=== PATIENT | female | born 1970 | race Caucasian/White ===

== ENCOUNTER → 2017-06-02 | Outpatient (CLI) | payer OTHER ==
--- NOTE | 2017-06-03 14:10 | PE ---
Nuclear medicine PET/CT HISTORY: Small cell lung carcinoma, initial Patient received 15.3 mCi F-18 FDG intravenously in delayed scanning performed from the skull base to the mid thighs. Localization and attenuation correction CT scan was performed. Correlation to chest x-ray 05/30/2017 Neck and chest: There is no evident abnormality within the neck. Retrocaval pretracheal hilar and rig ht adenopathy is noted with SUV 14.9, there is mass effect on the right mainstem bronchus which is oc cluded over a short segment. Some atelectatic change suspected in the right middle lobe, extension of soft tissue into the right middle lobe and right upper lobe, right lower lobe. Associated hypermetab olic uptake is present, SUV is 19. Left lung is clear. There are coronary artery calcifications. The heart is enlarged. Abdomen pelvis: No suspicious hypermetabolic uptake. No evident adrenal mass or retroperitoneal adeno larissa. Osseous structures unremarkable. IMPRESSION: Findings compatible with patient's history of lung carcinoma as described. Additional fin dings above.
== END ==
LOC: RADPETMAIN 06:55
PROVIDERS: ATTEND Internal Medicine Critical Care Medicine
DX: C34.90 Malignant neoplasm of unspecified part of unspecified bronchus or lung (principal)
CPT/HCPCS: 78815; A9552

== ENCOUNTER → 2017-06-04 | Outpatient (CLI) | payer BC, OTHER ==
--- NOTE | 2017-06-04 23:13 | MR ---
EXAMINATION TYPE: MR brain wo/w con DATE OF EXAM: 06/04/2017 COMPARISON: NONE HISTORY: Hx of Lung CA small cell, staging study. TECHNIQUE: Multiplanar, multisequence images of the brain and brainstem is performed without and with IV contras t, utilizing 4.5 mL intravenous Gadavist . FINDINGS: Diffusion weighted images demonstrate no evidence of a recent infarct or other diffusion ab normality. There is mild ventricular and sulcal prominence over bilateral frontal lobes consistent w ith mild symmetric atrophy at this level. There are few scattered foci of T2 hyperintensity seen thro ughout the white matter bilaterally. Estimate approximately 10 small scattered lesions. There is slig htly more suspicious larger 10 x 7 mm lesion left frontal deep white matter at level of barriga radiat a on axial image 19, no suspicious enhancement is seen. Midline structures demonstrate normal morphology. The craniocervical junction appears within normal limits. Post contrast images demonstrate no abnormal enhancement. The dural venous sinuses appear pa tent. The visualized sinuses are clear and the globes are intact. IMPRESSION: 1. No suspicious enhancing intraparenchymal lesions are seen to suggest metastatic disease. 2. Symmetric mild bilateral frontal lobe atrophy with mild nonspecific white matter changes including single dominant lesion left frontal coronal radiata. Etiology uncertain. Lack of enhancement makes m etastatic disease extremely unlikely.
== END | disposition home or self-care (01) ==
LOC: RADMRIMAIN 18:18
PROVIDERS: ATTEND Internal Medicine Hematology & Oncology
DX: C34.91 Malignant neoplasm of unspecified part of right bronchus or lung (principal); R90.82 White matter disease, unspecified; G31.9 Degenerative disease of nervous system, unspecified
CPT/HCPCS: 70553; A9581

== ENCOUNTER → 2017-08-27 | Outpatient (CLI) | payer BC ==
[2017-08-27 09:06] LABS: Blood Urea Nitrogen 14 mg/dL (7-17)
--- NOTE | 2017-08-27 09:56 | CT ---
EXAMINATION TYPE: CT chest w con DATE OF EXAM: 08/27/2017 COMPARISON: PET/CT dated 06/02/2017 HISTORY: Lung CA follow-up Automated exposure control for dose reduction was used. CONTRAST: Contrast enhanced CT of the chest was performed with lung and mediastinal window settings submitted. 100 cc of Omnipaque 300 was utilized. FINDINGS: LUNGS: Dramatic improvement in right suprahilar mass with persistent nodule now measuring 1.6 cm. The re is right hilar adenopathy measuring 2.6 x 2.5 cm also dramatically improved. No new masses or new areas of adenopathy appreciated. MEDIASTINUM: There are no greater than 1 cm hilar or mediastinal lymph nodes. No pericardial effusi on is seen. Thoracic aorta is of normal caliber. The heart is not enlarged. UPPER ABDOMEN: There is partially imaged peripherally enhancing mass posterior segment right hepatic lobe measuring 3.0 x 2.0 cm. While this could reflect hemangioma I cannot exclude metastatic disease. Dedicated hemangioma protocol CT of the liver is advised. OTHER: No additional significant abnormality is seen. IMPRESSION: 1. Dramatic improvement in right hilar mass and right hilar adenopathy as discussed above. 2 hemangioma versus metastatic lesion within the posterior segment right hepatic lobe. Dedicated marianela ngioma protocol CT of the liver is recommended if this has not been performed previously.
== END | disposition home or self-care (01) ==
LOC: RADCTMAIN 08:29
PROVIDERS: ATTEND Internal Medicine Hematology & Oncology
DX: C34.91 Malignant neoplasm of unspecified part of right bronchus or lung (principal); R91.8 Other nonspecific abnormal finding of lung field
CPT/HCPCS: 82565; 84520; 71260; 36415; Q9967

== ENCOUNTER 2017-08-30 11:09 | Inpatient (IN) | payer BC ==
[2017-08-30] MEDS ORDERED: MORPHINE SULFATE 4 MG/ML SYRINGE IVP STA (11:28)
[2017-08-30] MEDS ORDERED: SODIUM CHLORIDE 0.9% 1,000 ML IV ONE (11:28)
--- NOTE | 2017-08-30 11:31 | ED ---
General Adult HPI - General Chief complaint: Recheck/Abnormal Lab/Rx Stated complaint: Dehydration-ca pt Time Seen by Provider: 08/30/17 11:23 Source: patient, RN notes reviewed, old records reviewed Mode of arrival: ambulatory Limitations: no limitations - History of Present Illness Initial comments: 47-year-old female with history of small cell lung cancer presents for evaluation of dehydration. Patient has been on chemotherapy, last session was approximately one week ago. She has had some nausea and pain with swallowing. She is also receiving radiation therapy. Because of the pain with swallowing she has not been eating or taking her pain medication. She feels she is dehydrated. She denies any abdominal pain. Denies difficulty breathing. Denies fever or chills. Denies dysuria. She is concerned about her electrolytes. Next chemotherapy is scheduled for approximately 2 weeks. - Related Data Home Medications Medication Instructions Recorded Confirmed Albuterol Inhaler [Ventolin Hfa 1 - 2 puff INHALATION Q6HR PRN 06/18/17 08/30/17 Inhaler] Ipratropium-Albuterol Nebulize 3 ml INHALATION RT-BID PRN 06/18/17 08/30/17 [Duoneb 0.5 mg-3 mg/3 ml Soln] Levothyroxine Sodium [Synthroid] 25 mcg PO DAILY 06/18/17 08/30/17 Lisinopril [Prinivil] 20 mg PO DAILY 06/18/17 08/30/17 Mometasone/Formoterol [Dulera 100 2 puff INHALATION RT-BID 06/18/17 08/30/17 Mcg/5 Mcg Inhaler] Umeclidinium [place] [Incruse 1 puff INHALATION RT-DAILY 06/18/17 08/30/17 Ellipta] amLODIPine [Norvasc] 5 mg PO DAILY 06/18/17 08/30/17 Ergocalciferol (Vitamin D2) 50,000 tab PO FR 07/09/17 08/30/17 [Vitamin D2] Dexamethasone 8 mg PO DIRECTED 07/10/17 08/30/17 Montelukast [Singulair] 10 mg PO DAILY 07/10/17 08/30/17 Hydrocodone/Acetaminophen [Hycet 15 - 25 ml PO ACHS PRN 08/30/17 08/30/17 7.5 mg-325 mg/15 ml Soln] LORazepam [Ativan] 0.5 mg PO Q8H PRN 08/30/17 08/30/17 Lidocaine Viscous 2% [Xylocaine 15 - 20 ml MUCOUS MEM ACHS PRN 08/30/17 08/30/17 Viscous] Magnesium Oxide [Mag-Ox] 400 mg PO TID 08/30/17 08/30/17 Ondansetron [Zofran ODT] 4 mg PO Q8HR PRN 08/30/17 08/30/17 fentaNYL [Duragesic 25MCG/HR] 1 patch TRANSDERM Q72H 08/30/17 08/30/17 Allergies Allergy/AdvReac Type Severity Reaction Status Date / Time infliximab [From Remicade] Allergy Severe Anaphylaxis Verified 08/30/17 12:13 Review of Systems ROS Statement: Those systems with pertinent positive or pertinent negative responses have been documented in the HPI. ROS Other: All systems not noted in ROS Statement are negative. Past Medical History Past Medical History: Hypertension, Pneumonia, Thyroid Disorder Additional Past Medical History / Comment(s): 06/08 lung cancer History of Any Multi-Drug Resistant Organisms: None Reported Additional Past Surgical History / Comment(s): ganglion cyst, pylonidal cyst, 2017bronch Past Anesthesia/Blood Transfusion Reactions: No Reported Reaction Past Psychological History: Anxiety Smoking Status: Former smoker Past Alcohol Use History: None Reported Past Drug Use History: None Reported General Exam Limitations: no limitations General appearance: alert, in no apparent distress Head exam: Present: atraumatic, normocephalic Eye exam: Present: normal appearance, PERRL ENT exam: Present: mucous membranes dry Neck exam: Present: normal inspection. Absent: tenderness, meningismus Respiratory exam: Present: normal lung sounds bilaterally. Absent: respiratory distress, wheezes Cardiovascular Exam: Present: normal rhythm, tachycardia GI/Abdominal exam: Present: soft. Absent: distended, tenderness, guarding, rebound Extremities exam: Present: normal inspection, normal capillary refill. Absent: pedal edema Neurological exam: Present: alert, oriented X3, CN II-XII intact. Absent: motor sensory deficit Psychiatric exam: Present: normal affect, normal mood Skin exam: Present: warm, dry, intact. Absent: cyanosis, diaphoretic Course Vital Signs 08/30/17 11:12 Temperature 98.7 F Pulse Rate 126 H Respiratory 18 Rate Blood Pressure 112/66 O2 Sat by Pulse 100 Oximetry - Reevaluation(s) Reevaluation #1: 08/30/17 13:05 On reevaluation, patient is still having continued pain, unable to tolerate liquids. Medical Decision Making - Medical Decision Making 47-year-old female history of lung cancer presenting with dehydration, pain with swallowing and inability to tolerate anything by mouth. On examination patient is tachycardic, she is dehydrated. Laboratory studies are obtained, there is leukopenia, she is 8 days status post chemotherapy. total White blood cell count 700. She is afebrile. Magnesium is low at 1.2. No other electrolyte abnormalities. Magnesium is replaced. Patient will be admitted for continued IV hydration magnesium replacement and treatment of her pain. Oncology placed on consult for evaluation of leukopenia. - Lab Data Result diagrams: 08/30/17 11:43 08/30/17 11:43 Lab Results 08/30/17 08/30/17 Range/Units 11:43 11:43 WBC 0.7 L* (3.8-10.6) k/uL RBC 2.93 L (3.80-5.40) m/uL Hgb 8.9 L D (11.4-16.0) gm/dL Hct 26.2 L (34.0-46.0) % MCV 89.7 (80.0-100.0) fL MCH 30.3 (25.0-35.0) pg MCHC 33.8 (31.0-37.0) g/dL RDW 15.3 (11.5-15.5) % Plt Count 65 L D (150-450) k/uL Differential Comment Manual Slide Review Performed Poikilocytosis Slight Sodium 139 (137-145) mmol/L Potassium 3.9 (3.5-5.1) mmol/L Chloride 101 (98-107) mmol/L Carbon Dioxide 25 (22-30) mmol/L Anion Gap 13 mmol/L BUN 11 (7-17) mg/dL Creatinine 0.90 (0.52-1.04) mg/dL Est GFR (MDRD) Af Amer >60 (>60 ml/min/1.73 sqM) Est GFR (MDRD) Non-Af >60 (>60 ml/min/1.73 sqM) Glucose 101 H (74-99) mg/dL Calcium 9.2 (8.4-10.2) mg/dL Magnesium 1.2 L (1.6-2.3) mg/dL Total Bilirubin 0.7 (0.2-1.3) mg/dL AST 13 L (14-36) U/L ALT 15 (9-52) U/L Alkaline Phosphatase 72 (38-126) U/L Total Protein 6.7 (6.3-8.2) g/dL Albumin 4.0 (3.5-5.0) g/dL Disposition Clinical Impression: Dehydration, Hypomagnesemia Disposition: ADMITTED IP TO THIS [facility] Condition: Stable Referrals: Soni Mckenzie DO [Primary Care Provider] - 1-2 days Decision to Admit Reason: Admit from EC Decision Date: 08/30/17 Decision Time: 13:07
[2017-08-30 11:59] LABS: HCT 26.2 % (34.0-46.0); MCH 30.3 pg (25.0-35.0); MCHC 33.8 g/dL (31.0-37.0); MCV 89.7 fL (80.0-100.0); Mean Platelet Volume 7.6; Poikilocytosis Slight; RBC 2.93 m/uL (3.80-5.40); RDW 15.3 % (11.5-15.5)
[2017-08-30 12:04] LABS: ALT 15 U/L (9-52); AST 13 U/L (14-36); Alkaline Phosphatase 72 U/L (38-126); Anion Gap 13 mmol/L; Blood Urea Nitrogen 11 mg/dL (7-17); Calcium 9.2 mg/dL (8.4-10.2); Carbon Dioxide 25 mmol/L (22-30); Chloride 101 mmol/L (98-107); Glucose 101 mg/dL (74-99); Magnesium 1.2 mg/dL (1.6-2.3); Potassium 3.9 mmol/L (3.5-5.1); Sodium 139 mmol/L (137-145); Total Bilirubin 0.7 mg/dL (0.2-1.3); Total Protein 6.7 g/dL (6.3-8.2)
[2017-08-30 12:19] LABS: HGB 8.9 gm/dL (11.4-16.0); WBC 0.7 k/uL (3.8-10.6)
[2017-08-30 12:56] LABS: Platelet Count 65 k/uL (150-450)
[2017-08-30] MEDS ORDERED: NALOXONE 0.4 MG/ML 1 ML VIAL IV PRN (13:03)
[2017-08-30] MEDS ORDERED: MORPHINE SULFATE 4 MG/ML SYRINGE IV PRN (13:03)
[2017-08-30] MEDS ORDERED: HYDROmorphone 4 MG/ML 1 ML SYRINGE IVP PRN (13:03)
[2017-08-30] MEDS: MAGNESIUM SULFATE-D5W PMX 1 GM in DEXTROSE/WATER 1 100ML.BAG IVPB SCH ×2 (13:49→16:37)
[2017-08-30] MEDS: HYDROmorphone 4 MG/ML 1 ML SYRINGE IVP PRN ×2 (15:14→19:21)
[2017-08-30] MEDS ORDERED: HYDROmorphone 0.5 MG/0.5 ML SYRINGE IVP PRN (20:41)
[2017-08-30] MEDS ORDERED: LIDOCAINE VISCOUS 2% 15 ML CUP MUCOUS MEM SCH (22:00)
[2017-08-30] MEDS: SUCRALFATE 1 GM TAB PO SCH (22:13)
[2017-08-30] MEDS: HYDROmorphone 0.5 MG/0.5 ML SYRINGE IVP PRN (22:14)
--- NOTE | 2017-08-30 23:35 | P.CONS ---
History of Present Illness - Reason for Consult Consult date: 08/30/17 chemotherapy, leukopenia Requesting physician: Erasmo Robert - Chief Complaint Inability to swallow, dizziness - History of Present Illness Mrs. Montelongo is a very pleasant female pt of Dr. Osuna who presented with persistent cough and dyspnea that had started around October 2016, she was treated with multiple courses of antibiotics and steroids but without resolve, she had CXR done April 2017 that revealed a persistent right lung mass, CT revealed 6 cm RML mass, 6mm lesion in RUL and small pericardial effusion , 05/21/17 she had bronchoscopy revealing obstructing lesion in RUL, transbronchial biopsy was positive for small cell lung carcinoma, brain MRI was negative for mets, staging PET was positive in RML, RUL and hilar LN, limited stage IIB, concurrent chemo/RT was recommended. She had 1 cycle of cisplatin and etoposide 06/18, started concurrent radiation with cycle#2 on 07/09/2017, ciplatin was D/C'd after 3 cycles due to tinnitus and changed to carboplatin, she has had 4 of 6 planned cycles of chemo, she is done with radiation. Pt came to ER because she cannot eat or drink x 1 week, she was feeling more dizzy and progressively weaker, she has odynophagia without dysphagia, some liquids are tolerable in very small amounts, the pain starts in the middle of her neck and goes to the epigastric area and radiates to right a little, it is there anytime she swallows, she can manage her secretions, she has vomited a few times, denies hematemesis. She has not had fever, denies oral irritation, SOB, new cough, abd pain, bloating, dysuria, hematuria, diarrhea, she cannot remember her last BM but, thinks it has been a few days, no BLE swelling or pain , her psoriasis is stable, the radiation burn on her back is being treated with topical antimicrobials. Review of Systems 10 point ROS as stated in HPI Past Medical History Past Medical History: Cancer, Hypertension, Pneumonia, Thyroid Disorder Additional Past Medical History / Comment(s): 06/08 small cell lung cancer undergoing chemotherapy (last one 8 days ago) and radiation therapy (last one 08/27/17), pneumonia once in April 2017, pt states she is perimenopausal-last menses months ago. History of Any Multi-Drug Resistant Organisms: None Reported Additional Past Surgical History / Comment(s): Bronchoscopy with bx, EGD, R wrist ganglion cyst, pilonidal cyst Past Anesthesia/Blood Transfusion Reactions: Postoperative Nausea & Vomiting ( PONV) Past Psychological History: No Psychological Hx Reported Additional Psychological History / Comment(s): Pt resides with her spouse. She uses no assistive device. She has not been driving lately, spouse or her mother takes her to [employer]. Smoking Status: Former smoker Past Alcohol Use History: None Reported Additional Past Alcohol Use History / Comment(s): Pt started smoking in 1979 and quit 06/14/17. Past Drug Use History: None Reported - Past Family History Father Family Medical History: CVA/TIA Additional Family Medical History / Comment(s): Father of a CVA at the age of 60 yrs. Strokes run strongly on his side of the family. Mother Family Medical History: No Reported History Additional Family Medical History / Comment(s): Mother is healthy. Medications and Allergies Home Medications Medication Instructions Recorded Confirmed Type Albuterol Inhaler [Ventolin Hfa 1 - 2 puff INHALATION Q6HR PRN 06/18/17 History Inhaler] Ipratropium-Albuterol Nebulize 3 ml INHALATION RT-BID PRN 06/18/17 08/30/17 History [Duoneb 0.5 mg-3 mg/3 ml Soln] Levothyroxine Sodium [Synthroid] 25 mcg PO DAILY 06/18/17 08/30/17 History Lisinopril [Prinivil] 20 mg PO DAILY 06/18/17 08/30/17 History Mometasone/Formoterol [Dulera 100 2 puff INHALATION RT-BID 06/18/17 08/30/17 History Mcg/5 Mcg Inhaler] Umeclidinium [place] [Incruse 1 puff INHALATION RT-DAILY 06/18/17 08/30/17 History Ellipta] amLODIPine [Norvasc] 5 mg PO DAILY 06/18/17 08/30/17 History Ergocalciferol (Vitamin D2) 50,000 tab PO FR 07/09/17 08/30/17 History [Vitamin D2] Dexamethasone 8 mg PO DIRECTED 07/10/17 08/30/17 History Montelukast [Singulair] 10 mg PO DAILY 07/10/17 08/30/17 History Hydrocodone/Acetaminophen [Hycet 15 - 25 ml PO ACHS PRN 08/30/17 08/30/17 History 7.5 mg-325 mg/15 ml Soln] LORazepam [Ativan] 0.5 mg PO Q8H PRN 08/30/17 08/30/17 History Lidocaine Viscous 2% [Xylocaine 15 - 20 ml MUCOUS MEM ACHS PRN 08/30/17 History Viscous] Magnesium Oxide [Mag-Ox] 400 mg PO TID 08/30/17 08/30/17 History Ondansetron [Zofran ODT] 4 mg PO Q8HR PRN 08/30/17 08/30/17 History fentaNYL [Duragesic 25MCG/HR] 1 patch TRANSDERM Q72H 08/30/17 08/30/17 History Allergies Allergy/AdvReac Type Severity Reaction Status Date / Time infliximab [From Remicade] Allergy Severe Anaphylaxis Verified 08/30/17 12:13 Physical Exam Vitals: Vital Signs Temp Pulse Pulse Resp BP BP Pulse Ox 08/30/17 20:23 100 18 126/70 08/30/17 15:00 98.5 F 97 18 126/61 100 08/30/17 13:54 96 16 143/83 100 08/30/17 11:12 98.7 F 126 H 18 112/66 100 Intake and Output 08/30/17 08/30/17 08/31/17 14:59 22:59 06:59 Other: Weight 85.275 kg Patient Weight 08/31/17 06:59 Weight 85.275 kg - Constitutional General appearance: cooperative, mild distress, obese - EENT Eyes: anicteric sclerae, EOMI, normal appearance ENT: hearing grossly normal, normal oropharynx - Neck Neck: no lymphadenopathy - Respiratory chest expansion symmetrical Respiratory: bilateral: diminished - Cardiovascular Rhythm: regular Heart sounds: normal: S1, S2 Abnormal Heart Sounds: no systolic murmur, no diastolic murmur, no rub, no S3 Gallop, no S4 Gallop, no click, no other leg Peripheral Edema: bilateral: None - Gastrointestinal no rebound in the abd General gastrointestinal: no absent bowel sounds, no decreased bowel sounds, no distended, no hepatomegaly, no hyperactive bowel sounds, normal bowel sounds, no organomegaly, no rigid, no scaphoid, soft, no splenomegaly, no tenderness, no umbilical hernia, no ventral hernia - Integumentary Right subscapular area radiation burn, epidermal layer deep, red, tight, no purulent drainage or bleeding. She does has multiple psoriatic lesions on her arms, this is not new or progressive at this time - Neurologic Neurologic: CNII-XII intact - Musculoskeletal Musculoskeletal: strength equal bilaterally - Psychiatric Psychiatric: A&O x's 3, appropriate affect, intact judgment & insight Results CBC & Chem 7: 08/30/17 11:43 08/30/17 11:43 Labs: Abnormal Lab Results - Last 24 Hours (Table) 08/30/17 08/30/17 Range/Units 11:43 11:43 WBC 0.7 L* (3.8-10.6) k/uL RBC 2.93 L (3.80-5.40) m/uL Hgb 8.9 L D (11.4-16.0) gm/dL Hct 26.2 L (34.0-46.0) % Plt Count 65 L D (150-450) k/uL Glucose 101 H (74-99) mg/dL Magnesium 1.2 L (1.6-2.3) mg/dL AST 13 L (14-36) U/L Assessment and Plan (1) Radiation esophagitis Narrative/Plan: Carafate ordered to coat esophagus, viscous lidocaine PRN with liquids for tolerance, clear liquid diet. Current Visit: Yes Status: Acute Priority: High Code(s): K20.8 - OTHER ESOPHAGITIS SNOMED Code(s): 227179619 (2) Antineoplastic chemotherapy induced pancytopenia Narrative/Plan: GCSF ordered for neutropenia No blood or platelet transfusions needed CBC daily Current Visit: Yes Status: Acute Priority: High Code(s): D61.810 - ANTINEOPLASTIC CHEMOTHERAPY INDUCED PANCYTOPENIA; T45.1X5A - ADVERSE EFFECT OF ANTINEOPLASTIC AND IMMUNOSUP DRUGS, INIT SNOMED Code(s): 617758935585202 (3) Dehydration Narrative/Plan: Cont IVF Current Visit: Yes Status: Acute Priority: High Code(s): E86.0 - DEHYDRATION SNOMED Code(s): 88375352 (4) Hypomagnesemia Narrative/Plan: Magnesium replacement protocol Current Visit: Yes Status: Acute Priority: High Code(s): E83.42 - HYPOMAGNESEMIA SNOMED Code(s): 857010727 (5) Small cell lung cancer Narrative/Plan: She is currently in treatment. It will continue on discharge. Current Visit: Yes Status: Acute Priority: High Code(s): C34.90 - MALIGNANT NEOPLASM OF UNSP PART OF UNSP BRONCHUS OR LUNG SNOMED Code(s): 457519255 (6) Radiation dermatitis Narrative/Plan: Topical treatments as recommended by Radiation Oncology Current Visit: Yes Status: Acute Priority: High Code(s): L58.9 - RADIODERMATITIS, UNSPECIFIED SNOMED Code(s): 75269108
[2017-08-30] MEDS: FILGRASTIM-SNDZ 480 MCG/0.8 ML SYRINGE SQ SCH (23:58)
[2017-08-31] MEDS: HYDROmorphone 0.5 MG/0.5 ML SYRINGE IVP PRN ×5 (01:42→20:01)
[2017-08-31] MEDS: LIDOCAINE VISCOUS 2% 15 ML CUP MUCOUS MEM PRN ×2 (08:52→17:43)
[2017-08-31] MEDS: SUCRALFATE 1 GM TAB PO SCH ×4 (08:54→22:46)
[2017-08-31] MEDS: LORazepam 2 MG/ML INJ IV PRN ×3 (09:04→22:47)
[2017-08-31] MEDS ORDERED: IPRATROPIUM-ALBUTEROL 3 ML NEB INHALATION PRN (09:39)
[2017-08-31] MEDS ORDERED: ONDANSETRON ODT 4 MG TAB PO PRN (09:39)
[2017-08-31] MEDS ORDERED: LIDOCAINE VISCOUS 2% 15 ML CUP MUCOUS MEM PRN (09:39)
[2017-08-31] MEDS ORDERED: ALBUTEROL NEBULIZED 2.5 MG/3 ML INHALATION PRN (09:39)
[2017-08-31] MEDS: ERGOCALCIFEROL 50,000 UNIT CAP PO SCH (10:13)
[2017-08-31] MEDS: LISINOPRIL 20 MG TAB PO SCH (10:13)
[2017-08-31] MEDS: MONTELUKAST 10 MG TAB PO SCH (10:13)
[2017-08-31] MEDS: NYSTATIN 100,000 UNIT/ML SUSP 500,000 UNIT/5 ML CUP PO SCH ×4 (10:13→22:47)
[2017-08-31] MEDS: MAGNESIUM OXIDE 400 MG TAB PO SCH ×3 (10:13→22:47)
[2017-08-31] MEDS: amLODIPine 5 MG TAB PO SCH (10:13)
[2017-08-31] MEDS: LEVOTHYROXINE 25 MCG TAB PO SCH (10:13)
[2017-08-31] MEDS: FILGRASTIM-SNDZ 480 MCG/0.8 ML SYRINGE SQ SCH (11:15)
[2017-08-31 11:27] VITALS: BMI 34.4
[2017-08-31] MEDS: IPRATROPIUM 0.5 MG/2.5 ML NEBU INHALATION SCH ×3 (12:09→21:17)
--- NOTE | 2017-08-31 13:44 | P.CNPUL ---
History of Present Illness Consult date: 08/31/17 Requesting physician: Katty Garay Reason for consult: other Chief complaint: Nausea, vomiting, dehydration. History of present illness: Karmen is a 47-year-old white female patient with a recent diagnosis of small cell lung cancer TNM stage IIB, that was diagnosed in April [address] showed a 5.8 x 5.3 cm right hilar mass with postobstructive pneumonitis involving the right middle lobe and the right upper lobe. Another 6 mm satellite lesion in the anterior segment of the right upper lobe was also seen. There was attenuation of the right upper lobe bronchus.. She had of bronchoscopy at the [facility] by Dr. Osorio, which revealed evidence of obstruction of the posterior and the anterior segment of the right upper lobe with evidence of endobronchial tumor. Endobronchial biopsies were done, and the pathology was consistent with small cell lung cancer. Staging PET scan from 06/02/2017 showed retrocaval pretracheal hilar and right adenopathy with SUV 14.9, there was mass effect on the right mainstem bronchus which was occluded over a short segments. Some atelectatic change in the right middle lobe, extension of soft tissue into the right middle lobe and right upper lobe, right lower lobe. Associated hypermetabolic uptake was present, SUV is 19. Left lung was clear. MRI brain from 06/04/2017 is negative for evidence of metastasis. Patient completed her radiation treatments and she has received 4 cycles of chemotherapy, initially with cisplatin and etoposide. After the last cycle of chemotherapy, due to significant ringing in the ears, the cisplatin was discontinued and was changed over to carboplatin. Patient developed significant nausea and vomiting with the last cycle of chemotherapy. She has not been able to eat or drink for a week. She is complaining of significant dizziness and lightheadedness and progressive weakness, as well as painful swallowing. She denied any fever or chills, denied any shortness of breath, denied any coughing, chest congestion or sputum production. She denies any diarrhea, she actually hasn't had a bowel movement in a few days due to decreased oral intake. She also has not been able to take her pain medications due to swallowing issues. Her last chemotherapy was about a week ago. She is also complaining of significant discomfort from a radiation burn on her right posterior chest area, and the area is an open draining per superficial wound, which is currently covered with a dressing. Lab work showed significant leukopenia, with a WBC of 0.7, hemoglobin of 8.9, platelet count of 65, electrolytes were within normal limits , with sodium of 139, potassium is 3.9, chloride is 101, BUN of 11, creatinine 0.90, magnesium was 1.2. Patient was given a liter of 0.9 normal saline IV bolus, started on a maintenance IV fluids of 0.9 normal saline at 50 ML per hour. She is receiving oral lidocaine for mouth and throat pain. Patient was started on nebulized treatments, patient does have an underlying history of COPD , her PFT done at the office showed a FEV1 of 45% of predicted, this is consistent with severe obstructive airway disease. Patient is a former smoker. Her maintenance COPD medications include Dulera 200/5 bj inhaler twice a day , Incruse Ellipta 62.5 mics inhaler daily, DuoNeb nebulized treatments, Singulair and pro-air inhaler on as-needed basis. Review of Systems All systems: negative Constitutional: Reports fatigue, Reports poor appetite, Reports weakness, Reports weight loss, Denies chills, Denies fever Eyes: denies blurred vision, denies pain Ears, nose, mouth and throat: Reports odynophagia, Reports sore throat, Denies headache Cardiovascular: Denies chest pain, Denies shortness of breath Respiratory: Denies cough Gastrointestinal: Denies abdominal pain, Denies diarrhea, Denies nausea, Denies vomiting Genitourinary: Denies dysuria, Denies hematuria Musculoskeletal: Denies myalgias Integumentary: Denies pruritus, Denies rash Neurological: Denies numbness, Denies weakness Psychiatric: Denies anxiety, Denies depression Endocrine: Denies fatigue, Denies weight change Past Medical History Past Medical History: Cancer, Hypertension, Pneumonia, Thyroid Disorder Additional Past Medical History / Comment(s): 06/08 small cell lung cancer undergoing chemotherapy (last one 8 days ago) and radiation therapy (last one 08/27/17), pneumonia once in April 2017, pt states she is perimenopausal-last menses months ago. History of Any Multi-Drug Resistant Organisms: None Reported Additional Past Surgical History / Comment(s): Bronchoscopy with bx, EGD, R wrist ganglion cyst, pilonidal cyst Past Anesthesia/Blood Transfusion Reactions: Postoperative Nausea & Vomiting ( PONV) Past Psychological History: No Psychological Hx Reported Additional Psychological History / Comment(s): Pt resides with her spouse. She uses no assistive device. She has not been driving lately, spouse or her mother takes her to [employer]. Smoking Status: Former smoker Past Alcohol Use History: None Reported Additional Past Alcohol Use History / Comment(s): Pt started smoking in 1979 and quit 06/14/17. Past Drug Use History: None Reported - Past Family History Father Family Medical History: CVA/TIA Additional Family Medical History / Comment(s): Father of a CVA at the age of 60 yrs. Strokes run strongly on his side of the family. Mother Family Medical History: No Reported History Additional Family Medical History / Comment(s): Mother is healthy. Medications and Allergies Home Medications Medication Instructions Recorded Confirmed Type Albuterol Inhaler [Ventolin Hfa 1 - 2 puff INHALATION Q6HR PRN 06/18/17 History Inhaler] Ipratropium-Albuterol Nebulize 3 ml INHALATION RT-BID PRN 06/18/17 08/30/17 History [Duoneb 0.5 mg-3 mg/3 ml Soln] Levothyroxine Sodium [Synthroid] 25 mcg PO DAILY 06/18/17 08/30/17 History Lisinopril [Prinivil] 20 mg PO DAILY 06/18/17 08/30/17 History Mometasone/Formoterol [Dulera 100 2 puff INHALATION RT-BID 06/18/17 08/30/17 History Mcg/5 Mcg Inhaler] Umeclidinium [place] [Incruse 1 puff INHALATION RT-DAILY 06/18/17 08/30/17 History Ellipta] amLODIPine [Norvasc] 5 mg PO DAILY 06/18/17 08/30/17 History Ergocalciferol (Vitamin D2) 50,000 tab PO FR 07/09/17 08/30/17 History [Vitamin D2] Dexamethasone 8 mg PO DIRECTED 07/10/17 08/30/17 History Montelukast [Singulair] 10 mg PO DAILY 07/10/17 08/30/17 History Hydrocodone/Acetaminophen [Hycet 15 - 25 ml PO ACHS PRN 08/30/17 08/30/17 History 7.5 mg-325 mg/15 ml Soln] LORazepam [Ativan] 0.5 mg PO Q8H PRN 08/30/17 08/30/17 History Lidocaine Viscous 2% [Xylocaine 15 - 20 ml MUCOUS MEM ACHS PRN 08/30/17 History Viscous] Magnesium Oxide [Mag-Ox] 400 mg PO TID 08/30/17 08/30/17 History Ondansetron [Zofran ODT] 4 mg PO Q8HR PRN 08/30/17 08/30/17 History fentaNYL [Duragesic 25MCG/HR] 1 patch TRANSDERM Q72H 08/30/17 08/30/17 History Allergies Allergy/AdvReac Type Severity Reaction Status Date / Time infliximab [From Remicade] Allergy Severe Anaphylaxis Verified 08/30/17 12:13 Physical Exam Vitals: Vital Signs Temp Pulse Pulse Resp BP BP Pulse Ox 08/31/17 12:10 76 08/31/17 12:00 77 08/31/17 08:00 16 08/31/17 07:00 98.8 F 98 16 139/78 98 08/30/17 20:23 100 18 126/70 08/30/17 15:00 98.5 F 97 18 126/61 100 08/30/17 13:54 96 16 143/83 100 Intake and Output 08/30/17 08/31/17 08/31/17 22:59 06:59 14:59 Intake Total 400 Balance 400 Intake: IV 400 .9 @ 50 400 Other: # Voids 2 2 Weight 85.275 kg Patient Weight 09/01/17 06:59 Weight 85.275 kg GENERAL EXAM: Alert, active, comfortable in no apparent distress. HEAD: Normocephalic/atraumatic. Patient has alopecia EYES: Normal reaction of pupils, equal size. Conjunctiva pink, sclera white. NOSE: Clear with pink turbinates. THROAT: No erythema or exudates. NECK: No masses, no JVD, no thyroid enlargement, no adenopathy. CHEST: No chest wall deformity. Symmetrical expansion. LUNGS: Equal air entry with no crackles, wheeze, rhonchi or dullness. CVS: Regular rate and rhythm, normal S1 and S2, no gallops, no murmurs, no rubs ABDOMEN: Soft, nontender. No hepatosplenomegaly, normal bowel sounds, no guarding or rigidity. EXTREMITIES: No clubbing, no edema, no cyanosis, 2+ pulses and upper and lower extremities. Patient has dark discolorations on her bilateral pretibial area due to history of psoriasis MUSCULOSKELETAL: Muscle strength and tone normal. SPINE: No scoliosis or deformity SKIN: No rashes CENTRAL NERVOUS SYSTEM: Alert and oriented -3. No focal deficits, tone is normal in all 4 extremities. PSYCHIATRIC: Alert and oriented -3. Appropriate affect. Intact judgment and insight. Results - Laboratory Findings CBC and BMP: 08/30/17 11:43 08/30/17 11:43 Abnormal lab findings: Abnormal Labs 08/30/17 08/30/17 11:43 11:43 WBC 0.7 L* RBC 2.93 L Hgb 8.9 L D Hct 26.2 L Plt Count 65 L D Glucose 101 H Magnesium 1.2 L AST 13 L Assessment and Plan Plan: Assessment: #1. Dehydration due to poor oral intake due to significant odynophagia related to radiation esophagitis #2. Radiation esophagitis #3. Squamous cell lung cancer, TNM stage IIb, has completed radiation therapy, is currently receiving chemotherapy. Initially chemotherapy included cisplatin and etoposide, the patient developed significant tinnitis in the cisplatin was changed over to carboplatin #4. Anti-neoplastic chemotherapy induced pancytopenia #5. Hypomagnesemia #6. History of advanced COPD, GOLD stage III, a son FEV1 of 45% of predicted. #7. Obesity #8. Nicotine dependence, currently in remission #9. Hypothyroidism #10. Anxiety Plan: We'll initiate the patient on Symbicort, continue nebulized treatments around the clock, and as needed. Continue Singulair. Continue IV hydration. Patient denies any shortness of breath, cough, wheezing, sputum production or chest wall tenderness. Resume home medications. I performed a history & physical examination of the patient and discussed their management with my nurse practitioner, Danika Cuellar. I reviewed the nurse practitioner's note and agree with the documented findings and plan of care. Lung sounds are positive for clear lung sounds. The findings and the impression was discussed with the patient. I attest to the documentation by the nurse practitioner. Time with Patient: Greater than 30
--- NOTE | 2017-08-31 14:02 | P.HPIM ---
History of Present Illness H&P Date: 08/31/17 Karmen Montelongo is a 47-year-old female with history of small cell lung cancer presents for evaluation of dehydration. Patient has been on chemotherapy , last session was approximately one week ago. She has had some nausea and severe pain with swallowing. She is also receiving radiation therapy. Because of the pain with swallowing she has not been eating or taking her pain medication. She feels she is dehydrated, she is feeling dizzy. She is concerned about her electrolytes. Next chemotherapy is scheduled for approximately 2 weeks. On review of systems there is no fever or chills, no cough, no chest pain or shortness of breath no nausea or vomiting, no abdominal pain and no urinary symptoms Past Medical History Past Medical History: Cancer, Hypertension, Pneumonia, Thyroid Disorder Additional Past Medical History / Comment(s): 06/08 small cell lung cancer undergoing chemotherapy (last one 8 days ago) and radiation therapy (last one 08/27/17), pneumonia once in April 2017, pt states she is perimenopausal-last menses months ago. History of Any Multi-Drug Resistant Organisms: None Reported Additional Past Surgical History / Comment(s): Bronchoscopy with bx, EGD, R wrist ganglion cyst, pilonidal cyst Past Anesthesia/Blood Transfusion Reactions: Postoperative Nausea & Vomiting ( PONV) Past Psychological History: No Psychological Hx Reported Additional Psychological History / Comment(s): Pt resides with her spouse. She uses no assistive device. She has not been driving lately, spouse or her mother takes her to [employer]. Smoking Status: Former smoker Past Alcohol Use History: None Reported Additional Past Alcohol Use History / Comment(s): Pt started smoking in 1979 and quit 06/14/17. Past Drug Use History: None Reported - Past Family History Father Family Medical History: CVA/TIA Additional Family Medical History / Comment(s): Father of a CVA at the age of 60 yrs. Strokes run strongly on his side of the family. Mother Family Medical History: No Reported History Additional Family Medical History / Comment(s): Mother is healthy. Medications and Allergies Home Medications Medication Instructions Recorded Confirmed Type Albuterol Inhaler [Ventolin Hfa 1 - 2 puff INHALATION Q6HR PRN 06/18/17 History Inhaler] Ipratropium-Albuterol Nebulize 3 ml INHALATION RT-BID PRN 06/18/17 08/30/17 History [Duoneb 0.5 mg-3 mg/3 ml Soln] Levothyroxine Sodium [Synthroid] 25 mcg PO DAILY 06/18/17 08/30/17 History Lisinopril [Prinivil] 20 mg PO DAILY 06/18/17 08/30/17 History Mometasone/Formoterol [Dulera 100 2 puff INHALATION RT-BID 06/18/17 08/30/17 History Mcg/5 Mcg Inhaler] Umeclidinium [place] [Incruse 1 puff INHALATION RT-DAILY 06/18/17 08/30/17 History Ellipta] amLODIPine [Norvasc] 5 mg PO DAILY 06/18/17 08/30/17 History Ergocalciferol (Vitamin D2) 50,000 tab PO FR 07/09/17 08/30/17 History [Vitamin D2] Dexamethasone 8 mg PO DIRECTED 07/10/17 08/30/17 History Montelukast [Singulair] 10 mg PO DAILY 07/10/17 08/30/17 History Hydrocodone/Acetaminophen [Hycet 15 - 25 ml PO ACHS PRN 08/30/17 08/30/17 History 7.5 mg-325 mg/15 ml Soln] LORazepam [Ativan] 0.5 mg PO Q8H PRN 08/30/17 08/30/17 History Lidocaine Viscous 2% [Xylocaine 15 - 20 ml MUCOUS MEM ACHS PRN 08/30/17 History Viscous] Magnesium Oxide [Mag-Ox] 400 mg PO TID 08/30/17 08/30/17 History Ondansetron [Zofran ODT] 4 mg PO Q8HR PRN 08/30/17 08/30/17 History fentaNYL [Duragesic 25MCG/HR] 1 patch TRANSDERM Q72H 08/30/17 08/30/17 History Allergies Allergy/AdvReac Type Severity Reaction Status Date / Time infliximab [From Remicade] Allergy Severe Anaphylaxis Verified 08/30/17 12:13 Physical Exam Vitals: Vital Signs Temp Pulse Pulse Resp BP BP Pulse Ox 08/31/17 12:10 76 08/31/17 12:00 77 08/31/17 08:00 16 08/31/17 07:00 98.8 F 98 16 139/78 98 08/30/17 20:23 100 18 126/70 08/30/17 15:00 98.5 F 97 18 126/61 100 08/30/17 13:54 96 16 143/83 100 Intake and Output 08/30/17 08/31/17 08/31/17 22:59 06:59 14:59 Intake Total 400 Balance 400 Intake: IV 400 .9 @ 50 400 Other: # Voids 2 2 Weight 85.275 kg Patient Weight 09/01/17 06:59 Weight 85.275 kg Head normocephalic and atraumatic Neck supple no carotid bruits Lungs clear to auscultation bilaterally no wheezing or crackles Heart regular rate and rhythm S1-S2, no rub or gallop no murmur Abdomen is soft nontender nondistended positive bowel sounds no hepatosplenomegaly Extremities no edema, no cyanosis or clubbing Neuro alert and orientated to 3 Results CBC & Chem 7: 08/30/17 11:43 08/30/17 11:43 Thrombosis Risk Factor Assmnt - Choose All That Apply Any of the Below Risk Factors Present?: Yes Each Factor Represents 1 point: Age 41-60 years, Obesity (BMI >25) Other Risk Factors: Yes Each Risk Factor Represents 2 Points: Malignancy Other congenital or acquired thrombophilia - If yes, enter type in comment: No Thrombosis Risk Factor Assessment Total Risk Factor Score: 4 Thrombosis Risk Factor Assessment Level: Moderate Risk Assessment and Plan Plan: #1. Dehydration due to poor oral intake due pain related to radiation esophagitis #2. Squamous cell lung cancer, TNM stage IIb, has completed radiation therapy, is currently receiving chemotherapy. Initially chemotherapy included cisplatin and etoposide, the patient developed significant tinnitis in the cisplatin was changed over to carboplatin #3 Radiation esophagitis #4. Chemotherapy induced pancytopenia #5. Electrolyte imbalance with hypomagnesemia #6. History of advanced COPD #7. Anxiety #8. Hypothyroidism medication and labs were reviewed Continue with IV [facility] Pain management with IV dilaudid, fentanyl patch, and Viscous Lidocaine Will follow during this hospitalization
[2017-08-31] MEDS ORDERED: NON-FORMULARY DRUG (Mometasone/Formoterol [Dulera 100 Mcg/5 Mcg Inhaler] 2 PUFF) INHALATION SCH (20:00)
[2017-08-31] MEDS: SYMBICORT 160-4.5 MCG INHALER INHALATION SCH (21:17)
--- NOTE | 2017-08-31 23:25 | P.PN ---
Subjective Progress Note Date: 08/31/17 Patient feeling a little better, NO subjective signs of fever, no cough, no SOB. Not moving bowels since Sunday, Positive Flatulence, No Nausea or vomiting. Able to tolerate clear liquids, Pain controlled with current pain regimen Objective - Vital Signs Vital signs: Vital Signs Temp 98.8 F 08/31/17 07:00 Pulse 98 08/31/17 07:00 Resp 16 08/31/17 07:00 BP 139/78 08/31/17 07:00 Pulse Ox 98 08/31/17 07:00 Intake & Output 08/30/17 08/31/17 08/31/17 18:59 06:59 18:59 Intake Total 400 Balance 400 Weight 85.275 kg Intake: IV 400 .9 @ 50 400 Other: # Voids 2 - Constitutional General appearance: Present: no acute distress - EENT Eyes: Present: normal appearance ENT: Present: pharyngeal erythema - Respiratory Details: no increased effort noted Respiratory: bilateral: diminished - Cardiovascular Heart rate: 100 Heart sounds: normal: S1, S2 - Gastrointestinal General gastrointestinal: Present: normal bowel sounds, soft - Neurologic Neurologic Comment(s): no focal defects - Musculoskeletal Musculoskeletal: Present: gait normal - Labs CBC & Chem 7: 08/30/17 11:43 08/30/17 11:43 Labs: Abnormal Lab Results - Last 24 Hours (Table) 08/30/17 08/30/17 Range/Units 11:43 11:43 WBC 0.7 L* (3.8-10.6) k/uL RBC 2.93 L (3.80-5.40) m/uL Hgb 8.9 L D (11.4-16.0) gm/dL Hct 26.2 L (34.0-46.0) % Plt Count 65 L D (150-450) k/uL Glucose 101 H (74-99) mg/dL Magnesium 1.2 L (1.6-2.3) mg/dL AST 13 L (14-36) U/L Assessment and Plan Assessment: Assessment and Plan (1) Radiation esophagitis Narrative/Plan: Carafate coat esophagus, viscous lidocaine PRN with liquids for tolerance, clear liquid diet. If not improving elavil at hs at low dose may be resonable + or - viral coverage Continue IV Hydration Current Visit: Yes Status: Acute Priority: High Code(s): K20.8 - OTHER ESOPHAGITIS SNOMED Code(s): 083071059 (2) Antineoplastic chemotherapy induced pancytopenia Narrative/Plan: Continue GCSF neutropenia. Improvement is expected in the next 2-3 days Monitor for S/S infection - antibiotic coverae if needed Anemia and Thrombocytopenia - No blood or platelet transfusions needed unless PRBC hgb less than 7, platelets less than 10 CBC daily Will add CSF - Neulasta , after next cycle Current Visit: Yes Status: Acute Priority: High Code(s): D61.810 - ANTINEOPLASTIC CHEMOTHERAPY INDUCED PANCYTOPENIA; T45.1X5A - ADVERSE EFFECT OF ANTINEOPLASTIC AND IMMUNOSUP DRUGS, INIT SNOMED Code(s): 184615731210955 (3) Dehydration Narrative/Plan: Cont IVF Current Visit: Yes Status: Acute Priority: High Code(s): E86.0 - DEHYDRATION SNOMED Code(s): 48164701 (4) Hypomagnesemia Narrative/Plan: Magnesium replacement protocol Current Visit: Yes Status: Acute Priority: High Code(s): E83.42 - HYPOMAGNESEMIA SNOMED Code(s): 780756218 (5) Small cell lung cancer Narrative/Plan: She is currently in treatment, s/p 3/4 cycles of chemo, and concurrent RT. Last cycle of chemo will be given post discharge, assumong resolution of acute complaints Current Visit: Yes Status: Acute Priority: High Code(s): C34.90 - MALIGNANT NEOPLASM OF UNSP PART OF UNSP BRONCHUS OR LUNG SNOMED Code(s): 935095106 (6) Radiation dermatitis Narrative/Plan: Topical treatments as recommended by Radiation Oncology Current Visit: Yes Status: Acute Priority: High Code(s): L58.9 - RADIODERMATITIS, UNSPECIFIED SNOMED Code(s): 10512034 ( 7) Odynophagia- Due to chemo/RT induced esophagitis. Tolerating some clear liquids. On carafate. Improvement is expected once WBC recovers (1) Antineoplastic chemotherapy induced pancytopenia Current Visit: Yes Status: Acute Priority: High Code(s): D61.810 - ANTINEOPLASTIC CHEMOTHERAPY INDUCED PANCYTOPENIA; T45.1X5A - ADVERSE EFFECT OF ANTINEOPLASTIC AND IMMUNOSUP DRUGS, INIT SNOMED Code(s): 932642199590527 (2) Dehydration Current Visit: Yes Status: Acute Priority: High Code(s): E86.0 - DEHYDRATION SNOMED Code(s): 05194841 (3) Radiation dermatitis Current Visit: Yes Status: Acute Priority: High Code(s): L58.9 - RADIODERMATITIS, UNSPECIFIED SNOMED Code(s): 03880241 (4) Radiation esophagitis Current Visit: Yes Status: Acute Priority: High Code(s): K20.8 - OTHER ESOPHAGITIS SNOMED Code(s): 515268500 (5) Small cell lung cancer Current Visit: Yes Status: Acute Priority: High Code(s): C34.90 - MALIGNANT NEOPLASM OF UNSP PART OF UNSP BRONCHUS OR LUNG SNOMED Code(s): 006475992
[2017-09-01] MEDS: HYDROmorphone 0.5 MG/0.5 ML SYRINGE IVP PRN ×5 (02:16→20:54)
[2017-09-01] MEDS: LIDOCAINE VISCOUS 2% 15 ML CUP MUCOUS MEM PRN ×3 (06:03→17:22)
[2017-09-01] MEDS: LEVOTHYROXINE 25 MCG TAB PO SCH (06:03)
[2017-09-01] MEDS: LORazepam 2 MG/ML INJ IV PRN ×3 (06:09→19:55)
[2017-09-01] MEDS: MONTELUKAST 10 MG TAB PO SCH (08:05)
[2017-09-01] MEDS: SUCRALFATE 1 GM TAB PO SCH ×4 (08:05→20:50)
[2017-09-01] MEDS: NYSTATIN 100,000 UNIT/ML SUSP 500,000 UNIT/5 ML CUP PO SCH ×4 (08:05→20:50)
[2017-09-01] MEDS: LISINOPRIL 20 MG TAB PO SCH (08:05)
[2017-09-01] MEDS: MAGNESIUM OXIDE 400 MG TAB PO SCH ×3 (08:05→20:50)
[2017-09-01] MEDS: amLODIPine 5 MG TAB PO SCH (08:05)
[2017-09-01] MEDS: IPRATROPIUM 0.5 MG/2.5 ML NEBU INHALATION SCH ×4 (09:15→21:41)
[2017-09-01] MEDS: SYMBICORT 160-4.5 MCG INHALER INHALATION SCH ×2 (09:15→21:41)
[2017-09-01] MEDS ORDERED: SODIUM CHLORIDE 0.9% 1,000 ML IV STA (09:24)
--- NOTE | 2017-09-01 09:37 | P.PN ---
Subjective Progress Note Date: 09/01/17 Karmen Montelongo is a 47-year-old female with history of small cell lung cancer presents for evaluation of dehydration. Patient has been on chemotherapy , last session was approximately one week ago. She has had some nausea and severe pain with swallowing. She is also receiving radiation therapy. Because of the pain with swallowing she has not been eating or taking her pain medication. She feels she is dehydrated, she is feeling dizzy. She is concerned about her electrolytes. Next chemotherapy is scheduled for approximately 2 weeks. On 09/01/2017 Patient is alert alert and oriented in no distress, complaining of severe pain when she tries to eat or drink anything complaining of fatigue otherwise no complaints Objective - Vital Signs Vital signs: Vital Signs Temp 99.1 F 09/01/17 07:00 Pulse 112 H 09/01/17 07:00 Resp 18 09/01/17 07:00 BP 119/78 09/01/17 07:00 Pulse Ox 94 L 09/01/17 07:00 Intake & Output 08/31/17 09/01/17 09/01/17 18:59 06:59 18:59 Intake Total 400 640 Balance 400 640 Weight 85.275 kg Intake: IV 400 40 .9 @ 50 400 saline flush 40 Oral 600 Other: Voiding Method Toilet - Exam Head normocephalic and atraumatic Neck supple no carotid bruits Lungs clear to auscultation bilaterally no wheezing or crackles Heart regular rate and rhythm S1-S2, no rub or gallop no murmur Abdomen is soft nontender nondistended positive bowel sounds no hepatosplenomegaly Extremities no edema, no cyanosis or clubbing Neuro alert and orientated to 3 - Labs CBC & Chem 7: 08/30/17 11:43 08/30/17 11:43 Assessment and Plan Plan: #1. Dehydration due to poor oral intake due pain related to radiation esophagitis, continue with IV fluid #2. Squamous cell lung cancer, TNM stage IIb, has completed radiation therapy, is currently receiving chemotherapy. Initially chemotherapy included cisplatin and etoposide, the patient developed significant tinnitis in the cisplatin was changed over to carboplatin #3 Radiation esophagitis #4. Chemotherapy induced pancytopenia #5. Electrolyte imbalance with hypomagnesemia #6. History of advanced COPD #7. Anxiety #8. Hypothyroidism medication and labs were reviewed Continue with IV hydration started by hematology on [facility] subcu for pancytopenia Pain management with IV dilaudid, fentanyl patch, and Viscous Lidocaine Will follow during this hospitalization
[2017-09-01 10:01] LABS: MCH 30.1 pg (25.0-35.0); MCHC 33.7 g/dL (31.0-37.0); MCV 89.3 fL (80.0-100.0); Mean Platelet Volume 9.5; Poikilocytosis Slight; RBC 2.11 m/uL (3.80-5.40); RDW 15.3 % (11.5-15.5)
[2017-09-01 10:17] LABS: WBC 0.4 k/uL (3.8-10.6)
[2017-09-01 10:18] LABS: HCT 18.8 % (34.0-46.0); HGB 6.3 gm/dL (11.4-16.0); Platelet Count 14 k/uL (150-450)
[2017-09-01] MEDS: FILGRASTIM-SNDZ 480 MCG/0.8 ML SYRINGE SQ SCH (10:20)
[2017-09-01 10:31] LABS: ALT 18 U/L (9-52); AST 8 U/L (14-36); Alkaline Phosphatase 63 U/L (38-126); Anion Gap 7 mmol/L; Blood Urea Nitrogen 7 mg/dL (7-17); Calcium 8.9 mg/dL (8.4-10.2); Carbon Dioxide 28 mmol/L (22-30); Chloride 102 mmol/L (98-107); Glucose 93 mg/dL (74-99); Potassium 3.9 mmol/L (3.5-5.1); Sodium 137 mmol/L (137-145); Total Bilirubin 0.4 mg/dL (0.2-1.3); Total Protein 5.3 g/dL (6.3-8.2)
--- NOTE | 2017-09-01 12:16 | P.PN ---
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 She underwent a course of chemoradiation with her last radiotherapy treatment on 08/27/17. She presents to the hospital with dehydration, electrolyte abnormalities, low WBCs and esophagitis. The patient has had radiation esophagitis over the past couple weeks of her treatment. Initially this responded well to magic mouth-wash, but over the past week she was requiring Hycet for pain control which she ran out of. She noted that prior to her hospital stay she was unable to eat any solid foods by mouth. She was admitted and found to be dehydrated with electrolyte abnormalities. Today she states that her swallowing does feel a bit better, and she is tolerating a clear liquid diet. She does have an area of moist desquamation secondary to radiotherapy over her mid-back. She is treating this with Interdry and Silvadene cream. Objective - Vital Signs Vital signs: Vital Signs Temp 99.1 F 09/01/17 07:00 Pulse 112 H 09/01/17 07:00 Resp 18 09/01/17 07:00 BP 119/78 09/01/17 07:00 Pulse Ox 94 L 09/01/17 07:00 Intake & Output 08/31/17 09/01/17 09/01/17 18:59 06:59 18:59 Intake Total 400 640 Balance 400 640 Weight 85.275 kg Intake: IV 400 40 .9 @ 50 400 saline flush 40 Oral 600 Other: Voiding Method Toilet - Constitutional General appearance: Present: cooperative, no acute distress - EENT Eyes: Present: EOMI, PERRLA ENT: Present: hearing grossly normal - Neck Neck: Absent: lymphadenopathy - Respiratory Respiratory: bilateral: CTA - Cardiovascular Rhythm: regular Heart sounds: normal: S1, S2 - Gastrointestinal General gastrointestinal: Absent: tenderness - Integumentary Integumentary: Present: rash (3 cm area of moist desquamation mid-back surrounded by hyperpigmentation) - Neurologic Neurologic: Present: CNII-XII intact. Absent: focal deficits - Psychiatric Psychiatric: Present: A&O x's 3, appropriate affect - Labs CBC & Chem 7: 09/01/17 09:46 09/01/17 09:46 Labs: Abnormal Lab Results - Last 24 Hours (Table) 09/01/17 09/01/17 Range/Units 09:46 09:46 WBC 0.4 L* (3.8-10.6) k/uL RBC 2.11 L (3.80-5.40) m/uL Hgb 6.3 L* D (11.4-16.0) gm/dL Hct 18.8 L* (34.0-46.0) % AST 8 L (14-36) U/L Total Protein 5.3 L (6.3-8.2) g/dL Albumin 3.0 L (3.5-5.0) g/dL Assessment and Plan Assessment: Patient is a 47 year old female with a history of a limited stage-small cell lung cancer of the right upper lung. She underwent a course of chemoradiation with her last radiotherapy treatment on 08/27/17. Plan: 1. RT esophagitis: Advance diet as tolerated. Continue pain control, will likely need refill on Hycet at discharge. 2. Moist desquamation on back: Interdry use at night. Use Silvadene cream during the day, do not place bandage over - allow air. RT skin reaction likely exacerbated by the patient doing UV therapy for psoriasis. Recommended cover this area completely during further UV treatments. Time with Patient: Greater than 30
--- NOTE | 2017-09-01 14:13 | P.PN ---
Subjective Progress Note Date: 09/01/17 Principal diagnosis: Small cell lung cancer stage IIbStanley Peraza is a 47-year-old white female patient with a recent diagnosis of small cell lung cancer TNM stage IIB, that was diagnosed in April [address] showed a 5.8 x 5.3 cm right hilar mass with postobstructive pneumonitis involving the right middle lobe and the right upper lobe. Another 6 mm satellite lesion in the anterior segment of the right upper lobe was also seen. There was attenuation of the right upper lobe bronchus.. She had of bronchoscopy at the [facility] by Dr. Osorio, which revealed evidence of obstruction of the posterior and the anterior segment of the right upper lobe with evidence of endobronchial tumor. Endobronchial biopsies were done, and the pathology was consistent with small cell lung cancer. Staging PET scan from 06/02/2017 showed retrocaval pretracheal hilar and right adenopathy with SUV 14.9, there was mass effect on the right mainstem bronchus which was occluded over a short segments. Some atelectatic change in the right middle lobe, extension of soft tissue into the right middle lobe and right upper lobe, right lower lobe. Associated hypermetabolic uptake was present, SUV is 19. Left lung was clear. MRI brain from 06/04/2017 is negative for evidence of metastasis. Patient completed her radiation treatments and she has received 4 cycles of chemotherapy, initially with cisplatin and etoposide. After the last cycle of chemotherapy, due to significant ringing in the ears, the cisplatin was discontinued and was changed over to carboplatin. Patient developed significant nausea and vomiting with the last cycle of chemotherapy. She has not been able to eat or drink for a week. She is complaining of significant dizziness and lightheadedness and progressive weakness, as well as painful swallowing. She denied any fever or chills, denied any shortness of breath, denied any coughing, chest congestion or sputum production. She denies any diarrhea, she actually hasn't had a bowel movement in a few days due to decreased oral intake. She also has not been able to take her pain medications due to swallowing issues. Her last chemotherapy was about a week ago. She is also complaining of significant discomfort from a radiation burn on her right posterior chest area, and the area is an open draining per superficial wound, which is currently covered with a dressing. Lab work showed significant leukopenia, with a WBC of 0.7, hemoglobin of 8.9, platelet count of 65, electrolytes were within normal limits , with sodium of 139, potassium is 3.9, chloride is 101, BUN of 11, creatinine 0.90, magnesium was 1.2. Patient was given a liter of 0.9 normal saline IV bolus, started on a maintenance IV fluids of 0.9 normal saline at 50 ML per hour. She is receiving oral lidocaine for mouth and throat pain. Patient was started on nebulized treatments, patient does have an underlying history of COPD , her PFT done at the office showed a FEV1 of 45% of predicted, this is consistent with severe obstructive airway disease. Patient is a former smoker. Her maintenance COPD medications include Dulera 200/5 bj inhaler twice a day , Incruse Ellipta 62.5 mics inhaler daily, DuoNeb nebulized treatments, Singulair and pro-air inhaler on as-needed basis The patient is seen again today 09/01/2017 in follow-up on the oncology unit. She is awake and alert in no acute distress. Her main complaint is that of difficulty in swallowing. She remains on Xylocaine viscous. She's had minimal intake since admission. She also has complaints of significant fatigue and weakness. Her hemoglobin today is 6.3. 1 unit of packed red blood cells has been ordered. White count 0.4. She is currently on Zarxio. Platelet count 14, 000. She has no pulmonary complaints. No shortness of breath, cough or congestion. She is maintaining good O2 saturations in the mid 90s on room air. No tachypnea. Temperature 99.1. Slightly tachycardic. Objective - Vital Signs Vital signs: Vital Signs Temp 99.1 F 09/01/17 07:00 Pulse 112 H 09/01/17 07:00 Resp 18 09/01/17 07:00 BP 119/78 09/01/17 07:00 Pulse Ox 94 L 09/01/17 07:00 Intake & Output 08/31/17 09/01/17 09/01/17 18:59 06:59 18:59 Intake Total 400 640 800 Balance 400 640 800 Weight 85.275 kg Intake: IV 400 40 .9 @ 50 400 saline flush 40 Intake, IV Titration 800 Amount Sodium Chloride 0.9% 1, 800 000 ml @ 100 mls/hr IV . Q10H STA Rx#:[id number] Oral 600 Other: Voiding Method Toilet - Exam GENERAL EXAM: Alert, active, comfortable in no apparent distress. HEAD: Normocephalic/atraumatic. Patient has alopecia EYES: Normal reaction of pupils, equal size. Conjunctiva pink, sclera white. NOSE: Clear with pink turbinates. THROAT: No erythema or exudates. NECK: No masses, no JVD, no thyroid enlargement, no adenopathy. CHEST: No chest wall deformity. Symmetrical expansion. LUNGS: Equal air entry with no crackles, wheeze, rhonchi or dullness. CVS: Regular rate and rhythm, normal S1 and S2, no gallops, no murmurs, no rubs ABDOMEN: Soft, nontender. No hepatosplenomegaly, normal bowel sounds, no guarding or rigidity. EXTREMITIES: No clubbing, no edema, no cyanosis, 2+ pulses and upper and lower extremities. Patient has dark discolorations on her bilateral pretibial area due to history of psoriasis MUSCULOSKELETAL: Muscle strength and tone normal. SPINE: No scoliosis or deformity SKIN: No rashes CENTRAL NERVOUS SYSTEM: Alert and oriented -3. No focal deficits, tone is normal in all 4 extremities. PSYCHIATRIC: Alert and oriented -3. Appropriate affect. Intact judgment and insight. - Labs CBC & Chem 7: 09/01/17 09:46 09/01/17 09:46 Labs: Abnormal Lab Results - Last 24 Hours (Table) 09/01/17 09/01/17 09/01/17 Range/Units 09:46 09:46 11:00 WBC 0.4 L* (3.8-10.6) k/uL RBC 2.11 L (3.80-5.40) m/uL Hgb 6.3 L* D (11.4-16.0) gm/dL Hct 18.8 L* (34.0-46.0) % Plt Count 14 L* D (150-450) k/uL AST 8 L (14-36) U/L Total Protein 5.3 L (6.3-8.2) g/dL Albumin 3.0 L (3.5-5.0) g/dL Crossmatch See Detail Assessment and Plan Assessment: Assessment: #1. Dehydration due to poor oral intake due to significant odynophagia related to radiation esophagitis #2. Radiation esophagitis #3. Squamous cell lung cancer, TNM stage IIb, has completed radiation therapy, is currently receiving chemotherapy. Initially chemotherapy included cisplatin and etoposide, the patient developed significant tinnitis and the cisplatin was changed over to carboplatin #4. Anti-neoplastic chemotherapy induced pancytopenia. Current white count 0.4. Hemoglobin 6.3. Platelet count 14,000. She is to receive 1 unit of packed red blood cells today. She remains on Zarxio. #5. Hypomagnesemia #6. History of advanced COPD, GOLD stage III, a son FEV1 of 45% of predicted. #7. Obesity #8. Nicotine dependence, currently in remission #9. Hypothyroidism #10. Anxiety Plan: The patient was seen and evaluated by Dr. Colon. She has no pulmonary complaints today. We'll continue with her current treatments including DuoNeb inhalations, Symbicort and Singulair. Continue with IV hydration as she continues to have difficulty in swallowing secondary to radiation esophagitis. The plan is for 1 unit of packed red blood cells today. We will continue to follow make further recommendations based on her clinical status. I, the cosigning physician, performed a history & physical examination of the patient. Lungs sounds are clear. Maintaining good O2 saturations in the 90s on room air. I discussed the assessment and plan of care with my nurse practitioner, Elisha Torres. I attest to the above note as dictated by her.
[2017-09-01] MEDS: HYDROcodone/APAP 15 ML SOLUTION PO PRN (15:05)
[2017-09-02] MEDS: HYDROmorphone 0.5 MG/0.5 ML SYRINGE IVP PRN (03:40)
[2017-09-02] MEDS ORDERED: HYDROmorphone 2 MG TAB PO PRN (03:45)
[2017-09-02] MEDS: LORazepam 2 MG/ML INJ IV PRN ×3 (04:15→19:27)
[2017-09-02] MEDS: LEVOTHYROXINE 25 MCG TAB PO SCH (06:28)
[2017-09-02] MEDS: IPRATROPIUM 0.5 MG/2.5 ML NEBU INHALATION SCH ×4 (07:13→20:15)
[2017-09-02] MEDS: SYMBICORT 160-4.5 MCG INHALER INHALATION SCH ×2 (07:18→20:15)
[2017-09-02 07:50] LABS: ALT 18 U/L (9-52); AST 9 U/L (14-36); Albumin 3.1 g/dL (3.5-5.0); Alkaline Phosphatase 63 U/L (38-126); Anion Gap 9 mmol/L; Blood Urea Nitrogen 5 mg/dL (7-17); Calcium 8.7 mg/dL (8.4-10.2); Carbon Dioxide 27 mmol/L (22-30); Chloride 100 mmol/L (98-107); Glucose 93 mg/dL (74-99); Sodium 136 mmol/L (137-145); Total Bilirubin 0.6 mg/dL (0.2-1.3); Total Protein 5.4 g/dL (6.3-8.2)
[2017-09-02] MEDS: HYDROcodone/APAP 15 ML SOLUTION PO PRN ×3 (08:10→17:33)
[2017-09-02] MEDS: amLODIPine 5 MG TAB PO SCH (08:14)
[2017-09-02] MEDS: MAGNESIUM OXIDE 400 MG TAB PO SCH ×3 (08:14→21:39)
[2017-09-02] MEDS: LISINOPRIL 20 MG TAB PO SCH (08:14)
[2017-09-02] MEDS: MONTELUKAST 10 MG TAB PO SCH (08:14)
[2017-09-02] MEDS: SUCRALFATE 1 GM TAB PO SCH ×4 (08:14→21:39)
[2017-09-02] MEDS: NYSTATIN 100,000 UNIT/ML SUSP 500,000 UNIT/5 ML CUP PO SCH ×4 (08:16→21:39)
[2017-09-02 08:46] LABS: HCT 22.8 % (34.0-46.0); HGB 7.6 gm/dL (11.4-16.0); MCH 30.3 pg (25.0-35.0); MCHC 33.4 g/dL (31.0-37.0); MCV 90.7 fL (80.0-100.0); Mean Platelet Volume 8.8; RBC 2.52 m/uL (3.80-5.40); RDW 14.9 % (11.5-15.5)
[2017-09-02 08:52] LABS: WBC 0.9 k/uL (3.8-10.6)
[2017-09-02 08:53] LABS: Platelet Count 16 k/uL (150-450)
--- NOTE | 2017-09-02 10:25 | P.PN ---
Subjective Progress Note Date: 09/02/17 Karmen Montelongo is a 47-year-old female with history of small cell lung cancer presents for evaluation of dehydration. Patient has been on chemotherapy , last session was approximately one week ago. She has had some nausea and severe pain with swallowing. She is also receiving radiation therapy. Because of the pain with swallowing she has not been eating or taking her pain medication. She feels she is dehydrated, she is feeling dizzy. She is concerned about her electrolytes. Next chemotherapy is scheduled for approximately 2 weeks. On 09/01/2017 Patient is alert alert and oriented in no distress, complaining of severe pain when she tries to eat or drink anything complaining of fatigue otherwise no complaints On 09/02/2017 patient is alert and oriented 3 she is resting comfortably in bed she is still complaining of severe pain when she tries to take any oral intake she is complaining of severe fatigue otherwise she denies any complaints at this time. Objective - Vital Signs Vital signs: Vital Signs Temp 98.4 F 09/02/17 07:00 Pulse 112 H 09/02/17 07:26 Resp 18 09/02/17 07:00 BP 131/89 09/02/17 07:00 Pulse Ox 94 L 09/02/17 07:00 Intake & Output 09/01/17 09/02/17 09/02/17 18:59 06:59 18:59 Intake Total 1110 1780 Balance 1110 1780 Intake: IV 600 Sodium Chloride 0.9% 1, 600 000 ml @ 100 mls/hr IV . Q10H STA Rx#:[id number] Intake, IV Titration 800 Amount Sodium Chloride 0.9% 1, 800 000 ml @ 100 mls/hr IV . Q10H STA Rx#:[id number] Oral 1180 Blood Product 310 Rc As-1 Unit 310 [id number] Other: Voiding Method Toilet # Voids 3 - Exam Head normocephalic and atraumatic Neck supple no carotid bruits Lungs clear to auscultation bilaterally no wheezing or crackles Heart regular rate and rhythm S1-S2, no rub or gallop no murmur Abdomen is soft nontender nondistended positive bowel sounds no hepatosplenomegaly Extremities no edema, no cyanosis or clubbing Neuro alert and orientated to 3 - Labs CBC & Chem 7: 09/02/17 06:56 09/02/17 06:56 Labs: Abnormal Lab Results - Last 24 Hours (Table) 09/01/17 09/01/17 09/01/17 Range/Units 09:46 09:46 11:00 WBC (3.8-10.6) k/uL RBC (3.80-5.40) m/uL Hgb (11.4-16.0) gm/dL Hct (34.0-46.0) % Plt Count 14 L* D (150-450) k/uL Sodium (137-145) mmol/L BUN (7-17) mg/dL AST 8 L (14-36) U/L Total Protein 5.3 L (6.3-8.2) g/dL Albumin 3.0 L (3.5-5.0) g/dL Crossmatch See Detail 09/02/17 09/02/17 Range/Units 06:56 06:56 WBC 0.9 L* (3.8-10.6) k/uL RBC 2.52 L (3.80-5.40) m/uL Hgb 7.6 L (11.4-16.0) gm/dL Hct 22.8 L (34.0-46.0) % Plt Count 16 L* (150-450) k/uL Sodium 136 L (137-145) mmol/L BUN 5 L (7-17) mg/dL AST 9 L (14-36) U/L Total Protein 5.4 L (6.3-8.2) g/dL Albumin 3.1 L (3.5-5.0) g/dL Crossmatch Assessment and Plan Plan: #1. Dehydration due to poor oral intake due pain related to radiation esophagitis, continue with IV fluid #2. Squamous cell lung cancer, TNM stage IIb, has completed radiation therapy, is currently receiving chemotherapy. Initially chemotherapy included cisplatin and etoposide, the patient developed significant tinnitis in the cisplatin was changed over to carboplatin #3 Radiation esophagitis #4. Chemotherapy induced pancytopenia #5. Electrolyte imbalance with hypomagnesemia #6. History of advanced COPD #7. Anxiety #8. Hypothyroidism medication and labs were reviewed Continue with IV [facility] Pain management with IV dilaudid, fentanyl patch, and Viscous Lidocaine Will follow during this hospitalization
[2017-09-02] MEDS: FILGRASTIM-SNDZ 480 MCG/0.8 ML SYRINGE SQ SCH (11:16)
[2017-09-02] MEDS: SODIUM CHLORIDE 0.9% 1,000 ML IV SCH (11:25)
[2017-09-02] MEDS: LIDOCAINE VISCOUS 2% 15 ML CUP MUCOUS MEM PRN ×2 (12:27→17:33)
--- NOTE | 2017-09-03 00:20 | P.PN ---
Subjective Progress Note Date: 09/02/17 the patient did have a fever in the 101 range overnight. She continues to have significant sore throat and marked difficulty and pain in swallowing. She can get small amounts of liquids down. Overall she does feel slightly stronger. Objective - Vital Signs Vital signs: Vital Signs Temp 97.9 F 09/02/17 16:02 Pulse 107 H 09/02/17 16:02 Resp 18 09/02/17 16:02 BP 135/81 09/02/17 16:02 Pulse Ox 97 09/02/17 16:02 Intake & Output 09/02/17 09/02/17 09/03/17 06:59 18:59 06:59 Intake Total 1780 200 Balance 1780 200 Intake: IV 600 200 Sodium Chloride 0.9% 1, 600 200 000 ml @ 100 mls/hr IV . Q10H STA Rx#:[id number] Oral 1180 Other: Voiding Method Toilet Toilet # Voids 3 - Constitutional General appearance: Present: no acute distress - EENT Eyes: Present: PERRLA ENT: Present: pharyngeal erythema - Respiratory Respiratory: bilateral: CTA - Cardiovascular Rhythm: regular Heart sounds: normal: S1, S2 - Gastrointestinal General gastrointestinal: Present: normal bowel sounds, soft - Integumentary Integumentary Comment(s): Soriatane rash on upper extremities. Radiation-induced dermatitis on back. - Neurologic Neurologic: Present: CNII-XII intact - Musculoskeletal Musculoskeletal: Present: strength equal bilaterally - Psychiatric Psychiatric: Present: A&O x's 3, appropriate affect - Labs CBC & Chem 7: 09/02/17 06:56 09/02/17 06:56 Labs: Abnormal Lab Results - Last 24 Hours (Table) 09/02/17 09/02/17 Range/Units 06:56 06:56 WBC 0.9 L* (3.8-10.6) k/uL RBC 2.52 L (3.80-5.40) m/uL Hgb 7.6 L (11.4-16.0) gm/dL Hct 22.8 L (34.0-46.0) % Plt Count 16 L* (150-450) k/uL Sodium 136 L (137-145) mmol/L BUN 5 L (7-17) mg/dL AST 9 L (14-36) U/L Total Protein 5.4 L (6.3-8.2) g/dL Albumin 3.1 L (3.5-5.0) g/dL Assessment and Plan (1) Antineoplastic chemotherapy induced pancytopenia Narrative/Plan: hemoglobin and platelets are in a safe range at 7.6 and 16 respectively. There is no evidence of obvious bleeding and therefore transfusion support is not required. WBC showing slight increased to 0.9 today. Continue filgrastim. Current Visit: Yes Status: Acute Priority: High Code(s): D61.810 - ANTINEOPLASTIC CHEMOTHERAPY INDUCED PANCYTOPENIA; T45.1X5A - ADVERSE EFFECT OF ANTINEOPLASTIC AND IMMUNOSUP DRUGS, INIT SNOMED Code(s): 884007037627857 (2) Dehydration Narrative/Plan: continue IV fluids. The patient appears clinically improved Current Visit: Yes Status: Acute Priority: High Code(s): E86.0 - DEHYDRATION SNOMED Code(s): 68896273 (3) Small cell lung cancer Current Visit: Yes Status: Acute Priority: High Code(s): C34.90 - MALIGNANT NEOPLASM OF UNSP PART OF UNSP BRONCHUS OR LUNG SNOMED Code(s): 565181151 (4) Radiation esophagitis Narrative/Plan: swallowing still remains quite limited. Continue IV hydration. As noted previously, improvement is expected as the patient gets further out from radiation, and her WBC recovers. Current Visit: Yes Status: Acute Priority: High Code(s): K20.8 - OTHER ESOPHAGITIS SNOMED Code(s): 301462672
[2017-09-03] MEDS: SODIUM CHLORIDE 0.9% 1,000 ML IV SCH ×3 (01:01→16:01)
[2017-09-03] MEDS: CEFEPIME 2 GM in SODIUM CHLORIDE 0.9% 50 ML IVPB SCH ×3 (01:01→16:01)
[2017-09-03] MEDS: LORazepam 2 MG/ML INJ IV PRN ×3 (01:38→19:50)
[2017-09-03] MEDS: LEVOTHYROXINE 25 MCG TAB PO SCH (06:56)
[2017-09-03] MEDS: LIDOCAINE VISCOUS 2% 15 ML CUP MUCOUS MEM PRN ×3 (06:56→17:30)
[2017-09-03] MEDS: NYSTATIN 100,000 UNIT/ML SUSP 500,000 UNIT/5 ML CUP PO SCH ×4 (07:12→22:22)
[2017-09-03] MEDS: MAGNESIUM OXIDE 400 MG TAB PO SCH ×3 (07:13→22:22)
[2017-09-03] MEDS: HYDROcodone/APAP 15 ML SOLUTION PO PRN ×4 (07:13→22:30)
[2017-09-03] MEDS: MONTELUKAST 10 MG TAB PO SCH (07:13)
[2017-09-03] MEDS: amLODIPine 5 MG TAB PO SCH (07:14)
[2017-09-03] MEDS: SUCRALFATE 1 GM TAB PO SCH ×4 (07:14→22:23)
[2017-09-03] MEDS: LISINOPRIL 20 MG TAB PO SCH (07:14)
[2017-09-03 07:21] LABS: HCT 23.4 % (34.0-46.0); HGB 7.6 gm/dL (11.4-16.0); MCH 30.1 pg (25.0-35.0); MCHC 32.5 g/dL (31.0-37.0); MCV 92.7 fL (80.0-100.0); Mean Platelet Volume 7.6; RBC 2.52 m/uL (3.80-5.40); RDW 15.1 % (11.5-15.5)
[2017-09-03 07:28] LABS: Platelet Count 17 k/uL (150-450)
[2017-09-03] MEDS: SYMBICORT 160-4.5 MCG INHALER INHALATION SCH ×2 (07:30→20:03)
[2017-09-03] MEDS: IPRATROPIUM 0.5 MG/2.5 ML NEBU INHALATION SCH ×4 (07:33→20:03)
[2017-09-03 07:49] LABS: ALT 16 U/L (9-52); AST 13 U/L (14-36); Alkaline Phosphatase 66 U/L (38-126); Anion Gap 9 mmol/L; Blood Urea Nitrogen 3 mg/dL (7-17); Calcium 8.6 mg/dL (8.4-10.2); Carbon Dioxide 26 mmol/L (22-30); Chloride 104 mmol/L (98-107); Glucose 91 mg/dL (74-99); Potassium 3.6 mmol/L (3.5-5.1); Sodium 139 mmol/L (137-145); Total Bilirubin 0.4 mg/dL (0.2-1.3); Total Protein 5.4 g/dL (6.3-8.2)
[2017-09-03 08:49] LABS: Band Neutrophils % 17 %; Lymphocytes # (M) 0.24 k/uL (1.0-4.8); Metamyelocytes # (M) 0.12 k/uL (0); Metamyelocytes % 4 %; Monocytes # (M) 0.45 k/uL (0-1.0); Myelocytes # (M) 0.06 k/uL (0); Myelocytes % 2 %; Neutrophils % (M) 55 %; Nucleated Red Blood Cells 1 /100 WBC (0-0); Total Cells Counted 200
[2017-09-03 08:50] LABS: Toxic Granulation Present
[2017-09-03 08:51] LABS: Poikilocytosis (M) Present
--- NOTE | 2017-09-03 11:11 | P.PN ---
Subjective Progress Note Date: 09/03/17 Karmen Montelongo is a 47-year-old female with history of small cell lung cancer presents for evaluation of dehydration. Patient has been on chemotherapy , last session was approximately one week ago. She has had some nausea and severe pain with swallowing. She is also receiving radiation therapy. Because of the pain with swallowing she has not been eating or taking her pain medication. She feels she is dehydrated, she is feeling dizzy. She is concerned about her electrolytes. Next chemotherapy is scheduled for approximately 2 weeks. 09/03/2017 patient still reporting pain with swallowing. Only able to eat a few bites of her cream of wheat this morning. Does report some improvement with pain control. Denies any chest pain or shortness of breath. Did have a small bowel movement this morning. Denies any burning with urination. White count has gone from 0.9-3, hemoglobin 7.6 platelet 17 Objective - Vital Signs Vital signs: Vital Signs Temp 99.6 F 09/03/17 07:00 Pulse 114 H 09/03/17 07:00 Resp 16 09/03/17 07:00 BP 148/100 09/03/17 07:00 Pulse Ox 96 09/03/17 07:00 Intake & Output 09/02/17 09/03/17 09/03/17 18:59 06:59 18:59 Intake Total 200 1380 Balance 200 1380 Intake: IV 200 Sodium Chloride 0.9% 1, 200 000 ml @ 100 mls/hr IV . Q10H STA Rx#:[id number] Intake, IV Titration 200 Amount Sodium Chloride 0.9% 1, 200 000 ml @ 100 mls/hr IV . Q10H JOSE RAFAEL Rx#:[id number] Oral 1180 Other: Voiding Method Toilet Toilet # Voids 2 - Exam Head normocephalic Neck supple Lungs clear to auscultation bilaterally no wheezing or crackles Heart regular rate and rhythm S1-S2, no rub or gallop Abdomen is soft nontender nondistended positive bowel sounds no hepatosplenomegaly Extremities no edema Neuro alert and orientated to 3 - Labs CBC & Chem 7: 09/03/17 06:50 09/03/17 06:50 Labs: Abnormal Lab Results - Last 24 Hours (Table) 09/03/17 09/03/17 Range/Units 06:50 06:50 WBC 3.0 L (3.8-10.6) k/uL RBC 2.52 L (3.80-5.40) m/uL Hgb 7.6 L (11.4-16.0) gm/dL Hct 23.4 L (34.0-46.0) % Plt Count 17 L* (150-450) k/uL Lymphocytes # (Manual) 0.24 L (1.0-4.8) k/uL Metamyelocytes # (Man) 0.12 H (0) k/uL Myelocytes # (Manual) 0.06 H (0) k/uL Nucleated RBCs 1 H (0-0) /100 WBC BUN 3 L (7-17) mg/dL AST 13 L (14-36) U/L Total Protein 5.4 L (6.3-8.2) g/dL Albumin 3.0 L (3.5-5.0) g/dL Assessment and Plan Assessment: #1. Dehydration due to poor oral intake due pain related to radiation esophagitis, continue with IV fluid. Currently on a full liquid diet. Only able to do few bites of food due to pain. #2. Small cell lung cancer, TNM stage IIb, has completed radiation therapy, is currently receiving chemotherapy. Initially chemotherapy included cisplatin and etoposide, the patient developed significant tinnitis in the cisplatin was changed over to carboplatin #3 Radiation esophagitis #4. Chemotherapy induced pancytopenia. Zarxio added by oncology for leukopenia. White count improving. Patient did require 1 unit of blood during this admission #5. Electrolyte imbalance with hypomagnesemia #6. History of advanced COPD #7. Anxiety #8. Hypothyroidism #9 essential hypertension continue lisinopril and Norvasc I performed an examination of the patient and discussed their management with the physician Rn Burn. I have reviewed the Physician Rn Burn's notes and agree with the documented findings and plan of care
[2017-09-03] MEDS: FILGRASTIM-SNDZ 480 MCG/0.8 ML SYRINGE SQ SCH (11:32)
[2017-09-04] MEDS: CEFEPIME 2 GM in SODIUM CHLORIDE 0.9% 50 ML IVPB SCH ×4 (00:20→23:52)
[2017-09-04] MEDS: LORazepam 2 MG/ML INJ IV PRN (05:18)
[2017-09-04] MEDS: SODIUM CHLORIDE 0.9% 1,000 ML IV SCH ×2 (05:18→17:59)
[2017-09-04] MEDS: LEVOTHYROXINE 25 MCG TAB PO SCH (06:19)
[2017-09-04] MEDS: IPRATROPIUM 0.5 MG/2.5 ML NEBU INHALATION SCH ×4 (07:32→20:11)
[2017-09-04] MEDS: SYMBICORT 160-4.5 MCG INHALER INHALATION SCH ×2 (07:34→20:11)
[2017-09-04] MEDS: SUCRALFATE 1 GM TAB PO SCH ×4 (08:40→21:36)
[2017-09-04] MEDS: LISINOPRIL 20 MG TAB PO SCH (08:40)
[2017-09-04] MEDS: MONTELUKAST 10 MG TAB PO SCH (08:41)
[2017-09-04] MEDS: MAGNESIUM OXIDE 400 MG TAB PO SCH ×3 (08:41→21:36)
[2017-09-04] MEDS: amLODIPine 5 MG TAB PO SCH (08:41)
[2017-09-04] MEDS: NYSTATIN 100,000 UNIT/ML SUSP 500,000 UNIT/5 ML CUP PO SCH ×4 (08:46→21:36)
[2017-09-04 08:56] LABS: ALT 22 U/L (9-52); AST 18 U/L (14-36); Albumin 3.2 g/dL (3.5-5.0); Alkaline Phosphatase 75 U/L (38-126); Anion Gap 11 mmol/L; Blood Urea Nitrogen 3 mg/dL (7-17); Carbon Dioxide 23 mmol/L (22-30); Chloride 107 mmol/L (98-107); Glucose 93 mg/dL (74-99); HCT 25.6 % (34.0-46.0); HGB 8.4 gm/dL (11.4-16.0); MCH 30.4 pg (25.0-35.0); MCHC 32.9 g/dL (31.0-37.0); MCV 92.6 fL (80.0-100.0); Mean Platelet Volume 8.7; Poikilocytosis Slight; Potassium 3.6 mmol/L (3.5-5.1); RBC 2.76 m/uL (3.80-5.40); RDW 15.5 % (11.5-15.5); Sodium 141 mmol/L (137-145); Total Bilirubin 0.5 mg/dL (0.2-1.3); Total Protein 5.6 g/dL (6.3-8.2); WBC 9.6 k/uL (3.8-10.6)
[2017-09-04 09:05] LABS: Platelet Count 19 k/uL (150-450)
[2017-09-04] MEDS: HYDROcodone/APAP 15 ML SOLUTION PO PRN ×3 (09:07→18:16)
[2017-09-04] MEDS: LIDOCAINE VISCOUS 2% 15 ML CUP MUCOUS MEM PRN (09:33)
[2017-09-04 09:56] LABS: Band Neutrophils % 8 %; Lymphocytes # (M) 0.48 k/uL (1.0-4.8); Metamyelocytes % 1 %; Monocytes # (M) 0.86 k/uL (0-1.0); Myelocytes % 1 %; Neutrophils % (M) 77 %; Nucleated Red Blood Cells 0 /100 WBC (0-0); Poikilocytosis (M) Present; Total Cells Counted 200
[2017-09-04 09:57] LABS: Polychromasia Present
[2017-09-04] MEDS: FILGRASTIM-SNDZ 480 MCG/0.8 ML SYRINGE SQ SCH (10:37)
--- NOTE | 2017-09-04 11:20 | P.PN ---
Subjective Progress Note Date: 09/04/17 Karmen Montelongo is a 47-year-old female with history of small cell lung cancer presents for evaluation of dehydration. Patient has been on chemotherapy , last session was approximately one week ago. She has had some nausea and severe pain with swallowing. She is also receiving radiation therapy. Because of the pain with swallowing she has not been eating or taking her pain medication. She feels she is dehydrated, she is feeling dizzy. She is concerned about her electrolytes. Next chemotherapy is scheduled for approximately 2 weeks. 09/03/2017 patient still reporting pain with swallowing. Only able to eat a few bites of her cream of wheat this morning. Does report some improvement with pain control. Denies any chest pain or shortness of breath. Did have a small bowel movement this morning. Denies any burning with urination. White count has gone from 0.9-3, hemoglobin 7.6 platelet 17 09/04/2017 patient is reporting that she is hungry. She wants to eat. Reports that her pain is slightly improved and she wants to try advancing her diet. Case discussed with oncology. We'll advance diet to a soft diet. While patient seen by dietitian. White count has gone from 3-9.6. Hemoglobin 8.4 and platelet at 19. Patient reports that her is home with flu. Influenza screen negative Objective - Vital Signs Vital signs: Vital Signs Temp 98.2 F 09/04/17 07:00 Pulse 110 H 09/04/17 07:43 Resp 20 09/04/17 07:00 BP 133/56 09/04/17 07:00 Pulse Ox 96 09/04/17 07:00 Intake & Output 09/03/17 09/04/17 09/04/17 18:59 06:59 18:59 Intake Total 750 1250 Balance 750 1250 Weight 85.275 kg Intake: IV 1250 Cefepime 2 gm In Sodium 50 Chloride 0.9% 50 ml @ 100 mls/hr IVPB Q8HR [facility] Rx# :[id number] Sodium Chloride 0.9% 1, 1200 000 ml @ 100 mls/hr IV . Q10H [facility] Rx#:[id number] Intake, IV Titration 750 Amount Cefepime 2 gm In Sodium 50 Chloride 0.9% 50 ml @ 100 mls/hr IVPB Q8HR [facility] Rx# :[id number] Sodium Chloride 0.9% 1, 700 000 ml @ 100 mls/hr IV . Q10H [facility] Rx#:[id number] Other: Voiding Method Toilet Toilet Toilet - Exam Head normocephalic Neck supple Lungs clear to auscultation bilaterally no wheezing or crackles Heart regular rate and rhythm S1-S2, no rub or gallop Abdomen is soft nontender nondistended positive bowel sounds no hepatosplenomegaly Extremities no edema Neuro alert and orientated to 3 - Labs CBC & Chem 7: 09/04/17 08:19 09/04/17 08:19 Labs: Abnormal Lab Results - Last 24 Hours (Table) 09/04/17 09/04/17 Range/Units 08:19 08:19 RBC 2.76 L (3.80-5.40) m/uL Hgb 8.4 L (11.4-16.0) gm/dL Hct 25.6 L (34.0-46.0) % Plt Count 19 L* (150-450) k/uL Neutrophils # (Manual) 8.10 H (1.3-7.7) k/uL Lymphocytes # (Manual) 0.48 L (1.0-4.8) k/uL Metamyelocytes # (Man) 0.10 H (0) k/uL Myelocytes # (Manual) 0.10 H (0) k/uL BUN 3 L (7-17) mg/dL Total Protein 5.6 L (6.3-8.2) g/dL Albumin 3.2 L (3.5-5.0) g/dL Assessment and Plan Assessment: #1. Dehydration due to poor oral intake due pain related to radiation esophagitis, continue with IV fluid. Will advance diet to a soft diet. Have patient seen by dietitian. #2. Small cell lung cancer, TNM stage IIb, has completed radiation therapy, is currently receiving chemotherapy. Initially chemotherapy included cisplatin and etoposide, the patient developed significant tinnitis in the cisplatin was changed over to carboplatin #3 Radiation esophagitis #4. Chemotherapy induced pancytopenia. Zarxio added by oncology for leukopenia. White count improving. Patient did require 1 unit of blood during this admission #5. Electrolyte imbalance with hypomagnesemia #6. History of advanced COPD #7. Anxiety #8. Hypothyroidism #9 essential hypertension continue lisinopril and Norvasc I performed an examination of the patient and discussed their management with the physician Aerospace Engineer. I have reviewed the Physician Aerospace Engineer's notes and agree with the documented findings and plan of care
[2017-09-04] MEDS: LORazepam 0.5 MG TAB PO PRN ×2 (13:37→21:36)
--- NOTE | 2017-09-04 15:30 | P.PN ---
Subjective Progress Note Date: 09/04/17 Principal diagnosis: radiation esophagitis, chemo induced pancytopenia Pt seen today in followup. She is starting to feel better, she is wanting to advance her diet to soft foods, no nausea but she will wretch if she swallows something that irritations her esophagus, she is ambulating to the bathroom. Objective - Vital Signs Vital signs: Vital Signs Temp 98.7 F 09/04/17 14:30 Pulse 110 H 09/04/17 14:30 Resp 20 09/04/17 14:30 BP 132/83 09/04/17 14:30 Pulse Ox 92 L 09/04/17 14:30 Intake & Output 09/03/17 09/04/17 09/04/17 18:59 06:59 18:59 Intake Total 750 1250 Balance 750 1250 Weight 85.275 kg 85.275 kg Intake: IV 1250 Cefepime 2 gm In Sodium 50 Chloride 0.9% 50 ml @ 100 mls/hr IVPB Q8HR [facility] Rx# :[id number] Sodium Chloride 0.9% 1, 1200 000 ml @ 100 mls/hr IV . Q10H [facility] Rx#:[id number] Intake, IV Titration 750 Amount Cefepime 2 gm In Sodium 50 Chloride 0.9% 50 ml @ 100 mls/hr IVPB Q8HR [facility] Rx# :[id number] Sodium Chloride 0.9% 1, 700 000 ml @ 100 mls/hr IV . Q10H [facility] Rx#:[id number] Other: Voiding Method Toilet Toilet Toilet # Voids 2 - Constitutional General appearance: Present: cooperative, no acute distress, obese - EENT Eyes: Present: anicteric sclerae ENT: Present: normal oropharynx - Respiratory Respiratory: bilateral: CTA - Cardiovascular Heart sounds: normal: S1, S2 - Peripheral edema foot Peripheral Edema: bilateral: None - Gastrointestinal General gastrointestinal: Present: normal bowel sounds, soft. Absent: absent bowel sounds, decreased bowel sounds, distended, hepatomegaly, hyperactive bowel sounds, organomegaly, rigid, scaphoid, splenomegaly, tenderness, umbilical hernia, ventral hernia - Integumentary Integumentary: Present: pale - Neurologic Neurologic: Present: CNII-XII intact - Musculoskeletal Musculoskeletal: Present: generalized weakness, strength equal bilaterally - Psychiatric Psychiatric: Present: A&O x's 3, appropriate affect, intact judgment & insight - Labs CBC & Chem 7: 09/04/17 08:19 09/04/17 08:19 Labs: Abnormal Lab Results - Last 24 Hours (Table) 09/04/17 09/04/17 Range/Units 08:19 08:19 RBC 2.76 L (3.80-5.40) m/uL Hgb 8.4 L (11.4-16.0) gm/dL Hct 25.6 L (34.0-46.0) % Plt Count 19 L* (150-450) k/uL Neutrophils # (Manual) 8.10 H (1.3-7.7) k/uL Lymphocytes # (Manual) 0.48 L (1.0-4.8) k/uL Metamyelocytes # (Man) 0.10 H (0) k/uL Myelocytes # (Manual) 0.10 H (0) k/uL BUN 3 L (7-17) mg/dL Total Protein 5.6 L (6.3-8.2) g/dL Albumin 3.2 L (3.5-5.0) g/dL - Imaging and Cardiology CT scan - chest: report reviewed Assessment and Plan (1) Radiation esophagitis Narrative/Plan: Improving with rest and improved WBC, discussed case with MICHAEL LIM, diet will be advanced as tolerated Current Visit: Yes Status: Acute Priority: High Code(s): K20.8 - OTHER ESOPHAGITIS SNOMED Code(s): 855519914 (2) Antineoplastic chemotherapy induced pancytopenia Narrative/Plan: WBC recovered with use of GCSF Anemia and thrombocytopenia persist but stable, not requiring transfusion at this time Current Visit: Yes Status: Acute Priority: High Code(s): D61.810 - ANTINEOPLASTIC CHEMOTHERAPY INDUCED PANCYTOPENIA; T45.1X5A - ADVERSE EFFECT OF ANTINEOPLASTIC AND IMMUNOSUP DRUGS, INIT SNOMED Code(s): 614963378793051 (3) Dehydration Narrative/Plan: Oral intake improving, IV fluids cont for now Current Visit: Yes Status: Acute Priority: High Code(s): E86.0 - DEHYDRATION SNOMED Code(s): 11633494 (4) Hypomagnesemia Narrative/Plan: Treated Current Visit: Yes Status: Acute Priority: High Code(s): E83.42 - HYPOMAGNESEMIA SNOMED Code(s): 013593461 (5) Small cell lung cancer Narrative/Plan: Dr. Yañez reviewed treatment follow up CT of the chest which showed definite improvement inmass and lymph nodes. Plan is to continue with chemotherapy once current condition treated and resolved. Once esophagitis resolves chemo alone will not cause that problem. GCSF was added to pt chemo regimen outpatient. Pt will be evaluated in office before resuming chemo, appt in chart. Current Visit: Yes Status: Acute Priority: High Code(s): C34.90 - MALIGNANT NEOPLASM OF UNSP PART OF UNSP BRONCHUS OR LUNG SNOMED Code(s): 989378870 (6) Radiation dermatitis Narrative/Plan: Cont topical care, improving Current Visit: Yes Status: Acute Priority: High Code(s): L58.9 - RADIODERMATITIS, UNSPECIFIED SNOMED Code(s): 15121114
[2017-09-04] MEDS: HYDROmorphone 4 MG TABLET PO PRN (19:48)
[2017-09-05] MEDS: HYDROmorphone 4 MG TABLET PO PRN (04:07)
[2017-09-05] MEDS: LEVOTHYROXINE 25 MCG TAB PO SCH (06:22)
[2017-09-05] MEDS: SODIUM CHLORIDE 0.9% 1,000 ML IV SCH ×2 (06:23→16:02)
[2017-09-05 08:31] LABS: Anion Gap 9 mmol/L; Blood Urea Nitrogen 3 mg/dL (7-17); Calcium 8.5 mg/dL (8.4-10.2); Carbon Dioxide 24 mmol/L (22-30); Chloride 106 mmol/L (98-107); Glucose 86 mg/dL (74-99); Potassium 3.4 mmol/L (3.5-5.1); Sodium 139 mmol/L (137-145)
[2017-09-05 08:37] LABS: HCT 23.3 % (34.0-46.0); HGB 7.7 gm/dL (11.4-16.0); MCH 30.6 pg (25.0-35.0); MCHC 33.1 g/dL (31.0-37.0); MCV 92.4 fL (80.0-100.0); Mean Platelet Volume 8.9; Poikilocytosis Slight; RBC 2.52 m/uL (3.80-5.40); RDW 15.7 % (11.5-15.5)
[2017-09-05] MEDS: IPRATROPIUM 0.5 MG/2.5 ML NEBU INHALATION SCH ×4 (08:41→19:37)
[2017-09-05] MEDS: SYMBICORT 160-4.5 MCG INHALER INHALATION SCH ×2 (08:41→19:37)
[2017-09-05 09:17] LABS: Band Neutrophils % 6 %; Monocytes # (M) 0.39 k/uL (0-1.0); Neutrophils % (M) 77 %
[2017-09-05 09:18] LABS: Lymphocytes # (M) 2.34 k/uL (1.0-4.8); Metamyelocytes # (M) 0.59 k/uL (0); Metamyelocytes % 3 %; Myelocytes # (M) 0.39 k/uL (0); Myelocytes % 2 %; Nucleated Red Blood Cells 1 /100 WBC (0-0); Total Cells Counted 200; WBC 19.5 k/uL (3.8-10.6)
[2017-09-05 09:20] LABS: Hypochromasia (M) Present; Platelet Count 23 k/uL (150-450)
[2017-09-05] MEDS: LIDOCAINE VISCOUS 2% 15 ML CUP MUCOUS MEM PRN (09:30)
[2017-09-05] MEDS: MONTELUKAST 10 MG TAB PO SCH (09:31)
[2017-09-05] MEDS: MAGNESIUM OXIDE 400 MG TAB PO SCH ×3 (09:31→22:04)
[2017-09-05] MEDS: LISINOPRIL 20 MG TAB PO SCH (09:31)
[2017-09-05] MEDS: amLODIPine 5 MG TAB PO SCH (09:31)
[2017-09-05] MEDS: NYSTATIN 100,000 UNIT/ML SUSP 500,000 UNIT/5 ML CUP PO SCH ×4 (09:31→22:04)
[2017-09-05] MEDS: HYDROcodone/APAP 15 ML SOLUTION PO PRN ×4 (09:38→22:08)
[2017-09-05] MEDS: LORazepam 0.5 MG TAB PO PRN ×2 (09:39→17:47)
[2017-09-05] MEDS: SUCRALFATE 1 GM TAB PO SCH (09:48)
[2017-09-05] MEDS: CEFEPIME 2 GM in SODIUM CHLORIDE 0.9% 50 ML IVPB SCH ×3 (09:52→23:34)
--- NOTE | 2017-09-05 10:05 | P.PN ---
Subjective Progress Note Date: 09/05/17 Karmen Montelongo is a 47-year-old female with history of small cell lung cancer presents for evaluation of dehydration. Patient has been on chemotherapy , last session was approximately one week ago. She has had some nausea and severe pain with swallowing. She is also receiving radiation therapy. Because of the pain with swallowing she has not been eating or taking her pain medication. She feels she is dehydrated, she is feeling dizzy. She is concerned about her electrolytes. Next chemotherapy is scheduled for approximately 2 weeks. On 09/01/2017 Patient is alert alert and oriented in no distress, complaining of severe pain when she tries to eat or drink anything complaining of fatigue otherwise no complaints On 09/02/2017 patient is alert and oriented 3 she is resting comfortably in bed she is still complaining of severe pain when she tries to take any oral intake she is complaining of severe fatigue otherwise she denies any complaints at this time. 09/03/2017 patient still reporting pain with swallowing. Only able to eat a few bites of her cream of wheat this morning. Does report some improvement with pain control. Denies any chest pain or shortness of breath. Did have a small bowel movement this morning. Denies any burning with urination. White count has gone from 0.9-3, hemoglobin 7.6 platelet 17 09/04/2017 patient is reporting that she is hungry. She wants to eat. Reports that her pain is slightly improved and she wants to try advancing her diet. Case discussed with oncology. We'll advance diet to a soft diet. While patient seen by dietitian. White count has gone from 3-9.6. Hemoglobin 8.4 and platelet at 19. Patient reports that her is home with flu. Influenza screen negative. On 09/05/2017 patient is complaining of worsening nausea and vomiting she has been refusing updraft treatment and stating they are causing her to have more vomiting she has been refusing Carafate because she thinks it's making her vomit more at this time we are giving IV Zofran and will start IV Protonix hopefully patient will have better oral intake later in the day Objective - Vital Signs Vital signs: Vital Signs Temp 98.5 F 09/05/17 07:00 Pulse 103 H 09/05/17 07:00 Resp 17 09/05/17 07:00 BP 140/93 09/05/17 07:00 Pulse Ox 98 09/05/17 07:00 Intake & Output 09/04/17 09/05/17 09/05/17 18:59 06:59 18:59 Intake Total 800 Balance 800 Weight 85.275 kg Intake: Intake, IV Titration 800 Amount Cefepime 2 gm In Sodium 800 Chloride 0.9% 50 ml @ 100 mls/hr IVPB Q8HR [facility] Rx# :[id number] Other: Voiding Method Toilet Toilet # Voids 2 - Exam Head normocephalic and atraumatic Neck supple no carotid bruits Lungs clear to auscultation bilaterally no wheezing or crackles Heart regular rate and rhythm S1-S2, no rub or gallop no murmur Abdomen is soft nontender nondistended positive bowel sounds no hepatosplenomegaly Extremities no edema, no cyanosis or clubbing Neuro alert and orientated to 3 - Labs CBC & Chem 7: 09/05/17 07:22 09/05/17 07:22 Labs: Abnormal Lab Results - Last 24 Hours (Table) 09/05/17 09/05/17 Range/Units 07:22 07:22 WBC 19.5 H (3.8-10.6) k/uL RBC 2.52 L (3.80-5.40) m/uL Hgb 7.7 L (11.4-16.0) gm/dL Hct 23.3 L (34.0-46.0) % RDW 15.7 H (11.5-15.5) % Plt Count 23 L* (150-450) k/uL Neutrophils # (Manual) 16.10 H (1.3-7.7) k/uL Metamyelocytes # (Man) 0.59 H (0) k/uL Myelocytes # (Manual) 0.39 H (0) k/uL Nucleated RBCs 1 H (0-0) /100 WBC Potassium 3.4 L (3.5-5.1) mmol/L BUN 3 L (7-17) mg/dL Assessment and Plan Plan: #1. Dehydration due to poor oral intake due pain related to radiation esophagitis, continue with IV fluid. Will advance diet to a soft diet. Have patient seen by dietitian. #2. Small cell lung cancer, TNM stage IIb, has completed radiation therapy, is currently receiving chemotherapy. Initially chemotherapy included cisplatin and etoposide, the patient developed significant tinnitis in the cisplatin was changed over to carboplatin #3 Radiation esophagitis #4. Chemotherapy induced pancytopenia. Zarxio added by oncology for leukopenia. White count improving. Patient did require 1 unit of blood during this admission #5. Electrolyte imbalance with hypomagnesemia #6. History of advanced COPD #7. Anxiety #8. Hypothyroidism #9 essential hypertension continue lisinopril and Norvasc Symptomatic nausea and vomiting and poor oral intake adjusting medication to provide optimal relief
[2017-09-05] MEDS: PANTOPRAZOLE 40 MG/10 ML VIAL IVP SCH (11:22)
[2017-09-05] MEDS: ONDANSETRON 4 MG/2 ML VIAL IVP PRN ×3 (11:22→23:37)
[2017-09-06] MEDS: SODIUM CHLORIDE 0.9% 1,000 ML IV SCH ×3 (03:12→13:35)
[2017-09-06] MEDS: LORazepam 2 MG/ML INJ IV PRN ×3 (03:30→18:21)
[2017-09-06] MEDS: LEVOTHYROXINE 25 MCG TAB PO SCH (07:11)
[2017-09-06] MEDS: ONDANSETRON 4 MG/2 ML VIAL IVP PRN ×3 (07:12→22:03)
[2017-09-06] MEDS: HYDROcodone/APAP 15 ML SOLUTION PO PRN ×4 (07:12→21:59)
[2017-09-06] MEDS: LIDOCAINE VISCOUS 2% 15 ML CUP MUCOUS MEM PRN ×2 (07:54→13:12)
[2017-09-06] MEDS: CEFEPIME 2 GM in SODIUM CHLORIDE 0.9% 50 ML IVPB SCH ×2 (08:02→15:22)
[2017-09-06 08:14] LABS: ALT 19 U/L (9-52); AST 19 U/L (14-36); Albumin 2.8 g/dL (3.5-5.0); Alkaline Phosphatase 105 U/L (38-126); Anion Gap 10 mmol/L; Blood Urea Nitrogen 3 mg/dL (7-17); Calcium 8.5 mg/dL (8.4-10.2); Carbon Dioxide 24 mmol/L (22-30); Chloride 108 mmol/L (98-107); Glucose 93 mg/dL (74-99); Potassium 3.5 mmol/L (3.5-5.1); Sodium 142 mmol/L (137-145); Total Bilirubin 0.2 mg/dL (0.2-1.3); Total Protein 5.1 g/dL (6.3-8.2)
[2017-09-06 08:18] LABS: Anisocytosis Slight; HCT 27.2 % (34.0-46.0); HGB 8.4 gm/dL (11.4-16.0); Hypochromasia Slight; MCH 29.8 pg (25.0-35.0); MCHC 30.7 g/dL (31.0-37.0); MCV 96.9 fL (80.0-100.0); Mean Platelet Volume 8.6; RBC 2.81 m/uL (3.80-5.40); RDW 16.1 % (11.5-15.5); WBC 12.2 k/uL (3.8-10.6)
[2017-09-06 08:19] LABS: Platelet Count 26 k/uL (150-450)
[2017-09-06] MEDS: SYMBICORT 160-4.5 MCG INHALER INHALATION SCH ×2 (08:49→16:54)
[2017-09-06] MEDS: IPRATROPIUM 0.5 MG/2.5 ML NEBU INHALATION SCH ×4 (08:49→22:15)
[2017-09-06 09:10] LABS: Band Neutrophils % 5 %; Lymphocytes # (M) 0.98 k/uL (1.0-4.8); Metamyelocytes # (M) 0.24 k/uL (0); Metamyelocytes % 2 %; Monocytes # (M) 0.73 k/uL (0-1.0); Myelocytes # (M) 0.12 k/uL (0); Myelocytes % 1 %; Neutrophils % (M) 80 %; Nucleated Red Blood Cells 0 /100 WBC (0-0); Total Cells Counted 200
[2017-09-06 09:12] LABS: Polychromasia Present
[2017-09-06] MEDS: MAGNESIUM OXIDE 400 MG TAB PO SCH ×3 (09:49→21:10)
[2017-09-06] MEDS: LISINOPRIL 20 MG TAB PO SCH (09:49)
[2017-09-06] MEDS: MONTELUKAST 10 MG TAB PO SCH (09:49)
[2017-09-06] MEDS: amLODIPine 5 MG TAB PO SCH (09:49)
[2017-09-06] MEDS: ERGOCALCIFEROL 50,000 UNIT CAP PO SCH (10:33)
[2017-09-06] MEDS: NYSTATIN 100,000 UNIT/ML SUSP 500,000 UNIT/5 ML CUP PO SCH ×4 (10:51→21:11)
[2017-09-06] MEDS: PANTOPRAZOLE 40 MG/10 ML VIAL IVP SCH (10:51)
--- NOTE | 2017-09-06 12:14 | P.PN ---
Subjective Progress Note Date: 09/06/17 Karmen Montelongo is a 47-year-old female with history of small cell lung cancer presents for evaluation of dehydration. Patient has been on chemotherapy , last session was approximately one week ago. She has had some nausea and severe pain with swallowing. She is also receiving radiation therapy. Because of the pain with swallowing she has not been eating or taking her pain medication. She feels she is dehydrated, she is feeling dizzy. She is concerned about her electrolytes. Next chemotherapy is scheduled for approximately 2 weeks. 09/03/2017 patient still reporting pain with swallowing. Only able to eat a few bites of her cream of wheat this morning. Does report some improvement with pain control. Denies any chest pain or shortness of breath. Did have a small bowel movement this morning. Denies any burning with urination. White count has gone from 0.9-3, hemoglobin 7.6 platelet 17 09/04/2017 patient is reporting that she is hungry. She wants to eat. Reports that her pain is slightly improved and she wants to try advancing her diet. Case discussed with oncology. We'll advance diet to a soft diet. While patient seen by dietitian. White count has gone from 3-9.6. Hemoglobin 8.4 and platelet at 19. Patient reports that her is home with flu. Influenza screen negative 09/06/2017 patient had some vomiting yesterday. Now resolved. She is hungry. She is trying to eat a low fiber diet. Will have patient up and ambulating today ECF she does with her food intake. She has any chest pain or shortness breath. Reports that her pain is controlled. It reports having bowel movements and no difficulty urinating. Objective - Vital Signs Vital signs: Vital Signs Temp 98.2 F 09/06/17 07:00 Pulse 98 09/06/17 07:00 Resp 16 09/06/17 07:00 BP 157/95 09/06/17 07:00 Pulse Ox 93 L 09/06/17 07:00 Intake & Output 09/05/17 09/06/17 09/06/17 18:59 06:59 18:59 Intake Total 150 800 Balance 150 800 Weight 85.275 kg Intake: IV 150 800 Cefepime 2 gm In Sodium 50 Chloride 0.9% 50 ml @ 100 mls/hr IVPB Q8HR [facility] Rx# :[id number] Sodium Chloride 0.9% 1, 100 800 000 ml @ 100 mls/hr IV . Q10H [facility] Rx#:[id number] Other: Voiding Method Toilet Toilet - Exam Head normocephalic Neck supple Lungs clear to auscultation bilaterally no wheezing or crackles Heart regular rate and rhythm S1-S2, no rub or gallop Abdomen is soft nontender nondistended positive bowel sounds no hepatosplenomegaly Extremities no edema Neuro alert and orientated to 3 - Labs CBC & Chem 7: 09/06/17 07:29 09/06/17 07:29 Labs: Abnormal Lab Results - Last 24 Hours (Table) 09/06/17 09/06/17 Range/Units 07:29 07:29 WBC 12.2 H (3.8-10.6) k/uL RBC 2.81 L (3.80-5.40) m/uL Hgb 8.4 L (11.4-16.0) gm/dL Hct 27.2 L (34.0-46.0) % MCHC 30.7 L (31.0-37.0) g/dL RDW 16.1 H (11.5-15.5) % Plt Count 26 L* (150-450) k/uL Neutrophils # (Manual) 10.30 H (1.3-7.7) k/uL Lymphocytes # (Manual) 0.98 L (1.0-4.8) k/uL Metamyelocytes # (Man) 0.24 H (0) k/uL Myelocytes # (Manual) 0.12 H (0) k/uL Chloride 108 H (98-107) mmol/L BUN 3 L (7-17) mg/dL Total Protein 5.1 L (6.3-8.2) g/dL Albumin 2.8 L (3.5-5.0) g/dL Assessment and Plan Assessment: #1. Dehydration due to poor oral intake due pain related to radiation esophagitis, continue with IV fluid. Will advance diet to a soft diet. Have patient seen by dietitian. Patient had some vomiting yesterday. Now resolved. She wants to try to eat again. Reporting that her pain with swallowing is tolerable. #2. Small cell lung cancer, TNM stage IIb, has completed radiation therapy, is currently receiving chemotherapy. Initially chemotherapy included cisplatin and etoposide, the patient developed significant tinnitis in the cisplatin was changed over to carboplatin #3 Radiation esophagitis #4. Chemotherapy induced pancytopenia. Zarxio added by oncology for leukopenia. White count improving. Patient did require 1 unit of blood during this admission #5. Electrolyte imbalance with hypomagnesemia #6. History of advanced COPD #7. Anxiety #8. Hypothyroidism #9 essential hypertension continue lisinopril and Norvasc We'll increase patient's activity consult physical therapy. Monitor patient's oral intake. Anticipate discharge possibly tomorrow I performed an examination of the patient and discussed their management with the physician Heating Plant Superintendent. I have reviewed the Physician Heating Plant Superintendent's notes and agree with the documented findings and plan of care
--- NOTE | 2017-09-06 17:02 | P.PN ---
Subjective Progress Note Date: 09/06/17 Principal diagnosis: radiation esophagitis Pt seen in follow up, her swallowing continues to improve, she is tolerating fluids and very soft foods, her nausea is controlled with ativan and zofran, she denies fevers, diarrhea, bleeding or pain, she is fully ambulatory Objective - Vital Signs Vital signs: Vital Signs Temp 98.4 F 09/06/17 15:00 Pulse 100 09/06/17 15:00 Resp 16 09/06/17 15:00 BP 133/78 09/06/17 15:00 Pulse Ox 97 09/06/17 15:00 Intake & Output 09/05/17 09/06/17 09/06/17 18:59 06:59 18:59 Intake Total 150 800 800 Balance 150 800 800 Weight 85.275 kg Intake: IV 150 800 800 Cefepime 2 gm In Sodium 50 Chloride 0.9% 50 ml @ 100 mls/hr IVPB Q8HR [facility] Rx# :[id number] Sodium Chloride 0.9% 1, 100 800 800 000 ml @ 100 mls/hr IV . Q10H [facility] Rx#:[id number] Other: Voiding Method Toilet Toilet Toilet - Exam WD, obese female sitting up in bed, moves independently, no acute distress, respirations even and unlabored - Labs CBC & Chem 7: 09/06/17 07:29 09/06/17 07:29 Labs: Abnormal Lab Results - Last 24 Hours (Table) 09/06/17 09/06/17 Range/Units 07:29 07:29 WBC 12.2 H (3.8-10.6) k/uL RBC 2.81 L (3.80-5.40) m/uL Hgb 8.4 L (11.4-16.0) gm/dL Hct 27.2 L (34.0-46.0) % MCHC 30.7 L (31.0-37.0) g/dL RDW 16.1 H (11.5-15.5) % Plt Count 26 L* (150-450) k/uL Neutrophils # (Manual) 10.30 H (1.3-7.7) k/uL Lymphocytes # (Manual) 0.98 L (1.0-4.8) k/uL Metamyelocytes # (Man) 0.24 H (0) k/uL Myelocytes # (Manual) 0.12 H (0) k/uL Chloride 108 H (98-107) mmol/L BUN 3 L (7-17) mg/dL Total Protein 5.1 L (6.3-8.2) g/dL Albumin 2.8 L (3.5-5.0) g/dL Assessment and Plan (1) Radiation esophagitis Narrative/Plan: Improving with time, pt is tolerating liquids and some soft foods Current Visit: Yes Status: Acute Priority: High Code(s): K20.8 - OTHER ESOPHAGITIS SNOMED Code(s): 884062766 (2) Antineoplastic chemotherapy induced pancytopenia Narrative/Plan: Stable, no acute intervention Current Visit: Yes Status: Acute Priority: High Code(s): D61.810 - ANTINEOPLASTIC CHEMOTHERAPY INDUCED PANCYTOPENIA; T45.1X5A - ADVERSE EFFECT OF ANTINEOPLASTIC AND IMMUNOSUP DRUGS, INIT SNOMED Code(s): 971506503169145 (3) Dehydration Narrative/Plan: Pt now tolerating some oral intake Current Visit: Yes Status: Acute Priority: High Code(s): E86.0 - DEHYDRATION SNOMED Code(s): 11037537 (4) Hypomagnesemia Narrative/Plan: Secondary to poor oral intake, she was supplemented, Mag level in am Current Visit: Yes Status: Acute Priority: High Code(s): E83.42 - HYPOMAGNESEMIA SNOMED Code(s): 586884859 (5) Small cell lung cancer Narrative/Plan: Pt has completed Pt completed definitive chemo/XRT for limited stage SCLC. Once she has recovered she will continue on chemo. Current Visit: Yes Status: Acute Priority: High Code(s): C34.90 - MALIGNANT NEOPLASM OF UNSP PART OF UNSP BRONCHUS OR LUNG SNOMED Code(s): 395654836 (6) Radiation dermatitis Narrative/Plan: Stable Current Visit: Yes Status: Acute Priority: High Code(s): L58.9 - RADIODERMATITIS, UNSPECIFIED SNOMED Code(s): 18212826 Plan: Pt has at home diagnosed with influenza. She was prescribed prophylactic tamiflu for picking tech on DC.
[2017-09-06 23:06] VITALS: RESP 16
[2017-09-07] MEDS: CEFEPIME 2 GM in SODIUM CHLORIDE 0.9% 50 ML IVPB SCH ×3 (00:21→15:16)
[2017-09-07] MEDS: LORazepam 2 MG/ML INJ IV PRN (02:14)
[2017-09-07] MEDS: SODIUM CHLORIDE 0.9% 1,000 ML IV SCH ×2 (05:41→12:31)
[2017-09-07] MEDS: LEVOTHYROXINE 25 MCG TAB PO SCH (05:53)
[2017-09-07] MEDS: ONDANSETRON 4 MG/2 ML VIAL IVP PRN ×2 (06:15→12:28)
[2017-09-07 07:31] VITALS: BP 144/85; PULSE 97; TEMP 97.7
[2017-09-07 08:09] LABS: Anisocytosis Slight; HCT 23.3 % (34.0-46.0); HGB 7.7 gm/dL (11.4-16.0); Hypochromasia Slight; MCH 31.1 pg (25.0-35.0); MCHC 32.8 g/dL (31.0-37.0); MCV 94.9 fL (80.0-100.0); Mean Platelet Volume 8.4; Poikilocytosis Slight; RBC 2.46 m/uL (3.80-5.40); RDW 16.4 % (11.5-15.5); WBC 7.1 k/uL (3.8-10.6)
[2017-09-07] MEDS: NYSTATIN 100,000 UNIT/ML SUSP 500,000 UNIT/5 ML CUP PO SCH ×2 (08:14→12:18)
[2017-09-07] MEDS: LORazepam 0.5 MG TAB PO PRN (08:19)
[2017-09-07] MEDS: HYDROcodone/APAP 15 ML SOLUTION PO PRN ×2 (08:19→12:30)
[2017-09-07 08:20] LABS: Platelet Count 38 k/uL (150-450)
[2017-09-07 08:26] LABS: Anion Gap 7 mmol/L; Blood Urea Nitrogen 5 mg/dL (7-17); Calcium 8.6 mg/dL (8.4-10.2); Carbon Dioxide 24 mmol/L (22-30); Chloride 110 mmol/L (98-107); Glucose 90 mg/dL (74-99); Magnesium 1.5 mg/dL (1.6-2.3); Potassium 3.3 mmol/L (3.5-5.1); Sodium 141 mmol/L (137-145)
[2017-09-07 08:51] LABS: Band Neutrophils % 5 %; Lymphocytes # (M) 0.85 k/uL (1.0-4.8); Metamyelocytes # (M) 0.21 k/uL (0); Metamyelocytes % 3 %; Myelocytes # (M) 0.43 k/uL (0); Myelocytes % 6 %; Neutrophils % (M) 69 %; Nucleated Red Blood Cells 0 /100 WBC (0-0); Total Cells Counted 200
[2017-09-07 08:52] LABS: Polychromasia Present; Toxic Vacuolation Present
[2017-09-07] MEDS: IPRATROPIUM 0.5 MG/2.5 ML NEBU INHALATION SCH ×3 (09:13→16:19)
[2017-09-07] MEDS: SYMBICORT 160-4.5 MCG INHALER INHALATION SCH (09:13)
[2017-09-07] MEDS: LISINOPRIL 20 MG TAB PO SCH (09:22)
[2017-09-07] MEDS: MONTELUKAST 10 MG TAB PO SCH (09:23)
[2017-09-07] MEDS: MAGNESIUM OXIDE 400 MG TAB PO SCH ×2 (09:23→15:16)
[2017-09-07] MEDS: amLODIPine 5 MG TAB PO SCH (09:23)
[2017-09-07] MEDS: PANTOPRAZOLE 40 MG/10 ML VIAL IVP SCH (10:54)
[2017-09-07] MEDS ORDERED: Potassium Replacement Protocol 1 EACH MISC MISCELLANE PRN (11:13)
[2017-09-07] MEDS: POTASSIUM CHLORIDE 10 MEQ in SODIUM CHLORIDE 0.9% 100 ML IVPB SCH ×3 (12:24→15:22)
[2017-09-07] MEDS ORDERED: POTASSIUM CHLORIDE ORAL LIQUID 40 MEQ/30 ML CUP PO ONE (13:23)
--- NOTE | 2017-09-07 14:04 | P.DS ---
Providers Date of admission: 08/30/17 13:04 Expected date of discharge: 09/07/17 Attending physician: Katty Garay Consults: 08/30/17 13:04 Consult Physician Routine Consulting Provider: Patria Osuna Consult Reason/Comments: Lung cancer on chemo, leukopenic Do you want consulting provider notified?: Yes Primary care physician: Soni Shoals Hospital Course: Discharge diagnosis #1. Dehydration due to poor oral intake due pain related to radiation esophagitis #2. Small cell lung cancer, TNM stage IIb, has completed radiation therapy, is currently receiving chemotherapy. Initially chemotherapy included cisplatin and etoposide, the patient developed significant tinnitis in the cisplatin was changed over to carboplatin #3 Radiation esophagitis #4. Chemotherapy induced pancytopenia. #5. Electrolyte imbalance with hypomagnesemia #6. History of advanced COPD #7. Anxiety #8. Hypothyroidism #9 essential hypertension continue lisinopril and Norvasc #10 anemia secondary to her lung cancer and chemotherapy treatment. Patient did require 1 unit of blood during this admission Hospital course Karmen Montelongo is a 47-year-old female with history of small cell lung cancer presents for evaluation of dehydration. Patient has been on chemotherapy , last session was approximately one week ago. She has had some nausea and severe pain with swallowing. She is also receiving radiation therapy. Because of the pain with swallowing she has not been eating or taking her pain medication. She feels she is dehydrated, she is feeling dizzy. She is concerned about her electrolytes. Patient is feeling better. Patient had pain with swallowing and difficulty in getting appropriate nutrition due to her radiation esophagitis. This should take improve since she is done with her radiation treatments. She was seen by the radiation oncologist as well. She is stable for discharge. During this admission she was given IV fluids to hydrate. She is also given antibiotics for prophylaxis. No further antibiotics are required. There is no evidence of any acute infection. Her white count had gone down to 0.9 she was given zarxio per oncology and her white count has normalized at 7.1. Hemoglobin is 7.7 today and platelets are 38. Oncology has cleared her for discharge. She'll follow-up with him in the office as scheduled. Patient's pain is controlled as long as she takes her pain medications as well as she states taking Ativan. Zofran as needed for nausea. She is tolerating a low fiber diet. Encouraged patient to put bananas and her milkshakes to keep her potassium up. She also had some low magnesium and she is able to take the magnesium pills. Patient's symptoms have improved with IV hydration and pain control. She is tolerating a diet. And she is stable for discharge. We'll have her follow-up with her PCP on Sunday next week to have CBC and BMP and magnesium level checked. I performed an examination of the patient and discussed their management with the physician Loader Engineer. I have reviewed the Physician Loader Engineer's notes and agree with the documented findings and plan of care Patient Condition at Discharge: Stable Plan - Discharge Summary Discharge Rx Participant: Yes New Discharge Prescriptions: New Oseltamivir [Tamiflu] 75 mg PO DAILY #10 cap HYDROcodone/APAP [Fishtail Elixir 7.5-325Mg/15Ml] 25 ml PO ACHS PRN #700 ml PRN Reason: Pain Continue Levothyroxine Sodium [Synthroid] 25 mcg PO DAILY amLODIPine [Norvasc] 5 mg PO DAILY Mometasone/Formoterol [Dulera 100 Mcg/5 Mcg Inhaler] 2 puff INHALATION RT-BID Albuterol Inhaler [Ventolin Hfa Inhaler] 1 - 2 puff INHALATION Q6HR PRN PRN Reason: Wheezing Umeclidinium [place]ost[place] [Incruse Ellipta] 1 puff INHALATION RT-DAILY Lisinopril [Prinivil] 20 mg PO DAILY Ipratropium-Albuterol Nebulize [Duoneb 0.5 mg-3 mg/3 ml Soln] 3 ml INHALATION RT-BID PRN PRN Reason: Shortness Of Breath Ergocalciferol (Vitamin D2) [Vitamin D2] 50,000 tab PO FR Montelukast [Singulair] 10 mg PO DAILY Dexamethasone 8 mg PO DIRECTED Lidocaine Viscous 2% [Xylocaine Viscous] 15 - 20 ml MUCOUS MEM ACHS PRN PRN Reason: Pain Magnesium Oxide [Mag-Ox] 400 mg PO TID fentaNYL [Duragesic 25MCG/HR] 1 patch TRANSDERM Q72H LORazepam [Ativan] 0.5 mg PO Q8H PRN #42 tablet PRN Reason: Nausea Ondansetron [Zofran ODT] 4 mg PO Q8HR PRN #42 tab.rapdis PRN Reason: Nausea Discontinued Hydrocodone/Acetaminophen [Hycet 7.5 mg-325 mg/15 ml Soln] 15 - 25 ml PO ACHS PRN PRN Reason: Pain Discharge Medication List Albuterol Inhaler [Ventolin Hfa Inhaler] 1 - 2 puff INHALATION Q6HR PRN [History] Ipratropium-Albuterol Nebulize [Duoneb 0.5 mg-3 mg/3 ml Soln] 3 ml INHALATION RT -BID PRN 06/18/17 [History] Levothyroxine Sodium [Synthroid] 25 mcg PO DAILY 06/18/17 [History] Lisinopril [Prinivil] 20 mg PO DAILY 06/18/17 [History] Mometasone/Formoterol [Dulera 100 Mcg/5 Mcg Inhaler] 2 puff INHALATION RT-BID [History] Umeclidinium [place] [Incruse Ellipta] 1 puff INHALATION RT-DAILY 06/18/17 [ History] amLODIPine [Norvasc] 5 mg PO DAILY 06/18/17 [History] Ergocalciferol (Vitamin D2) [Vitamin D2] 50,000 tab PO FR 07/09/17 [History] Dexamethasone 8 mg PO DIRECTED 07/10/17 [History] Montelukast [Singulair] 10 mg PO DAILY 07/10/17 [History] Lidocaine Viscous 2% [Xylocaine Viscous] 15 - 20 ml MUCOUS MEM ACHS PRN [History] Magnesium Oxide [Mag-Ox] 400 mg PO TID 08/30/17 [History] fentaNYL [Duragesic 25MCG/HR] 1 patch TRANSDERM Q72H 08/30/17 [History] Oseltamivir [Tamiflu] 75 mg PO DAILY #10 cap 09/06/17 [Rx] HYDROcodone/APAP [Fis[place]ail Elixir 7.5-325Mg/15Ml] 25 ml PO ACHS PRN #700 ml [Rx] LORazepam [Ativan] 0.5 mg PO Q8H PRN #42 tablet 09/07/17 [Rx] Ondansetron [Zofran ODT] 4 mg PO Q8HR PRN #42 tab.rapdis 09/07/17 [Rx] Follow up Appointment(s)/Referral(s): Rhonda Burt NPC [Nurse Practitioner] - 09/10/17 10:15 am Soni Mckenzie DO [Primary Care Provider] - 3 Days Activity/Diet/Wound Care/Special Instructions: Diet: low fiber Activity: as tolerated Check CBC and BMP, Mg on Sunday Discharge Disposition: HOME SELF-CARE
== END 2017-09-07 17:21 | disposition home or self-care (01) | DRG 391 ==
LOC: EC 11:09 → 5MS5E 13:04 → 5ONC 08-31 17:55
PROVIDERS: ADMIT Internal Medicine; ATTEND Internal Medicine
PROC: 30233N1 Transfusion of Nonautologous Red Blood Cells into Peripheral Vein, Percutaneous Approach (ICD-10-PCS; principal; 2017-09-01)
DX: K20.8 Other esophagitis (principal); D61.810 Antineoplastic chemotherapy induced pancytopenia; C34.90 Malignant neoplasm of unspecified part of unspecified bronchus or lung; E83.42 Hypomagnesemia; E86.0 Dehydration; E03.9 Hypothyroidism, unspecified; E66.9 Obesity, unspecified; F17.201 Nicotine dependence, unspecified, in remission; F41.9 Anxiety disorder, unspecified; I10 Essential (primary) hypertension; J44.9 Chronic obstructive pulmonary disease, unspecified; L59.8 Other specified disorders of the skin and subcutaneous tissue related to radiation; R50.9 Fever, unspecified; R11.10 Vomiting, unspecified; T45.1X5A Adverse effect of antineoplastic and immunosuppressive drugs, initial encounter; Z79.899 Other long term (current) drug therapy; Z88.8 Allergy status to other drugs, medicaments and biological substances; Z68.34 Body mass index [BMI] 34.0-34.9, adult; Y84.2 Radiological procedure and radiotherapy as the cause of abnormal reaction of the patient, or of later complication, without mention of misadventure at the time of the procedure
CPT/HCPCS: 36415; 80048; 80053; 83735; 85025; 86850; 86900; 86901; 86920; 87502; 94640; 96361; 96374; 99285

== ENCOUNTER → 2017-09-13 | Outpatient (CLI) | payer BC ==
[2017-09-13 11:41] LABS: Blood Urea Nitrogen 7 mg/dL (7-17)
--- NOTE | 2017-09-13 12:49 | CT ---
CT CHEST FOR PULMONARY EMBOLISM. EXAMINATION TYPE: CT angio chest DATE OF EXAM: 09/13/2017 INDICATION: SOB and Tachycardia CT DLP: 548 mGycm, Automated exposure control for dose reduction was used. CONTRAST: Patient injected with 98 mL of Omnipaque 350. COMPARISON: 08/27/2017 TECHNIQUE: CT of the chest is performed on a spiral scan at 2 mm thick sections. Study is performed with intravenous contrast timed for evaluation for pulmonary embolism. This will limit additional po rtions of the evaluation. 3-D MIP images reconstructed by the technologist are reviewed on the compu ter in the coronal and sagittal planes. FINDINGS: No persistent filling defects are evident to suggest an acute pulmonary embolism. There is a 2.9 cm mass in the right suprahilar region compatible with a mass or enlarged lymph node. This appears to have partial encasement of the right main pulmonary artery and the right middle and l ower lobe branches. Stenosis is not evident. This also encases the right middle lobe bronchus. This i s larger than the 2.3 cm from 08/27/2017. No mediastinal or hilar adenopathy enlarged by CT criteria is evident. The ascending aorta diameter at the level of the main pulmonary artery is 2.7 cm. The main pulmonary artery diameter at the bifur cation is 2.6 cm. Minimal pericardial effusion may be present. Minimal right pleural effusion is present. Limited CT section through the upper abdomen. There is a peripherally enhancing mass within the infer ior posterior right lobe liver measuring 3.0 cm. IMPRESSIONS: 1. Enlarging right suprahilar mass with partial encasement of the right pulmonary artery and right mi ddle lobe bronchus. 2. Minimal right pleural effusion. 3. No acute pulmonary embolism.
[2017-09-13 20:51] LABS: ALT 13 U/L (9-52); AST 17 U/L (14-36); Albumin 3.1 g/dL (3.5-5.0); Alkaline Phosphatase 80 U/L (38-126); Anion Gap 15 mmol/L; Calcium 8.8 mg/dL (8.4-10.2); Carbon Dioxide 27 mmol/L (22-30); Chloride 99 mmol/L (98-107); Glucose 94 mg/dL (74-99); Potassium 3.9 mmol/L (3.5-5.1); Sodium 141 mmol/L (137-145); Total Bilirubin 0.3 mg/dL (0.2-1.3); Total Protein 5.7 g/dL (6.3-8.2)
[2017-09-14 11:14] LABS: Vitamin B12 >4000.0 pg/mL (211-911)
== END | disposition home or self-care (01) ==
LOC: RADPROMAIN 11:04
PROVIDERS: ATTEND Internal Medicine Hematology & Oncology
DX: R91.8 Other nonspecific abnormal finding of lung field (principal); C34.91 Malignant neoplasm of unspecified part of right bronchus or lung; R11.0 Nausea; H93.19 Tinnitus, unspecified ear; Z71.3 Dietary counseling and surveillance
CPT/HCPCS: 80053; 82607; 82728; 82746; 83540; 83550; 71275; Q9967

== ENCOUNTER → 2017-09-14 | Outpatient (CLI) | payer BC ==
--- NOTE | 2017-09-14 23:47 | MR ---
EXAMINATION TYPE: MR brain wo/w con DATE OF EXAM: 09/14/2017 COMPARISON: 06/04/2017 HISTORY: Unsteady gate, hx of small cell lung ca, previous mri on pacs, gadavist 10ml TECHNIQUE: Multiplanar, multisequence images of the brain and brainstem is performed without and with IV contras t, utilizing 10 mL intravenous Gadavist . FINDINGS: On the T2 and FLAIR images there are scattered foci of abnormal increased signal at the roldan-white ma tter junction of both cerebral hemispheres. The largest measures 1 cm in the left internal capsule. T hese are nonenhancing. There is no mass effect nor midline shift. There is no sign of intracranial he morrhage. Ventricles of normal size. I see no pathologic enhancement. The brainstem is intact. Sella turcica appears normal. Corpus callosum appears normal. There is no evidence of acute cortical infarc t. IMPRESSION: Scattered white matter high signal foci. Total numbers less than 10 and these are nonenha ncing and appear not significantly different than last exam. This probably relates to small vessel is chemia. I do not see evidence for metastatic disease.
== END | disposition home or self-care (01) ==
LOC: RADMRIMAIN 20:37
PROVIDERS: ATTEND Internal Medicine Hematology & Oncology
DX: R90.89 Other abnormal findings on diagnostic imaging of central nervous system (principal); C34.91 Malignant neoplasm of unspecified part of right bronchus or lung; R26.9 Unspecified abnormalities of gait and mobility
CPT/HCPCS: 70553; A9581

== ENCOUNTER → 2017-12-11 | Outpatient (CLI) | payer BC ==
--- NOTE | 2017-12-11 10:50 | CT ---
EXAMINATION TYPE: CT ChestAbdPelvis w con DATE OF EXAM: 12/11/2017 COMPARISON: 08/27/[address] 06/02/2017 HISTORY: 47-year-old female Follow-up lung cancer. TECHNIQUE: Contiguous axial scanning of the chest, abdomen, and pelvis performed with IV Contrast, pa tient injected with 100 mL of Isovue M300. Delayed images through the kidneys were obtained. Coronal/ sagittal reconstructions performed. CT DLP: 1730 mGycm Automated exposure control for dose reduction was used. FINDINGS: Chest: Heart normal size with small pericardial effusion measuring 6 mm thick, slightly increased from previ ous. Mild coronary vascular calcifications are present. Aorta normal caliber with conventional arch vessel branching anatomy. Redemonstrated focal soft tissue in the right hilum. This measures 2.6 x 2.1 cm versus 2.6 x 2.5 cm, previously. Right suprahilar right upper lobe residual soft tissue contiguous with the hilum measures 1.4 cm versus 1.6 cm, previously. No new or progressive mediastinal lymphadenopathy. However, new in the interval are multifocal areas of subpleural and peribronchovascular groundglass a nd mild consolidation throughout the lungs, right greater than left. No pleural effusion. ABDOMEN: Small amount of focal fat along the anterior falciform ligament. Redemonstrated lesion within segment 6 of the right liver lobe. This shows peripheral patchy enhancement on portal venous phase and fills in on delayed kidney images with density following the blood pool. This measures 2.6 cm, relatively unchanged from 08/27/2017, suspected hemangioma. No biliary ductal dilatation. Portal venous system is patent. Gallbladder, adrenal glands, kidneys, spleen, and pancreas appear within normal limits. No dilated small bowel, free fluid, or free air. No mesenteric or retroperitoneal lymphadenopathy. Normal appendix. Oral contrast progressed to the lower descending colon. A few sigmoid diverticula. N o pericolonic inflammatory change. Pelvis: Bladder urine distended. Uterus and ovaries are visualized. No abnormal fluid collection in the pelvi s or pelvic lymphadenopathy seen. Bones: No osseous destructive process. IMPRESSION: 1. RESIDUAL RIGHT HILAR SOFT TISSUE IS SLIGHTLY SMALLER (2.6 X 2.1 CM VERSUS 2.6 X 2.5 MM, PREVIOUSLY ) AND RIGHT SUPRAHILAR NODULE IS ALSO SLIGHTLY SMALLER (1.4 CM VERSUS 1.6 CM, PREVIOUSLY). FINDINGS S UGGEST IMPROVING RESIDUAL OR TREATED DISEASE. 2. HOWEVER, THERE ARE NEW MULTIFOCAL PATCHY AREAS OF GROUNDGLASS, RIGHT GREATER THAN LEFT. SOME DIFFE RENTIAL CONSIDERATIONS INCLUDE DRUG REACTION , HYPERSENSITIVITY PNEUMONITIS, NSIP, SUPERVISOR STONE, AND ATYPICAL INFECTIONS. CLINICALLY CORRELATE. 3. A SMALL PERICARDIAL EFFUSION (6 MM) IS SLIGHTLY INCREASED. 4. IN INFERIOR RIGHT LIVER LOBE LESION MEASURES 2.6 CM, NOT SIGNIFICANTLY CHANGED, SUSPECTED HEMANGIO MA. THIS CAN CONTINUE TO BE REASSESSED AT THE PATIENT'S FOLLOW-UP.
== END | disposition home or self-care (01) ==
LOC: RADCTMAIN 08:04
PROVIDERS: ATTEND Internal Medicine Hematology & Oncology
DX: C34.91 Malignant neoplasm of unspecified part of right bronchus or lung (principal); I31.3 Pericardial effusion (noninflammatory); Z88.8 Allergy status to other drugs, medicaments and biological substances
CPT/HCPCS: 71260; 74177; Q9967

== ENCOUNTER → 2017-12-11 | Outpatient (CLI) | payer BC | END | disposition home or self-care (01) | LOC: LABWHC1 10:09 | PROVIDERS: ATTEND Radiology Radiation Oncology | DX: C34.11 Malignant neoplasm of upper lobe, right bronchus or lung (principal) | CPT/HCPCS: 36415; 82565 ==

== ENCOUNTER → 2017-12-12 | Outpatient (CLI) | payer BC ==
--- NOTE | 2017-12-12 13:35 | MR ---
EXAMINATION TYPE: MR brain wo/w con DATE OF EXAM: 12/12/2017 COMPARISON: Prior MR brain January 12, 2018 HISTORY: Lung CA, small cell, mets TECHNIQUE: Multiplanar, multisequence images of the brain and brainstem is performed without and with IV contras t, utilizing 8.5 mL intravenous Gadavist . FINDINGS: Diffusion weighted images demonstrate small focus of restricted diffusion and corresponding hyperintensity on inversion recovery, T2-weighted sequences, enhancement following contrast administ ration at the level of the frontal parietal lobe junction, axial image 67 postcontrast images and con vexity measuring 7 8 mm in greatest AP dimension. An additional focus of enhancement is present just lateral on axial image 66 measuring only 3 mm in size. Axial image 64 also shows a splenic focus of e nhancement measuring only 2 to 3 mm in the right parietal lobe towards convexity corresponding signal change and inversion recovery and T2-weighted sequences. There is some dural enhancement present. Th ere are some 2-3 new hyperintensities on inversion recovery sequences without corresponding enhanceme nt, small additional foci of metastasis not excluded. No other significant interval changes. Midline structures demonstrate normal morphology. The craniocervical junction appears within normal limits. Post contrast images demonstrate no abnormal enhancement. The dural venous sinuses appear pa tent. The visualized sinuses are clear and the globes are intact. IMPRESSION: Metastatic disease suspected towards convexity on the right and additional findings above .
== END | disposition home or self-care (01) ==
LOC: RADMRIMAIN 11:38
PROVIDERS: ATTEND Radiology Radiation Oncology
DX: C34.11 Malignant neoplasm of upper lobe, right bronchus or lung (principal)
CPT/HCPCS: 70553; A9581

== ENCOUNTER 2018-01-31 15:08 | Emergency (ER) | payer BC ==
--- NOTE | 2018-01-31 16:40 | ED ---
General Adult HPI - General Chief complaint: Extremity Problem,Nontraumatic Stated complaint: hand & left foot cramping/cancer pt Time Seen by Provider: 01/31/18 15:20 Source: patient, RN notes reviewed Mode of arrival: wheelchair Limitations: no limitations - History of Present Illness Initial comments: This is a 47-year-old female who presents with a past medical history significant for lung cancer with metastatic disease to the brain. Patient stopped chemo at Easter time but has recently received radiation. Patient states yesterday her hands cramped and it was severely painful and it lasts about 5 minutes. Patient states today she had her left foot cramp and that lasted about 5 minutes as well. Patient decided to come in and be checked out because she does not why this is occurring. Patient denies any fever or chills. Patient states she's eating and drinking enough. Patient denies any areas of cramping. Patient denies any other complaints and currently is feeling at her baseline - Related Data Home Medications Medication Instructions Recorded Confirmed Albuterol Inhaler [Ventolin Hfa 1 - 2 puff INHALATION Q6HR PRN 06/18/17 10/24/17 Inhaler] Ipratropium-Albuterol Nebulize 3 ml INHALATION RT-BID PRN 06/18/17 10/24/17 [Duoneb 0.5 mg-3 mg/3 ml Soln] Levothyroxine Sodium [Synthroid] 25 mcg PO DAILY 06/18/17 10/24/17 Lisinopril [Prinivil] 20 mg PO DAILY 06/18/17 10/24/17 Mometasone/Formoterol [Dulera 100 2 puff INHALATION RT-BID 06/18/17 10/24/17 Mcg/5 Mcg Inhaler] Umeclidinium Parachute [Incruse 1 puff INHALATION RT-DAILY 06/18/17 10/24/17 Ellipta] amLODIPine [Norvasc] 5 mg PO DAILY 06/18/17 10/24/17 Ergocalciferol (Vitamin D2) 50,000 tab PO FR 07/09/17 10/24/17 [Vitamin D2] Montelukast [Singulair] 10 mg PO DAILY 07/10/17 10/24/17 Lidocaine Viscous 2% [Xylocaine 15 - 20 ml MUCOUS MEM ACHS PRN 08/30/17 10/24/17 Viscous] Magnesium Oxide [Mag-Ox] 400 mg PO TID 08/30/17 10/24/17 fentaNYL [Duragesic 25MCG/HR] 1 patch TRANSDERM Q72H 08/30/17 10/24/17 predniSONE 10 mg PO DIRECTED 10/02/17 10/24/17 Acetaminophen [Tylenol] 650 mg PO QID PRN 10/03/17 10/24/17 Previous Rx's Medication Instructions Recorded HYDROcodone/APAP [[place]ler Elixir 25 ml PO ACHS PRN #700 ml 09/07/17 7.5-325Mg/15Ml] LORazepam [Ativan] 0.5 mg PO Q8H PRN #42 tablet 09/07/17 Ondansetron [Zofran ODT] 4 mg PO Q8HR PRN #42 tab.rapdis 09/07/17 Allergies Allergy/AdvReac Type Severity Reaction Status Date / Time infliximab [From Remicade] Allergy Severe Anaphylaxis Verified 01/31/18 15:33 Review of Systems ROS Statement: Those systems with pertinent positive or pertinent negative responses have been documented in the HPI. ROS Other: All systems not noted in ROS Statement are negative. Past Medical History Past Medical History: Cancer, Hypertension, Pneumonia, Thyroid Disorder Additional Past Medical History / Comment(s): small cell lung cancer undergoing chemotherapy and radiation therapy (last one 08/27/17), pneumonia once in April 2017, pt states she is perimenopausal-last menses months ago. History of Any Multi-Drug Resistant Organisms: None Reported Past Surgical History: No Surgical Hx Reported Additional Past Surgical History / Comment(s): Bronchoscopy with bx, EGD, R wrist ganglion cyst, pilonidal cyst Past Anesthesia/Blood Transfusion Reactions: Postoperative Nausea & Vomiting ( PONV) Past Psychological History: No Psychological Hx Reported Smoking Status: Current every day smoker Past Alcohol Use History: None Reported Past Drug Use History: None Reported - Past Family History Father Family Medical History: CVA/TIA Additional Family Medical History / Comment(s): Father of a CVA at the age of 60 yrs. Strokes run strongly on his side of the family. Mother Family Medical History: No Reported History Additional Family Medical History / Comment(s): Mother is healthy. General Exam - General Exam Comments Initial Comments: GENERAL: Patient is well-developed and well-nourished. Patient is nontoxic and well- hydrated and is in no acute distress. ENT: Neck is soft and supple. No significant lymphadenopathy is noted. Oropharynx is clear. Moist mucous membranes. EYES: The sclera were anicteric and conjunctiva were pink and moist. Extraocular movements were intact and pupils were equal round and reactive to light. Eyelids were unremarkable. PULMONARY: Unlabored respirations. Good breath sounds bilaterally. No audible rales rhonchi or wheezing was noted. CARDIOVASCULAR: There is a regular rate and rhythm without any murmurs gallops or rubs. ABDOMEN: Soft and nontender with normal bowel sounds. No palpable organomegaly was noted. There is no palpable pulsatile mass. SKIN: Skin is clear with no lesions or rashes and otherwise unremarkable. NEUROLOGIC: Patient is alert and oriented x3. Cranial nerves II through XII are grossly intact. Motor and sensory are also intact. Normal speech, volume and content. Symmetrical smile. MUSCULOSKELETAL: Normal extremities with adequate strength and full range of motion. LYMPHATICS: No significant lymphadenopathy is noted PSYCHIATRIC: Normal psychiatric evaluation. Limitations: no limitations Course Vital Signs 01/31/18 15:31 Temperature 98.6 F Pulse Rate 120 H Respiratory 18 Rate Blood Pressure 127/83 O2 Sat by Pulse 97 Oximetry Medical Decision Making - Medical Decision Making I spoke with Dr. Osuna he states this could be a side effect of the radiation. Dr. Osuna states that some tonic water would be very helpful. - Lab Data Result diagrams: 01/31/18 16:04 01/31/18 16:04 Lab Results 01/31/18 01/31/18 Range/Units 16:04 16:04 WBC 10.4 (3.8-10.6) k/uL RBC 3.93 (3.80-5.40) m/uL Hgb 12.1 (11.4-16.0) gm/dL Hct 37.5 (34.0-46.0) % MCV 95.5 (80.0-100.0) fL MCH 30.8 (25.0-35.0) pg MCHC 32.3 (31.0-37.0) g/dL RDW 14.4 (11.5-15.5) % Plt Count 249 (150-450) k/uL Neutrophils % 87 % Lymphocytes % 6 % Monocytes % 6 % Eosinophils % 0 % Basophils % 0 % Neutrophils # 9.0 H (1.3-7.7) k/uL Lymphocytes # 0.6 L (1.0-4.8) k/uL Monocytes # 0.7 (0-1.0) k/uL Eosinophils # 0.0 (0-0.7) k/uL Basophils # 0.0 (0-0.2) k/uL Sodium 139 (137-145) mmol/L Potassium 4.4 (3.5-5.1) mmol/L Chloride 107 (98-107) mmol/L Carbon Dioxide 22 (22-30) mmol/L Anion Gap 10 mmol/L BUN 18 H (7-17) mg/dL Creatinine 1.04 (0.52-1.04) mg/dL Est GFR (CKD-EPI)AfAm 73 (>60 ml/min/1.73 sqM) Est GFR (CKD-EPI)NonAf 64 (>60 ml/min/1.73 sqM) Glucose 90 (74-99) mg/dL Calcium 9.4 (8.4-10.2) mg/dL Magnesium 1.8 (1.6-2.3) mg/dL Total Bilirubin 0.2 (0.2-1.3) mg/dL AST 13 L (14-36) U/L ALT 22 (9-52) U/L Alkaline Phosphatase 66 (38-126) U/L Total Protein 6.6 (6.3-8.2) g/dL Albumin 4.1 (3.5-5.0) g/dL Disposition Clinical Impression: [place] spasm Disposition: HOME SELF-CARE Condition: Good Instructions: [place] Sp[place] (ED) Is patient prescribed a controlled substance at d/c from ED?: No Referrals: Soni Mckenzie DO [Primary Care Provider] - 1-2 days Time of Disposition: 17:43
[2018-01-31 16:41] LABS: Basophils % (A) 0 %; Eosinophils % (A) 0 %; HCT 37.5 % (34.0-46.0); HGB 12.1 gm/dL (11.4-16.0); Lymphocytes # (A) 0.6 k/uL (1.0-4.8); Lymphocytes % (A) 6 %; MCH 30.8 pg (25.0-35.0); MCHC 32.3 g/dL (31.0-37.0); MCV 95.5 fL (80.0-100.0); Mean Platelet Volume 6.8; Monocytes # (A) 0.7 k/uL (0-1.0); Monocytes % (A) 6 %; Neutrophils % (A) 87 %; Platelet Count 249 k/uL (150-450); RBC 3.93 m/uL (3.80-5.40); RDW 14.4 % (11.5-15.5); WBC 10.4 k/uL (3.8-10.6)
[2018-01-31 16:48] LABS: Albumin 4.1 g/dL (3.5-5.0); Calcium 9.4 mg/dL (8.4-10.2); Magnesium 1.8 mg/dL (1.6-2.3); Potassium 4.4 mmol/L (3.5-5.1); Total Bilirubin 0.2 mg/dL (0.2-1.3); Total Protein 6.6 g/dL (6.3-8.2)
[2018-01-31 18:04] VITALS: BP 134/79; PULSE 101; RESP 16; TEMP 99.3
== END 2018-01-31 18:05 | disposition home or self-care (01) ==
LOC: EC 15:08
DX: R29.0 Tetany (principal); I10 Essential (primary) hypertension; E07.9 Disorder of thyroid, unspecified; F17.200 Nicotine dependence, unspecified, uncomplicated; Z85.118 Personal history of other malignant neoplasm of bronchus and lung; Z85.841 Personal history of malignant neoplasm of brain; Z79.51 Long term (current) use of inhaled steroids; Z79.52 Long term (current) use of systemic steroids; Z79.891 Long term (current) use of opiate analgesic; Z79.899 Other long term (current) drug therapy; Z88.8 Allergy status to other drugs, medicaments and biological substances
CPT/HCPCS: 36415; 80053; 83735; 85025; 99283

== ENCOUNTER → 2018-02-27 | Outpatient (CLI) | payer BC ==
--- NOTE | 2018-02-27 12:02 | CT ---
EXAMINATION TYPE: CT chest w con DATE OF EXAM: 02/27/2018 COMPARISON: CT chest abdomen pelvis December 11, 2017 and older studies. HISTORY: malignant metastatic lung cancer. Diagnosed April 2017 with last chemotherapy October 2017 a nd last radiation treatment December 2017. CT DLP: 460 mGycm. Automated Exposure Control for Dose Reduction was Utilized. TECHNIQUE: CT scan of the thorax is performed following with IV Contrast, patient injected with 100 mL of Isovue 300. FINDINGS: LUNGS: Scattered areas of linear irregularity are seen throughout the right lung with mild central br onchiectasis felt to reflect product of treatment change. There is interval improvement in central ar eas of groundglass opacity from prior exam. Some residual areas of focal opacification and reticulati on for reference posterior right lower lobe axial image 36 remain present. There is likely stable rig ht suprahilar upper lobe nodule or nodular consolidation axial image 21 and coronal image 45 measurin g 1.2 x 0.8 cm. Cannot exclude developing recurrent neoplasm. Anterior reticulation and honeycombing left upper lung axial image 16 is redemonstrated presumed post treatment change. Interval resolution of multifocal groundglass opacity left lung. Left lung is curre ntly clear. No suspicious nodules or masses identified. No pleural effusion or pneumothorax is seen bilaterally. MEDIASTINUM: There are no new greater than 1 cm hilar or mediastinal lymph nodes. Stable right hilar soft tissue and/or adenopathy 2.0 x 1.7 cm axial image 25 is noted from prior. There is small to tin y pericardial effusion that is seen most prominent anteriorly slightly more prominent versus prior no cardiomegaly is seen. Moderate coronary artery calcification proximal LAD is redemonstrated. OTHER: Multilevel moderate spurring mid to lower thoracic spine is present. Peripheral enhancing 2.2 cm right lobe liver lesion axial image 66 favors hemangioma is stable in size. IMPRESSION: Interval improvement in right sided multifocal groundglass opacities. Interval resolution of left-sided multifocal groundglass opacities. Persistent more prominent right lung posttreatment c hanges. Stable right hilar soft tissue and right suprahilar nodule. No new masses or adenopathy ident ified to suggest disease progression.
== END | disposition home or self-care (01) ==
LOC: RADCTMAIN 09:27
PROVIDERS: ATTEND Internal Medicine Critical Care Medicine
DX: R91.1 Solitary pulmonary nodule (principal); R91.8 Other nonspecific abnormal finding of lung field; C34.90 Malignant neoplasm of unspecified part of unspecified bronchus or lung
CPT/HCPCS: 71260; Q9967

== ENCOUNTER → 2018-02-27 | Outpatient (CLI) | payer BC ==
--- NOTE | 2018-02-27 14:29 | MR ---
EXAMINATION TYPE: MR brain wo/w con DATE OF EXAM: 02/27/2018 COMPARISON: 12/12/2017 HISTORY: Secondary malignant neoplasm of brain CONTRAST: Performed utilizing 8.5 mL intravenous Gadavist gadolinium contrast. TECHNIQUE: Multiplanar, multiecho imaging on a 3.0 Lucero magnet is performed through the brain. Stud y is performed within 24 hours of arrival to the hospital. The craniovertebral junction is normal. The pituitary is normal. Diffusion-weighted imaging is performed. No abnormal hyperintensity is present to suggest an acute i ntracranial infarct or acute ischemic change. There are scattered punctate areas of hyperintensity on T2 and Inversion Recovery weighted sequences which are non-specific but can be related to microvascular ischemic changes. There is a more focal ar ea of increased signal extending from the lateral capsule of the left basal ganglion into the left co toney radiata could be an old ischemic area. Lacunar infarct could be considered. This area measures a pproximately 0.8 x 0.9 cm. A previous more lateral area of enhancement is not identified on the curre nt examination. Ventricles and sulci are appropriate for the patient age. No suspicious enhancement is evident. An area of previous suspicious enhancement has diminished signi ficantly in size is identified series 601 image 64 within the left parietal lobe cortex. This previo usly measured 0.8 cm and is currently less than 0.6 cm. Also has diminished transverse dimension. Dur al enhancement is diminished over the interval. IMPRESSIONS: 1. Scattered punctate deep white matter changes, stable from comparison. 2. Probable old lacunar infarct present previously left basal ganglion and barriga radiata. 3. Areas of enhancement have diminished in size or are not visible on the current examination. The la rgest residual area remains in the right parietal region.
== END | disposition home or self-care (01) ==
LOC: RADMRIMAIN 10:41
PROVIDERS: ATTEND Radiology Radiation Oncology
DX: C79.31 Secondary malignant neoplasm of brain (principal); R90.82 White matter disease, unspecified; C34.11 Malignant neoplasm of upper lobe, right bronchus or lung; J44.0 Chronic obstructive pulmonary disease with (acute) lower respiratory infection; Z92.21 Personal history of antineoplastic chemotherapy
CPT/HCPCS: 70553; A9581

== ENCOUNTER → 2018-05-31 | Outpatient (CLI) | payer BC ==
--- NOTE | 2018-05-31 10:47 | CT ---
EXAMINATION TYPE: CT chest abdomen wo/w con DATE OF EXAM: 05/31/2018 COMPARISON: February 27, 2018 and 12/11/2017 HISTORY: Patient has no complaints at time of service. Follow up study for brain/lung CA. CT DLP: 1477.6 mGycm. Automated Exposure Control for Dose Reduction was Utilized. CONTRAST: CT scan of the thorax, abdomen is performed without and with IV Contrast, patient injected with 100 m L of Isovue 300. FINDINGS: LUNGS: Scattered areas of linear irregularity are seen throughout the right lung with mild central br onchiectasis felt to reflect product of treatment change. There is interval improvement in central ar eas of groundglass opacity from prior exam. Some residual areas of focal opacification and reticulati on. Essentially stable right upper lobe nodular consolidation measuring 1 x 1 cm. Stable pleural thic kening and tenting. No new nodule or mass appreciated. No evidence for pleural effusion or distinct m ass. Right upper lobe tracheobronchial thickening. MEDIASTINUM: There is mild pericardial thickening noted. There are no greater than 1 cm hilar or medi astinal lymph nodes. No pericardial effusion is seen. OTHER: No additional significant abnormality is seen. LIVER/GB: Hepatic hemangiomas stable. No new hepatic lesions seen. Gallbladder is unremarkable. PANCREAS: No significant abnormality is seen. SPLEEN: No significant abnormality is seen. ADRENALS: No significant abnormality is seen. KIDNEYS: No significant abnormality is seen. BOWEL: No significant abnormality is seen. LYMPH NODES: No greater than 1cm abdominal or pelvic lymph nodes are appreciated. OSSEOUS STRUCTURES: No significant abnormality is seen. OTHER: No significant additional abnormality is seen. IMPRESSION: 1. Redemonstrated and without significant interval progression are posttreatment changes which includ e groundglass opacities, reticular changes and mild honeycombing. 2. Stable tracheobronchial thickening right upper lobe bronchus. 3. Stable hepatic hemangioma.
--- NOTE | 2018-05-31 11:30 | MR ---
EXAMINATION TYPE: MR brain wo/w con DATE OF EXAM: 05/31/2018 COMPARISON: 12/12/2017 HISTORY: Lung cancer / Secondary brain cancer TECHNIQUE: Multiplanar, multisequence images of the brain and brainstem is performed without and with IV contras t, utilizing 8.5 mL intravenous Gadavist . FINDINGS: There is a rim-enhancing lesion within the high right parietal lobe measuring 12 x 8 mm. Surrounding vasogenic edema noted. Cerebellar tonsils are low-lying in position at the level of the foramen magnum. These findings are s table. Ventricular systems consistent with the patient's age. There are scattered areas of the abnormal sign al the white matter with the largest measuring 1.1 cm in the left parietal lobe which are nonspecific but likely the basis of remote microvascular ischemia. Demyelinating process not entirely excluded. Changes of chronic mastoiditis and sinusitis noted. No midline shift. No cerebellopontine angle mass. There is a trace amount of fluid surrounding the optic nerves which can be associated with increased intracranial hypertension. IMPRESSION: 1. There is a 12 x 8 mm ring-enhancing lesion within the right parietal lobe is increased in size fro m the previous exam where it measured 7.6 mm. It now has a central area of low signal which may repre sent treatment response. Previous two millimeter lesion seen in the right parietal lobe is not identi fied on today's exam.. 2. Scattered nonspecific white matter changes. Correlate for remote microvascular ischemia or [place]. 3. Trace amount fluid surrounding the optic nerves is a nonspecific finding can occasionally be seen with increased intracranial hypertension. 4. stable low-lying cerebellar tonsils correlate for Chiari malformation.
== END | disposition home or self-care (01) ==
LOC: RADCTMAIN 09:16
PROVIDERS: ATTEND Radiology Radiation Oncology
DX: C34.11 Malignant neoplasm of upper lobe, right bronchus or lung (principal); C79.31 Secondary malignant neoplasm of brain; Z92.3 Personal history of irradiation
CPT/HCPCS: 82565; 84520; 71270; 74170; 70553; A9585; Q9967

== ENCOUNTER → 2018-08-20 | Outpatient (CLI) | payer BC ==
--- NOTE | 2018-08-20 15:20 | CT ---
EXAMINATION TYPE: CT ChestAbdPelvis w con DATE OF EXAM: 08/20/2018 COMPARISON: 05/31/2018 HISTORY: Follow up for Lung CA CT DLP: 1054.6 mGycm CONTRAST: CT scan of the chest, abdomen and pelvis is performed with Oral Contrast and with IV Contrast, patien t injected with 80 mL of Isovue 300. CT Chest: LUNGS: The lungs are clear and free of infiltrate or atelectasis. No pulmonary nodule or mass is det ected. No pleural effusion or CT evidence of interstitial lung disease. MEDIASTINUM: Thoracic aorta is of normal caliber. The heart is not enlarged. No evidence for media stinal mass or adenopathy. HILAR STRUCTURES: Right hilar soft tissue is stable and measures 2.2 x 1.4 cm versus 2.2 x 1.5 cm. No hilar adenopathy is appreciated. OTHER: No significant abnormality. CONTRAST CT ABDOMEN AND PELVIS FINDINGS: LIVER/GB: Mild hepatic steatosis identified. No calcified gallstones. Stable hepatic hemangiomas. B iliary tree is of normal caliber. PANCREAS: No inflammation. No distinct mass. SPLEEN: No splenic enlargement. No lesion seen. ADRENALS: No nodule. No thickening. KIDNEYS/BLADDER: No hydronephrosis. No nephrolithiasis. No disctinct renal mass. BOWEL: Normal appendix. Normal bowel caliber. No inflammation. GENITAL ORGANS: No gross abnormality. LYMPH NODES: No greater than 1cm abdominal or pelvic lymph nodes are appreciated. AORTA: No significant abnormality. OSSEOUS STRUCTURES: No significant abnormality is seen. OTHER: No significant additional abnormality is seen. IMPRESSION: 1. Stable posttreatment changes. 2. Stable nodularity right hilum. 3. Stable hepatic hemangiomas.
== END | disposition home or self-care (01) ==
LOC: RADCTMAIN 12:15
PROVIDERS: ATTEND Internal Medicine Hematology & Oncology
DX: D18.03 Hemangioma of intra-abdominal structures (principal); C34.91 Malignant neoplasm of unspecified part of right bronchus or lung; R91.8 Other nonspecific abnormal finding of lung field; Z98.890 Other specified postprocedural states
CPT/HCPCS: 82565; 84520; 71260; 74177; 36415; Q9967

== ENCOUNTER → 2018-08-20 | Outpatient (CLI) | payer BC ==
--- NOTE | 2018-08-20 13:42 | MR ---
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 TECHNIQUE: Multiplanar, multisequence images of the brain and brainstem is performed without and with IV contras t, utilizing 7.5 mL intravenous Gadavist . FINDINGS: Diffusion weighted images demonstrate no evidence of a recent infarct or other diffusion ab normality. Oval rim enhancing lesion posterior right frontal lobe measures 8 x 5 mm prior study image 62 diminis hed from prior study. Surrounding vasogenic edema is also improved from prior study. No new suspiciou s enhancing lesions are seen. There is no worrisome extra-axial fluid collection . The ventricular system and cisternal spaces are normal in size and appearance. The brain volume is age appropriate. Some confluent areas of T2 hyperintensity throughout the deep and periventricular white matter are mo re prominent from most recent study. Stable slightly low lying cerebellar tonsils without greater than 5 mm inferior displacement.. The c raniocervical junction appears within normal limits. Post contrast images demonstrate no abnormal en hancement. The dural venous sinuses appear patent. The visualized sinuses are clear and the globes ar e intact. IMPRESSION: Improving posterior right frontal metastatic lesion. No new suspicious metastatic lesions identified. Increasing deep and periventricular bilateral white matter changes favor product of italia tment change, correlate clinically.
== END | disposition home or self-care (01) ==
LOC: RADMRIMAIN 12:52
PROVIDERS: ATTEND Radiology Radiation Oncology
DX: C79.31 Secondary malignant neoplasm of brain (principal); C34.11 Malignant neoplasm of upper lobe, right bronchus or lung; J44.0 Chronic obstructive pulmonary disease with (acute) lower respiratory infection; Z92.3 Personal history of irradiation; Z92.21 Personal history of antineoplastic chemotherapy
CPT/HCPCS: 70553; A9585

== ENCOUNTER 2018-10-11 10:23 | Emergency (ER) | payer BC ==
[2018-10-11] MEDS ORDERED: SODIUM CHLORIDE 0.9% 1,000 ML IV STA (10:43)
[2018-10-11 10:50] LABS: Basophils % (A) 0 %; Eosinophils # (A) 0.1 k/uL (0-0.7); Eosinophils % (A) 2 %; HGB 13.4 gm/dL (11.4-16.0); Lymphocytes # (A) 0.5 k/uL (1.0-4.8); Lymphocytes % (A) 6 %; MCH 31.7 pg (25.0-35.0); MCHC 31.9 g/dL (31.0-37.0); MCV 99.4 fL (80.0-100.0); Mean Platelet Volume 6.5; Monocytes # (A) 0.3 k/uL (0-1.0); Monocytes % (A) 3 %; Neutrophils # (A) 7.5 k/uL (1.3-7.7); Neutrophils % (A) 88 %; Platelet Count 338 k/uL (150-450); RBC 4.22 m/uL (3.80-5.40); RDW 14.1 % (11.5-15.5); WBC 8.5 k/uL (3.8-10.6)
[2018-10-11 10:52] LABS: Glucose,Whole Blood 153 mg/dL (75-99)
--- NOTE | 2018-10-11 10:57 | CT ---
EXAMINATION TYPE: CT brain wo con for TPA DATE OF EXAM: 10/11/2018 COMPARISON: MRI brain 08/20/2018 HISTORY: weakness and headache with uncontrolled eye movement CT DLP: 1050.[address] of the brain was performed. Again noted is a large area of vasogenic edema right frontal lobe compatible with underlying metastat ic lesion no new areas of vasogenic edema identified. The ventricles, basal cisterns and sulci overlying the cerebral convexities demonstrate normal appear ance for the patient's age group. There is no evidence for intracranial hemorrhage. There is decreased attenuation about the periventricular white matter and deep white matter of both c erebral hemispheres, compatible with chronic small vessel ischemia. Differential diagnosis does inclu de demyelination. No mass effects are seen.No midline shift. Osseous calvarium is intact. If symptoms persist consider MRI. IMPRESSION: 1. Large area of vasogenic edema right frontal lobe compatible with underlying metastatic disease reba cribed on prior MRI of the brain of 08/20/2018.
--- NOTE | 2018-10-11 11:00 | ED ---
General Adult HPI - General Chief complaint: Weakness Stated complaint: Poss Stroke Time Seen by Provider: 10/11/18 10:30 Source: patient, EMS Mode of arrival: EMS Limitations: no limitations - History of Present Illness Initial comments: Dictation was produced using [employer] dictation software. please excuse any grammatical, word or spelling errors. Chief Complaint: 48-year-old female with past medical history of small cell lung cancer undergoing active chemotherapy presents with strokelike symptoms. History of Present Illness: Patient is a 48-year-old female with history of small cell lung cancer presents with strokelike symptoms. Approximately 9:30 AM today she was walking outside of the house. She reports that while she was ambulating she became severely weak to the point where she felt like she could not ambulate. She required her to keep her from falling. EMS was called immediately and patient is transferred to the emergency department. EMS reports that patient had significant left facial droop and left arm weakness. The report that the symptoms improved prior to transportation to emergency department. Patient states that she feels better now and does not complain of any neuro deficits at the moment. Patient denies any history of stroke. The ROS documented in this emergency department record has been reviewed and confirmed by me. Those systems with pertinent positive or negative responses have been documented in the HPI. All other systems are other negative and/or noncontributory. PHYSICAL EXAM: General Impression: Alert and oriented x3, not in acute distress HEENT: Normocephalic atraumatic, extra-ocular movements intact, pupils equal and reactive to light bilaterally, mucous membranes moist. Cardiovascular: Heart regular rate and rhythm, S1&S2 audible, no murmurs, rubs or gallops Chest: Lungs clear to auscultation bilaterally, no rhonchi, no wheeze, no rales Abdomen: Bowel sounds present, abdomen soft, non-tender, non-distended, no organomegaly Musculoskeletal: Pulses present and equal in all extremities, no peripheral edema Motor: no focal deficits noted Neurological: CN II-XII grossly intact, positive left lower extremity drift, mild ataxia to the left lower extremity. Not aphasic Skin: Intact with no visualized rashes Psych: Normal affect and mood ED course: 48-year-old female presents with strokelike symptoms. Time of onset was approximate 9:30 AM. Patient arrived to us approximate 1 hour after the onset of symptoms. Vital signs upon arrival shows heart rate of 116, rest of vital signs within acceptable limits. Patient given initial NIH of 2. Code stroke was paged. Discussed patient case with Dr. Fried. Patient not a good candidate for TPA at this time given low NIH score. CT was reviewed by Dr. Fried and myself. There is concern of intracranial mass at this time. Chart review was performed patient has history of metastatic lung cancer to the brain that was treated and progressed in size. Today's CT shows findings concerning for enlargement of the mass with surrounding vasogenic edema. More history was obtained from the reports that patient had tonic-clonic activity that was concerning for a seizure.While in the emergency department awaiting transfer patient began having tonic-clonic activity. She was placed on nonrebreather. She is given 2 mg of Ativan, 10 mg of Decadron and 1 g of Keppra. After Ativan patient's seizure activity stopped. Patient currently post ictal however she is satting well. She is also stable vital signs. She is breathing. No clear indication for admission at this time. Patient be transferred to [facility] for further intervention. EKG interpretation: Ventricular rate 102, sinus tachycardia, MO interval 144, care 72, QTc 463. No MO prolongation, no QTC prolongation, no ST or T-wave changes noted. Overall, this EKG is unremarkable - Related Data Home Medications Medication Instructions Recorded Confirmed Albuterol Inhaler [Ventolin Hfa 1 - 2 puff INHALATION Q6HR PRN 06/18/17 10/11/18 Inhaler] Ipratropium-Albuterol Nebulize 3 ml INHALATION RT-BID PRN 06/18/17 10/11/18 [Duoneb 0.5 mg-3 mg/3 ml Soln] Levothyroxine Sodium [Synthroid] 25 mcg PO DAILY 06/18/17 10/11/18 Lisinopril [Prinivil] 20 mg PO DAILY 06/18/17 10/11/18 Mometasone/Formoterol [Dulera 100 2 puff INHALATION RT-BID 06/18/17 10/11/18 Mcg/5 Mcg Inhaler] Umeclidinium [place] [Incruse 1 puff INHALATION RT-DAILY 06/18/17 10/11/18 Ellipta] amLODIPine [Norvasc] 5 mg PO DAILY 06/18/17 10/11/18 Ergocalciferol (Vitamin D2) 50,000 tab PO FR 07/09/17 10/11/18 [Vitamin D2] Montelukast [Singulair] 10 mg PO DAILY 07/10/17 10/11/18 Acetaminophen [Tylenol] 650 mg PO QID PRN 10/03/17 10/11/18 Amoxic-Pot Clav 875-125Mg 1 tab PO BID 10/11/18 10/11/18 [Augmentin 875-125] Cyclobenzaprine [Flexeril] 10 mg PO BID 10/11/18 10/11/18 Nicotine 21Mg/24Hr Patch [Habitrol 1 patch TRANSDERM DAILY 10/11/18 10/11/18 21Mg/24Hr Patch] Allergies Allergy/AdvReac Type Severity Reaction Status Date / Time infliximab [From Remicade] Allergy Severe Anaphylaxis Verified 10/11/18 10:39 Review of Systems ROS Statement: Those systems with pertinent positive or pertinent negative responses have been documented in the HPI. ROS Other: All systems not noted in ROS Statement are negative. Past Medical History Past Medical History: Cancer, Hypertension, Pneumonia, Thyroid Disorder Additional Past Medical History / Comment(s): small cell lung cancer undergoing chemotherapy and radiation therapy (last one 08/27/17), pneumonia once in April 2017, pt states she is perimenopausal-last menses months ago. History of Any Multi-Drug Resistant Organisms: None Reported Past Surgical History: No Surgical Hx Reported Additional Past Surgical History / Comment(s): Bronchoscopy with bx, EGD, R wrist ganglion cyst, pilonidal cyst Past Anesthesia/Blood Transfusion Reactions: Postoperative Nausea & Vomiting (PONV) Past Psychological History: No Psychological Hx Reported Smoking Status: Current every day smoker Past Alcohol Use History: None Reported Past Drug Use History: None Reported - Past Family History Father Family Medical History: CVA/TIA Additional Family Medical History / Comment(s): Father of a CVA at the age of 60 yrs. Strokes run strongly on his side of the family. Mother Family Medical History: No Reported History Additional Family Medical History / Comment(s): Mother is healthy. General Exam Limitations: no limitations Course Vital Signs 10/11/18 10/11/18 10:27 11:01 Pulse Rate 116 H 102 H Respiratory 20 20 Rate Blood Pressure 139/113 156/93 O2 Sat by Pulse 98 97 Oximetry Medical Decision Making - Lab Data Result diagrams: 10/11/18 10:37 10/11/18 10:37 Lab Results 10/11/18 10/11/18 10/11/18 Range/Units 10:31 10:37 10:37 WBC (3.8-10.6) k/uL RBC (3.80-5.40) m/uL Hgb (11.4-16.0) gm/dL Hct (34.0-46.0) % MCV (80.0-100.0) fL MCH (25.0-35.0) pg MCHC (31.0-37.0) g/dL RDW (11.5-15.5) % Plt Count (150-450) k/uL Neutrophils % % Lymphocytes % % Monocytes % % Eosinophils % % Basophils % % Neutrophils # (1.3-7.7) k/uL Lymphocytes # (1.0-4.8) k/uL Monocytes # (0-1.0) k/uL Eosinophils # (0-0.7) k/uL Basophils # (0-0.2) k/uL Sodium 138 (137-145) mmol/L Potassium 4.1 (3.5-5.1) mmol/L Chloride 104 (98-107) mmol/L Carbon Dioxide 18 L (22-30) mmol/L Anion Gap 16 mmol/L BUN 10 (7-17) mg/dL Creatinine 1.03 (0.52-1.04) mg/dL Est GFR (CKD-EPI)AfAm 73 (>60 ml/min/1.73 sqM) Est GFR (CKD-EPI)NonAf 64 (>60 ml/min/1.73 sqM) Glucose 121 H (74-99) mg/dL POC Glucose (mg/dL) 153 H (75-99) mg/dL POC Glu Wooden [employer] ID October Calcium 9.9 (8.4-10.2) mg/dL Total Bilirubin 0.5 (0.2-1.3) mg/dL AST 15 (14-36) U/L ALT 25 (9-52) U/L Alkaline Phosphatase 81 (38-126) U/L Total Creatine Kinase 26 L (30-135) U/L CK-MB (CK-2) 0.2 (0.0-2.4) ng/mL CK-MB (CK-2) Rel Index 0.8 Troponin I <0.012 (0.000-0.034) ng/mL Total Protein 7.0 (6.3-8.2) g/dL Albumin 4.1 (3.5-5.0) g/dL 10/11/18 Range/Units 10:37 WBC 8.5 (3.8-10.6) k/uL RBC 4.22 (3.80-5.40) m/uL Hgb 13.4 (11.4-16.0) gm/dL Hct 42.0 (34.0-46.0) % MCV 99.4 (80.0-100.0) fL MCH 31.7 (25.0-35.0) pg MCHC 31.9 (31.0-37.0) g/dL RDW 14.1 (11.5-15.5) % Plt Count 338 (150-450) k/uL Neutrophils % 88 % Lymphocytes % 6 % Monocytes % 3 % Eosinophils % 2 % Basophils % 0 % Neutrophils # 7.5 (1.3-7.7) k/uL Lymphocytes # 0.5 L (1.0-4.8) k/uL Monocytes # 0.3 (0-1.0) k/uL Eosinophils # 0.1 (0-0.7) k/uL Basophils # 0.0 (0-0.2) k/uL Sodium (137-145) mmol/L Potassium (3.5-5.1) mmol/L Chloride (98-107) mmol/L Carbon Dioxide (22-30) mmol/L Anion Gap mmol/L BUN (7-17) mg/dL Creatinine (0.52-1.04) mg/dL Est GFR (CKD-EPI)AfAm (>60 ml/min/1.73 sqM) Est GFR (CKD-EPI)NonAf (>60 ml/min/1.73 sqM) Glucose (74-99) mg/dL POC Glucose (mg/dL) (75-99) mg/dL POC Glu [employer]en [employer] ID Calcium (8.4-10.2) mg/dL Total Bilirubin (0.2-1.3) mg/dL AST (14-36) U/L ALT (9-52) U/L Alkaline Phosphatase (38-126) U/L Total Creatine Kinase (30-135) U/L CK-MB (CK-2) (0.0-2.4) ng/mL CK-MB (CK-2) Rel Index Troponin I (0.000-0.034) ng/mL Total Protein (6.3-8.2) g/dL Albumin (3.5-5.0) g/dL Critical Care Time Critical Care Time: Yes Total Critical Care Time: 31 Disposition Clinical Impression: Neurological deficit present, Intracranial mass, Seizure Disposition: OTHER INSTITUTION NOT DEFINED Condition: Critical Referrals: Soni Mckenzie DO [Primary Care Provider] - 1-2 days Time of Disposition: 11:39 - Out of Hospital Transfer - Req. Specs Out of Hospital Transfer - Requested Specifics: Other Emergency Center ([facility] [place])
[2018-10-11 11:01] LABS: Albumin 4.1 g/dL (3.5-5.0); Calcium 9.9 mg/dL (8.4-10.2); Potassium 4.1 mmol/L (3.5-5.1); Total Bilirubin 0.5 mg/dL (0.2-1.3)
[2018-10-11 11:10] LABS: Creatine Kinase 26 U/L (30-135)
[2018-10-11] MEDS ORDERED: DEXAMETHASONE SOD PHOSPHATE 10 MG/ML 1 ML VIAL IV STA (11:13)
[2018-10-11 11:23] LABS: Creatine Kinase MB 0.2 ng/mL (0.0-2.4); Troponin I <0.012 ng/mL (0.000-0.034)
[2018-10-11] MEDS ORDERED: LORazepam 2 MG/ML INJ IV STA (11:26)
--- NOTE | 2018-10-11 11:26 | CT ---
EXAMINATION TYPE: CT angio head neck DATE OF EXAM: 10/11/2018 COMPARISON: CT chest abdomen pelvis 08/20/2018 HISTORY: weakness and headache with uncontrolled eye movement CT DLP: 578.9 mGycm CONTRAST: Performed with IV Contrast, patient injected with 65 mL of Isovue 370. Combination Contrast CTA cervical carotids and [place] CTA cervical carotids with 3-D recons truction Contrast CTA of the cervical carotids was performed 3-D reconstruction imaging obtained at a separate workstation. Right carotid system: Mild plaque is seen of the right common carotid artery. There is mild plaque a lso noted at the carotid bulb and proximal ICA. No significant diameter reduction. ECA is patent. Right vertebral artery appears unremarkable. Left carotid system: Mild plaque is seen of the left common carotid artery. There is mild plaque als o noted at the carotid bulb and proximal ICA. No significant diameter reduction. ECA is patent. Lef t vertebral artery appears unremarkable. Stable right hilar nodularity measuring 2.1 cm. Scattered right upper lobe posttherapeutic changes wi th areas of nodularity appearing unchanged from prior study. IMPRESSION: 1. No significant diameter reduction to account for the patient's symptoms. CTA [facility] [place] with 3-D reconstruction Contrast CTA of the [facility] [place] [place] was performed 3-D reconstruction imaging obtained at a separate workstation. Vertebrobasilar system as well as intracranial portions of the internal carotid arteries and their ma [place] tributaries are patent. Distal left MCA branches not clearly visualized or opacified at this time . I do not see evidence for sizable aneurysm or vascular malformation. Please note MRI provides grea ter sensitivity and specificity. Visualized brain appears grossly unremarkable. IMPRESSION: 1. Distal left MCA branches not clearly visualized or opacified at this time.
[2018-10-11] MEDS ORDERED: levETIRAcetam IV 1,000 MG in SALINE 1 100ML.BAG IVPB STA (11:27)
[2018-10-11 11:41] VITALS: RESP 18
[2018-10-11 12:01] LABS: INR 0.9 (<1.2); Partial Thromboplastin Time 22.4 sec (22.0-30.0); Prothrombin Time 9.7 sec (9.0-12.0)
--- NOTE | 2018-10-11 12:10 | XR ---
EXAMINATION TYPE: XR chest 1V portable DATE OF EXAM: 10/11/2018 COMPARISON: CT August 20, 2018. HISTORY: Altered mental status and weakness. TECHNIQUE: Single AP portable frontal upright view of the chest is obtained. FINDINGS: There is low lung volumes with bibasilar opacities. The cardiac silhouette size is upper limits of normal. The osseous structures are intact. IMPRESSION: Low lung volumes with right greater than left bibasilar atelectasis and/or infiltrate. C onsider progress two-view chest x-ray.
[2018-10-11 12:20] VITALS: BP 138/94; PULSE 120
== END 2018-10-11 12:10 | disposition other institution (70) ==
LOC: EC 10:23
DX: G93.9 Disorder of brain, unspecified (principal); R56.9 Unspecified convulsions; I10 Essential (primary) hypertension; E07.9 Disorder of thyroid, unspecified; F17.200 Nicotine dependence, unspecified, uncomplicated; Z85.118 Personal history of other malignant neoplasm of bronchus and lung; Z85.841 Personal history of malignant neoplasm of brain; Z92.21 Personal history of antineoplastic chemotherapy; Z79.890 Hormone replacement therapy; Z79.51 Long term (current) use of inhaled steroids; Z79.899 Other long term (current) drug therapy; Z88.1 Allergy status to other antibiotic agents
CPT/HCPCS: 36415; 93005; 80053; 82550; 82553; 84484; 85025; 85610; 85730; 71045; 70496; 70450; 70498; 99291; 96365; 96375 ×2; J2060; J1100; J1953; Q9967

== ENCOUNTER 2019-01-15 11:16 | Inpatient (IN) | payer BC ==
[2019-01-15] MEDS ORDERED: IPRATROPIUM-ALBUTEROL 3 ML NEB INHALATION STA ×2 (11:56→13:59)
--- NOTE | 2019-01-15 12:15 | ED ---
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 She denies any chest pain she does complain of about 20 pound weight gain over last couple weeks she is on steroids at this time. Does have an ultrasound scheduled for the left upper and both lower extremities today. No fevers chills nausea vomiting sweats or other symptoms she states she was seen by her neurosurgeon 2 days ago had her ashley out and everything with respect to the surgery appears be well MD Complaint: shortness of breath - Related Data Home Medications Medication Instructions Recorded Confirmed Albuterol Inhaler [Ventolin Hfa 1 - 2 puff INHALATION RT-Q6H PRN 06/18/17 01/15/19 Inhaler] Ipratropium-Albuterol Nebulize 3 ml INHALATION RT-BID PRN 06/18/17 01/15/19 [Duoneb 0.5 mg-3 mg/3 ml Soln] Levothyroxine Sodium [Synthroid] 25 mcg PO DAILY 06/18/17 01/15/19 Lisinopril [Prinivil] 20 mg PO DAILY 06/18/17 01/15/19 Umeclidinium [place] [Incruse 1 puff INHALATION RT-DAILY 06/18/17 01/15/19 Ellipta] Ergocalciferol (Vitamin D2) 50,000 units PO FR 07/09/17 01/15/19 [Vitamin D2] Montelukast [Singulair] 10 mg PO DAILY 07/10/17 01/15/19 Nicotine 21Mg/24Hr Patch [Habitrol 1 patch TRANSDERM DAILY 10/11/18 01/15/19 21Mg/24Hr Patch] Cyclobenzaprine [Flexeril] 10 mg PO BID 01/15/19 01/15/19 Dexamethasone 2 mg PO BID 01/15/19 01/15/19 Mometasone/Formoterol [Dulera 200 2 puff INHALATION RT-BID 01/15/19 01/15/19 Mcg/5 Mcg Inhaler] Morphine Sulfate [Morphine Sulfate 15 mg PO Q12H PRN 01/15/19 01/15/19 ER] Sertraline [Zoloft] 50 mg PO HS 01/15/19 01/15/19 levETIRAcetam [Keppra] 1,000 mg PO Q12HR 01/15/19 01/15/19 levETIRAcetam [Keppra] 250 mg PO Q12H 01/15/19 01/15/19 oxyCODONE-APAP 10-325MG [Percocet 1 tab PO Q6HR PRN 01/15/19 01/15/19 10-325 mg] Allergies Allergy/AdvReac Type Severity Reaction Status Date / Time infliximab [From Remicade] Allergy Severe Anaphylaxis Verified 01/15/19 11:31 Review of Systems ROS Statement: Those systems with pertinent positive or pertinent negative responses have been documented in the HPI. ROS Other: All systems not noted in ROS Statement are negative. Past Medical History Past Medical History: Cancer, Hypertension, Pneumonia, Thyroid Disorder Additional Past Medical History / Comment(s): small cell lung cancer undergoing chemotherapy and radiation therapy (last one 08/27/17), pneumonia once in April 2017, pt states she is perimenopausal-last menses months ago. History of Any Multi-Drug Resistant Organisms: None Reported Past Surgical History: No Surgical Hx Reported Additional Past Surgical History / Comment(s): Bronchoscopy with bx, EGD, R wrist ganglion cyst, pilonidal cyst, brain surgery to remove brain tumor December 26, 2018 Past Anesthesia/Blood Transfusion Reactions: Postoperative Nausea & Vomiting (PONV) Past Psychological History: No Psychological Hx Reported Smoking Status: Current every day smoker Past Alcohol Use History: None Reported Past Drug Use History: None Reported - Past Family History Father Family Medical History: CVA/TIA Additional Family Medical History / Comment(s): Father of a CVA at the age of 60 yrs. Strokes run strongly on his side of the family. Mother Family Medical History: No Reported History Additional Family Medical History / Comment(s): Mother is healthy. General Exam - General Exam Comments Initial Comments: This a well-developed well-nourished awake alert oriented 3 female Limitations: no limitations General appearance: alert, in no apparent distress Head exam: Present: atraumatic, normocephalic, normal inspection Eye exam: Present: normal appearance, PERRL, EOMI. Absent: scleral icterus, conjunctival injection, periorbital swelling ENT exam: Present: mucous membranes moist, other (Evidence of oral thrush) Neck exam: Present: normal inspection. Absent: tenderness, meningismus, lymphadenopathy Respiratory exam: Present: wheezes, decreased breath sounds. Absent: respiratory distress, rales, rhonchi, stridor Cardiovascular Exam: Present: normal rhythm, tachycardia, normal heart sounds. Absent: systolic murmur, diastolic murmur, rubs, gallop, clicks GI/Abdominal exam: Present: soft, normal bowel sounds. Absent: distended, tenderness, guarding, rebound, rigid Extremities exam: Present: full ROM, normal capillary refill, pedal edema, other (Edema to the left upper extremity). Absent: tenderness, joint swelling, calf tenderness Back exam: Present: normal inspection Neurological exam: Present: alert, oriented X3, CN II-XII intact Psychiatric exam: Present: normal affect, normal mood Skin exam: Present: warm, dry, intact, normal color. Absent: rash Course Vital Signs 01/15/19 01/15/19 01/15/19 11:22 12:02 12:11 Temperature 98.8 F Pulse Rate 121 H 122 H 120 H Respiratory 22 Rate Blood Pressure 106/69 O2 Sat by Pulse 93 L Oximetry 01/15/19 01/15/19 12:59 13:55 Temperature Pulse Rate 112 H Respiratory 24 22 Rate Blood Pressure 117/81 O2 Sat by Pulse 98 Oximetry - Reevaluation(s) Reevaluation #1: 01/15/19 13:23 Patient states she did not get much relief from the nebulizer treatment thus far. Sound is in progress Medical Decision Making - Medical Decision Making I did reevaluate the patient again patient is getting minimal improvement thus far with treatment the presentation is consistent with a COPD exacerbation. The case is discussed with Dr. Garay. Patient to be admitted - Lab Data Result diagrams: 01/15/19 12:30 01/15/19 12:30 Lab Results 01/15/19 01/15/19 01/15/19 Range/Units 12:30 12:30 12:30 WBC 8.8 (3.8-10.6) k/uL RBC 3.79 L (3.80-5.40) m/uL Hgb 12.5 (11.4-16.0) gm/dL Hct 37.2 (34.0-46.0) % MCV 98.3 (80.0-100.0) fL MCH 32.9 (25.0-35.0) pg MCHC 33.5 (31.0-37.0) g/dL RDW 18.1 H (11.5-15.5) % Plt Count 145 L (150-450) k/uL Neutrophils % 87 % Lymphocytes % 8 % Monocytes % 4 % Eosinophils % 1 % Basophils % 1 % Neutrophils # 7.6 (1.3-7.7) k/uL Lymphocytes # 0.7 L (1.0-4.8) k/uL Monocytes # 0.3 (0-1.0) k/uL Eosinophils # 0.1 (0-0.7) k/uL Basophils # 0.1 (0-0.2) k/uL Anisocytosis Slight Macrocytosis Slight PT 9.4 (9.0-12.0) sec INR 0.9 (<1.2) APTT 18.0 L (22.0-30.0) sec Sodium 134 L (137-145) mmol/L Potassium 4.1 (3.5-5.1) mmol/L Chloride 101 (98-107) mmol/L Carbon Dioxide 25 (22-30) mmol/L Anion Gap 8 mmol/L BUN 25 H (7-17) mg/dL Creatinine 0.71 (0.52-1.04) mg/dL Est GFR (CKD-EPI)AfAm >90 (>60 ml/min/1.73 sqM) Est GFR (CKD-EPI)NonAf >90 (>60 ml/min/1.73 sqM) Glucose 99 (74-99) mg/dL Calcium 8.5 (8.4-10.2) mg/dL Magnesium 1.9 (1.6-2.3) mg/dL Total Bilirubin 0.4 (0.2-1.3) mg/dL AST 16 (14-36) U/L ALT 24 (9-52) U/L Alkaline Phosphatase 57 (38-126) U/L Troponin I (0.000-0.034) ng/mL NT-Pro-B Natriuret Pep pg/mL Total Protein 5.9 L (6.3-8.2) g/dL Albumin 3.5 (3.5-5.0) g/dL 01/15/19 01/15/19 Range/Units 12:30 12:30 WBC (3.8-10.6) k/uL RBC (3.80-5.40) m/uL Hgb (11.4-16.0) gm/dL Hct (34.0-46.0) % MCV (80.0-100.0) fL MCH (25.0-35.0) pg MCHC (31.0-37.0) g/dL RDW (11.5-15.5) % Plt Count (150-450) k/uL Neutrophils % % Lymphocytes % % Monocytes % % Eosinophils % % Basophils % % Neutrophils # (1.3-7.7) k/uL Lymphocytes # (1.0-4.8) k/uL Monocytes # (0-1.0) k/uL Eosinophils # (0-0.7) k/uL Basophils # (0-0.2) k/uL Anisocytosis Macrocytosis PT (9.0-12.0) sec INR (<1.2) APTT (22.0-30.0) sec Sodium (137-145) mmol/L Potassium (3.5-5.1) mmol/L Chloride (98-107) mmol/L Carbon Dioxide (22-30) mmol/L Anion Gap mmol/L BUN (7-17) mg/dL Creatinine (0.52-1.04) mg/dL Est GFR (CKD-EPI)AfAm (>60 ml/min/1.73 sqM) Est GFR (CKD-EPI)NonAf (>60 ml/min/1.73 sqM) Glucose (74-99) mg/dL Calcium (8.4-10.2) mg/dL Magnesium (1.6-2.3) mg/dL Total Bilirubin (0.2-1.3) mg/dL AST (14-36) U/L ALT (9-52) U/L Alkaline Phosphatase (38-126) U/L Troponin I <0.012 (0.000-0.034) ng/mL NT-Pro-B Natriuret Pep 357 pg/mL Total Protein (6.3-8.2) g/dL Albumin (3.5-5.0) g/dL - Radiology Data Radiology results: report reviewed (I did review the imaging and reports no evidence of acute findings.), image reviewed Critical Care Time Critical Care Time: Yes Critical Care Time: 31 minutes of critical care time includes initial presentation with history physical labs x-rays multiple reevaluation the patient response to therapy di scuss with patient family regarding findings discussed with the admitting physician review of old charting was available admission orders and documentation of the above Disposition Clinical Impression: Acute exacerbation of chronic obstructive airways disease, Adult respiratory distress syndrome, History of lung cancer Disposition: ADMITTED IP TO THIS HOSP Condition: Fair Referrals: Soni Mckenzie DO [Primary Care Provider] - 1-2 days
[2019-01-15 12:53] LABS: INR 0.9 (<1.2); Prothrombin Time 9.4 sec (9.0-12.0)
--- NOTE | 2019-01-15 12:54 | XR ---
EXAMINATION TYPE: XR chest 2V DATE OF EXAM: 01/15/2019 COMPARISON: Prior chest x-ray 10/11/2018 HISTORY: Difficulty breathing, bilateral extremity edema TECHNIQUE: Frontal and lateral views of the chest are obtained. FINDINGS: Findings are similar to prior exam. Patchy perihilar density is noted. No evident pneumoth orax or pleural effusion. Heart size is stable. There is prominence of the right hilar region. There is overlying artifact. IMPRESSION: Findings compatible with patient's history of lung carcinoma.
[2019-01-15 12:55] LABS: Anisocytosis Slight; Basophils # (A) 0.1 k/uL (0-0.2); Basophils % (A) 1 %; Eosinophils # (A) 0.1 k/uL (0-0.7); Eosinophils % (A) 1 %; HCT 37.2 % (34.0-46.0); HGB 12.5 gm/dL (11.4-16.0); Lymphocytes # (A) 0.7 k/uL (1.0-4.8); Lymphocytes % (A) 8 %; MCH 32.9 pg (25.0-35.0); MCHC 33.5 g/dL (31.0-37.0); MCV 98.3 fL (80.0-100.0); Macrocytosis Slight; Mean Platelet Volume 7.4; Monocytes # (A) 0.3 k/uL (0-1.0); Monocytes % (A) 4 %; Neutrophils # (A) 7.6 k/uL (1.3-7.7); Neutrophils % (A) 87 %; Platelet Count 145 k/uL (150-450); RBC 3.79 m/uL (3.80-5.40); RDW 18.1 % (11.5-15.5); WBC 8.8 k/uL (3.8-10.6)
[2019-01-15 12:57] LABS: ALT 24 U/L (9-52); AST 16 U/L (14-36); African American GFR (CKD) >90 (>60 ml/min/1.73 sqM); Albumin 3.5 g/dL (3.5-5.0); Alkaline Phosphatase 57 U/L (38-126); Anion Gap 8 mmol/L; Blood Urea Nitrogen 25 mg/dL (7-17); Calcium 8.5 mg/dL (8.4-10.2); Carbon Dioxide 25 mmol/L (22-30); Chloride 101 mmol/L (98-107); Glucose 99 mg/dL (74-99); Magnesium 1.9 mg/dL (1.6-2.3); Potassium 4.1 mmol/L (3.5-5.1); Sodium 134 mmol/L (137-145); Total Bilirubin 0.4 mg/dL (0.2-1.3); Total Protein 5.9 g/dL (6.3-8.2)
[2019-01-15] MEDS ORDERED: FUROSEMIDE 10 MG/ML 4 ML VIAL IV STA (13:59)
[2019-01-15] MEDS ORDERED: methylPREDNISolone SOD SUCCI 125 MG/2 ML VIAL IV STA (14:03)
--- NOTE | 2019-01-15 14:16 | US ---
EXAMINATION TYPE: US venous doppler duplex UE LT DATE OF EXAM: 01/15/2019 COMPARISON: None CLINICAL HISTORY: Pain. Left arm pain/swelling SIDE PERFORMED: Left Very limited exam, large pt body habitus, heavy breathing, coughing, limited mobility Left Arm: Visualized portions appeared negative for DVT/ Left Axillary, Ulnar and basilic veins unabl e to be visualized due to pt's position Visualized portions of the left internal jugular vein, subclavian vein, axillary vein and brachial ve ins show color flow. Cephalic vein is patent. Radial veins show compressibility and color-flow. IMPRESSION: No evident deep venous thrombosis in the left upper extremity with limitations.
--- NOTE | 2019-01-15 14:22 | US ---
EXAMINATION TYPE: US venous doppler duplex LE DATE OF EXAM: 01/15/2019 1:31 PM COMPARISON: None CLINICAL HISTORY: Pain. Bilat leg pain and swelling SIDE PERFORMED: Bilateral TECHNIQUE: The lower extremity deep venous system is examined utilizing real time linear array sonog gilberto with graded compression, doppler sonography and color-flow sonography. VESSELS IMAGED: External Iliac Vein (EIV) Common Femoral Vein Deep Femoral Vein Greater Saphenous Vein * Femoral Vein Popliteal Vein Small Saphenous Vein * Proximal Calf Veins (* superficial vessels) Unable to obtain compressions at peripheral femoral veins due to pt in pain Right Leg: Negative for DVT Left Leg: Negative for DVT Grayscale, color Doppler, spectral Doppler imaging performed of the deep veins of the lower extremiti es. IMPRESSION: No evident deep venous thrombosis within the limitations of the exam.
[2019-01-15] MEDS ORDERED: IPRATROPIUM-ALBUTEROL 3 ML NEB INHALATION PRN (14:59)
[2019-01-15] MEDS ORDERED: MORPHINE SULFATE ER 15 MG TABLET PO PRN (14:59)
[2019-01-15] MEDS: IPRATROPIUM-ALBUTEROL 3 ML NEB INHALATION SCH ×3 (15:08→23:51)
[2019-01-15] MEDS: SODIUM CHLORIDE 0.9% 1,000 ML IV SCH (15:11)
--- NOTE | 2019-01-15 15:16 | P.HPIM ---
History of Present Illness H&P Date: 01/15/19 This is a 48-year-old female patient of Dr. Mckenzie. Patient presented with complaints of increased shortness of breath. 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 Patient reports her shortness of breath has been occurring for multiple months but has significantly increased over the past few days. Patient complains of or shortness of breath with exertion. Patient also on dexamethasone due to recent craniotomy surgery 2 weeks ago at [facility]. Patient reports because the steroid she's had an increase of 20 pound weight gain. Additional medical history includes essential hypertension, pneumonia, hypothyroidism, smoker and recent craniotomy to of brain tumor on 12/26/2018. Patient reports that she follows with oncology services Dr. Osuna along with pulmonary services. Chest x-ray completed showing findings compatible with patient's history of lung carcinoma. Patient was started on IV Solu-Medrol. Pulmonary and oncology services have been consulted. Bilateral lower extremity Doppler completed showing negative for DVT. Venous Doppler also completed 2 left upper extremity showing no evidence of DVT. At this time patient is still complaining of shortness of breath with exertion. Patient is maintained on 2 L nasal cannula. Patient denies any chest pain. Patient denies any nausea vomiting or diarrhea. Patient denies any urinary burning or frequency Review of Systems please refer to HPI otherwise unremarkable Past Medical History Past Medical History: Cancer, Hypertension, Pneumonia, Thyroid Disorder Additional Past Medical History / Comment(s): small cell lung cancer undergoing chemotherapy and radiation therapy (last one 08/27/17), pneumonia once in April 2017, pt states she is perimenopausal-last menses months ago. History of Any Multi-Drug Resistant Organisms: None Reported Past Surgical History: No Surgical Hx Reported Additional Past Surgical History / Comment(s): Bronchoscopy with bx, EGD, R wrist ganglion cyst, pilonidal cyst, brain surgery to remove brain tumor December 26, 2018 Past Anesthesia/Blood Transfusion Reactions: Postoperative Nausea & Vomiting ( PONV) Past Psychological History: No Psychological Hx Reported Smoking Status: Current every day smoker Past Alcohol Use History: None Reported Past Drug Use History: None Reported - Past Family History Father Family Medical History: CVA/TIA Additional Family Medical History / Comment(s): Father of a CVA at the age of 60 yrs. Strokes run strongly on his side of the family. Mother Family Medical History: No Reported History Additional Family Medical History / Comment(s): Mother is healthy. Medications and Allergies Home Medications Medication Instructions Recorded Confirmed Type Albuterol Inhaler [Ventolin Hfa 1 - 2 puff INHALATION RT-Q6H PRN 06/18/17 01/15/19 History Inhaler] Ipratropium-Albuterol Nebulize 3 ml INHALATION RT-BID PRN 06/18/17 01/15/19 History [Duoneb 0.5 mg-3 mg/3 ml Soln] Levothyroxine Sodium [Synthroid] 25 mcg PO DAILY 06/18/17 01/15/19 History Lisinopril [Prinivil] 20 mg PO DAILY 06/18/17 01/15/19 History Umeclidinium [place] [Incruse 1 puff INHALATION RT-DAILY 06/18/17 01/15/19 History Ellipta] Ergocalciferol (Vitamin D2) 50,000 units PO FR 07/09/17 01/15/19 History [Vitamin D2] Montelukast [Singulair] 10 mg PO DAILY 07/10/17 01/15/19 History Nicotine 21Mg/24Hr Patch [Habitrol 1 patch TRANSDERM DAILY 10/11/18 01/15/19 History 21Mg/24Hr Patch] Cyclobenzaprine [Flexeril] 10 mg PO BID 01/15/19 01/15/19 History Dexamethasone 2 mg PO BID 01/15/19 01/15/19 History Mometasone/Formoterol [Dulera 200 2 puff INHALATION RT-BID 01/15/19 01/15/19 History Mcg/5 Mcg Inhaler] Morphine Sulfate [Morphine Sulfate 15 mg PO Q12H PRN 01/15/19 01/15/19 History ER] Sertraline [Zoloft] 50 mg PO HS 01/15/19 01/15/19 History levETIRAcetam [Keppra] 1,000 mg PO Q12HR 01/15/19 01/15/19 History levETIRAcetam [Keppra] 250 mg PO Q12H 01/15/19 01/15/19 History oxyCODONE-APAP 10-325MG [Percocet 1 tab PO Q6HR PRN 01/15/19 01/15/19 History 10-325 mg] Allergies Allergy/AdvReac Type Severity Reaction Status Date / Time infliximab [From Remicade] Allergy Severe Anaphylaxis Verified 01/15/19 11:31 Physical Exam Vitals: Vital Signs Temp Pulse Resp BP Pulse Ox 01/15/19 13:55 112 H 22 117/81 98 01/15/19 12:59 24 01/15/19 12:11 120 H 01/15/19 12:02 122 H 01/15/19 11:22 98.8 F 121 H 22 106/69 93 L Intake and Output 01/15/19 01/15/19 01/15/19 06:59 14:59 22:59 Other: Weight 96.162 kg Head normocephalic Neck supple Lungs diminished breath sounds with expiratory wheezing Heart regular rate and rhythm S1-S2, no rub or gallop Abdomen is soft nontender nondistended positive bowel sounds no hepatosplenomegaly Extremities increasing to +2 nonpitting edema to upper extremities, +1 to lower extremities Neuro alert and orientated to 3 Results CBC & Chem 7: 01/15/19 12:30 01/15/19 12:30 Labs: Abnormal Lab Results - Last 24 Hours (Table) 01/15/19 01/15/19 01/15/19 Range/Units 12:30 12:30 12:30 RBC 3.79 L (3.80-5.40) m/uL RDW 18.1 H (11.5-15.5) % Plt Count 145 L (150-450) k/uL Lymphocytes # 0.7 L (1.0-4.8) k/uL APTT 18.0 L (22.0-30.0) sec Sodium 134 L (137-145) mmol/L BUN 25 H (7-17) mg/dL Total Protein 5.9 L (6.3-8.2) g/dL Assessment and Plan Assessment: 1. Increased shortness of breath. Chest x-ray completed showing findings compatible with patient's history of lung carcinoma. Patient started on IV Solu-Medrol. Pulmonary services consulted. D-dimer has been ordered 2. Metastatic small cell lung cancer with metastases to the brain. Patient does follow with oncology services. Last chemotherapy October 2017 per patient. 3. Recent craniotomy 2 weeks ago at [facility] for brain tumor. Dexamethasone currently on hold patient currently on Solu-Medrol 4. History of seizures. Patient maintained on Keppra 5. Nicotine dependence. Nicotine patch has been ordered 6. Essential hypertension. Home meds resumed 7. History of hypothyroidism. Synthroid resumed 8. Increased swelling to upper and lower extremities. BNP 357. Bilateral venous Doppler to lower extremity completed showing negative for DVT. Left upper extremeity Doppler completed showing negative for DVT DVT prophylaxis heparin. GI prophylaxis Protonix Pulmonary and oncology service is consulted Continue Solu-Medrol and DuoNeb breathing treatments A.m. labs ordered, d-dimer ordered Time with Patient: Greater than 30 (Greater than 60% of the total time spent in counseling and coordination of care. I performed an examination of the patient and discussed their management with the Nurse Practitioner. I have reviewed the Nurse Practitioner's notes and agree with the documented findings and plan of care)
[2019-01-15] MEDS: oxyCODONE-APAP 10-325MG 1 EACH TAB PO PRN (15:24)
[2019-01-15] MEDS ORDERED: methylPREDNISolone SOD SUCCI 125 MG/2 ML VIAL IV SCH (18:00)
[2019-01-15] MEDS: HEPARIN SODIUM,PORCINE 5,000 UNIT/ML 1 ML VIAL SQ SCH (20:43)
[2019-01-15] MEDS: SYMBICORT 160-4.5 MCG INHALER INHALATION SCH (20:58)
[2019-01-15] MEDS: CYCLOBENZAPRINE 10 MG TAB PO SCH ×2 (21:16→21:17)
[2019-01-15] MEDS: levETIRAcetam 500 MG TAB PO SCH (21:16)
[2019-01-15] MEDS: SERTRALINE 50 MG TAB PO SCH (22:00)
[2019-01-15] MEDS: levETIRAcetam 250 MG TAB PO SCH (22:00)
[2019-01-16] MEDS: oxyCODONE-APAP 10-325MG 1 EACH TAB PO PRN ×5 (01:34→19:16)
[2019-01-16] MEDS: methylPREDNISolone SOD SUCCI 125 MG/2 ML VIAL IV SCH ×4 (01:35→18:08)
[2019-01-16] MEDS: IPRATROPIUM-ALBUTEROL 3 ML NEB INHALATION SCH ×6 (03:09→23:57)
[2019-01-16] MEDS: LEVOTHYROXINE 25 MCG TAB PO SCH (05:07)
[2019-01-16] MEDS: levETIRAcetam 500 MG TAB PO SCH ×2 (07:35→20:44)
[2019-01-16] MEDS: PANTOPRAZOLE 40 MG TABLET PO SCH (07:35)
[2019-01-16] MEDS: LISINOPRIL 20 MG TAB PO SCH (07:36)
[2019-01-16] MEDS: MONTELUKAST 10 MG TAB PO SCH (07:36)
[2019-01-16] MEDS: levETIRAcetam 250 MG TAB PO SCH ×2 (07:36→20:43)
[2019-01-16] MEDS: HEPARIN SODIUM,PORCINE 5,000 UNIT/ML 1 ML VIAL SQ SCH ×2 (07:37→20:43)
[2019-01-16] MEDS: CYCLOBENZAPRINE 10 MG TAB PO SCH ×2 (07:38→20:43)
[2019-01-16] MEDS: NICOTINE 21MG/24HR PATCH TRANSDERM SCH (07:39)
[2019-01-16] MEDS: SYMBICORT 160-4.5 MCG INHALER INHALATION SCH (07:45)
[2019-01-16] MEDS ORDERED: NON-FORMULARY DRUG (Umeclidinium Bromide [Incruse Ellipta] 1 PUFF) INHALATION SCH (08:00)
[2019-01-16 08:52] LABS: Anisocytosis Slight; Basophils % (A) 0 %; Eosinophils % (A) 1 %; HCT 36.7 % (34.0-46.0); HGB 11.9 gm/dL (11.4-16.0); Lymphocytes # (A) 0.2 k/uL (1.0-4.8); Lymphocytes % (A) 3 %; MCH 32.6 pg (25.0-35.0); MCHC 32.3 g/dL (31.0-37.0); MCV 100.9 fL (80.0-100.0); Macrocytosis Slight; Monocytes # (A) 0.2 k/uL (0-1.0); Monocytes % (A) 3 %; Neutrophils # (A) 6.9 k/uL (1.3-7.7); Neutrophils % (A) 93 %; Platelet Count 155 k/uL (150-450); RBC 3.63 m/uL (3.80-5.40); RDW 16.8 % (11.5-15.5); WBC 7.4 k/uL (3.8-10.6)
[2019-01-16 09:05] LABS: ALT 24 U/L (9-52); AST 16 U/L (14-36); African American GFR (CKD) >90 (>60 ml/min/1.73 sqM); Albumin 3.5 g/dL (3.5-5.0); Alkaline Phosphatase 55 U/L (38-126); Anion Gap 10 mmol/L; Blood Urea Nitrogen 22 mg/dL (7-17); Calcium 8.4 mg/dL (8.4-10.2); Carbon Dioxide 23 mmol/L (22-30); Chloride 99 mmol/L (98-107); Glucose 129 mg/dL (74-99); Potassium 4.3 mmol/L (3.5-5.1); Sodium 132 mmol/L (137-145); Total Bilirubin 0.5 mg/dL (0.2-1.3); Total Protein 5.9 g/dL (6.3-8.2)
[2019-01-16] MEDS: DOCUSATE 100 MG CAP PO SCH (11:09)
[2019-01-16] MEDS: MORPHINE SULFATE ER 15 MG TABLET PO SCH ×2 (11:11→20:44)
--- NOTE | 2019-01-16 13:45 | P.PN ---
Subjective Progress Note Date: 01/16/19 This is a 48-year-old female patient of Dr. Mckenzie. Patient presented with complaints of increased shortness of breath. 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 Patient reports her shortness of breath has been occurring for multiple months but has significantly increased over the past few days. Patient complains of or shortness of breath with exertion. Patient also on dexamethasone due to recent craniotomy surgery 2 weeks ago at [facility]. Patient reports because the steroid she's had an increase of 20 pound weight gain. Additional medical history includes essential hypertension, pneumonia, hypothyroidism, smoker and recent craniotomy to of brain tumor on 12/26/2018. Patient reports that she follows with oncology services Dr. Osuna along with pulmonary services. Chest x-ray completed showing findings compatible with patient's history of lung carcinoma. Patient was started on IV Solu-Medrol. Pulmonary and oncology services have been consulted. Bilateral lower extremity Doppler completed showing negative for DVT. Venous Doppler also completed 2 left upper extremity showing no evidence of DVT. At this time patient is still complaining of shortness of breath with exertion. Patient is maintained on 2 L nasal cannula. Patient denies any chest pain. Patient denies any nausea vomiting or diarrhea. Patient denies any urinary burning or frequency On 01/16/2019 patient is alert and oriented 3. Patient reports that she feels much improved. Patient still having expiratory wheezing and some shortness of breath with activity. Pulmonary and oncology services are following. Pupils adjusted per oncology services. Patient denies chest pain. Denies nausea vomiting or diarrhea. Patient denies any urinary burning or frequency Colace added for constipation. Objective - Vital Signs Vital signs: Vital Signs Temp 98 F 01/16/19 11:43 Pulse 112 H 01/16/19 11:44 Resp 20 01/16/19 11:43 BP 129/90 01/16/19 11:43 Pulse Ox 96 01/16/19 11:43 Intake & Output 01/15/19 01/16/19 01/16/19 18:59 06:59 18:59 Intake Total 380 Balance 380 Weight 96.162 kg Intake: Intake, IV Titration 140 Amount Sodium Chloride 0.9% 1, 140 000 ml @ 20 mls/hr IV . Q24H [facility] Rx#:[id number] Oral 240 Other: Voiding Method Toilet Toilet # Voids 1 - Exam Head normocephalic Neck supple Lungs diminished breath sounds with expiratory wheezing Heart regular rate and rhythm S1-S2, no rub or gallop Abdomen is soft nontender nondistended positive bowel sounds no hepatosplenomegaly Extremities increasing to +2 nonpitting edema to upper extremities, +1 to lower extremities Neuro alert and orientated to 3 - Labs CBC & Chem 7: 01/16/19 07:23 01/16/19 07:23 Labs: Abnormal Lab Results - Last 24 Hours (Table) 01/15/19 01/16/19 01/16/19 Range/Units 12:30 07:23 07:23 RBC 3.63 L (3.80-5.40) m/uL MCV 100.9 H (80.0-100.0) fL RDW 16.8 H (11.5-15.5) % Lymphocytes # 0.2 L (1.0-4.8) k/uL D-Dimer 0.65 H (<0.60) mg/L FEU Sodium 132 L (137-145) mmol/L BUN 22 H (7-17) mg/dL Glucose 129 H (74-99) mg/dL Total Protein 5.9 L (6.3-8.2) g/dL Assessment and Plan Assessment: 1. Increased shortness of breath. Chest x-ray completed showing findings compatible with patient's history of lung carcinoma. Patient started on IV Solu-Medrol. Pulmonary services consulted. 2. Metastatic small cell lung cancer with metastases to the brain. Patient does follow with oncology services. Last chemotherapy October 2017 per patient. 3. Recent craniotomy 2 weeks ago at [facility] for brain tumor. Dexamethasone currently on hold patient currently on Solu-Medrol 4. History of seizures. Patient maintained on Keppra 5. Nicotine dependence. Nicotine patch has been ordered 6. Essential hypertension. Home meds resumed 7. History of hypothyroidism. Synthroid resumed 8. Increased swelling to upper and lower extremities. BNP 357. Bilateral venous Doppler to lower extremity completed showing negative for DVT. Left upper extremeity Doppler completed showing negative for DVT DVT prophylaxis heparin. GI prophylaxis Protonix Pulmonary and oncology service is consulted Continue Solu-Medrol and DuoNeb breathing treatments I performed an examination of the patient and discussed their management with the Nurse Practitioner. I have reviewed the Nurse Practitioner's notes and agree with the documented findings and plan of care
[2019-01-16] MEDS ORDERED: RX INFO: IV CONTRAST WAS GIVEN 1 EACH MISC MISCELLANE PRN (15:03)
--- NOTE | 2019-01-16 15:49 | P.CNPUL ---
History of Present Illness Consult date: 01/16/19 Requesting physician: Katty Garay Reason for consult: dyspnea, COPD, hypoxemia, other Chief complaint: Shortness of breath, generalized edema History of present illness: This is a 48-year-old white female patient of Dr. 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 Patient underwent chemotherapy initially for her squamous cell lung cancer, she was later found to have metastasis to brain, underwent radiation treatment, including targeted radiation to one of the brain lesions, but despite the radiation treatments one of the lesions was continuously growing in size, and patient started having seizures. She underwent craniotomy right side of the brain. Patient has been on long-term steroids. Was recently discharged from the hospital. She had noted increased generalized edema, increasing shortness of breath, some cough with phlegm production. Patient does have underlying history of advanced COPD, gold stage III, with a baseline FEV1 of 45% of predicted. Used to be a smoker, which is currently in remission. Other history includes hypothyroidism, anxiety, and his history of pneumonia, hypertension. Patient follows with Dr. Osuna from oncology. Chest x-ray was completed showing findings compatible with right hilar mass, compatible with patient's history of lung carcinoma. Bilateral upper and lower extremity Dopplers were completed in were negative for DVTs. She denies any chest pain. No nausea, vomiting with diarrhea, no hemoptysis. Lab work was completed showing white blood cell count of 8.8, hemoglobin of 12.5, d-dimer was mildly elevated at 0.65, serum sodium was 134, potassium is 4.1, chloride was 101, CO2 is 25, B1 is 25, creatinine was 0.71, reported was negative 1, proBNP was within normal limits at 357. Afebrile, room air pulse ox is 96%, clinically patient is quite fluid overloaded, gener alized edema. He has been given a dose of IV Lasix, she is currently on oral Lasix at 20 mg twice daily, breathing treatments, she has been started on IV Solu-Medrol 60 mg every 6 hours. Review of Systems All systems: negative Constitutional: Reports weight gain, Denies chills, Denies fever Eyes: denies blurred vision, denies pain Ears, nose, mouth and throat: Denies headache, Denies sore throat Cardiovascular: Denies chest pain, Denies shortness of breath Respiratory: Reports dyspnea, Denies cough Gastrointestinal: Denies abdominal pain, Denies diarrhea, Denies nausea, Denies vomiting Genitourinary: Denies dysuria, Denies hematuria Musculoskeletal: Denies myalgias Musculoskeletal: bilateral: ankle swelling, foot swelling, hand swelling Integumentary: Denies pruritus, Denies rash Neurological: Denies numbness, Denies weakness Psychiatric: Denies anxiety, Denies depression Endocrine: Denies fatigue, Denies weight change Past Medical History Past Medical History: Cancer, Hypertension, Pneumonia, Thyroid Disorder Additional Past Medical History / Comment(s): small cell lung cancer undergoing chemotherapy and radiation therapy (last one 08/27/17), pneumonia once in April 2017, pt states she is perimenopausal-last menses months ago. History of Any Multi-Drug Resistant Organisms: None Reported Past Surgical History: No Surgical Hx Reported Additional Past Surgical History / Comment(s): Bronchoscopy with bx, EGD, R wrist ganglion cyst, pilonidal cyst, brain surgery to remove brain tumor December 26, 2018 Past Anesthesia/Blood Transfusion Reactions: Postoperative Nausea & Vomiting (PONV) Past Psychological History: No Psychological Hx Reported Additional Psychological History / Comment(s): Pt resides with her spouse. She uses no assistive device. She has not been driving lately, spouse or her mother takes her to [facility]. Smoking Status: Current every day smoker Past Alcohol Use History: None Reported Additional Past Alcohol Use History / Comment(s): Pt started smoking in 1979 Past Drug Use History: None Reported - Past Family History Father Family Medical History: CVA/TIA Additional Family Medical History / Comment(s): Father of a CVA at the age of 60 yrs. Strokes run strongly on his side of the family. Mother Family Medical History: No Reported History Additional Family Medical History / Comment(s): Mother is healthy. Medications and Allergies Home Medications Medication Instructions Recorded Confirmed Type Albuterol Inhaler [Ventolin Hfa 1 - 2 puff INHALATION RT-Q6H PRN 06/18/17 01/15/19 History Inhaler] Ipratropium-Albuterol Nebulize 3 ml INHALATION RT-BID PRN 06/18/17 01/15/19 History [Duoneb 0.5 mg-3 mg/3 ml Soln] Levothyroxine Sodium [Synthroid] 25 mcg PO DAILY 06/18/17 01/15/19 History Lisinopril [Prinivil] 20 mg PO DAILY 06/18/17 01/15/19 History Umeclidinium [place] [Incruse 1 puff INHALATION RT-DAILY 06/18/17 01/15/19 History Ellipta] Ergocalciferol (Vitamin D2) 50,000 units PO FR 07/09/17 01/15/19 History [Vitamin D2] Montelukast [Singulair] 10 mg PO DAILY 07/10/17 01/15/19 History Nicotine 21Mg/24Hr Patch [Habitrol 1 patch TRANSDERM DAILY 10/11/18 01/15/19 History 21Mg/24Hr Patch] Cyclobenzaprine [Flexeril] 10 mg PO BID 01/15/19 01/15/19 History Dexamethasone 2 mg PO BID 01/15/19 01/15/19 History Mometasone/Formoterol [Dulera 200 2 puff INHALATION RT-BID 01/15/19 01/15/19 History Mcg/5 Mcg Inhaler] Morphine Sulfate [Morphine Sulfate 15 mg PO Q12H PRN 01/15/19 01/15/19 History ER] Sertraline [Zoloft] 50 mg PO HS 01/15/19 01/15/19 History levETIRAcetam [Keppra] 1,000 mg PO Q12HR 01/15/19 01/15/19 History levETIRAcetam [Keppra] 250 mg PO Q12H 01/15/19 01/15/19 History oxyCODONE-APAP 10-325MG [Percocet 1 tab PO Q6HR PRN 01/15/19 01/15/19 History 10-325 mg] Allergies Allergy/AdvReac Type Severity Reaction Status Date / Time infliximab [From Remicade] Allergy Severe Anaphylaxis Verified 01/15/19 11:31 Physical Exam Vitals: Vital Signs Temp Pulse Pulse Resp BP BP Pulse Ox 01/16/19 11:44 112 H 01/16/19 11:43 98 F 86 20 129/90 96 01/16/19 11:36 110 H 01/16/19 07:55 108 H 01/16/19 07:45 108 H 01/16/19 05:23 97.6 F 105 H 16 166/87 95 01/16/19 00:00 16 01/15/19 21:41 98.3 F 104 H 16 134/85 93 L 01/15/19 21:10 112 H 01/15/19 21:00 110 H 01/15/19 19:37 98.4 F 112 H 20 118/66 95 01/15/19 17:46 117 H 22 122/82 93 L Intake and Output 01/16/19 01/16/19 01/16/19 06:59 14:59 22:59 Intake Total 100 160 Balance 100 160 Intake: Intake, IV Titration 100 160 Amount Sodium Chloride 0.9% 1, 100 160 000 ml @ 20 mls/hr IV . Q24H [facility] Rx#:[id number] Other: Voiding Method Toilet Toilet Toilet # Voids 1 GENERAL EXAM: Alert, pleasant, 48-year-old white female, obese, appears to be generally swollen, in hands, lower extremities, and trunk, she is on room air, with a pulse ox of 96% comfortable in no apparent distress. HEAD: Normocephalic/atraumatic. EYES: Normal reaction of pupils, equal size. Conjunctiva pink, sclera white. NOSE: Clear with pink turbinates. THROAT: No erythema or exudates. NECK: No masses, no JVD, no thyroid enlargement, no adenopathy. CHEST: No chest wall deformity. Symmetrical expansion. LUNGS: Equal air entry with no crackles, wheeze, rhonchi or dullness. CVS: Regular rate and rhythm, normal S1 and S2, no gallops, no murmurs, no rubs ABDOMEN: Soft, nontender. No hepatosplenomegaly, normal bowel sounds, no guarding or rigidity. EXTREMITIES: No clubbing, 1+ lower extremity and upper extremity edema, no cyanosis, 2+ pulses and upper and lower extremities. Scattered colonic areas on upper extremities, chronic venous stasis discoloration in lower extremities MUSCULOSKELETAL: Muscle strength and tone normal. SPINE: No scoliosis or deformity SKIN: No rashes CENTRAL NERVOUS SYSTEM: Alert and oriented -3. No focal deficits, tone is normal in all 4 extremities. PSYCHIATRIC: Alert and oriented -3. Appropriate affect. Intact judgment and insight. Results - Laboratory Findings CBC and BMP: 01/16/19 07:23 01/16/19 07:23 PT/INR, D-dimer PT 9.4 sec (9.0-12.0) 01/15/19 12:30 INR 0.9 (<1.2) 01/15/19 12:30 D-Dimer 0.65 mg/L FEU (<0.60) H 01/15/19 12:30 Abnormal lab findings: Abnormal Labs 01/15/19 01/15/19 01/15/19 12:30 12:30 12:30 RBC 3.79 L MCV RDW 18.1 H Plt Count 145 L Lymphocytes # 0.7 L APTT 18.0 L D-Dimer Sodium 134 L BUN 25 H Glucose Total Protein 5.9 L 01/15/19 01/16/19 01/16/19 12:30 07:23 07:23 RBC 3.63 L MCV 100.9 H RDW 16.8 H Plt Count Lymphocytes # 0.2 L APTT D-Dimer 0.65 H Sodium 132 L BUN 22 H Glucose 129 H Total Protein 5.9 L - Diagnostic Findings Chest x-ray: report reviewed, image reviewed Assessment and Plan Plan: Assessment #1. Shortness of breath, generalized edema, anasarca, likely related to long- term use of steroids #2. No evidence of overt heart failure, proBNP is within normal limits, chest x-ray findings compatible with patient's history of lung carcinoma, with patchy perihilar density #3. 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 Acute exacerbation of COPD #5. Stage III COPD #6. Former smoker, currently in remission #7. Upper and lower extremity edema, and up ultrasounds of upper and lower extremities are negative for DVTs #9. History of pneumonia #10. Hypothyroidism #11. Hypertension #12. Anxiety Plan: Continue with IV steroids, agree with diuretics, nebulized bronchodilators, no evidence of acute pulmonary process on the chest x-ray, chronic findings of right hilar infiltrate consistent with history of squamous cell carcinoma. No significant leukocytosis, no fever, no chills. Accurate intake and output, daily weights. DVT prophylaxis, we'll continue to follow. I performed a history & physical examination of the patient and discussed their management with my nurse practitioner, Danika Cuellar. I reviewed the nurse practitioner's note and agree with the documented findings and plan of care. Lung sounds are positive for diffuse wheezes throughout the lung [place]. The findings and the impression was discussed with the patient. I attest to the documentation by the nurse practitioner. Time with Patient: Greater than 30
--- NOTE | 2019-01-16 16:09 | P.CONS ---
History of Present Illness - Reason for Consult Consult date: 01/16/19 lung adenocarcinoma Requesting physician: Tiffanie Cormier - Chief Complaint ORQUIDEA - History of Present Illness Mrs. Montelongo is a very pleasant female pt of Dr. Osuna who presented with persistent cough and dyspnea starting around October 2016. She was treated with multiple courses of antibiotics and steroids without improvement. CXR done in April 2017 revealed persistent right lung mass, CT chest on 05/20/2017 revealed 6 cm RML mass, 6mm lesion in RUL, small pericardial effusion. 05/21/2017 diagnostic bronchoscopy revealed obstructing lesion in RUL and tr ansbronchial biopsy was positive for small cell lung carcinoma. 06/05/2017 brain MRI was negative. She started chemotherapy on 06/18/2017 with concurrent XRT added with cycle#2 on 07/09/2017. She could not tolerate cisplatin so, it was changed to carboplatin as of cycle#4 which was completed on 08/22/2016 and completed XRT on 08/27/2017. Treatment f/u CT chest on 08/27/2017 revealed significant improvement in her disease. Brain MRI on 09/15/2017 remained negative for metastatic disease. Monitoring CT CAP 12/11/2017 revealed stable disease. On 12/12/2017 repeat brain MRI revealed few small new lesions concerning for metastatic disease thus she received and completed brain radiation in December 2017. 02/27/2018 CT chest revealed no evidence of recurrence, brain MRI revealed significant response to XRT. 05/31/[address] CAP, no evidence of recurrence, brain MRI revealed new small lesion for which she had SRS on 06/10/2018. 08/20/[address] CAP no evidence of progression, she has not seen Dr. Osuna since Aug 2018. She had a crainotomy on 12/26/18 at [facility] (she was having seizures), radiation necrosis with residual tumor. She is now presenting with ORQUIDEA, cough. She is c/o new KELLOGG, blurred vision, very dry mouth, inability to resolve thrush, anxiety and irritation with so many inhalers and meds, no chest pain, palpitations, abd pain, nausea, vomiting, dysuria, hematuria, diarrhea, constipation, her BLE are swollen, her skin is fragile, she had gained a lot of weight from the steroids. She was on dex 4mg BID with plans to taper as she healed from surgery. Review of Systems 14 point ROS Is negative except as stated in HPI Past Medical History Past Medical History: Cancer, Hypertension, Pneumonia, Thyroid Disorder Additional Past Medical History / Comment(s): small cell lung cancer undergoing chemotherapy and radiation therapy (last one 08/27/17), pneumonia once in April 2017, pt states she is perimenopausal-last menses months ago. History of Any Multi-Drug Resistant Organisms: None Reported Past Surgical History: No Surgical Hx Reported Additional Past Surgical History / Comment(s): Bronchoscopy with bx, EGD, R wrist ganglion cyst, pilonidal cyst, brain surgery to remove brain tumor December 26, 2018 Past Anesthesia/Blood Transfusion Reactions: Postoperative Nausea & Vomiting (PONV) Past Psychological History: No Psychological Hx Reported Additional Psychological History / Comment(s): Pt resides with her spouse. She uses no assistive device. She has not been driving lately, spouse or her mother takes her to [employer]. Smoking Status: Current every day smoker Past Alcohol Use History: None Reported Additional Past Alcohol Use History / Comment(s): Pt started smoking in 1979 Past Drug Use History: None Reported - Past Family History Father Family Medical History: CVA/TIA Additional Family Medical History / Comment(s): Father of a CVA at the age of 60 yrs. Strokes run strongly on his side of the family. Mother Family Medical History: No Reported History Additional Family Medical History / Comment(s): Mother is healthy. Medications and Allergies Home Medications Medication Instructions Recorded Confirmed Type Albuterol Inhaler [Ventolin Hfa 1 - 2 puff INHALATION RT-Q6H PRN 06/18/17 01/15/19 History Inhaler] Ipratropium-Albuterol Nebulize 3 ml INHALATION RT-BID PRN 06/18/17 01/15/19 History [Duoneb 0.5 mg-3 mg/3 ml Soln] Levothyroxine Sodium [Synthroid] 25 mcg PO DAILY 06/18/17 01/15/19 History Lisinopril [Prinivil] 20 mg PO DAILY 06/18/17 01/15/19 History Umeclidinium Breaks [Incruse 1 puff INHALATION RT-DAILY 06/18/17 01/15/19 History Ellipta] Ergocalciferol (Vitamin D2) 50,000 units PO FR 07/09/17 01/15/19 History [Vitamin D2] Montelukast [Singulair] 10 mg PO DAILY 07/10/17 01/15/19 History Nicotine 21Mg/24Hr Patch [Habitrol 1 patch TRANSDERM DAILY 10/11/18 01/15/19 History 21Mg/24Hr Patch] Cyclobenzaprine [Flexeril] 10 mg PO BID 01/15/19 01/15/19 History Dexamethasone 2 mg PO BID 01/15/19 01/15/19 History Mometasone/Formoterol [Dulera 200 2 puff INHALATION RT-BID 01/15/19 01/15/19 History Mcg/5 Mcg Inhaler] Morphine Sulfate [Morphine Sulfate 15 mg PO Q12H PRN 01/15/19 01/15/19 History ER] Sertraline [Zoloft] 50 mg PO HS 01/15/19 01/15/19 History levETIRAcetam [Keppra] 1,000 mg PO Q12HR 01/15/19 01/15/19 History levETIRAcetam [Keppra] 250 mg PO Q12H 01/15/19 01/15/19 History oxyCODONE-APAP 10-325MG [Percocet 1 tab PO Q6HR PRN 01/15/19 01/15/19 History 10-325 mg] Allergies Allergy/AdvReac Type Severity Reaction Status Date / Time infliximab [From Remicade] Allergy Severe Anaphylaxis Verified 01/15/19 11:31 Physical Exam Vitals: Vital Signs Temp Pulse Pulse Resp BP BP Pulse Ox 01/16/19 11:44 112 H 01/16/19 11:43 98 F 86 20 129/90 96 01/16/19 11:36 110 H 01/16/19 07:55 108 H 01/16/19 07:45 108 H 01/16/19 05:23 97.6 F 105 H 16 166/87 95 01/16/19 00:00 16 01/15/19 21:41 98.3 F 104 H 16 134/85 93 L 01/15/19 21:10 112 H 01/15/19 21:00 110 H 01/15/19 19:37 98.4 F 112 H 20 118/66 95 01/15/19 17:46 117 H 22 122/82 93 L 01/15/19 15:21 114 H 01/15/19 15:09 114 H 01/15/19 15:00 112 H 26 H 128/83 96 01/15/19 13:55 112 H 22 117/81 98 Intake and Output 01/15/19 01/16/19 01/16/19 22:59 06:59 14:59 Intake Total 280 100 Balance 280 100 Intake: Intake, IV Titration 40 100 Amount Sodium Chloride 0.9% 1, 40 100 000 ml @ 20 mls/hr IV . Q24H [facility] Rx#:[id number] Oral 240 Other: Voiding Method Toilet Toilet # Voids 1 1 - Constitutional [place] appearance General appearance: cooperative, no acute distress - EENT dry oral mucus membranes, reddened, scant look of thrush Eyes: EOMI ENT: hearing grossly normal - Neck Neck: no lymphadenopathy - Respiratory Respiratory: bilateral: diminished, wheezing - Cardiovascular Rhythm: regular Heart sounds: normal: S1, S2 leg Peripheral Edema: bilateral: 2+, Pitting - Gastrointestinal General gastrointestinal: no absent bowel sounds, no decreased bowel sounds, no distended, no hepatomegaly, no hyperactive bowel sounds, normal bowel sounds, no organomegaly, no rigid, no scaphoid, soft, no splenomegaly, no tenderness, no umbilical hernia, no ventral hernia - Integumentary thin skin, patchy redness, easy bruising secondary to steroids - Neurologic Neurologic: CNII-XII intact - Musculoskeletal Musculoskeletal: strength equal bilaterally - Psychiatric Psychiatric: A&O x's 3, appropriate affect, intact judgment & insight Results CBC & Chem 7: 01/16/19 07:23 01/16/19 07:23 Labs: Abnormal Lab Results - Last 24 Hours (Table) 01/15/19 01/16/19 01/16/19 Range/Units 12:30 07:23 07:23 RBC 3.63 L (3.80-5.40) m/uL MCV 100.9 H (80.0-100.0) fL RDW 16.8 H (11.5-15.5) % Lymphocytes # 0.2 L (1.0-4.8) k/uL D-Dimer 0.65 H (<0.60) mg/L FEU Sodium 132 L (137-145) mmol/L BUN 22 H (7-17) mg/dL Glucose 129 H (74-99) mg/dL Total Protein 5.9 L (6.3-8.2) g/dL Chest x-ray: report reviewed Venous US: report reviewed Assessment and Plan (1) Acute exacerbation of chronic obstructive airways disease Narrative/Plan: Pulmonary consulted, treatments including abx ordered Current Visit: Yes Status: Acute Priority: High Code(s): J44.1 - CHRONIC OBSTRUCTIVE PULMONARY DISEASE W (ACUTE) EXACERBATION SNOMED Code(s): 833032645 (2) Small cell lung cancer Narrative/Plan: Pt is s/p crainotomy and SBRT on 12/26 at [facility]. Discussed case with Dr. Osuna and Dr. Linares. Plan is for CT without contrast of brain to rule out any possibility of a bleed (pt has symptoms of KELLOGG and blurred vision). CT chest with contrast as pt is due for this imaging study (she had no evidence of progressive disease in the chest last study). Current Visit: Yes Status: Acute Priority: High Code(s): C34.90 - MALIGNANT NEOPLASM OF UNSP PART OF UNSP BRONCHUS OR LUNG SNOMED Code(s): 905654450 (3) Cushingoid facies Narrative/Plan: Due to prolonged steroid administration for mutiple co-morbidites and symptoms of disease. Will be tapered as appropriate. Current Visit: Yes Status: Acute Priority: High Code(s): R68.89 - OTHER GENERAL SYMPTOMS AND SIGNS SNOMED Code(s): 04389857 Plan: Cools solution with mystatin for irritation and thrush, salt and soda for dyr mouth symptoms ER morphine was changed to scheduled, breakthrough percocet frequency was increased. Scheduled and PRN meds for prevention and treatment of narcotic induced constipation
[2019-01-16] MEDS: FUROSEMIDE 20 MG TAB PO SCH (16:54)
[2019-01-16] MEDS: MAG HYDROX/AL HYDROX/SIMETH 30 ML, LIDOCAINE VISCOUS 30 ML, diphenhydrAMINE ELIXIR 75 M... PO SCH ×4 (16:54)
[2019-01-16] MEDS: SALT AND SODA MOUTHWASH 1,000 ML PO SCH ×2 (16:54→20:38)
[2019-01-16 17:17] LABS: Glucose,Whole Blood 157 mg/dL (75-99)
[2019-01-16] MEDS: INSULIN ASPART (NovoLOG) 100 UNIT/ML VIAL SQ SCH ×2 (18:10→20:43)
--- NOTE | 2019-01-16 18:36 | CT ---
EXAMINATION TYPE: CT chest w con DATE OF EXAM: 01/16/2019 COMPARISON: HISTORY: Headache, blurred vision, recent crainotomy. History of lung cancer. CT DLP: 813 mGycm Automated exposure control for dose reduction was used. CONTRAST: CT scan of the chest is performed with IV Contrast, patient injected with 100ml mL of Isovue 300. FINDINGS: There is coarse reticular interstitial patchy infiltrate in the right upper lobe and also the superio r segment right lower lobe. There is no mediastinal adenopathy. Thoracic aorta shows no aneurysm or d issection. There are no hilar masses. There is enlarged right bronchial lymph node that measures 1.5 cm. There is no mediastinal adenopathy. Heart size is normal. There is no pericardial effusion. There is no pleural effusion. Thoracic vertebra have normal spacing and alignment. There is no compression fracture. The bony thora x is intact. IMPRESSION: There is coarse infiltrate in the right upper lobe and also the superior aspect right lo wer lobe consistent with scarring and treated lung cancer. There is stable right enlarged bronchial l ymph node. No sign of increasing pulmonary density compared to old exam.
--- NOTE | 2019-01-16 18:38 | CT ---
EXAMINATION TYPE: CT brain wo con DATE OF EXAM: 01/16/2019 COMPARISON: 10/11/2018 HISTORY: Headache, blurred vision, recent crainotomy. CT DLP: 1103 mGycm Automated exposure control for dose reduction was used. FINDINGS: There is right posterior frontal craniotomy defect. There is a 4 cm area of white matter hypodensity right posterior frontal lobe at the craniotomy site. There is no mass effect nor midline shift. There is no sign of intracranial hemorrhage. IMPRESSION: COMPARED TO OLD EXAM THERE IS DECREASED CEREBRAL EDEMA IN THE WHITE MATTER RIGHT PARIETAL AND FRONTAL LOBE. THERE IS NEW RIGHT FRONTAL CRANIOTOMY DEFECT. NO ACUTE INTRACRANIAL ABNORMALITY.
[2019-01-16 20:01] LABS: Glucose,Whole Blood 167 mg/dL (75-99)
[2019-01-16] MEDS: POLYETHYLENE GLYCOL 3350 17 GM POWD.PACK PO SCH (20:42)
[2019-01-16] MEDS: SERTRALINE 50 MG TAB PO SCH (20:46)
[2019-01-17] MEDS: SODIUM CHLORIDE 0.9% 1,000 ML IV SCH ×2 (00:02→16:53)
[2019-01-17] MEDS: MAG HYDROX/AL HYDROX/SIMETH 30 ML, LIDOCAINE VISCOUS 30 ML, diphenhydrAMINE ELIXIR 75 M... PO SCH ×16 (00:03→20:10)
[2019-01-17] MEDS: methylPREDNISolone SOD SUCCI 125 MG/2 ML VIAL IV SCH ×3 (00:03→12:19)
[2019-01-17] MEDS: SALT AND SODA MOUTHWASH 1,000 ML PO SCH ×6 (00:04→23:25)
[2019-01-17] MEDS: oxyCODONE-APAP 10-325MG 1 EACH TAB PO PRN ×6 (00:31→23:23)
[2019-01-17] MEDS: IPRATROPIUM-ALBUTEROL 3 ML NEB INHALATION SCH ×6 (04:07→23:24)
[2019-01-17] MEDS: NICOTINE 21MG/24HR PATCH TRANSDERM SCH (05:28)
[2019-01-17] MEDS: LEVOTHYROXINE 25 MCG TAB PO SCH (05:48)
[2019-01-17 07:28] LABS: Glucose,Whole Blood 121 mg/dL (75-99)
[2019-01-17] MEDS: INSULIN ASPART (NovoLOG) 100 UNIT/ML VIAL SQ SCH ×2 (07:35→12:19)
[2019-01-17 08:05] LABS: Anisocytosis Slight; Basophils % (A) 0 %; Eosinophils # (A) 0.1 k/uL (0-0.7); Eosinophils % (A) 1 %; HCT 36.7 % (34.0-46.0); Lymphocytes # (A) 0.3 k/uL (1.0-4.8); Lymphocytes % (A) 3 %; MCH 32.8 pg (25.0-35.0); MCHC 32.6 g/dL (31.0-37.0); MCV 100.4 fL (80.0-100.0); Macrocytosis Slight; Mean Platelet Volume 6.9; Monocytes # (A) 0.2 k/uL (0-1.0); Monocytes % (A) 2 %; Neutrophils # (A) 9.5 k/uL (1.3-7.7); Neutrophils % (A) 94 %; Platelet Count 150 k/uL (150-450); RBC 3.66 m/uL (3.80-5.40); RDW 16.7 % (11.5-15.5); WBC 10.1 k/uL (3.8-10.6)
[2019-01-17 08:25] LABS: ALT 29 U/L (9-52); AST 19 U/L (14-36); African American GFR (CKD) >90 (>60 ml/min/1.73 sqM); Albumin 3.8 g/dL (3.5-5.0); Alkaline Phosphatase 48 U/L (38-126); Anion Gap 12 mmol/L; Blood Urea Nitrogen 24 mg/dL (7-17); Calcium 9.1 mg/dL (8.4-10.2); Carbon Dioxide 22 mmol/L (22-30); Chloride 98 mmol/L (98-107); Glucose 140 mg/dL (74-99); Potassium 4.6 mmol/L (3.5-5.1); Sodium 132 mmol/L (137-145); Total Bilirubin 0.5 mg/dL (0.2-1.3); Total Protein 6.2 g/dL (6.3-8.2)
[2019-01-17] MEDS: FUROSEMIDE 20 MG TAB PO SCH (08:50)
[2019-01-17] MEDS: HEPARIN SODIUM,PORCINE 5,000 UNIT/ML 1 ML VIAL SQ SCH ×2 (08:50→20:07)
[2019-01-17] MEDS: levETIRAcetam 250 MG TAB PO SCH ×2 (08:50→20:07)
[2019-01-17] MEDS: LISINOPRIL 20 MG TAB PO SCH (08:51)
[2019-01-17] MEDS: CYCLOBENZAPRINE 10 MG TAB PO SCH ×2 (08:51→20:07)
[2019-01-17] MEDS: PANTOPRAZOLE 40 MG TABLET PO SCH (08:51)
[2019-01-17] MEDS: DOCUSATE 100 MG CAP PO SCH (08:51)
[2019-01-17] MEDS: levETIRAcetam 500 MG TAB PO SCH ×2 (08:51→20:10)
[2019-01-17] MEDS: ERGOCALCIFEROL 50,000 UNIT CAP PO SCH (08:51)
[2019-01-17] MEDS: MONTELUKAST 10 MG TAB PO SCH (08:51)
[2019-01-17] MEDS: MORPHINE SULFATE ER 15 MG TABLET PO SCH ×2 (08:52→20:07)
--- NOTE | 2019-01-17 11:47 | P.PN ---
Subjective Progress Note Date: 01/17/19 This is a 48-year-old female patient of Dr. Mckenzie. Patient presented with complaints of increased shortness of breath. 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 Patient reports her shortness of breath has been occurring for multiple months but has significantly increased over the past few days. Patient complains of or shortness of breath with exertion. Patient also on dexamethasone due to recent craniotomy surgery 2 weeks ago at [facility]. Patient reports because the steroid she's had an increase of 20 pound weight gain. Additional medical history includes essential hypertension, pneumonia, hypothyroidism, smoker and recent craniotomy to of brain tumor on 12/26/2018. Patient reports that she follows with oncology services Dr. Osuna along with pulmonary services. Chest x-ray completed showing findings compatible with patient's history of lung carcinoma. Patient was started on IV Solu-Medrol. Pulmonary and oncology services have been consulted. Bilateral lower extremity Doppler completed showing negative for DVT. Venous Doppler also completed 2 left upper extremity showing no evidence of DVT. At this time patient is still complaining of shortness of breath with exertion. Patient is maintained on 2 L nasal cannula. Patient denies any chest pain. Patient denies any nausea vomiting or diarrhea. Patient denies any urinary burning or frequency On 01/16/2019 patient is alert and oriented 3. Patient reports that she feels much improved. Patient still having expiratory wheezing and some shortness of breath with activity. Pulmonary and oncology services are following. Pain meds adjusted per oncology services. Patient denies chest pain. Denies nausea vomiting or diarrhea. Patient denies any urinary burning or frequency Colace added for constipation. On 01/17/2019 patient's alert and oriented 3. Patient is feeling improved today. Head CT ordered per oncology services and chest CT ordered per pulmonary. Patient has been started on by mouth Lasix 20 mg twice a day. At this time patient is still complaining of some shortness breath with activity. Expiratory wheezes noted upon auscultation. Patient denies chest pain. Patient denies nausea vomiting or diarrhea Objective - Vital Signs Vital signs: Vital Signs Temp 97.8 F 01/17/19 07:46 Pulse 102 H 01/17/19 07:46 Resp 22 01/17/19 07:46 BP 151/95 01/17/19 07:46 Pulse Ox 94 L 01/17/19 07:46 Intake & Output 01/16/19 01/17/19 01/17/19 18:59 06:59 18:59 Intake Total 160 Balance 160 Intake: Intake, IV Titration 160 Amount Sodium Chloride 0.9% 1, 160 000 ml @ 20 mls/hr IV . Q24H [facility] Rx#:[id number] Other: Voiding Method Toilet Toilet Toilet # Voids 1 - Exam Head normocephalic Neck supple Lungs diminished breath sounds with expiratory wheezing Heart regular rate and rhythm S1-S2, no rub or gallop Abdomen is soft nontender nondistended positive bowel sounds no hepatosplenomegaly Extremities +2 nonpitting edema to upper extremities, +1 to lower extremities Neuro alert and orientated to 3 - Labs CBC & Chem 7: 01/17/19 07:38 01/17/19 07:38 Labs: Abnormal Lab Results - Last 24 Hours (Table) 01/16/19 01/16/19 01/17/19 Range/Units 17:15 20:00 07:12 RBC (3.80-5.40) m/uL MCV (80.0-100.0) fL RDW (11.5-15.5) % Neutrophils # (1.3-7.7) k/uL Lymphocytes # (1.0-4.8) k/uL Sodium (137-145) mmol/L BUN (7-17) mg/dL Glucose (74-99) mg/dL POC Glucose (mg/dL) 157 H 167 H 121 H (75-99) mg/dL Total Protein (6.3-8.2) g/dL 01/17/19 01/17/19 Range/Units 07:38 07:38 RBC 3.66 L (3.80-5.40) m/uL MCV 100.4 H (80.0-100.0) fL RDW 16.7 H (11.5-15.5) % Neutrophils # 9.5 H (1.3-7.7) k/uL Lymphocytes # 0.3 L (1.0-4.8) k/uL Sodium 132 L (137-145) mmol/L BUN 24 H (7-17) mg/dL Glucose 140 H (74-99) mg/dL POC Glucose (mg/dL) (75-99) mg/dL Total Protein 6.2 L (6.3-8.2) g/dL Assessment and Plan Assessment: 1. Increased shortness of breath. Chest x-ray completed showing findings compatible with patient's history of lung carcinoma. Patient started on IV Solu-Medrol. Pulmonary services following. Patient has been switched to IV Lasix 40 mg every 8 hours per pulmonary services[address] of chest ordered per pulmonary showing coarse infiltrate in the right upper lobe and also the superior aspect right lower lobe consistent with scarring and treated lung cancer. There is stable right large bronchial lymph node. No sign of increasing pulmonary density compared to old exam. Patient remains on Solu- Medrol and DuoNeb breathing treatments. 2. Metastatic small cell lung cancer with metastases to the brain. Patient does follow with oncology services. Last chemotherapy October 2017 per patient. 3. Recent craniotomy 2 weeks ago at [facility] for brain tumor. Dexamethasone currently on hold patient currently on Solu-Medrol. Head CT completed per oncology order showing compared to old exam there is decreased cerebral edema in the white matter right parapelvic and frontal lobe. There is new right frontal craniotomy defect. No intracranial acute abnormality 4. History of seizures. Patient maintained on Keppra 5. Nicotine dependence. Nicotine patch has been ordered 6. Essential hypertension. Home meds resumed 7. History of hypothyroidism. Synthroid resumed 8. Increased swelling to upper and lower extremities. BNP 357. Bilateral venous Doppler to lower extremity completed showing negative for DVT. Left upper extremeity Doppler completed showing negative for DVT. Per oncology services increased swelling to face or extremities and legs is due to prolonged steroid administration for multiple comorbidities Patient has been started on IV Lasix for pulmonary 9. Hyponatremia. Sodium 132. Patient placed on fluid restrictions 10. Thrush. Salt and soda mouthwash ordered per oncology services 1. Constipation. MiraLAX and MiraLAX has been ordered DVT prophylaxis heparin. GI prophylaxis Protonix Pulmonary and oncology service following Continue Solu-Medrol and DuoNeb breathing treatments I performed an examination of the patient and discussed their management with the Nurse Practitioner. I have reviewed the Nurse Practitioner's notes and agree with the documented findings and plan of care
[2019-01-17] MEDS: FUROSEMIDE 10 MG/ML 4 ML VIAL IV SCH ×3 (12:19→23:23)
[2019-01-17 12:20] LABS: Glucose,Whole Blood 106 mg/dL (75-99)
--- NOTE | 2019-01-17 12:48 | P.PN ---
Subjective Progress Note Date: 01/17/19 Principal diagnosis: Shortness of breath, generalized edema This is a 48-year-old white female patient of Dr. Mckenzie, with past medical history of metastatic small cell lung cancer with metastases to the brain, with recent history of craniotomy at [facility]. 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 Patient underwent chemotherapy initially for her squamous cell lung cancer, she was later found to have metastasis to brain, underwent radiation t reatment, including targeted radiation to one of the brain lesions, but despite the radiation treatments one of the lesions was continuously growing in size, and patient started having seizures. She underwent craniotomy right side of the brain. Patient has been on long-term steroids. Was recently discharged from the hospital. She had noted increased generalized edema, increasing shortness of breath, some cough with phlegm production. Patient does have underlying history of advanced COPD, gold stage III, with a baseline FEV1 of 45% of predicted. Used to be a smoker, which is currently in remission. Other history includes hypothyroidism, anxiety, and his history of pneumonia, hypertension. Patient follows with Dr. Osuna from oncology. Chest x-ray was completed showing findings compatible with right hilar mass, compatible with patient's history of lung carcinoma. Bilateral upper and lower extremity Dopplers were completed in were negative for DVTs. She denies any chest pain. No nausea, vomiting with diarrhea, no hemoptysis. Lab work was completed showing white blood cell count of 8.8, hemoglobin of 12.5, d-dimer was mildly elevated at 0.65, serum sodium was 134, potassium is 4.1, chloride was 101, CO2 is 25, B1 is 25, creatinine was 0.71, reported was negative 1, proBNP was within normal limits at 357. Afebrile, room air pulse ox is 96%, clinically patient is quite fluid overloaded, generalized edema. He has been given a dose of IV Lasix, she is currently on oral Lasix at 20 mg twice daily, breathing treatments, she has been started on IV Solu-Medrol 60 mg every 6 hours. On 01/17/2019 patient seen in follow-up on medical oncology floor. She is on room air, with a pulse ox of 100%, she is afebrile, still bronchospastic on today's exam, right greater than the left, patient has been on oral diuretics, and patient still has quite severe generalized edema. We'll switch the patient to IV Lasix, will need daily weights, accurate I & O's, daily electrolytes and renal profile. Today's labs have been reviewed, showing white blood cell count of 10.1, hemoglobin of 12.0, platelet count of 150, serum sodium is 132, potassium is 4.6, chloride is 98, CO2 is 22, BUN is 24, creatinine is 0.77. Chest CT was completed, showing coarse infiltrate in the right upper lobe, and superior aspect of the right lower lobe consistent with scarring and treated lung cancer, there was stable right enlarged bronchial lymph node no sign of increasing pulmonary density compared to old exam. Brain CT was obtained showing decreased cerebral edema in the white matter in the right parietal and frontal lobe, and there was new right frontal craniotomy defect no acute intrac ranial abnormality was noted. Patient is afebrile, denies chills. Patient is on IV Solu-Medrol, nebulized bronchodilators. Objective - Vital Signs Vital signs: Vital Signs Temp 97.8 F 01/17/19 07:46 Pulse 100 01/17/19 12:23 Resp 22 01/17/19 07:46 BP 151/95 01/17/19 07:46 Pulse Ox 94 L 01/17/19 07:46 Intake & Output 01/16/19 01/17/19 01/17/19 18:59 06:59 18:59 Intake Total 160 Balance 160 Intake: Intake, IV Titration 160 Amount Sodium Chloride 0.9% 1, 160 000 ml @ 20 mls/hr IV . Q24H [facility] Rx#:[id number] Other: Voiding Method Toilet Toilet Toilet # Voids 1 - Exam GENERAL EXAM: Alert, pleasant, 48-year-old white female, obese, appears to be generally swollen, in hands, lower extremities, and trunk, she is on room air, with a pulse ox of 96% comfortable in no apparent distress. HEAD: Normocephalic/atraumatic. EYES: Normal reaction of pupils, equal size. Conjunctiva pink, sclera white. NOSE: Clear with pink turbinates. THROAT: No erythema or exudates. NECK: No masses, no JVD, no thyroid enlargement, no adenopathy. CHEST: No chest wall deformity. Symmetrical expansion. LUNGS: Equal air entry with diffuse wheezes, right greater than the left CVS: Regular rate and rhythm, normal S1 and S2, no gallops, no murmurs, no rubs ABDOMEN: Soft, nontender. No hepatosplenomegaly, normal bowel sounds, no guarding or rigidity. EXTREMITIES: No clubbing, 1+ lower extremity and upper extremity edema, no cyanosis, 2+ pulses and upper and lower extremities. Left arm and hand showing greater edema and then on the right side, non-pitting Scattered ecchymotic areas on upper extremities, chronic venous stasis discoloration in lower extremities MUSCULOSKELETAL: Muscle strength and tone normal. SPINE: No scoliosis or deformity SKIN: No rashes CENTRAL NERVOUS SYSTEM: Alert and oriented -3. No focal deficits, tone is normal in all 4 extremities. PSYCHIATRIC: Alert and oriented -3. Appropriate affect. Intact judgment and insight. - Labs CBC & Chem 7: 01/17/19 07:38 01/17/19 07:38 Labs: Abnormal Lab Results - Last 24 Hours (Table) 01/16/19 01/16/19 01/17/19 Range/Units 17:15 20:00 07:12 RBC (3.80-5.40) m/uL MCV (80.0-100.0) fL RDW (11.5-15.5) % Neutrophils # (1.3-7.7) k/uL Lymphocytes # (1.0-4.8) k/uL Sodium (137-145) mmol/L BUN (7-17) mg/dL Glucose (74-99) mg/dL POC Glucose (mg/dL) 157 H 167 H 121 H (75-99) mg/dL Total Protein (6.3-8.2) g/dL 01/17/19 01/17/19 01/17/19 Range/Units 07:38 07:38 12:18 RBC 3.66 L (3.80-5.40) m/uL MCV 100.4 H (80.0-100.0) fL RDW 16.7 H (11.5-15.5) % Neutrophils # 9.5 H (1.3-7.7) k/uL Lymphocytes # 0.3 L (1.0-4.8) k/uL Sodium 132 L (137-145) mmol/L BUN 24 H (7-17) mg/dL Glucose 140 H (74-99) mg/dL POC Glucose (mg/dL) 106 H (75-99) mg/dL Total Protein 6.2 L (6.3-8.2) g/dL Assessment and Plan Plan: Assessment #1. Shortness of breath, generalized edema, anasarca, likely related to long- term use of steroids #2. No evidence of overt heart failure, proBNP is within normal limits, chest x-ray findings compatible with patient's history of lung carcinoma, with patchy perihilar density #3. 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 Acute exacerbation of COPD #5. Stage III COPD #6. Former smoker, currently in remission #7. Upper and lower extremity edema, and up ultrasounds of upper and lower extremities are negative for DVTs #9. History of pneumonia #10. Hypothyroidism #11. Hypertension #12. Anxiety #13. Oral candidiasis Plan: We'll continue with current medical treatment, we'll switch the oral Lasix to IV Lasix. We'll continue breathing treatments, and IV steroids, patient is still quite swollen, and does not seem like she has diuresed very much, daily weights, ACU-dyne was, daily electrolytes and BNP. We'll continue to follow, CT chest and brain CT have been noted. I performed a history & physical examination of the patient and discussed their management with my nurse practitioner, Danika Cuellar. I reviewed the nurse practitioner's note and agree with the documented findings and plan of care. Lung sounds are positive for diffuse wheezes throughout the lung [place]. The findings and the impression was discussed with the patient. I attest to the documentation by the nurse practitioner. Time with Patient: Less than 30
[2019-01-17] MEDS ORDERED: FUROSEMIDE 10 MG/ML 4 ML VIAL IV STA (13:46)
[2019-01-17] MEDS: ALBUMIN HUMAN 25% 50 ML in EMPTY BAG 1 BAG IVPB SCH ×2 (14:23→15:22)
--- NOTE | 2019-01-17 14:41 | P.CNNES ---
History of Present Illness Consult date: 01/17/19 Requesting physician: Tiffanie Cormier Reason for Consult: Blurred vision s/p craniotomy Chief complaint: Bilateral blurred vision History of Present Illness: This is a 48 RH female who underwent right frontal craniotomy recently for metastatic small cell lung cancer on glucocorticoid therapy, admitted because of SOB followed by pulmonology. Her breathing has improved, but she mentions to the primary team that since her craniotomy, her vision has been blurred OU. It has affected both her near and far vision. Spectacles do not correct it. There is no diplopia, field cut, amaurosis, photopsias, palinopsia or other visual disturbance. No transient monocular visual loss or retrobulbar pain. No other focal neuro c/o such as headache, seizure, facial numbness or droop, vertigo, dysarthria, dysphagia, aphasia, focal numbness/weakness, tremors, bowel/bladder incontinence or ataxia. Review of Systems I have performed a 14-point organ ROS with patient; pertinents are as per HPI. Past Medical History Past Medical History: Cancer, Hypertension, Pneumonia, Thyroid Disorder Additional Past Medical History / Comment(s): small cell lung cancer undergoing chemotherapy and radiation therapy (last one 08/27/17), pneumonia once in April 2017, pt states she is perimenopausal-last menses months ago. History of Any Multi-Drug Resistant Organisms: None Reported Past Surgical History: No Surgical Hx Reported Additional Past Surgical History / Comment(s): Bronchoscopy with bx, EGD, R wrist ganglion cyst, pilonidal cyst, brain surgery to remove brain tumor December 26, 2018 Past Anesthesia/Blood Transfusion Reactions: Postoperative Nausea & Vomiting (PONV) Past Psychological History: No Psychological Hx Reported Additional Psychological History / Comment(s): Pt resides with her spouse. She uses no assistive device. She has not been driving lately, spouse or her mother takes her to [employer]. Smoking Status: Current every day smoker Past Alcohol Use History: None Reported Additional Past Alcohol Use History / Comment(s): Pt started smoking in 1979 Past Drug Use History: None Reported - Past Family History Father Family Medical History: CVA/TIA Additional Family Medical History / Comment(s): Father of a CVA at the age of 60 yrs. Strokes run strongly on his side of the family. Mother Family Medical History: No Reported History Additional Family Medical History / Comment(s): Mother is healthy. Medications and Allergies Home Medications Medication Instructions Recorded Confirmed Type Albuterol Inhaler [Ventolin Hfa 1 - 2 puff INHALATION RT-Q6H PRN 06/18/17 01/15/19 History Inhaler] Ipratropium-Albuterol Nebulize 3 ml INHALATION RT-BID PRN 06/18/17 01/15/19 History [Duoneb 0.5 mg-3 mg/3 ml Soln] Levothyroxine Sodium [Synthroid] 25 mcg PO DAILY 06/18/17 01/15/19 History Lisinopril [Prinivil] 20 mg PO DAILY 06/18/17 01/15/19 History Umeclidinium [place] [Incruse 1 puff INHALATION RT-DAILY 06/18/17 01/15/19 History Ellipta] Ergocalciferol (Vitamin D2) 50,000 units PO FR 07/09/17 01/15/19 History [Vitamin D2] Montelukast [Singulair] 10 mg PO DAILY 07/10/17 01/15/19 History Nicotine 21Mg/24Hr Patch [Habitrol 1 patch TRANSDERM DAILY 10/11/18 01/15/19 History 21Mg/24Hr Patch] Cyclobenzaprine [Flexeril] 10 mg PO BID 01/15/19 01/15/19 History Dexamethasone 2 mg PO BID 01/15/19 01/15/19 History Mometasone/Formoterol [Dulera 200 2 puff INHALATION RT-BID 01/15/19 01/15/19 History Mcg/5 Mcg Inhaler] Morphine Sulfate [Morphine Sulfate 15 mg PO Q12H PRN 01/15/19 01/15/19 History ER] Sertraline [Zoloft] 50 mg PO HS 01/15/19 01/15/19 History levETIRAcetam [Keppra] 1,000 mg PO Q12HR 01/15/19 01/15/19 History levETIRAcetam [Keppra] 250 mg PO Q12H 01/15/19 01/15/19 History oxyCODONE-APAP 10-325MG [Percocet 1 tab PO Q6HR PRN 01/15/19 01/15/19 History 10-325 mg] Allergies Allergy/AdvReac Type Severity Reaction Status Date / Time infliximab [From Remicade] Allergy Severe Anaphylaxis Verified 01/15/19 11:31 Physical Examination - Vital Signs Vital Signs: Vital Signs Temp Pulse Pulse Resp BP Pulse Ox 01/17/19 12:37 98 F 117 H 22 129/80 100 01/17/19 12:23 100 01/17/19 12:06 99 01/17/19 07:46 97.8 F 102 H 22 151/95 94 L 01/17/19 00:17 96 01/16/19 23:59 96 01/16/19 21:00 97.5 F L 105 H 20 168/105 94 L 01/16/19 19:41 98 01/16/19 19:32 99 01/16/19 15:45 102 H 01/16/19 15:38 101 H 20 Intake and Output 01/16/19 01/17/19 01/17/19 22:59 06:59 14:59 Other: Voiding Method Toilet Toilet # Voids 1 1 Gen NAD Pleasant and cooperative HEENT NC Right frontal craniotomy surgical site C/D/I Sclera without icterus O/P clear Neck Supple No carotid bruit Cor RRR no m/r/g Lungs CTAB Abd Soft NTND +BS Ext Warm to touch 3+ pitting LUE edema 1+ in RUE and BLE Neuro MS A+Ox4 Normal fluency Able to follow all commands CN PERRL Able to read printed material in regular size font VFF no APD EOMI no nystagmus or OPHELIA No facial asymmetry Masseter's symmetric Hearing intact to normal voice bilaterally Speech not dysarthric Equal elevation of palate Tongue midline Sym shrug and SCM bilaterally Motor Normal bulk/tone No pronator or tremors Strength 5/5 sym throughout Sens Intact to LT x4 No neglect Coord No dysmetria on FTN bilaterally DTRs 2+/4 sym throughout Toes downgoing bilaterally No clonus at achilles Gait Deferred NIHSS 0 Results - Laboratory Findings CBC and BMP: 01/17/19 07:38 01/17/19 07:38 Abnormal Lab Findings: Abnormal Labs 01/15/19 01/15/19 01/15/19 12:30 12:30 12:30 RBC 3.79 L MCV RDW 18.1 H Plt Count 145 L Neutrophils # Lymphocytes # 0.7 L APTT 18.0 L D-Dimer Sodium 134 L BUN 25 H Glucose POC Glucose (mg/dL) Total Protein 5.9 L 01/15/19 01/16/19 01/16/19 12:30 07:23 07:23 RBC 3.63 L MCV 100.9 H RDW 16.8 H Plt Count Neutrophils # Lymphocytes # 0.2 L APTT D-Dimer 0.65 H Sodium 132 L BUN 22 H Glucose 129 H POC Glucose (mg/dL) Total Protein 5.9 L 01/16/19 01/16/19 01/17/19 17:15 20:00 07:12 RBC MCV RDW Plt Count Neutrophils # Lymphocytes # APTT D-Dimer Sodium BUN Glucose POC Glucose (mg/dL) 157 H 167 H 121 H Total Protein 01/17/19 01/17/19 01/17/19 07:38 07:38 12:18 RBC 3.66 L MCV 100.4 H RDW 16.7 H Plt Count Neutrophils # 9.5 H Lymphocytes # 0.3 L APTT D-Dimer Sodium 132 L BUN 24 H Glucose 140 H POC Glucose (mg/dL) 106 H Total Protein 6.2 L - Diagnostic Findings Additional findings: CT Head wo cont 01/17/19. Right posterior frontal craniotomy defect. 4 cm white matter hypodensity in the right posterior frontal lobe at the craniotomy site. There is no mass effect or midline shift. Compare with her previous study in 09/2018, there is decrease cerebral edema in the right frontoparietal region. Assessment and Plan Assessment: Blurred vision OS, suspect side effects to continued glucocorticoids r/o other acute intracranial structural changes such as arterial or venous clots/CVA. SCLC with brain metastasis on AED prophylaxis. Plan: -MRI Brain wo nanci to r/o CVA especially caused by arterial clots -MRV Head wo nanci to r/o venous sinus thrombosis -OK to treat BP to normotensive range -If MRI/V negative, recommend outpatient ophthalmology evaluation after completion of glucocorticoid treatment -d/w patient and family at bedside. All questions answered. -Neurology will not be able available over the weekend. I will be back Sunday01/20/19 at 8am. Patient/family aware. Thank you for this consultation. Please call with ?. Time with Patient: Greater than 30 (Time spent in direct patient care, greater than 50% of which was spent in [id number] counseling and coordination of care: 70 minutes.)
[2019-01-17] MEDS: DEXAMETHASONE 2 MG TAB PO SCH (20:06)
[2019-01-17] MEDS: SERTRALINE 50 MG TAB PO SCH (20:07)
[2019-01-17] MEDS: POLYETHYLENE GLYCOL 3350 17 GM POWD.PACK PO SCH (20:47)
[2019-01-18] MEDS: IPRATROPIUM-ALBUTEROL 3 ML NEB INHALATION SCH ×5 (03:39→20:01)
[2019-01-18] MEDS: oxyCODONE-APAP 10-325MG 1 EACH TAB PO PRN ×4 (03:42→21:07)
[2019-01-18] MEDS: SALT AND SODA MOUTHWASH 1,000 ML PO SCH ×5 (05:15→23:23)
[2019-01-18 08:22] LABS: Albumin 4.2 g/dL (3.5-5.0); Calcium 9.4 mg/dL (8.4-10.2); Potassium 4.2 mmol/L (3.5-5.1); Total Bilirubin 0.4 mg/dL (0.2-1.3); Total Protein 6.6 g/dL (6.3-8.2)
[2019-01-18] MEDS: PANTOPRAZOLE 40 MG TABLET PO SCH (08:25)
[2019-01-18] MEDS: LISINOPRIL 20 MG TAB PO SCH (08:25)
[2019-01-18] MEDS: MONTELUKAST 10 MG TAB PO SCH (08:25)
[2019-01-18] MEDS: MORPHINE SULFATE ER 15 MG TABLET PO SCH ×2 (08:26→21:46)
[2019-01-18] MEDS: levETIRAcetam 500 MG TAB PO SCH ×2 (08:27→21:03)
[2019-01-18] MEDS: DOCUSATE 100 MG CAP PO SCH (08:27)
[2019-01-18] MEDS: CYCLOBENZAPRINE 10 MG TAB PO SCH ×2 (08:27→21:03)
[2019-01-18] MEDS: FUROSEMIDE 10 MG/ML 4 ML VIAL IV SCH ×2 (08:27→17:59)
[2019-01-18] MEDS: NICOTINE 21MG/24HR PATCH TRANSDERM SCH (08:28)
[2019-01-18] MEDS: HEPARIN SODIUM,PORCINE 5,000 UNIT/ML 1 ML VIAL SQ SCH ×2 (08:28→21:03)
[2019-01-18 08:30] LABS: Anisocytosis Slight; Basophils % (A) 0 %; Eosinophils # (A) 0.1 k/uL (0-0.7); Eosinophils % (A) 1 %; HGB 11.6 gm/dL (11.4-16.0); Lymphocytes # (A) 0.4 k/uL (1.0-4.8); Lymphocytes % (A) 5 %; MCH 32.9 pg (25.0-35.0); MCHC 34.3 g/dL (31.0-37.0); MCV 96.1 fL (80.0-100.0); Macrocytosis Slight; Mean Platelet Volume 7.9; Monocytes # (A) 0.3 k/uL (0-1.0); Monocytes % (A) 3 %; Neutrophils # (A) 7.6 k/uL (1.3-7.7); Neutrophils % (A) 90 %; Platelet Count 143 k/uL (150-450); RBC 3.54 m/uL (3.80-5.40); RDW 17.8 % (11.5-15.5); WBC 8.5 k/uL (3.8-10.6)
[2019-01-18] MEDS: DEXAMETHASONE 2 MG TAB PO SCH (08:31)
[2019-01-18] MEDS: levETIRAcetam 250 MG TAB PO SCH ×2 (08:35→21:04)
[2019-01-18] MEDS: MAG HYDROX/AL HYDROX/SIMETH 30 ML, LIDOCAINE VISCOUS 30 ML, diphenhydrAMINE ELIXIR 75 M... PO SCH ×12 (08:36→21:45)
[2019-01-18] MEDS: LEVOTHYROXINE 25 MCG TAB PO SCH (09:37)
--- NOTE | 2019-01-18 13:47 | P.PN ---
Subjective Progress Note Date: 01/18/19 Principal diagnosis: Generalized edema, anasarca, shortness of breath This is a 48-year-old white female patient of Dr. 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 Patient underwent chemotherapy initially for her squamous cell lung cancer, she was later found to have metastasis to brain, underwent radiation treatment, including targeted radiation to one of the brain lesions, but despite the radiation treatments one of the lesions was continuously growing in size, and patient started having seizures. She underwent craniotomy right side of the brain. Patient has been on long-term steroids. Was recently discharged from the hospital. She had noted increased generalized edema, increasing shortness of breath, some cough with phlegm production. Patient does have underlying history of advanced COPD, gold stage III, with a baseline FEV1 of 45% of predicted. Used to be a smoker, which is currently in remission. Other history includes hypothyroidism, anxiety, and his history of pneumonia, hypertension. Patient follows with Dr. Osuna from oncology. Chest x-ray was completed showing findings compatible with right hilar mass, compatible with patient's history of lung carcinoma. Bilateral upper and lower extremity Dopplers were completed in were negative for DVTs. She denies any chest pain. No nausea, vomiting with diarrhea, no hemoptysis. Lab work was completed showing white blood cell count of 8.8, hemoglobin of 12.5, d-dimer was mildly elevated at 0.65, serum sodium was 134, potassium is 4.1, chloride was 101, CO2 is 25, B1 is 25, creatinine was 0.71, reported was negative 1, proBNP was within normal limits at 357. Afebrile, room air pulse ox is 96%, clinically patient is quite fluid overloaded, generalized edema. He has been given a dose of IV Lasix, she is currently on oral Lasix at 20 mg twice daily, breathing treatments, she has been started on IV Solu-Medrol 60 mg every 6 hours. On 01/17/2019 patient seen in follow-up on medical oncology floor. She is on room air, with a pulse ox of 100%, she is afebrile, still bronchospastic on today's exam, right greater than the left, patient has been on oral diuretics, and patient still has quite severe generalized edema. We'll switch the patient to IV Lasix, will need daily weights, accurate I & O's, daily electrolytes and renal profile. Today's labs have been reviewed, showing white blood cell count of 10.1, hemoglobin of 12.0, platelet count of 150, serum sodium is 132, potassium is 4.6, chloride is 98, CO2 is 22, BUN is 24, creatinine is 0.77. Chest CT was completed, showing coarse infiltrate in the right upper lobe, and superior aspect of the right lower lobe consistent with scarring and treated lung cancer, there was stable right enlarged bronchial lymph node no sign of increasing pulmonary density compared to old exam. Brain CT was obtained showing decreased cerebral edema in the white matter in the right parietal and frontal lobe, and there was new right frontal craniotomy defect no acute intracranial abnormality was noted. Patient is afebrile, denies chills. Patient is on IV Solu-Medrol, nebulized bronchodilators. The patient is seen today 01/18/2019 in follow-up on the oncology unit. She is currently resting in bed. Awake and alert in no acute distress. She is still somewhat dyspneic with some bronchospasm and wheezing. She is still dyspneic on minimal exertion. She still has significant amount of anasarca. She is currently in a negative balance. Maintaining good O2 saturations in the 90s on room air. White count 8.5. Hemoglobin 11.6. Creatinine 0.90. She remains on Lasix 40 mg IV push every 8 hours. Objective - Vital Signs Vital signs: Vital Signs Temp 98.1 F 01/18/19 12:53 Pulse 103 H 01/18/19 12:53 Resp 17 01/18/19 12:53 BP 127/72 01/18/19 12:53 Pulse Ox 94 L 01/18/19 12:53 Intake & Output 01/17/19 01/18/19 01/18/19 18:59 06:59 18:59 Intake Total 160 1020 480 Output Total 220 1750 Balance -60 -730 480 Intake: Intake, IV Titration 160 Amount Sodium Chloride 0.9% 1, 160 000 ml @ 20 mls/hr IV . Q24H [facility] Rx#:[id number] Oral 1020 480 Output: Urine 220 1750 Other: Voiding Method Toilet Toilet Toilet # Voids 1 - Exam GENERAL EXAM: Alert, pleasant, 48-year-old female, obese, appears to be generally swollen, in hands, lower extremities, and trunk, she is on room air, with a pulse ox of 94%. HEAD: Normocephalic/atraumatic. EYES: Normal reaction of pupils, equal size. Conjunctiva pink, sclera white. NOSE: Clear with pink turbinates. THROAT: No erythema or exudates. NECK: No masses, no JVD, no thyroid enlargement, no adenopathy. CHEST: No chest wall deformity. Symmetrical expansion. LUNGS: Equal air entry with diffuse wheezes, right greater than the left CVS: Regular rate and rhythm, normal S1 and S2, no gallops, no murmurs, no rubs ABDOMEN: Soft, nontender. No hepatosplenomegaly, normal bowel sounds, no guarding or rigidity. EXTREMITIES: No clubbing, 1+ lower extremity and upper extremity edema, no cyanosis, 2+ pulses and upper and lower extremities. Left arm and hand showing greater edema and then on the right side, non-pitting scattered ecchymotic areas on upper extremities, chronic venous stasis discoloration in lower extremities MUSCULOSKELETAL: Muscle strength and tone normal. SPINE: No scoliosis or deformity SKIN: No rashes CENTRAL NERVOUS SYSTEM: No focal deficits, tone is normal in all 4 extremities. PSYCHIATRIC: Alert and oriented -3. Appropriate affect. Intact judgment and insight. - Labs CBC & Chem 7: 01/18/19 07:30 01/18/19 07:30 Labs: Abnormal Lab Results - Last 24 Hours (Table) 01/18/19 01/18/19 Range/Units 07:30 07:30 RBC 3.54 L (3.80-5.40) m/uL RDW 17.8 H (11.5-15.5) % Plt Count 143 L (150-450) k/uL Lymphocytes # 0.4 L (1.0-4.8) k/uL Chloride 97 L (98-107) mmol/L Carbon Dioxide 33 H (22-30) mmol/L BUN 38 H (7-17) mg/dL Glucose 102 H (74-99) mg/dL Microbiology - Last 24 Hours (Table) 01/17/19 16:00 Gram Stain - Preliminary Sputum Sputum Culture - Preliminary Assessment and Plan Assessment: Assessment #1. Shortness of breath, generalized edema, anasarca, likely related to long- term use of steroids #2. No evidence of overt heart failure, proBNP is within normal limits, chest x-ray findings compatible with patient's history of lung carcinoma, with patchy perihilar density #3. 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 Acute exacerbation of COPD #5. Stage III COPD #6. Former smoker, currently in remission #7. Upper and lower extremity edema, and up ultrasounds of upper and lower extremities are negative for DVTs #9. History of pneumonia #10. Hypothyroidism #11. Hypertension #12. Anxiety #13. Oral candidiasis Plan: The patient was seen and evaluated by Dr. Colon. She is somewhat bronchospastic and wheezy today. We'll add Pulmicort and Perforomist inhalations twice a day, IV Solu-Medrol. Discontinue the Decadron. We will continue to follow make further recommendations based on her clinical status. I, the cosigning physician, performed a history & physical examination of the p atient. Lungs sounds with bilateral end expiratory wheeze, few scattered rhonchi Maintaining good O2 saturations in the 90s on room air. I discussed the assessment and plan of care with my nurse practitioner, Elisha Torres. I attest to the above note as dictated by her.
[2019-01-18] MEDS: SODIUM CHLORIDE 0.9% 1,000 ML IV SCH (15:04)
[2019-01-18] MEDS: FUROSEMIDE 20 MG TAB PO SCH ×2 (16:35→21:46)
[2019-01-18] MEDS: predniSONE 20 MG TAB PO SCH (16:35)
[2019-01-18] MEDS ORDERED: methylPREDNISolone SOD SUCCI 40 MG/ML 1 ML VIAL IV SCH (18:00)
--- NOTE | 2019-01-18 18:16 | P.PN ---
Subjective Progress Note Date: 01/18/19 This is a 48-year-old female patient of Dr. Mckenzie. Patient presented with complaints of increased shortness of breath. 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 Patient reports her shortness of breath has been occurring for multiple months but has significantly increased over the past few days. Patient complains of or shortness of breath with exertion. Patient also on dexamethasone due to recent craniotomy surgery 2 weeks ago at [facility]. Patient reports because the steroid she's had an increase of 20 pound weight gain. Additional medical history includes essential hypertension, pneumonia, hypothyroidism, smoker and recent craniotomy to of brain tumor on 12/26/2018. Patient reports that she follows with oncology services Dr. Osuna along with pulmonary services. Chest x-ray completed showing findings compatible with patient's history of lung carcinoma. Patient was started on IV Solu-Medrol. Pulmonary and oncology services have been consulted. Bilateral lower extremity Doppler completed showing negative for DVT. Venous Doppler also completed 2 left upper extremity showing no evidence of DVT. At this time patient is still complaining of shortness of breath with exertion. Patient is maintained on 2 L nasal cannula. Patient denies any chest pain. Patient denies any nausea vomiting or diarrhea. Patient denies any urinary burning or frequency On 01/16/2019 patient is alert and oriented 3. Patient reports that she feels much improved. Patient still having expiratory wheezing and some shortness of breath with activity. Pulmonary and oncology services are following. Pain meds adjusted per oncology services. Patient denies chest pain. Denies nausea vomiting or diarrhea. Patient denies any urinary burning or frequency Colace added for constipation. On 01/17/2019 patient's alert and oriented 3. Patient is feeling improved today. Head CT ordered per oncology services and chest CT ordered per pulmonary. Patient has been started on by mouth Lasix 20 mg twice a day. At this time patient is still complaining of some shortness breath with activity. Expiratory wheezes noted upon auscultation. Patient denies chest pain. Patient denies nausea vomiting or diarrhea On 01/18/2019 patient was seen and examined on the medical floor she is alert an d oriented 3 in no apparent distress she is still complaining of shortness of breath cough and wheezing she is complaining of swelling in her arms and her legs she has lost her IV access and nursing staff are unable to start a new IV she will be switched to oral Lasix and oral prednisone until IV access is established possibly a midline Objective - Vital Signs Vital signs: Vital Signs Temp 98.1 F 01/18/19 12:53 Pulse 108 H 01/18/19 16:10 Resp 17 01/18/19 15:48 BP 127/72 01/18/19 12:53 Pulse Ox 94 L 01/18/19 12:53 Intake & Output 01/17/19 01/18/19 01/18/19 18:59 06:59 18:59 Intake Total 160 1020 1200 Output Total 220 1750 Balance -60 -730 1200 Weight 96.162 kg Intake: Intake, IV Titration 160 Amount Sodium Chloride 0.9% 1, 160 000 ml @ 20 mls/hr IV . Q24H [facility] Rx#:[id number] Oral 1020 1200 Output: Urine 220 1750 Other: Voiding Method Toilet Toilet Toilet # Voids 1 3 - Exam In general patient is alert and oriented 3 in no apparent distress Head normocephalic and atraumatic Neck supple no JVD no goiter Lungs diminished breath sounds with expiratory wheezing Heart regular rate and rhythm S1-S2, no rub or gallop Abdomen is soft nontender nondistended positive bowel sounds no hepatosplenomegaly Extremities +2 nonpitting edema to upper extremities, +1 to lower extremities Neuro no gross focal deficit - Labs CBC & Chem 7: 01/18/19 07:30 01/18/19 07:30 Labs: Abnormal Lab Results - Last 24 Hours (Table) 01/18/19 01/18/19 Range/Units 07:30 07:30 RBC 3.54 L (3.80-5.40) m/uL RDW 17.8 H (11.5-15.5) % Plt Count 143 L (150-450) k/uL Lymphocytes # 0.4 L (1.0-4.8) k/uL Chloride 97 L (98-107) mmol/L Carbon Dioxide 33 H (22-30) mmol/L BUN 38 H (7-17) mg/dL Glucose 102 H (74-99) mg/dL Microbiology - Last 24 Hours (Table) 01/17/19 16:00 Gram Stain - Preliminary Sputum Sputum Culture - Preliminary Assessment and Plan Plan: 1. Increased shortness of breath. Chest x-ray completed showing findings compatible with patient's history of lung carcinoma. Patient started on IV Solu-Medrol. Pulmonary services following. Patient has been switched to IV Lasix 40 mg every 8 hours per pulmonary services. CT of chest ordered per pulmonary showing coarse infiltrate in the right upper lobe and also the superior aspect right lower lobe consistent with scarring and treated lung cancer. There is stable right large bronchial lymph node. No sign of increasing pulmonary density compared to old exam. Patient remains on Solu- Medrol and DuoNeb breathing treatments. 2. Metastatic small cell lung cancer with metastases to the brain. Patient does follow with oncology services. Last chemotherapy October 2017 per patient. 3. Recent craniotomy 2 weeks ago at [facility] for brain tumor. Dexamethasone currently on hold patient currently on Solu-Medrol. Head CT compl eted per oncology order showing compared to old exam there is decreased cerebral edema in the white matter right parapelvic and frontal lobe. There is new right frontal craniotomy defect. No intracranial acute abnormality 4. History of seizures. Patient maintained on Keppra 5. Nicotine dependence. Nicotine patch has been ordered 6. Essential hypertension. Home meds resumed 7. History of hypothyroidism. Synthroid resumed 8. Increased swelling to upper and lower extremities. BNP 357. Bilateral venous Doppler to lower extremity completed showing negative for DVT. Left upper extremeity Doppler completed showing negative for DVT. Per oncology services increased swelling to face or extremities and legs is due to prolonged steroid administration for multiple comorbidities Patient has been started on IV Lasix for pulmonary 9. Hyponatremia. Sodium 132. Patient placed on fluid restrictions 10. Thrush. Salt and soda mouthwash ordered per oncology services 1. Constipation. MiraLAX and MiraLAX has been ordered DVT prophylaxis heparin. GI prophylaxis Protonix Pulmonary and oncology service following Continue Solu-Medrol and DuoNeb breathing treatments No new issues today other than loss of IV access and inability of nursing staff to establish a new IV access Consult was placed for possible midline place Give IV Lasix and IV prednisone until IV is established
[2019-01-18] MEDS: FORMOTEROL FUMARATE 20 MCG/2 ML NEBU INHALATION SCH (20:01)
[2019-01-18] MEDS: BUDESONIDE 1 MG/2 ML NEBU INHALATION SCH (20:01)
[2019-01-18] MEDS: SERTRALINE 50 MG TAB PO SCH (21:04)
[2019-01-18] MEDS: POLYETHYLENE GLYCOL 3350 17 GM POWD.PACK PO SCH (21:09)
[2019-01-19] MEDS: IPRATROPIUM-ALBUTEROL 3 ML NEB INHALATION SCH ×7 (00:05→23:51)
[2019-01-19] MEDS: oxyCODONE-APAP 10-325MG 1 EACH TAB PO PRN ×5 (00:43→19:13)
[2019-01-19] MEDS: SALT AND SODA MOUTHWASH 1,000 ML PO SCH ×4 (05:22→22:04)
[2019-01-19] MEDS: LEVOTHYROXINE 25 MCG TAB PO SCH (06:04)
[2019-01-19] MEDS: HEPARIN SODIUM,PORCINE 5,000 UNIT/ML 1 ML VIAL SQ SCH ×2 (07:14→21:30)
[2019-01-19] MEDS: DOCUSATE 100 MG CAP PO SCH (07:14)
[2019-01-19] MEDS: predniSONE 20 MG TAB PO SCH (07:14)
[2019-01-19] MEDS: CYCLOBENZAPRINE 10 MG TAB PO SCH ×2 (07:14→21:31)
[2019-01-19] MEDS: LISINOPRIL 20 MG TAB PO SCH (07:15)
[2019-01-19] MEDS: FUROSEMIDE 20 MG TAB PO SCH ×3 (07:15→21:30)
[2019-01-19] MEDS: MORPHINE SULFATE ER 15 MG TABLET PO SCH ×2 (07:15→21:30)
[2019-01-19] MEDS: PANTOPRAZOLE 40 MG TABLET PO SCH (07:15)
[2019-01-19] MEDS: MONTELUKAST 10 MG TAB PO SCH (07:15)
[2019-01-19] MEDS: NICOTINE 21MG/24HR PATCH TRANSDERM SCH (07:17)
[2019-01-19] MEDS: MAG HYDROX/AL HYDROX/SIMETH 30 ML, LIDOCAINE VISCOUS 30 ML, diphenhydrAMINE ELIXIR 75 M... PO SCH ×12 (07:17→21:33)
[2019-01-19] MEDS: levETIRAcetam 250 MG TAB PO SCH ×2 (07:18→21:32)
[2019-01-19] MEDS: levETIRAcetam 500 MG TAB PO SCH ×2 (07:19→21:30)
[2019-01-19] MEDS: BUDESONIDE 1 MG/2 ML NEBU INHALATION SCH ×2 (07:25→20:02)
[2019-01-19] MEDS: FORMOTEROL FUMARATE 20 MCG/2 ML NEBU INHALATION SCH ×2 (07:25→20:02)
[2019-01-19 08:04] LABS: Albumin 4.4 g/dL (3.5-5.0); Calcium 9.5 mg/dL (8.4-10.2); Potassium 4.5 mmol/L (3.5-5.1); Total Bilirubin 0.5 mg/dL (0.2-1.3); Total Protein 7.1 g/dL (6.3-8.2)
[2019-01-19 08:19] LABS: Anisocytosis Slight; Basophils % (A) 1 %; Eosinophils # (A) 0.1 k/uL (0-0.7); Eosinophils % (A) 1 %; HGB 13.1 gm/dL (11.4-16.0); Lymphocytes # (A) 0.4 k/uL (1.0-4.8); Lymphocytes % (A) 4 %; MCH 33.7 pg (25.0-35.0); MCHC 34.5 g/dL (31.0-37.0); MCV 97.7 fL (80.0-100.0); Macrocytosis Slight; Mean Platelet Volume 8.4; Monocytes # (A) 0.3 k/uL (0-1.0); Monocytes % (A) 3 %; Neutrophils # (A) 8.3 k/uL (1.3-7.7); Neutrophils % (A) 91 %; Platelet Count 136 k/uL (150-450); RBC 3.89 m/uL (3.80-5.40); RDW 17.8 % (11.5-15.5); WBC 9.2 k/uL (3.8-10.6)
--- NOTE | 2019-01-19 12:18 | P.PN ---
Subjective Progress Note Date: 01/19/19 Principal diagnosis: Shortness of breath, generalized edema This is a 48-year-old white female patient of Dr. 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 Patient underwent chemotherapy initially for her squamous cell lung cancer, she was later found to have metastasis to brain, underwent radiation t reatment, including targeted radiation to one of the brain lesions, but despite the radiation treatments one of the lesions was continuously growing in size, and patient started having seizures. She underwent craniotomy right side of the brain. Patient has been on long-term steroids. Was recently discharged from the hospital. She had noted increased generalized edema, increasing shortness of breath, some cough with phlegm production. Patient does have underlying history of advanced COPD, gold stage III, with a baseline FEV1 of 45% of predicted. Used to be a smoker, which is currently in remission. Other history includes hypothyroidism, anxiety, and his history of pneumonia, hypertension. Patient follows with Dr. Osuan from oncology. Chest x-ray was completed showing findings compatible with right hilar mass, compatible with patient's history of lung carcinoma. Bilateral upper and lower extremity Dopplers were completed in were negative for DVTs. She denies any chest pain. No nausea, vomiting with diarrhea, no hemoptysis. Lab work was completed showing white blood cell count of 8.8, hemoglobin of 12.5, d-dimer was mildly elevated at 0.65, serum sodium was 134, potassium is 4.1, chloride was 101, CO2 is 25, B1 is 25, creatinine was 0.71, reported was negative 1, proBNP was within normal limits at 357. Afebrile, room air pulse ox is 96%, clinically patient is quite fluid overloaded, generalized edema. He has been given a dose of IV Lasix, she is currently on oral Lasix at 20 mg twice daily, breathing treatments, she has been started on IV Solu-Medrol 60 mg every 6 hours. On 01/17/2019 patient seen in follow-up on medical oncology floor. She is on room air, with a pulse ox of 100%, she is afebrile, still bronchospastic on today's exam, right greater than the left, patient has been on oral diuretics, and patient still has quite severe generalized edema. We'll switch the patient to IV Lasix, will need daily weights, accurate I & O's, daily electrolytes and renal profile. Today's labs have been reviewed, showing white blood cell count of 10.1, hemoglobin of 12.0, platelet count of 150, serum sodium is 132, potassium is 4.6, chloride is 98, CO2 is 22, BUN is 24, creatinine is 0.77. Chest CT was completed, showing coarse infiltrate in the right upper lobe, and superior aspect of the right lower lobe consistent with scarring and treated lung cancer, there was stable right enlarged bronchial lymph node no sign of increasing pulmonary density compared to old exam. Brain CT was obtained showing decreased cerebral edema in the white matter in the right parietal and frontal lobe, and there was new right frontal craniotomy defect no acute intrac ranial abnormality was noted. Patient is afebrile, denies chills. Patient is on IV Solu-Medrol, nebulized bronchodilators. On 01/19/2019 patient seen in follow-up on medical oncology floor. She is awake and alert, in no acute distress, overall generalized edema is improving, especially in her upper extremities. She states her breathing is improving, although still remains wheezy overall less bronchospastic, vital signs are stable, patient is afebrile. Today's labs have been reviewed, showing white blood cell count 9.2, hemoglobin of 13.1, serum sodium is 135, potassium is 4.5, chloride is 92, CO2 is 34, B1 is 50, creatinine was 0.99. Urine culture was positive for Elizabeth albicans only, this morning patient lost her IV access, and her IV Lasix and IV steroids have been transitioned to oral Lasix and prednisone. Objective - Vital Signs Vital signs: Vital Signs Temp 97.2 F L 01/19/19 05:24 Pulse 103 H 01/19/19 12:13 Resp 20 01/19/19 05:24 BP 126/77 01/19/19 05:24 Pulse Ox 92 L 01/19/19 05:24 Intake & Output 01/18/19 01/19/1919 18:59 06:59 18:59 Intake Total 2280 400 480 Balance 2280 400 480 Weight 96.162 kg Intake: Intake, IV Titration 160 Amount Sodium Chloride 0.9% 1, 160 000 ml @ 20 mls/hr IV . Q24H [facility] Rx#:[id number] Oral 2280 240 480 Other: Voiding Method Toilet Toilet # Voids 3 1 - Exam GENERAL EXAM: Alert, pleasant, 48-year-old white female, obese, appears to be generally swollen, in hands, lower extremities, and trunk, she is on room air, with a pulse ox of 96% comfortable in no apparent distress. On today's exam does edema is improving HEAD: Normocephalic/atraumatic. EYES: Normal reaction of pupils, equal size. Conjunctiva pink, sclera white. NOSE: Clear with pink turbinates. THROAT: No erythema or exudates. NECK: No masses, no JVD, no thyroid enlargement, no adenopathy. CHEST: No chest wall deformity. Symmetrical expansion. LUNGS: Equal air entry with diffuse wheezes, right greater than the left CVS: Regular rate and rhythm, normal S1 and S2, no gallops, no murmurs, no rubs ABDOMEN: Soft, nontender. No hepatosplenomegaly, normal bowel sounds, no guarding or rigidity. EXTREMITIES: No clubbing, 1+ lower extremity and upper extremity edema, no cyanosis, 2+ pulses and upper and lower extremities. Left arm and hand showing greater edema and then on the right side, non-pitting Scattered ecchymotic areas on upper extremities, chronic venous stasis discoloration in lower extremities MUSCULOSKELETAL: Muscle strength and tone normal. SPINE: No scoliosis or deformity SKIN: No rashes CENTRAL NERVOUS SYSTEM: Alert and oriented -3. No focal deficits, tone is normal in all 4 extremities. PSYCHIATRIC: Alert and oriented -3. Appropriate affect. Intact judgment and insight. - Labs CBC & Chem 7: 01/19/19 07:04 01/19/19 07:04 Labs: Abnormal Lab Results - Last 24 Hours (Table) 01/19/19 01/19/19 Range/Units 07:04 07:04 RDW 17.8 H (11.5-15.5) % Plt Count 136 L (150-450) k/uL Neutrophils # 8.3 H (1.3-7.7) k/uL Lymphocytes # 0.4 L (1.0-4.8) k/uL Sodium 135 L (137-145) mmol/L Chloride 92 L (98-107) mmol/L Carbon Dioxide 34 H (22-30) mmol/L BUN 50 H (7-17) mg/dL Microbiology - Last 24 Hours (Table) 01/17/19 16:00 Gram Stain - Final Sputum Sputum Culture - Final Elizabeth albicans Assessment and Plan Plan: Assessment #1. Shortness of breath, generalized edema, anasarca, likely related to long- term use of steroids #2. No evidence of overt heart failure, proBNP is within normal limits, chest x-ray findings compatible with patient's history of lung carcinoma, with patchy perihilar density #3. 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 Acute exacerbation of COPD #5. Stage III COPD #6. Former smoker, currently in remission #7. Upper and lower extremity edema, and up ultrasounds of upper and lower extremities are negative for DVTs #9. History of pneumonia #10. Hypothyroidism #11. Hypertension #12. Anxiety #13. Oral candidiasis Plan: Continue with oral prednisone, and oral Lasix, he denies bronchodilators, patient is improving, swelling in improving actually in upper extremities. Still has generalized swelling. We'll continue the diuretics. No fever or chills, sputum culture showed no growth of the Elizabeth albicans. Encouraged patient to sit up in the chair, and ambulate. We'll continue to follow. I performed a history & physical examination of the patient and discussed their management with my nurse practitioner, Danika Cuellar. I reviewed the nurse practitioner's note and agree with the documented findings and plan of care. Lung sounds are positive for diffuse wheezes throughout the lung [place]. The findings and the impression was discussed with the patient. I attest to the documentation by the nurse practitioner. Time with Patient: Less than 30
[2019-01-19] MEDS: SODIUM CHLORIDE 0.9% 1,000 ML IV SCH (14:15)
--- NOTE | 2019-01-19 15:54 | P.PN ---
Subjective Progress Note Date: 01/19/19 This is a 48-year-old female patient of Dr. Mckenzie. Patient presented with complaints of increased shortness of breath. 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 Patient reports her shortness of breath has been occurring for multiple months but has significantly increased over the past few days. Patient complains of or shortness of breath with exertion. Patient also on dexamethasone due to recent craniotomy surgery 2 weeks ago at [facility]. Patient reports because the steroid she's had an increase of 20 pound weight gain. Additional medical history includes essential hypertension, pneumonia, hypothyroidism, smoker and recent craniotomy to of brain tumor on 12/26/2018. Patient reports that she follows with oncology services Dr. Osuna along with pulmonary services. Chest x-ray completed showing findings compatible with patient's history of lung carcinoma. Patient was started on IV Solu-Medrol. Pulmonary and oncology services have been consulted. Bilateral lower extremity Doppler completed showing negative for DVT. Venous Doppler also completed 2 left upper extremity showing no evidence of DVT. At this time patient is still complaining of shortness of breath with exertion. Patient is maintained on 2 L nasal cannula. Patient denies any chest pain. Patient denies any nausea vomiting or diarrhea. Patient denies any urinary burning or frequency On 01/16/2019 patient is alert and oriented 3. Patient reports that she feels much improved. Patient still having expiratory wheezing and some shortness of breath with activity. Pulmonary and oncology services are following. Pain meds adjusted per oncology services. Patient denies chest pain. Denies nausea vomiting or diarrhea. Patient denies any urinary burning or frequency Colace added for constipation. On 01/17/2019 patient's alert and oriented 3. Patient is feeling improved today. Head CT ordered per oncology services and chest CT ordered per pulmonary. Patient has been started on by mouth Lasix 20 mg twice a day. At this time patient is still complaining of some shortness breath with activity. Expiratory wheezes noted upon auscultation. Patient denies chest pain. Patient denies nausea vomiting or diarrhea On 01/18/2019 patient was seen and examined on the medical floor she is alert an d oriented 3 in no apparent distress she is still complaining of shortness of breath cough and wheezing she is complaining of swelling in her arms and her legs she has lost her IV access and nursing staff are unable to start a new IV she will be switched to oral Lasix and oral prednisone until IV access is established possibly a midline On 01/19/2019 patient was seen and examined on the medical floor she is alert and oriented 3 she is still complaining of shortness of breath wheezing and low er extremity swelling otherwise she denies any complaints there is no fever or chills no dizziness no chest pain no nausea or vomiting no abdominal pain no diarrhea and no urinary symptoms. Patient still has no IV access, will proceed with a midline tomorrow, however if improving possible discharge to home tomorrow Objective - Vital Signs Vital signs: Vital Signs Temp 97.9 F 01/19/19 13:00 Pulse 104 H 01/19/19 15:40 Resp 18 01/19/19 13:00 BP 105/67 01/19/19 13:00 Pulse Ox 92 L 01/19/19 13:00 Intake & Output 01/18/19 01/19/19 01/19/19 18:59 06:59 18:59 Intake Total 2280 400 480 Balance 2280 400 480 Weight 96.162 kg Intake: Intake, IV Titration 160 Amount Sodium Chloride 0.9% 1, 160 000 ml @ 20 mls/hr IV . Q24H JOSE RAFAEL Rx#:[id number] Oral 2280 240 480 Other: Voiding Method Toilet Toilet Toilet # Voids 3 1 - Exam In general patient is alert and oriented 3 in no apparent distress Head normocephalic and atraumatic Neck supple no JVD no goiter Lungs diminished breath sounds with expiratory wheezing Heart regular rate and rhythm S1-S2, no rub or gallop Abdomen is soft nontender nondistended positive bowel sounds no hepatosplenomegaly Extremities +2 nonpitting edema to upper extremities, +1 to lower extremities Neuro no gross focal deficit - Labs CBC & Chem 7: 01/19/19 07:04 01/19/19 07:04 Labs: Abnormal Lab Results - Last 24 Hours (Table) 01/19/19 01/19/19 Range/Units 07:04 07:04 RDW 17.8 H (11.5-15.5) % Plt Count 136 L (150-450) k/uL Neutrophils # 8.3 H (1.3-7.7) k/uL Lymphocytes # 0.4 L (1.0-4.8) k/uL Sodium 135 L (137-145) mmol/L Chloride 92 L (98-107) mmol/L Carbon Dioxide 34 H (22-30) mmol/L BUN 50 H (7-17) mg/dL Microbiology - Last 24 Hours (Table) 01/17/19 16:00 Gram Stain - Final Sputum Sputum Culture - Final Elizabeth albicans Assessment and Plan Plan: 1. Increased shortness of breath. Chest x-ray completed showing findings compatible with patient's history of lung carcinoma. Patient started on IV Solu-Medrol. Pulmonary services following. Patient has been switched to IV Lasix 40 mg every 8 hours per pulmonary services[address] CT of chest ordered per pulmonary showing coarse infiltrate in the right upper lobe and also the superior aspect right lower lobe consistent with scarring and treated lung cancer. There is stable right large bronchial lymph node. No sign of increasing pulmonary density compared to old exam. Patient remains on Solu- Medrol and DuoNeb breathing treatments. 2. Metastatic small cell lung cancer with metastases to the brain. Patient does follow with oncology services. Last chemotherapy October 2017 per patient. 3. Recent craniotomy 2 weeks ago at [facility] for brain tumor. Dexamethasone currently on hold patient currently on Solu-Medrol. Head CT completed per oncology order showing compared to old exam there is decreased cerebral edema in the white matter right parapelvic and frontal lobe. There is new right frontal craniotomy defect. No intracranial acute abnormality 4. History of seizures. Patient maintained on Keppra 5. Nicotine dependence. Nicotine patch has been ordered 6. Essential hypertension. Home meds resumed 7. History of hypothyroidism. Synthroid resumed 8. Increased swelling to upper and lower extremities. BNP 357. Bilateral venous Doppler to lower extremity completed showing negative for DVT. Left upper extremeity Doppler completed showing negative for DVT. Per oncology services increased swelling to face or extremities and legs is due to prolonged steroid administration for multiple comorbidities Patient has been started on IV Lasix for pulmonary 9. Hyponatremia. Sodium 132. Patient placed on fluid restrictions 10. Thrush. Salt and soda mouthwash ordered per oncology services 1. Constipation. MiraLAX and MiraLAX has been ordered DVT prophylaxis heparin. GI prophylaxis Protonix Pulmonary and oncology service following Continue Solu-Medrol and DuoNeb breathing treatments No new issues today other than loss of IV access and inability of nursing staff to establish a new IV access Consult was placed for possible midline place Give IV Lasix and IV prednisone until IV is established
[2019-01-19] MEDS: POLYETHYLENE GLYCOL 3350 17 GM POWD.PACK PO SCH (21:32)
[2019-01-19] MEDS: SERTRALINE 50 MG TAB PO SCH (21:32)
[2019-01-20] MEDS: oxyCODONE-APAP 10-325MG 1 EACH TAB PO PRN ×5 (00:27→23:50)
[2019-01-20] MEDS: SALT AND SODA MOUTHWASH 1,000 ML PO SCH ×5 (00:30→21:10)
[2019-01-20] MEDS: IPRATROPIUM-ALBUTEROL 3 ML NEB INHALATION SCH ×5 (03:46→21:15)
[2019-01-20] MEDS: FORMOTEROL FUMARATE 20 MCG/2 ML NEBU INHALATION SCH ×2 (08:04→21:15)
[2019-01-20] MEDS: BUDESONIDE 1 MG/2 ML NEBU INHALATION SCH ×2 (08:04→21:15)
[2019-01-20] MEDS: NICOTINE 21MG/24HR PATCH TRANSDERM SCH (08:18)
[2019-01-20] MEDS: FUROSEMIDE 20 MG TAB PO SCH ×2 (08:19→17:12)
[2019-01-20] MEDS: LISINOPRIL 20 MG TAB PO SCH (08:19)
[2019-01-20] MEDS: MONTELUKAST 10 MG TAB PO SCH (08:19)
[2019-01-20] MEDS: PANTOPRAZOLE 40 MG TABLET PO SCH (08:19)
[2019-01-20] MEDS: MORPHINE SULFATE ER 15 MG TABLET PO SCH ×2 (08:19→21:10)
[2019-01-20] MEDS: levETIRAcetam 500 MG TAB PO SCH ×2 (08:19→21:10)
[2019-01-20] MEDS: CYCLOBENZAPRINE 10 MG TAB PO SCH ×2 (08:20→21:10)
[2019-01-20] MEDS: predniSONE 20 MG TAB PO SCH (08:21)
[2019-01-20] MEDS: HEPARIN SODIUM,PORCINE 5,000 UNIT/ML 1 ML VIAL SQ SCH ×2 (08:21→21:10)
[2019-01-20] MEDS: DOCUSATE 100 MG CAP PO SCH (08:21)
[2019-01-20] MEDS: MAG HYDROX/AL HYDROX/SIMETH 30 ML, LIDOCAINE VISCOUS 30 ML, diphenhydrAMINE ELIXIR 75 M... PO SCH ×12 (08:24→21:26)
[2019-01-20] MEDS: levETIRAcetam 250 MG TAB PO SCH ×2 (08:24→21:10)
[2019-01-20] MEDS: LEVOTHYROXINE 25 MCG TAB PO SCH (08:25)
[2019-01-20 11:01] LABS: Anisocytosis Slight; Basophils % (A) 0 %; Eosinophils % (A) 1 %; HCT 36.4 % (34.0-46.0); HGB 11.9 gm/dL (11.4-16.0); Lymphocytes # (A) 0.7 k/uL (1.0-4.8); Lymphocytes % (A) 8 %; MCH 32.4 pg (25.0-35.0); MCHC 32.7 g/dL (31.0-37.0); Macrocytosis Slight; Mean Platelet Volume 7.1; Monocytes # (A) 0.3 k/uL (0-1.0); Monocytes % (A) 3 %; Neutrophils % (A) 88 %; Platelet Count 156 k/uL (150-450); RBC 3.68 m/uL (3.80-5.40); RDW 16.5 % (11.5-15.5); WBC 9.2 k/uL (3.8-10.6)
[2019-01-20 11:29] LABS: Albumin 3.8 g/dL (3.5-5.0); Calcium 9.2 mg/dL (8.4-10.2); Total Bilirubin 0.6 mg/dL (0.2-1.3); Total Protein 6.1 g/dL (6.3-8.2)
--- NOTE | 2019-01-20 13:16 | P.PN ---
Subjective Progress Note Date: 01/20/19 This is a 48-year-old female patient of Dr. Mckenzie. Patient presented with complaints of increased shortness of breath. 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 Patient reports her shortness of breath has been occurring for multiple months but has significantly increased over the past few days. Patient complains of or shortness of breath with exertion. Patient also on dexamethasone due to recent craniotomy surgery 2 weeks ago at [facility]. Patient reports because the steroid she's had an increase of 20 pound weight gain. Additional medical history includes essential hypertension, pneumonia, hypothyroidism, smoker and recent craniotomy to of brain tumor on 12/26/2018. Patient reports that she follows with oncology services Dr. Osuna along with pulmonary services. Chest x-ray completed showing findings compatible with patient's history of lung carcinoma. Patient was started on IV Solu-Medrol. Pulmonary and oncology services have been consulted. Bilateral lower extremity Doppler completed showing negative for DVT. Venous Doppler also completed 2 left upper extremity showing no evidence of DVT. At this time patient is still complaining of shortness of breath with exertion. Patient is maintained on 2 L nasal cannula. Patient denies any chest pain. Patient denies any nausea vomiting or diarrhea. Patient denies any urinary burning or frequency On 01/16/2019 patient is alert and oriented 3. Patient reports that she feels much improved. Patient still having expiratory wheezing and some shortness of breath with activity. Pulmonary and oncology services are following. Pain meds adjusted per oncology services. Patient denies chest pain. Denies nausea vomiting or diarrhea. Patient denies any urinary burning or frequency Colace added for constipation. On 01/17/2019 patient's alert and oriented 3. Patient is feeling improved today. Head CT ordered per oncology services and chest CT ordered per pulmonary. Patient has been started on by mouth Lasix 20 mg twice a day. At this time patient is still complaining of some shortness breath with activity. Expiratory wheezes noted upon auscultation. Patient denies chest pain. Patient denies nausea vomiting or diarrhea On 01/18/2019 patient was seen and examined on the medical floor she is alert and oriented 3 in no apparent distress she is still complaining of shortness of breath cough and wheezing she is complaining of swelling in her arms and her legs she has lost her IV access and nursing staff are unable to start a new IV she will be switched to oral Lasix and oral prednisone until IV access is established possibly a midline On 01/19/2019 patient was seen and examined on the medical floor she is alert and oriented 3 she is still complaining of shortness of breath wheezing and lower extremity swelling otherwise she denies any complaints there is no fever or chills no dizziness no chest pain no nausea or vomiting no abdominal pain no diarrhea and no urinary symptoms. Patient still has no IV access, will proceed with a midline tomorrow, however if improving possible discharge to home tomorrow On 01/20/2019 patient's alert and oriented 3. Patient is still complaining of some shortness of breath. Patient swelling has improved. Patient reports that she feels increasingly weak today. PT and OT will be consulted. Sodium improving. Fluid restrictions DC'd. Patient remains on by mouth Lasix and prednisone at this time. Patient denies any chest pain. Patient is still having shortness of breath with activity. Patient denies nausea vomiting or diarrhea. Patient denies any urinary burning or frequency Objective - Vital Signs Vital signs: Vital Signs Temp 97.3 F L 01/20/19 11:48 Pulse 104 H 01/20/19 12:18 Resp 18 01/20/19 11:48 BP 103/73 01/20/19 11:48 Pulse Ox 95 01/20/19 11:48 Intake & Output 01/19/19 01/20/19 01/20/19 18:59 06:59 18:59 Intake Total 2640 240 240 Output Total 750 Balance 1890 240 240 Intake: Oral 2640 240 240 Output: Urine 750 Other: Voiding Method Toilet Toilet Toilet # Voids 4 2 - Exam Head normocephalic Neck supple Lungs diminished breath sounds with expiratory wheezing Heart regular rate and rhythm S1-S2, no rub or gallop Abdomen is soft nontender nondistended positive bowel sounds no hepatosplenomegaly Extremities +2 nonpitting edema to upper extremities, +1 to lower extremities Neuro alert and orientated to 3 - Labs CBC & Chem 7: 01/20/19 10:05 01/20/19 10:05 Labs: Abnormal Lab Results - Last 24 Hours (Table) 01/20/19 01/20/19 Range/Units 10:05 10:05 RBC 3.68 L (3.80-5.40) m/uL RDW 16.5 H (11.5-15.5) % Neutrophils # 8.0 H (1.3-7.7) k/uL Lymphocytes # 0.7 L (1.0-4.8) k/uL Sodium 134 L (137-145) mmol/L Chloride 88 L (98-107) mmol/L Carbon Dioxide 37 H (22-30) mmol/L BUN 60 H (7-17) mg/dL Creatinine 1.30 H (0.52-1.04) mg/dL Total Protein 6.1 L (6.3-8.2) g/dL Microbiology - Last 24 Hours (Table) 01/17/19 16:00 Gram Stain - Final Sputum Sputum Culture - Final Elizabeth albicans Assessment and Plan Assessment: 1. Increased shortness of breath. Chest x-ray completed showing findings compatible with patient's history of lung carcinoma. Patient started on IV Solu-Medrol. Pulmonary services following. Patient has been switched to IV Lasix 40 mg every 8 hours per pulmonary services. CT of chest ordered per pulmonary showing coarse infiltrate in the right upper lobe and also the superior aspect right lower lobe consistent with scarring and treated lung cancer. There is stable right large bronchial lymph node. No sign of increasing pulmonary density compared to old exam. Patient currently on by mouth prednisone and DuoNeb breathing treatments 2. Metastatic small cell lung cancer with metastases to the brain. Patient does follow with oncology services. Last chemotherapy October 2017 per patient. 3. Blurred vision with Recent craniotomy 2 weeks ago at [facility] for brain tumor. Dexamethasone currently on hold patient currently on Solu-Medrol. Head CT completed per oncology order showing compared to old exam there is decreased cerebral edema in the white matter right parapelvic and frontal lobe. There is new right frontal craniotomy defect. No intracranial acute abnormality. Neurology services are following 4. History of seizures. Patient maintained on Keppra 5. Nicotine dependence. Nicotine patch has been ordered 6. Essential hypertension. Home meds resumed 7. History of hypothyroidism. Synthroid resumed 8. Increased swelling to upper and lower extremities. BNP 357. Bilateral venous Doppler to lower extremity completed showing negative for DVT. Left upper extremeity Doppler completed showing negative for DVT. Per oncology services increased swelling to face or extremities and legs is due to prolonged steroid administration for multiple comorbidities. She currently on by mouth Lasix 9. Hyponatremia. Sodium 132. Patient placed on fluid restrictions. Sodium improving 134 10. Thrush. Salt and soda mouthwash ordered per oncology services 1`. Constipation. MiraLAX and MiraLAX has been ordered DVT prophylaxis heparin. GI prophylaxis Protonix Pulmonary oncology and neurology services following Continue Solu-Medrol and DuoNeb breathing treatments
--- NOTE | 2019-01-20 14:20 | P.PN ---
Subjective Progress Note Date: 01/20/19 Principal diagnosis: Visual disturbance MRI Brain could not be done due to recent brain surgery. Vision still blurred. No headache, diplopia, N/V or other focal neuro c/o. Feels diffusely weak today. Does not feel ready to go home. Objective - Vital Signs Vital signs: Vital Signs Temp 97.3 F L 01/20/19 11:48 Pulse 104 H 01/20/19 12:18 Resp 18 01/20/19 11:48 BP 103/73 01/20/19 11:48 Pulse Ox 95 01/20/19 11:48 Intake & Output 01/19/19 01/20/19 01/20/19 18:59 06:59 18:59 Intake Total 2640 240 240 Output Total 750 Balance 1890 240 240 Intake: Oral 2640 240 240 Output: Urine 750 Other: Voiding Method Toilet Toilet Toilet # Voids 4 2 - Exam Gen NAD Pleasant and cooperative MS A+Ox4 Normal speech CN III-XII grossly intact no nystagmus Motor Normal bulk/tone No drift or tremors SNOW x4 Sens Intact to LT x4 Coord Not tested DTRs 2+/4 sym throughout Gait Deferred - Labs CBC & Chem 7: 01/20/19 10:05 01/20/19 10:05 Labs: Abnormal Lab Results - Last 24 Hours (Table) 01/20/19 01/20/19 Range/Units 10:05 10:05 RBC 3.68 L (3.80-5.40) m/uL RDW 16.5 H (11.5-15.5) % Neutrophils # 8.0 H (1.3-7.7) k/uL Lymphocytes # 0.7 L (1.0-4.8) k/uL Sodium 134 L (137-145) mmol/L Chloride 88 L (98-107) mmol/L Carbon Dioxide 37 H (22-30) mmol/L BUN 60 H (7-17) mg/dL Creatinine 1.30 H (0.52-1.04) mg/dL Total Protein 6.1 L (6.3-8.2) g/dL Microbiology - Last 24 Hours (Table) 01/17/19 16:00 Gram Stain - Final Sputum Sputum Culture - Final Elizabeth albicans Assessment and Plan Assessment: Blurred vision OS, suspect side effects to continued glucocorticoids. Unfortunately, MRI could not be done due to recent surgery. SCLC with brain metastasis on AED prophylaxis. Plan: -Since MRI/V could not be done, no further neuro work-up is recommended at this time. Her repeat CT Head did look improved with decreased cerebral edema. -Clinical presentation not c/w increased ICP. Would not recommend LP at this time. -OK to treat BP to normotensive range -Do recommend outpatient ophthalmology evaluation after completion of glucocorticoid treatment, and if need be, outpatient neuro follow-up -d/w patient and family at bedside. All questions answered. -No further inpatient neuro recs at this time. Will sign off. Please call with new questions. Thank you again for this consultation. Please call with ?. Time with Patient: Less than 30 (Time spent in direct patient care, greater than 50% of which was spent in [id number] counseling and coordination of care: 25 minutes.)
[2019-01-20] MEDS: SODIUM CHLORIDE 0.9% 1,000 ML IV SCH (14:34)
--- NOTE | 2019-01-20 18:33 | P.PN ---
Subjective Progress Note Date: 01/20/19 Principal diagnosis: Shortness of breath, generalized edema This is a 48-year-old white female patient of Dr. 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 Patient underwent chemotherapy initially for her squamous cell lung cancer, she was later found to have metastasis to brain, underwent radiation t reatment, including targeted radiation to one of the brain lesions, but despite the radiation treatments one of the lesions was continuously growing in size, and patient started having seizures. She underwent craniotomy right side of the brain. Patient has been on long-term steroids. Was recently discharged from the hospital. She had noted increased generalized edema, increasing shortness of breath, some cough with phlegm production. Patient does have underlying history of advanced COPD, gold stage III, with a baseline FEV1 of 45% of predicted. Used to be a smoker, which is currently in remission. Other history includes hypothyroidism, anxiety, and his history of pneumonia, hypertension. Patient follows with Dr. Osuna from oncology. Chest x-ray was completed showing findings compatible with right hilar mass, compatible with patient's history of lung carcinoma. Bilateral upper and lower extremity Dopplers were completed in were negative for DVTs. She denies any chest pain. No nausea, vomiting with diarrhea, no hemoptysis. Lab work was completed showing white blood cell count of 8.8, hemoglobin of 12.5, d-dimer was mildly elevated at 0.65, serum sodium was 134, potassium is 4.1, chloride was 101, CO2 is 25, B1 is 25, creatinine was 0.71, reported was negative 1, proBNP was within normal limits at 357. Afebrile, room air pulse ox is 96%, clinically patient is quite fluid overloaded, generalized edema. He has been given a dose of IV Lasix, she is currently on oral Lasix at 20 mg twice daily, breathing treatments, she has been started on IV Solu-Medrol 60 mg every 6 hours. On 01/17/2019 patient seen in follow-up on medical oncology floor. She is on room air, with a pulse ox of 100%, she is afebrile, still bronchospastic on today's exam, right greater than the left, patient has been on oral diuretics, and patient still has quite severe generalized edema. We'll switch the patient to IV Lasix, will need daily weights, accurate I & O's, daily electrolytes and renal profile. Today's labs have been reviewed, showing white blood cell count of 10.1, hemoglobin of 12.0, platelet count of 150, serum sodium is 132, potassium is 4.6, chloride is 98, CO2 is 22, BUN is 24, creatinine is 0.77. Chest CT was completed, showing coarse infiltrate in the right upper lobe, and superior aspect of the right lower lobe consistent with scarring and treated lung cancer, there was stable right enlarged bronchial lymph node no sign of increasing pulmonary density compared to old exam. Brain CT was obtained showing decreased cerebral edema in the white matter in the right parietal and frontal lobe, and there was new right frontal craniotomy defect no acute intrac ranial abnormality was noted. Patient is afebrile, denies chills. Patient is on IV Solu-Medrol, nebulized bronchodilators. On 01/19/2019 patient seen in follow-up on medical oncology floor. She is awake and alert, in no acute distress, overall generalized edema is improving, especially in her upper extremities. She states her breathing is improving, although still remains wheezy overall less bronchospastic, vital signs are stable, patient is afebrile. Today's labs have been reviewed, showing white blood cell count 9.2, hemoglobin of 13.1, serum sodium is 135, potassium is 4.5, chloride is 92, CO2 is 34, B1 is 50, creatinine was 0.99. Urine culture was positive for Elizabeth albicans only, this morning patient lost her IV access, and her IV Lasix and IV steroids have been transitioned to oral Lasix and prednisone. On 01/20/2019 patient seen in follow-up on medical oncology floor. She is awake and alert, in no acute distress, lung sounds reveal a few scattered rhonchi, no significant wheezing, still has some residual edema in her lower extremities, However improved since admission, she is currently on oral Lasix, today's labs show increase in patient's creatinine, up to 1.3, patient's intake has been restricted to 1500 ML, and patient appears to be vascularly depleted, she states she feels lightheaded, and weak on today's exam, although her lung sounds sound better on today's exam, less wheezy, and less congested. Today's labs have been reviewed, showing white blood cell count 9.2, hemoglobin of 11.9, sodium is 134, potassium is 4.0. No fever or chills, sputum culture showed Elizabeth albicans. Patient has been on oral Lasix to 40 mg 3 times days a, and oral prednisone, IV 0.9 normal saline at a rate of 20 ML per hour, we will increase water intake, we will hold Lasix today. Objective - Vital Signs Vital signs: Vital Signs Temp 97.3 F L 01/20/19 11:48 Pulse 105 H 01/20/19 16:52 Resp 18 01/20/19 11:48 BP 103/73 01/20/19 11:48 Pulse Ox 95 01/20/19 11:48 Intake & Output 01/19/19 01/20/19 01/20/19 18:59 06:59 18:59 Intake Total 2640 240 240 Output Total 750 650 Balance 1890 240 -410 Intake: Oral 2640 240 240 Output: Urine 750 650 Other: Voiding Method Toilet Toilet Toilet # Voids 4 2 - Exam GENERAL EXAM: Alert, pleasant, 48-year-old white female, obese, appears to be generally swollen, in hands, lower extremities, and trunk, she is on room air, with a pulse ox of 96% comfortable in no apparent distress. On today's exam does edema is improving HEAD: Normocephalic/atraumatic. EYES: Normal reaction of pupils, equal size. Conjunctiva pink, sclera white. NOSE: Clear with pink turbinates. THROAT: No erythema or exudates. NECK: No masses, no JVD, no thyroid enlargement, no adenopathy. CHEST: No chest wall deformity. Symmetrical expansion. LUNGS: Equal air entry with diffuse rhonchi, right greater than the left CVS: Regular rate and rhythm, normal S1 and S2, no gallops, no murmurs, no rubs ABDOMEN: Soft, nontender. No hepatosplenomegaly, normal bowel sounds, no guarding or rigidity. EXTREMITIES: No clubbing, 1+ lower extremity and upper extremity edema, no cyanosis, 2+ pulses and upper and lower extremities. Left arm and hand showing greater edema and then on the right side, non-pitting Scattered ecchymotic areas on upper extremities, chronic venous stasis discoloration in lower extremities MUSCULOSKELETAL: Muscle strength and tone normal. SPINE: No scoliosis or deformity SKIN: No rashes CENTRAL NERVOUS SYSTEM: Alert and oriented -3. No focal deficits, tone is normal in all 4 extremities. PSYCHIATRIC: Alert and oriented -3. Appropriate affect. Intact judgment and insight. - Labs CBC & Chem 7: 01/20/19 10:05 01/20/19 10:05 Labs: Abnormal Lab Results - Last 24 Hours (Table) 01/20/19 01/20/19 Range/Units 10:05 10:05 RBC 3.68 L (3.80-5.40) m/uL RDW 16.5 H (11.5-15.5) % Neutrophils # 8.0 H (1.3-7.7) k/uL Lymphocytes # 0.7 L (1.0-4.8) k/uL Sodium 134 L (137-145) mmol/L Chloride 88 L (98-107) mmol/L Carbon Dioxide 37 H (22-30) mmol/L BUN 60 H (7-17) mg/dL Creatinine 1.30 H (0.52-1.04) mg/dL Total Protein 6.1 L (6.3-8.2) g/dL Assessment and Plan Plan: Assessment #1. Shortness of breath, generalized edema, anasarca, likely related to long- term use of steroids #2. No evidence of overt heart failure, proBNP is within normal limits, chest x-ray findings compatible with patient's history of lung carcinoma, with patchy perihilar density #3. 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 Acute exacerbation of COPD #5. Stage III COPD #6. Former smoker, currently in remission #7. Upper and lower extremity edema, and up ultrasounds of upper and lower extremities are negative for DVTs #9. History of pneumonia #10. Hypothyroidism #11. Hypertension #12. Anxiety #13. Oral candidiasis #14. Acute kidney injury likely related to intravascular depletion, diuretic therapy Plan: We'll hold her Lasix today, will stop the water restriction, although oral water intake, will continue with oral prednisone, patient feels lightheaded and weak on today's exam, likely related to dehydration. Otherwise lung sounds are improved on today's exam, less congestion and wheezing. Continue with current medical treatment, follow-up blood work in the morning. I performed a history & physical examination of the patient and discussed their management with my nurse practitioner, Danika Cuellar. I reviewed the nurse practitioner's note and agree with the documented findings and plan of care. Lung sounds are positive for diffuse wheezes throughout the lung [place]. The findings and the impression was discussed with the patient. I attest to the documentation by the nurse practitioner. Time with Patient: Less than 30
[2019-01-20] MEDS: SERTRALINE 50 MG TAB PO SCH (21:13)
[2019-01-20] MEDS: POLYETHYLENE GLYCOL 3350 17 GM POWD.PACK PO SCH (21:13)
[2019-01-20 23:41] LABS: Glucose,Whole Blood 143 mg/dL (75-99)
[2019-01-21] MEDS: IPRATROPIUM-ALBUTEROL 3 ML NEB INHALATION SCH ×7 (00:26→23:22)
[2019-01-21] MEDS: SALT AND SODA MOUTHWASH 1,000 ML PO SCH ×7 (01:06→23:05)
--- NOTE | 2019-01-21 02:52 | CT ---
EXAM: CT Head Without Intravenous Contrast CLINICAL HISTORY: ITS.REASON CT Reason: Fall, AMS TECHNIQUE: Axial computed tomography images of the head/brain without intravenous contrast. CTDI is 120.6 mGy and DLP is 2072.0 mGy-cm. This CT exam was performed using one or more of the following dose reduction techniques: automated exposure control, adjustment of the mA and/or kV according to patient size, and/or use of iterative reconstruction technique. COMPARISON: CT head 01/16/2019 FINDINGS: Brain: No evidence of acute transcortical cerebral infarction or intracranial hemorrhage. No abnormal mass effect or midline shift. No acute extra-axial collections. Mild cerebral atrophy and chronic white matter ischemic changes. Ventricles: Unremarkable. Bones/joints: Again demonstrated are post surgical changes of right superior parietal craniotomy. Stable focal right superior frontoparietal hypodensity, unchanged as compared to prior CT 01/16/2019. No evidence of acute skull fracture. Sinuses: Mild right maxillary sinus because of thickening. Mastoid air cells: Mastoid sinuses are clear. IMPRESSION: No evidence of acute intracranial abnormality. Post surgical changes of right parietal craniotomy with stable right superior frontal parietal hypodensity, unchanged since 03/18/2019.
[2019-01-21] MEDS: oxyCODONE-APAP 10-325MG 1 EACH TAB PO PRN ×3 (05:13→21:57)
[2019-01-21 06:05] LABS: Albumin 3.9 g/dL (3.5-5.0); Calcium 9.2 mg/dL (8.4-10.2); Total Bilirubin 0.6 mg/dL (0.2-1.3); Total Protein 6.3 g/dL (6.3-8.2)
[2019-01-21] MEDS: PANTOPRAZOLE 40 MG TABLET PO SCH (06:18)
[2019-01-21] MEDS: LEVOTHYROXINE 25 MCG TAB PO SCH (06:18)
[2019-01-21 06:23] LABS: Magnesium 2.4 mg/dL (1.6-2.3); Potassium 5.1 mmol/L (3.5-5.1)
[2019-01-21 06:50] LABS: Anisocytosis Slight; Basophils % (A) 1 %; Eosinophils # (A) 0.1 k/uL (0-0.7); Eosinophils % (A) 1 %; HCT 35.9 % (34.0-46.0); HGB 11.6 gm/dL (11.4-16.0); Lymphocytes # (A) 0.5 k/uL (1.0-4.8); Lymphocytes % (A) 6 %; MCH 32.6 pg (25.0-35.0); MCHC 32.2 g/dL (31.0-37.0); MCV 101.1 fL (80.0-100.0); Macrocytosis Slight; Monocytes # (A) 0.2 k/uL (0-1.0); Monocytes % (A) 2 %; Neutrophils # (A) 7.7 k/uL (1.3-7.7); Neutrophils % (A) 90 %; Platelet Count 139 k/uL (150-450); RBC 3.55 m/uL (3.80-5.40); RDW 17.5 % (11.5-15.5); WBC 8.6 k/uL (3.8-10.6)
[2019-01-21] MEDS: BUDESONIDE 1 MG/2 ML NEBU INHALATION SCH ×2 (08:03→20:40)
[2019-01-21] MEDS: FORMOTEROL FUMARATE 20 MCG/2 ML NEBU INHALATION SCH ×2 (08:03→20:54)
[2019-01-21] MEDS: MORPHINE SULFATE ER 15 MG TABLET PO SCH ×2 (09:57→21:55)
[2019-01-21] MEDS: HEPARIN SODIUM,PORCINE 5,000 UNIT/ML 1 ML VIAL SQ SCH ×2 (09:57→21:54)
[2019-01-21] MEDS: CYCLOBENZAPRINE 10 MG TAB PO SCH ×2 (09:57→21:55)
[2019-01-21] MEDS: NICOTINE 21MG/24HR PATCH TRANSDERM SCH (09:59)
[2019-01-21] MEDS: predniSONE 20 MG TAB PO SCH (09:59)
[2019-01-21] MEDS: DOCUSATE 100 MG CAP PO SCH (09:59)
[2019-01-21] MEDS: LISINOPRIL 20 MG TAB PO SCH (09:59)
[2019-01-21] MEDS: levETIRAcetam 500 MG TAB PO SCH ×2 (09:59→21:54)
[2019-01-21] MEDS: levETIRAcetam 250 MG TAB PO SCH ×2 (09:59→21:55)
[2019-01-21] MEDS: MONTELUKAST 10 MG TAB PO SCH (09:59)
--- NOTE | 2019-01-21 11:12 | P.PN ---
Subjective Progress Note Date: 01/21/19 Principal diagnosis: COPD exacerbation Patient seen and evaluated at bedside. Lasix was held yesterday and pt encouraged to increase fluids and her creatinine is now improved. However, she continues to feel weak and puffy. She has been up in chair today and will be working with PT. Denies chest pain, headache, or difficulty breathing. at bedside denies any further episodes of staring spells. Her blood pressure has trended lower today, she has continued 40 mg prednisone. She feels the DuoNeb's are helping her breathing. Objective - Vital Signs Vital signs: Vital Signs Temp 97.6 F 01/21/19 08:20 Pulse 111 H 01/21/19 08:20 Resp 18 01/21/19 08:20 BP 87/39 01/21/19 08:20 Pulse Ox 96 01/21/19 08:20 Intake & Output 01/20/19 01/21/19 01/21/19 18:59 06:59 18:59 Intake Total 240 1550 Output Total 650 600 Balance -410 950 Weight 96.1 kg Intake: Oral 240 1550 Output: Urine 650 600 Other: Voiding Method Toilet Bedside Commode # Voids 2 - Exam Head: Normocephalic atraumatic Neck: Supple CV: regular rate and rhythm, no murmur Lungs: Managed breath sounds mild expiratory wheezing, diffuse rhonchi Abdomen: soft nontender Extremities: 1+ edema Skin: Warm and dry - Labs CBC & Chem 7: 01/21/19 05:28 01/21/19 05:28 Labs: Abnormal Lab Results - Last 24 Hours (Table) 01/20/19 01/20/19 01/20/19 Range/Units 10:05 10:05 23:39 RBC 3.68 L (3.80-5.40) m/uL MCV (80.0-100.0) fL RDW 16.5 H (11.5-15.5) % Plt Count (150-450) k/uL Neutrophils # 8.0 H (1.3-7.7) k/uL Lymphocytes # 0.7 L (1.0-4.8) k/uL Sodium 134 L (137-145) mmol/L Chloride 88 L (98-107) mmol/L Carbon Dioxide 37 H (22-30) mmol/L BUN 60 H (7-17) mg/dL Creatinine 1.30 H (0.52-1.04) mg/dL POC Glucose (mg/dL) 143 H (75-99) mg/dL Magnesium (1.6-2.3) mg/dL Total Protein 6.1 L (6.3-8.2) g/dL 01/21/19 01/21/19 Range/Units 05:28 05:28 RBC 3.55 L (3.80-5.40) m/uL MCV 101.1 H (80.0-100.0) fL RDW 17.5 H (11.5-15.5) % Plt Count 139 L (150-450) k/uL Neutrophils # (1.3-7.7) k/uL Lymphocytes # 0.5 L (1.0-4.8) k/uL Sodium 131 L (137-145) mmol/L Chloride 88 L (98-107) mmol/L Carbon Dioxide 38 H (22-30) mmol/L BUN 60 H (7-17) mg/dL Creatinine 1.05 H (0.52-1.04) mg/dL POC Glucose (mg/dL) (75-99) mg/dL Magnesium 2.4 H (1.6-2.3) mg/dL Total Protein (6.3-8.2) g/dL Assessment and Plan Assessment: 1. COPD exacerbation in the setting of small cell lung cancer: Chest x-ray on admission compatible with patient's history of lung cancer. CT chest shows coarse infiltrates and right upper lobe and scarring consistent with treated lung cancer. There is a stable large right bronchial lymph node. Pulmonology following. Continue management with DuoNeb and PO prednisone. 2. 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 Continue Keppra 3. Blurry vision/presyncope: Likely secondary to above. Neurology has signed off. Recommend outpatient follow-up with ophthalmology. 4. Swelling of bilateral upper and lower extremities: Venous doppler studies were performed and negative. Likely secondary to chronic steroid use. 5. Hyponatremia: Secondary to long-term steroid use. 6. Nicotine dependence: Continue nicotine replacement 7. Hypothyroidism: Continue Synthroid 8. Essential hypertension: Continue home meds Pulmonary, oncology, nephrology services following DVT prophylaxis heparin. GI prophylaxis Protonix
[2019-01-21] MEDS: SODIUM CHLORIDE 0.9% 1,000 ML IV SCH (11:45)
[2019-01-21] MEDS ORDERED: SODIUM CHLORIDE 0.9% 500 ML 500 ML IV ONE (11:56)
[2019-01-21] MEDS: MAG HYDROX/AL HYDROX/SIMETH 30 ML, LIDOCAINE VISCOUS 30 ML, diphenhydrAMINE ELIXIR 75 M... PO SCH ×12 (11:59→21:56)
--- NOTE | 2019-01-21 13:50 | P.CRDCN ---
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 Patient presents in the emergency department with complaints of [shortness of breath and 20 pound weight gain since surgery. Pt followed-up with neurosurgery a few days ago and had her ashley out, healing well in regards to surgery. Patient currently lying in bed with no current complaints of chest pain, chest pressure, shortness of breath or palpitations. Patient does complain of upper and lower extremity edema. Patient currently on steroids 40 mg dialy. Patient hypotensive at 87/39 heart rate 111. Sinus tach on EKG. Doppler of upper and lower extremities within normal limits. DX of chest shows current lung CA. Cardiology consulted for near syncope but nursing staff states it may have been a seizure activity. Patient does not follow with cardiology at home]. 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 EKG shows [sinus tach], heart rate [106] bpm. Troponins negative x [1]. SIGNIFICANT LABORATORY VALUES: [CBC, WNL. Sodium low at 131. CO2 high at 38. BUN 60, CR 1.05. Troponin negative 1. Magnesium 2.4, K 5.1. Pro BNP 451. TSH 2.240. Lactic acid, WNL 1.3]. Chest x-ray [current lung CA]. CT of chest [current lung CA, no dissection, no effusion]. CT of head shows right frontal craniotomy status post surgical changes. Doppler of upper and lower extremities both WNL. REVIEW OF SYSTEMS: CONSTITUTIONAL: [Denies fever. Denies chills.] EYES: Denies blurred vision. [Denies blurred vision or vision changes. Denies eye pain.] EARS, NOSE, MOUTH & THROAT: [Denies headache. Denies sore throat. Denies ear eddi n Denies hemoptysis.] CARDIOVASCULAR: [Denies chest pain. Denies shortness of breath. Denies orthop mrav. Denies PND. Denies palpitations. Complains of generalized edema.] RESPIRATORY: [Denies cough. Denies shortness of breath. ] GASTROINTESTINAL: [Denies abdominal pain or distention. Denies diarrhea. Denies constipation. Denies nausea. Denies vomiting.] MUSCULOSKELETAL: [Denies myalgias.] INTEGUMENTARY: [Denies pruitis. Denies rash.] ENDOCRINE: [Denies fatigue. Denies weight change. Denies polydipsia. Denies polyurina Denies heat/cold intolerance.] GENITOURINARY:[ Denies burning, hematuria or urgency with micturation.] HEMATOLOGIC: [Denies history of anemia. Denies bleeding.] NEUROLOGIC: [Denies numbness. Denies tingling. Denies weakness.] PSYCHIATRIC: [Denies anxiety. Denies depression.] PHYSICAL EXAM: VITAL SIGNS: Hypotensive 87/39, heart rate sinus tach 111. Patient on room air. GENERAL: Well developed, in no acute distress. HEENT: Head is atraumatic, normocephalic. Pupils are equal, round. Extra ocular movements intact. Mucous membranes moist. Neck supple. No JVD. No carotid bruit. No thyromegaly. LUNGS: Bilateral wheezes. NO rales or rhonchi. No chest wall tenderness on palpation or with deep breathing. HEART: Regular rate and rhythm, no rubs or gallops. Tachycardic. S1 and S2 heard. No murmur. ABDOMEN: Abdominal exam, WNL. Bowel sounds x4 quads. Soft, non-tender, without masses, organomegaly, or abdominal aorta enlargement. EXTREMITIES/VASCULAR: Extremities have easily palpable radial, femoral, dorsalis pedis and posterior tibial pulses. No cyanosis, calf tenderness. 2-3+ edema to upper and lower extremities BL edema. NEUROLOGIC: Patient is awake, alert and oriented x3. No focal neurologic abnormalities. FINAL IMPRESSION: 1. [metastatic small cell lung cancer with metastases to brain]. 2. [status post right frontal craniotomy 2 weeks ago]. 3. [near syncope rule out seizure]. 4. [generalized edema]. 5. [hypertension]. 6. COPD 7. smoking history PLAN: [Patient to echocardiogram. Monitor blood pressure and heart rate. Discontinue lisinopril. Check lactate level, CBC, BMP/Mag and BNP. Medical team to consider checking keppra/UA/blood cultures. Start IV fluids 0.9 at 50 mL per hour. Patient remains sinus rhythm sinus tach, ectopy noted as artifact. Cardiology to follow along. Thank you kindly for this consult.] Nurse Practitioner note has been reviewed by the Physician. Signing provider agrees with the documented findings, assessment and plan of care. Past Medical History Past Medical History: Cancer, Hypertension, Pneumonia, Thyroid Disorder Additional Past Medical History / Comment(s): small cell lung cancer undergoing chemotherapy and radiation therapy (last one 08/27/17), pneumonia once in April 2017, pt states she is perimenopausal-last menses months ago. History of Any Multi-Drug Resistant Organisms: None Reported Past Surgical History: No Surgical Hx Reported Additional Past Surgical History / Comment(s): Bronchoscopy with bx, EGD, R wrist ganglion cyst, pilonidal cyst, brain surgery to remove brain tumor December 26, 2018 Past Anesthesia/Blood Transfusion Reactions: Postoperative Nausea & Vomiting (PONV) Past Psychological History: No Psychological Hx Reported Additional Psychological History / Comment(s): Pt resides with her spouse. She uses no assistive device. She has not been driving lately, spouse or her mother takes her to [employer]. Smoking Status: Current every day smoker Past Alcohol Use History: None Reported Additional Past Alcohol Use History / Comment(s): Pt started smoking in 1979 Past Drug Use History: None Reported - Past Family History Father Family Medical History: CVA/TIA Additional Family Medical History / Comment(s): Father of a CVA at the age of 60 yrs. Strokes run strongly on his side of the family. Mother Family Medical History: No Reported History Additional Family Medical History / Comment(s): Mother is healthy. Medications and Allergies Home Medications Medication Instructions Recorded Confirmed Type Albuterol Inhaler [Ventolin Hfa 1 - 2 puff INHALATION RT-Q6H PRN 06/18/17 01/15/19 History Inhaler] Ipratropium-Albuterol Nebulize 3 ml INHALATION RT-BID PRN 06/18/17 01/15/19 History [Duoneb 0.5 mg-3 mg/3 ml Soln] Levothyroxine Sodium [Synthroid] 25 mcg PO DAILY 06/18/17 01/15/19 History Lisinopril [Prinivil] 20 mg PO DAILY 06/18/17 01/15/19 History Umeclidinium [place] [Incruse 1 puff INHALATION RT-DAILY 06/18/17 01/15/19 History Ellipta] Ergocalciferol (Vitamin D2) 50,000 units PO FR 07/09/17 01/15/19 History [Vitamin D2] Montelukast [Singulair] 10 mg PO DAILY 07/10/17 01/15/19 History Nicotine 21Mg/24Hr Patch [Habitrol 1 patch TRANSDERM DAILY 10/11/18 01/15/19 History 21Mg/24Hr Patch] Cyclobenzaprine [Flexeril] 10 mg PO BID 01/15/19 01/15/19 History Dexamethasone 2 mg PO BID 01/15/19 01/15/19 History Mometasone/Formoterol [Dulera 200 2 puff INHALATION RT-BID 01/15/19 01/15/19 History Mcg/5 Mcg Inhaler] Morphine Sulfate [Morphine Sulfate 15 mg PO Q12H PRN 01/15/19 01/15/19 History ER] Sertraline [Zoloft] 50 mg PO HS 01/15/19 01/15/19 History levETIRAcetam [Keppra] 1,000 mg PO Q12HR 01/15/19 01/15/19 History levETIRAcetam [Keppra] 250 mg PO Q12H 01/15/19 01/15/19 History oxyCODONE-APAP 10-325MG [Percocet 1 tab PO Q6HR PRN 01/15/19 01/15/19 History 10-325 mg] Allergies Allergy/AdvReac Type Severity Reaction Status Date / Time infliximab [From Remicade] Allergy Severe Anaphylaxis Verified 01/15/19 11:31 Physical Exam Vitals: Vital Signs Temp Pulse Pulse Pulse Pulse Pulse Resp 01/21/19 11:40 108 H 01/21/19 11:33 112 H 01/21/19 08:20 97.6 F 108 H 111 H 18 01/21/19 08:13 100 01/21/19 08:12 100 01/21/19 08:05 96 01/21/19 04:00 105 H 01/21/19 03:50 101 H 01/21/19 03:11 113 H 01/21/19 01:56 97.7 F 99 18 01/21/19 01:45 109 H 118 H 101 H 01/20/19 23:40 97.8 F 111 H 17 01/20/19 22:42 96.2 F L 106 H 18 01/20/19 21:42 106 H 01/20/19 21:33 105 H 01/20/19 21:32 105 H 01/20/19 21:23 106 H 01/20/19 20:45 97.8 F 101 H 18 01/20/19 19:50 83 18 01/20/19 16:52 105 H 01/20/19 16:37 104 H BP BP BP BP Pulse Ox 01/21/19 11:40 01/21/19 11:33 01/21/19 08:20 87/39 96 01/21/19 08:13 01/21/19 08:12 01/21/19 08:05 01/21/19 04:00 01/21/19 03:50 01/21/19 03:11 103/67 01/21/19 01:56 103/56 97 01/21/19 01:45 111/55 108/67 94/66 01/20/19 23:40 101/68 97 01/20/19 22:42 102/55 94 L 01/20/19 21:42 01/20/19 21:33 01/20/19 21:32 01/20/19 21:23 01/20/19 20:45 105/64 93 L 01/20/19 19:50 93/57 94 L 01/20/19 16:52 01/20/19 16:37 Intake and Output 01/20/19 01/21/19 01/21/19 22:59 06:59 14:59 Intake Total 590 960 Output Total 600 Balance 590 360 Intake: Oral 590 960 Output: Urine 600 Other: Voiding Method Toilet Bedside Commode # Voids 2 Weight 96.1 kg Results 01/21/19 05:28 01/21/19 05:28 Cardiac Enzymes 01/21/19 01/21/19 Range/Units 05:28 05:28 AST 32 (14-36) U/L Troponin I <0.012 (0.000-0.034) ng/mL CBC 01/21/19 Range/Units 05:28 WBC 8.6 (3.8-10.6) k/uL RBC 3.55 L (3.80-5.40) m/uL Hgb 11.6 (11.4-16.0) gm/dL Hct 35.9 (34.0-46.0) % Plt Count 139 L (150-450) k/uL Comprehensive Metabolic Panel 01/21/19 Range/Units 05:28 Sodium 131 L (137-145) mmol/L Potassium 5.1 (3.5-5.1) mmol/L Chloride 88 L (98-107) mmol/L Carbon Dioxide 38 H (22-30) mmol/L BUN 60 H (7-17) mg/dL Creatinine 1.05 H (0.52-1.04) mg/dL Glucose 86 (74-99) mg/dL Calcium 9.2 (8.4-10.2) mg/dL AST 32 (14-36) U/L ALT 43 (9-52) U/L Alkaline Phosphatase 51 (38-126) U/L Total Protein 6.3 (6.3-8.2) g/dL Albumin 3.9 (3.5-5.0) g/dL Current Medications Generic Name Dose Route Start Last Admin Trade Name Freq PRN Reason Stop Dose Admin Albuterol/Ipratropium 3 ml 01/15/19 16:00 01/21/19 11:31 Duoneb 0.5 Mg-3 Mg/3 Ml Soln INHALATION 3 ml RT-Q4H JOSE RAFAEL Administration Budesonide 1 mg 01/18/19 20:00 01/21/19 08:03 Pulmicort INHALATION 1 mg RT-BID JOSE RAFAEL Administration Al Hydroxide/Mg Hydroxide 30 0 ml 01/16/19 16:00 01/21/19 11:59 ml/ Lidocaine HCl 30 ml/ PO 5 ml Diphenhydramine HCl 75 mg/ TID JOSE RAFAEL Administration Nystatin 3,000,000 unit Cyclobenzaprine HCl 10 mg 01/15/19 21:00 01/21/19 09:57 Flexeril PO 10 mg BID JOSE RAFAEL Administration Docusate Sodium 100 mg 01/16/19 11:00 01/21/19 09:59 Colace PO 100 mg DAILY JOSE RAFAEL Administration Ergocalciferol 50,000 unit 01/17/19 09:00 01/17/19 08:51 Vitamin D2 PO 50,000 unit FR JOSE RAFAEL Administration Formoterol Fumarate 20 mcg 01/18/19 20:00 01/21/19 08:03 Perforomist INHALATION 20 mcg RT-BID JOSE RAFAEL Administration Heparin Sodium (Porcine) 5,000 unit 01/15/19 21:00 01/21/19 09:57 Heparin SQ 5,000 unit Q12HR JOSE RAFAEL Administration Sodium Chloride 1,000 mls @ 50 mls/hr 01/21/19 11:15 01/21/19 11:45 Saline 0.9% IV 50 mls/hr .Q20H JOSE RAFAEL Administration Levetiracetam 250 mg 01/15/19 21:00 01/21/19 09:59 Keppra PO 250 mg Q12HR JOSE RAFAEL Administration Levetiracetam 1,000 mg 01/15/19 21:00 01/21/19 09:59 Keppra PO 1,000 mg Q12HR JOSE RAFAEL Administration Levothyroxine Sodium 25 mcg 01/16/19 06:30 01/21/19 06:18 Synthroid PO 25 mcg DAILY@0630 JOSE RAFAEL Administration Montelukast Sodium 10 mg 01/16/19 09:00 01/21/19 09:59 Singulair PO 10 mg DAILY JOSE RAFAEL Administration Morphine Sulfate 15 mg 01/16/19 11:30 01/21/19 09:57 Ms Contin PO 15 mg BID JOSE RAFAEL Administration Nicotine 1 patch 01/16/19 09:00 01/21/19 09:59 Habitrol 21mg/24hr Patch TRANSDERM 1 patch DAILY JOSE RAFAEL Administration Oxycodone/Acetaminophen 1 each 01/16/19 10:42 01/21/19 10:02 Percocet 10-325 PO 1 each Q4HR PRN Administration MODERATE Pain Pantoprazole Sodium 40 mg 01/16/19 07:30 01/21/19 06:18 Protonix PO 40 mg [id number] JOSE RAFAEL Administration Polyethylene Glycol 17 gm 01/16/19 21:00 01/20/19 21:13 Miralax PO 17 gm HS JOSE RAFAEL Administration Prednisone 40 mg 01/18/19 16:30 01/21/19 09:59 PO 40 mg DAILY JOSE RAFAEL Administration Sertraline HCl 50 mg 01/15/19 21:00 01/20/19 21:13 Zoloft PO 50 mg HS JOSE RAFAEL Administration Sodium Bicarbonate 5 ml 01/16/19 16:00 01/21/19 06:19 PO 5 ml 5XD JOSE RAFAEL Administration Intake and Output 01/20/19 01/21/19 01/21/19 22:59 06:59 14:59 Intake Total 590 960 Output Total 600 Balance 590 360 Intake: Oral 590 960 Output: Urine 600 Other: Voiding Method Toilet Bedside Commode # Voids 2 Weight 96.1 kg 01/21/19 05:28 01/21/19 05:28
--- NOTE | 2019-01-21 16:13 | P.PN ---
Subjective Progress Note Date: 01/21/19 Principal diagnosis: Shortness of breath, generalized edema This is a 48-year-old white female patient of Dr. Mckenzie, with past medical history of metastatic small cell lung cancer with metastases to the brain, with recent history of craniotomy at [facility]. 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 Patient underwent chemotherapy initially for her squamous cell lung cancer, she was later found to have metastasis to brain, underwent radiation t reatment, including targeted radiation to one of the brain lesions, but despite the radiation treatments one of the lesions was continuously growing in size, and patient started having seizures. She underwent craniotomy right side of the brain. Patient has been on long-term steroids. Was recently discharged from the hospital. She had noted increased generalized edema, increasing shortness of breath, some cough with phlegm production. Patient does have underlying history of advanced COPD, gold stage III, with a baseline FEV1 of 45% of predicted. Used to be a smoker, which is currently in remission. Other history includes hypothyroidism, anxiety, and his history of pneumonia, hypertension. Patient follows with Dr. Osuna from oncology. Chest x-ray was completed showing findings compatible with right hilar mass, compatible with patient's history of lung carcinoma. Bilateral upper and lower extremity Dopplers were completed in were negative for DVTs. She denies any chest pain. No nausea, vomiting with diarrhea, no hemoptysis. Lab work was completed showing white blood cell count of 8.8, hemoglobin of 12.5, d-dimer was mildly elevated at 0.65, serum sodium was 134, potassium is 4.1, chloride was 101, CO2 is 25, B1 is 25, creatinine was 0.71, reported was negative 1, proBNP was within normal limits at 357. Afebrile, room air pulse ox is 96%, clinically patient is quite fluid overloaded, generalized edema. He has been given a dose of IV Lasix, she is currently on oral Lasix at 20 mg twice daily, breathing treatments, she has been started on IV Solu-Medrol 60 mg every 6 hours. On 01/17/2019 patient seen in follow-up on medical oncology floor. She is on room air, with a pulse ox of 100%, she is afebrile, still bronchospastic on today's exam, right greater than the left, patient has been on oral diuretics, and patient still has quite severe generalized edema. We'll switch the patient to IV Lasix, will need daily weights, accurate I & O's, daily electrolytes and renal profile. Today's labs have been reviewed, showing white blood cell count of 10.1, hemoglobin of 12.0, platelet count of 150, serum sodium is 132, potassium is 4.6, chloride is 98, CO2 is 22, BUN is 24, creatinine is 0.77. Chest CT was completed, showing coarse infiltrate in the right upper lobe, and superior aspect of the right lower lobe consistent with scarring and treated lung cancer, there was stable right enlarged bronchial lymph node no sign of increasing pulmonary density compared to old exam. Brain CT was obtained showing decreased cerebral edema in the white matter in the right parietal and frontal lobe, and there was new right frontal craniotomy defect no acute intrac ranial abnormality was noted. Patient is afebrile, denies chills. Patient is on IV Solu-Medrol, nebulized bronchodilators. On 01/19/2019 patient seen in follow-up on medical oncology floor. She is awake and alert, in no acute distress, overall generalized edema is improving, especially in her upper extremities. She states her breathing is improving, although still remains wheezy overall less bronchospastic, vital signs are stable, patient is afebrile. Today's labs have been reviewed, showing white blood cell count 9.2, hemoglobin of 13.1, serum sodium is 135, potassium is 4.5, chloride is 92, CO2 is 34, B1 is 50, creatinine was 0.99. Urine culture was positive for Elizabeth albicans only, this morning patient lost her IV access, and her IV Lasix and IV steroids have been transitioned to oral Lasix and prednisone. On 01/20/2019 patient seen in follow-up on medical oncology floor. She is awake and alert, in no acute distress, lung sounds reveal a few scattered rhonchi, no significant wheezing, still has some residual edema in her lower extremities, However improved since admission, she is currently on oral Lasix, today's labs show increase in patient's creatinine, up to 1.3, patient's intake has been restricted to 1500 ML, and patient appears to be vascularly depleted, she states she feels lightheaded, and weak on today's exam, although her lung sounds sound better on today's exam, less wheezy, and less congested. Today's labs have been reviewed, showing white blood cell count 9.2, hemoglobin of 11.9, sodium is 134, potassium is 4.0. No fever or chills, sputum culture showed Elizabeth albicans. Patient has been on oral Lasix to 40 mg 3 times days a, and oral prednisone, IV 0.9 normal saline at a rate of 20 ML per hour, we will increase water intake, we will hold Lasix today. On 01/21/2019 patient seen in follow-up on selective care unit. Overnight patient had a change in clinical status, she had possible episode of seizure, and decreased responsiveness. That reason patient was transferred to a monitored bed on selective care unit. She was hypotensive this morning, with a blood pressure of 87/39, IV fluids were started for hydration, with 0.9 normal saline at a rate of 50 ML per hour, lisinopril has been discontinued, and we will give the patient additional dose of IV bolus of 0.9 normal seen 500 mL. Afebrile. Resting in bed, currently awake, answering questions, on 4 L of oxygen her pulse ox is 97%, she had been on Keppra, we will obtain Keppra level. Lung sounds continue to improve, no significant cough or congestion or wheezing. Sputum culture did not show any growth other than Elizabeth albicans. Patient is down to respond to IV fluids, and her blood pressure has improved to 103/55, will obtain stat EEG, and neurology will be reconsulted. Brain CT was obtained and showed no evidence of acute intracranial abnormality, and postsurgical changes of right parietal craniotomy was stable right superior frontal parietal hypodensity which is unchanged from previous brain CT on 03/18/2019 Objective - Vital Signs Vital signs: Vital Signs Temp 98.3 F 01/21/19 11:50 Pulse 100 01/21/19 15:54 Resp 18 01/21/19 11:50 BP 103/55 01/21/19 11:50 Pulse Ox 97 01/21/19 11:50 Intake & Output 01/20/19 01/21/19 01/21/19 18:59 06:59 18:59 Intake Total 240 1550 1080 Output Total 650 600 Balance -867 005 0729 Weight 96.1 kg Intake: Oral 240 1550 1080 Output: Urine 650 600 Other: Voiding Method Toilet Bedside Commode # Voids 2 - Exam GENERAL EXAM: Alert, pleasant, 48-year-old white female, obese, appears to be generally swollen, in hands, lower extremities, and trunk, she is on room air, with a pulse ox of 96% comfortable in no apparent distress. On today's exam ortega s edema is improving. Patient is awake and alert, resting in bed, appears a bit fatigued, but answering questions appropriately HEAD: Normocephalic/atraumatic. EYES: Normal reaction of pupils, equal size. Conjunctiva pink, sclera white. NOSE: Clear with pink turbinates. THROAT: No erythema or exudates. NECK: No masses, no JVD, no thyroid enlargement, no adenopathy. CHEST: No chest wall deformity. Symmetrical expansion. LUNGS: Equal air entry with diffuse rhonchi, right greater than the left CVS: Regular rate and rhythm, normal S1 and S2, no gallops, no murmurs, no rubs ABDOMEN: Soft, nontender. No hepatosplenomegaly, normal bowel sounds, no guarding or rigidity. EXTREMITIES: No clubbing, 1+ lower extremity and upper extremity edema, no cyanosis, 2+ pulses and upper and lower extremities. Left arm and hand showing greater edema and then on the right side, non-pitting Scattered ecchymotic areas on upper extremities, chronic venous stasis discoloration in lower extremities MUSCULOSKELETAL: Muscle strength and tone normal. SPINE: No scoliosis or deformity SKIN: No rashes CENTRAL NERVOUS SYSTEM: Alert and oriented -3. No focal deficits, tone is normal in all 4 extremities. PSYCHIATRIC: Alert and oriented -3. Appropriate affect. Intact judgment and insight. - Labs CBC & Chem 7: 01/21/19 05:28 01/21/19 05:28 Labs: Abnormal Lab Results - Last 24 Hours (Table) 01/20/19 01/21/19 01/21/19 Range/Units 23:39 05:28 05:28 RBC 3.55 L (3.80-5.40) m/uL MCV 101.1 H (80.0-100.0) fL RDW 17.5 H (11.5-15.5) % Plt Count 139 L (150-450) k/uL Lymphocytes # 0.5 L (1.0-4.8) k/uL Sodium 131 L (137-145) mmol/L Chloride 88 L (98-107) mmol/L Carbon Dioxide 38 H (22-30) mmol/L BUN 60 H (7-17) mg/dL Creatinine 1.05 H (0.52-1.04) mg/dL POC Glucose (mg/dL) 143 H (75-99) mg/dL Magnesium 2.4 H (1.6-2.3) mg/dL Assessment and Plan Plan: Assessment #1. Shortness of breath, generalized edema, anasarca, likely related to long- term use of steroids #2. No evidence of overt heart failure, proBNP is within normal limits, chest x-ray findings compatible with patient's history of lung carcinoma, with patchy perihilar density #3. 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 Acute exacerbation of COPD #5. Stage III COPD #6. Former smoker, currently in remission #7. Upper and lower extremity edema, and up ultrasounds of upper and lower e xtremities are negative for DVTs #9. History of pneumonia #10. Hypothyroidism #11. Hypertension #12. Anxiety #13. Oral candidiasis #14. Acute kidney injury likely related to intravascular depletion, diuretic therapy #15. Possible episode of seizure, with postictal period and decreased responsiveness Plan: Continue current medical treatment, agree with IV hydration, we'll give the p atient IV fluid bolus 500 mL of 0.9 normal saline. Obtain stat EEG, reconsult neurology, blood cultures will be sent, urinalysis and urine culture, plasma lactic acid is within normal limits at 1.3. No fever or chills. Continue holding Lasix, today's labs have been reviewed. No significant leukocytosis, creatinine slightly improved. We'll obtain Keppra level. ProBNP is within normal limits at 451. Maintain safety precautions, aspiration and fall precautions. Brain CT has been reviewed showed no acute intracranial changes. Will await input of neurology. Pulmonary perspective patient's breath sounds are improving, less bronchospastic and congested. I performed a history & physical examination of the patient and discussed their management with my nurse practitioner, Danika Cuellar. I reviewed the nurse practitioner's note and agree with the documented findings and plan of care. Lung sounds are positive for diffuse wheezes throughout the lung [place]. The findings and the impression was discussed with the patient. I attest to the documentation by the nurse practitioner. Time with Patient: Less than 30
--- NOTE | 2019-01-21 18:26 | P.PN ---
Subjective Progress Note Date: 01/21/19 Principal diagnosis: Episode of decreased responsiveness ?seizure Yesterday had episode of feeling unwell and decreased responsiveness. Found to be hypotensive with SBP in the 80s. Cardiology consulted. Neurology reconsulted. Has known brain mets on LEV for seizure prophylaxis. Patient herself states that her body just suddenly gave out. She did not lose consciousness entirely. There was no physical convulsive activity. No tongue biting, bowel/bladder incontinence or post-ictal confusion. Objective - Vital Signs Vital signs: Vital Signs Temp 98.0 F 01/21/19 16:20 Pulse 109 H 01/21/19 16:20 Resp 18 01/21/19 16:20 BP 111/57 01/21/19 16:20 Pulse Ox 94 L 01/21/19 16:20 Intake & Output 01/20/19 01/21/19 01/21/19 18:59 06:59 18:59 Intake Total 240 1550 1320 Output Total 650 600 Balance -531 731 1897 Weight 96.1 kg Intake: Oral 240 1550 1320 Output: Urine 650 600 Other: Voiding Method Toilet Bedside Commode # Voids 2 - Exam Gen NAD Pleasant and cooperative MS A+Ox4 Normal speech CN III-XII grossly intact no nystagmus Motor Normal bulk/tone No drift or tremors SNOW x4 Sens Intact to LT x4 Coord Not tested DTRs 2+/4 sym throughout Gait Deferred - Labs CBC & Chem 7: 01/21/19 05:28 01/21/19 05:28 Labs: Abnormal Lab Results - Last 24 Hours (Table) 01/20/19 01/21/19 01/21/19 Range/Units 23:39 05:28 05:28 RBC 3.55 L (3.80-5.40) m/uL MCV 101.1 H (80.0-100.0) fL RDW 17.5 H (11.5-15.5) % Plt Count 139 L (150-450) k/uL Lymphocytes # 0.5 L (1.0-4.8) k/uL Sodium 131 L (137-145) mmol/L Chloride 88 L (98-107) mmol/L Carbon Dioxide 38 H (22-30) mmol/L BUN 60 H (7-17) mg/dL Creatinine 1.05 H (0.52-1.04) mg/dL POC Glucose (mg/dL) 143 H (75-99) mg/dL Magnesium 2.4 H (1.6-2.3) mg/dL Assessment and Plan Assessment: Episode of decreased responsiveness in the setting of hypotension. Doubt epilep tic seizure. Plan: -Continue LEV 250mg po q12h -Renal function has been fluctuating; need to keep this in mind as LEV is renally excreted -LEV level sent; will likely take days to come back -EEG in am -d/w patient in detail. All questions answered. Thank you for re-consult. Please call with ?. Time with Patient: Greater than 30 (Time spent in direct patient care, greater than 50% of which was spent in [id number] counseling and coordination of care: 70 minutes.)
[2019-01-21 18:51] LABS: Appearance,Urine Clear (Clear); Bacteria,Urine Few /hpf; Bilirubin,Urine Negative (Negative); Blood,Urine Negative (Negative); Color,Urine Light Yellow; Glucose,Urine (UA) Negative (Negative); Ketones,Urine Negative (Negative); Leukocyte Esterase,Urine Small (Negative); Nitrite,Urine Positive (Negative); Protein,Urine Negative (Negative); RBC,Urine 1 /hpf (0-5); Squamous Epithelial Cell,Urine 2 /hpf (0-4); Urobilinogen,Urine <2.0 mg/dL (<2.0)
[2019-01-21] MEDS: SERTRALINE 50 MG TAB PO SCH (21:54)
[2019-01-21] MEDS: POLYETHYLENE GLYCOL 3350 17 GM POWD.PACK PO SCH (22:07)
[2019-01-22] MEDS: IPRATROPIUM-ALBUTEROL 3 ML NEB INHALATION SCH ×6 (03:36→23:52)
[2019-01-22] MEDS: oxyCODONE-APAP 10-325MG 1 EACH TAB PO PRN ×4 (06:13→23:27)
[2019-01-22] MEDS: LEVOTHYROXINE 25 MCG TAB PO SCH (06:14)
[2019-01-22] MEDS: SALT AND SODA MOUTHWASH 1,000 ML PO SCH ×5 (06:14→23:28)
[2019-01-22] MEDS: PANTOPRAZOLE 40 MG TABLET PO SCH (06:14)
[2019-01-22] MEDS: SODIUM CHLORIDE 0.9% 1,000 ML IV SCH (06:15)
[2019-01-22 07:11] LABS: Anisocytosis Slight; Basophils % (A) 0 %; Eosinophils % (A) 1 %; Lymphocytes # (A) 0.4 k/uL (1.0-4.8); Lymphocytes % (A) 6 %; MCH 32.7 pg (25.0-35.0); MCHC 32.4 g/dL (31.0-37.0); Macrocytosis Slight; Monocytes # (A) 0.2 k/uL (0-1.0); Monocytes % (A) 3 %; Neutrophils # (A) 5.6 k/uL (1.3-7.7); Neutrophils % (A) 90 %; Platelet Count 134 k/uL (150-450); RBC 3.36 m/uL (3.80-5.40); RDW 16.3 % (11.5-15.5); WBC 6.3 k/uL (3.8-10.6)
[2019-01-22 07:16] LABS: Albumin 3.5 g/dL (3.5-5.0); Calcium 9.2 mg/dL (8.4-10.2); Potassium 4.8 mmol/L (3.5-5.1); Total Bilirubin 0.4 mg/dL (0.2-1.3); Total Protein 5.7 g/dL (6.3-8.2)
[2019-01-22] MEDS: BUDESONIDE 1 MG/2 ML NEBU INHALATION SCH ×2 (08:48→21:02)
[2019-01-22] MEDS: FORMOTEROL FUMARATE 20 MCG/2 ML NEBU INHALATION SCH ×2 (08:48→21:02)
[2019-01-22] MEDS: MAG HYDROX/AL HYDROX/SIMETH 30 ML, LIDOCAINE VISCOUS 30 ML, diphenhydrAMINE ELIXIR 75 M... PO SCH ×12 (09:10→21:39)
[2019-01-22] MEDS: HEPARIN SODIUM,PORCINE 5,000 UNIT/ML 1 ML VIAL SQ SCH ×2 (09:10→20:08)
[2019-01-22] MEDS: levETIRAcetam 500 MG TAB PO SCH (09:11)
[2019-01-22] MEDS: MONTELUKAST 10 MG TAB PO SCH (09:11)
[2019-01-22] MEDS: NICOTINE 21MG/24HR PATCH TRANSDERM SCH (09:11)
[2019-01-22] MEDS: levETIRAcetam 250 MG TAB PO SCH (09:11)
[2019-01-22] MEDS: DOCUSATE 100 MG CAP PO SCH (09:12)
[2019-01-22] MEDS: MORPHINE SULFATE ER 15 MG TABLET PO SCH ×2 (09:12→21:38)
[2019-01-22] MEDS: CYCLOBENZAPRINE 10 MG TAB PO SCH ×2 (09:13→20:08)
[2019-01-22] MEDS: predniSONE 20 MG TAB PO SCH (09:13)
--- NOTE | 2019-01-22 11:08 | PN ---
PROGRESS NOTE Mrs. Montelongo is a 48-year-old female with a history of metastatic small cell CA prior history of smoking who was admitted to the hospital with progressive dyspnea. She still has episode of dizziness, but no symptoms of chest discomfort. She has dyspnea. No clear syncope. She has no arrhythmia on the monitor. Hemodynamically, she is stable. She has been seen by Dr. Osorio as well as Neurology Service. She was transferred to telemetry yesterday because of unresponsiveness and questionable seizure activity. She continues to be at this time on Keppra, Singulair, Protonix. PHYSICAL EXAMINATION: Blood pressure 111/70 with the heart rate in the 90s. LUNGS: With decreased air exchange, no wheezes. HEART: Regular rate and rhythm. S1, S2. No S3. No rub appreciated. ABDOMEN: Soft, obese, nontender. EXTREMITIES: No significant edema. Chronic venous stasis was noted on the lower extremities. LAB DATA: Lab data revealed hemoglobin of 11. BUN and creatinine 45 and 0.88. Potassium 4.8. IMPRESSION: 1. Symptoms of unresponsiveness. No evidence to suggest cardiac etiology. 2. Small cell CA lung cancer metastatic with recent craniotomy. 3. Possible seizure. 4. History of smoking. RECOMMENDATION: From the cardiac standpoint, she is stable. I see no active cardiac issue at this time. We will continue on the present medical regimen. We will see her on an as- needed basis. Please feel free to call us for any questions. MMODL / IJN: [id number] /
--- NOTE | 2019-01-22 13:44 | P.PN ---
Subjective Progress Note Date: 01/22/19 Patient seen and examined at bedside. She feels her breathing is much better today but still feels weak and puffy. She has not had any further episodes of decreased alertness/staring spells. She is scheduled for EEG today. Objective - Vital Signs Vital signs: Vital Signs Temp 97.5 F L 01/22/19 11:55 Pulse 110 H 01/22/19 11:55 Resp 18 01/22/19 11:55 BP 99/56 01/22/19 11:55 Pulse Ox 99 01/22/19 11:55 Intake & Output 01/21/19 01/22/19 01/22/19 18:59 06:59 18:59 Intake Total 1320 580 360 Output Total 1650 300 Balance 1320 -1070 60 Weight 96.978 kg Intake: Oral 1320 580 360 Output: Urine 1650 300 Other: Voiding Method Bedside Commode # Voids 1 - Exam General: no apparent distress, alert Head: cushingoid facies Lungs: normal respiratory effort. Scattered wheezing and rhonchi. No rales CV: RRR, no murmur Extremities: 1+ edema BLE, 2+ edema BUE - Labs CBC & Chem 7: 01/22/19 05:52 01/22/19 05:52 Labs: Abnormal Lab Results - Last 24 Hours (Table) 01/21/19 01/21/19 01/22/19 Range/Units 05:28 18:29 05:52 RBC 3.36 L (3.80-5.40) m/uL Hgb 11.0 L (11.4-16.0) gm/dL MCV 101.0 H (80.0-100.0) fL RDW 16.3 H (11.5-15.5) % Plt Count 134 L (150-450) k/uL Lymphocytes # 0.4 L (1.0-4.8) k/uL Sodium (137-145) mmol/L Chloride (98-107) mmol/L Carbon Dioxide (22-30) mmol/L BUN (7-17) mg/dL ALT (9-52) U/L Total Protein (6.3-8.2) g/dL Urine Nitrite Positive H (Negative) Ur Leukocyte Esterase Small H (Negative) Urine WBC 15 H (0-5) /hpf Urine Bacteria Few H (None) /hpf Levetiracetam 87.4 H (3.0-60.0) ug/mL 01/22/19 Range/Units 05:52 RBC (3.80-5.40) m/uL Hgb (11.4-16.0) gm/dL MCV (80.0-100.0) fL RDW (11.5-15.5) % Plt Count (150-450) k/uL Lymphocytes # (1.0-4.8) k/uL Sodium 133 L (137-145) mmol/L Chloride 92 L (98-107) mmol/L Carbon Dioxide 38 H (22-30) mmol/L BUN 45 H (7-17) mg/dL ALT 53 H (9-52) U/L Total Protein 5.7 L (6.3-8.2) g/dL Urine Nitrite (Negative) Ur Leukocyte Esterase (Negative) Urine WBC (0-5) /hpf Urine Bacteria (None) /hpf Levetiracetam (3.0-60.0) ug/mL Microbiology - Last 24 Hours (Table) 01/21/19 18:29 Urine Culture - Preliminary Urine,Voided Assessment and Plan Assessment: 1. COPD exacerbation in the setting of small cell lung cancer, improving: Chest x-ray on admission compatible with patient's history of lung cancer. CT chest shows coarse infiltrates and right upper lobe and scarring consistent with treated lung cancer. Pulmonology following. Continue management with DuoNeb and PO prednisone. 2. 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 Continue Keppra 1250 mg bid. Keppra levels sent and will need to be followed by PCP 3. Presyncope: Likely secondary to above. Neurology will perform EEG this admission 4. Blurry vision: recommend follow up with Ophthalmology outpatient 5. Swelling of bilateral upper and lower extremities: Venous doppler studies were performed and negative. Likely secondary to chronic steroid use. 6. Hyponatremia: Secondary to long-term steroid use. 7. Nicotine dependence: Continue nicotine replacement 8. Hypothyroidism: Continue Synthroid 9. Essential hypertension: Continue home meds Pulmonary, neurology services following DVT prophylaxis heparin. GI prophylaxis Protonix
[2019-01-22 14:07] VITALS: BMI 39.1
--- NOTE | 2019-01-22 15:35 | P.PN ---
Subjective Progress Note Date: 01/22/19 Principal diagnosis: Shortness of breath, generalized edema This is a 48-year-old white female patient of Dr. Mckenzie, with past medical history of metastatic small cell lung cancer with metastases to the brain, with recent history of craniotomy at [facility]. 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 Patient underwent chemotherapy initially for her squamous cell lung cancer, she was later found to have metastasis to brain, underwent radiation t reatment, including targeted radiation to one of the brain lesions, but despite the radiation treatments one of the lesions was continuously growing in size, and patient started having seizures. She underwent craniotomy right side of the brain. Patient has been on long-term steroids. Was recently discharged from the hospital. She had noted increased generalized edema, increasing shortness of breath, some cough with phlegm production. Patient does have underlying history of advanced COPD, gold stage III, with a baseline FEV1 of 45% of predicted. Used to be a smoker, which is currently in remission. Other history includes hypothyroidism, anxiety, and his history of pneumonia, hypertension. Patient follows with Dr. Osuna from oncology. Chest x-ray was completed showing findings compatible with right hilar mass, compatible with patient's history of lung carcinoma. Bilateral upper and lower extremity Dopplers were completed in were negative for DVTs. She denies any chest pain. No nausea, vomiting with diarrhea, no hemoptysis. Lab work was completed showing white blood cell count of 8.8, hemoglobin of 12.5, d-dimer was mildly elevated at 0.65, serum sodium was 134, potassium is 4.1, chloride was 101, CO2 is 25, B1 is 25, creatinine was 0.71, reported was negative 1, proBNP was within normal limits at 357. Afebrile, room air pulse ox is 96%, clinically patient is quite fluid overloaded, generalized edema. He has been given a dose of IV Lasix, she is currently on oral Lasix at 20 mg twice daily, breathing treatments, she has been started on IV Solu-Medrol 60 mg every 6 hours. On 01/17/2019 patient seen in follow-up on medical oncology floor. She is on room air, with a pulse ox of 100%, she is afebrile, still bronchospastic on today's exam, right greater than the left, patient has been on oral diuretics, and patient still has quite severe generalized edema. We'll switch the patient to IV Lasix, will need daily weights, accurate I & O's, daily electrolytes and renal profile. Today's labs have been reviewed, showing white blood cell count of 10.1, hemoglobin of 12.0, platelet count of 150, serum sodium is 132, potassium is 4.6, chloride is 98, CO2 is 22, BUN is 24, creatinine is 0.77. Chest CT was completed, showing coarse infiltrate in the right upper lobe, and superior aspect of the right lower lobe consistent with scarring and treated lung cancer, there was stable right enlarged bronchial lymph node no sign of increasing pulmonary density compared to old exam. Brain CT was obtained showing decreased cerebral edema in the white matter in the right parietal and frontal lobe, and there was new right frontal craniotomy defect no acute intrac ranial abnormality was noted. Patient is afebrile, denies chills. Patient is on IV Solu-Medrol, nebulized bronchodilators. On 01/19/2019 patient seen in follow-up on medical oncology floor. She is awake and alert, in no acute distress, overall generalized edema is improving, especially in her upper extremities. She states her breathing is improving, although still remains wheezy overall less bronchospastic, vital signs are stable, patient is afebrile. Today's labs have been reviewed, showing white blood cell count 9.2, hemoglobin of 13.1, serum sodium is 135, potassium is 4.5, chloride is 92, CO2 is 34, B1 is 50, creatinine was 0.99. Urine culture was positive for Elizabeth albicans only, this morning patient lost her IV access, and her IV Lasix and IV steroids have been transitioned to oral Lasix and prednisone. On 01/20/2019 patient seen in follow-up on medical oncology floor. She is awake and alert, in no acute distress, lung sounds reveal a few scattered rhonchi, no significant wheezing, still has some residual edema in her lower extremities, However improved since admission, she is currently on oral Lasix, today's labs show increase in patient's creatinine, up to 1.3, patient's intake has been restricted to 1500 ML, and patient appears to be vascularly depleted, she states she feels lightheaded, and weak on today's exam, although her lung sounds sound better on today's exam, less wheezy, and less congested. Today's labs have been reviewed, showing white blood cell count 9.2, hemoglobin of 11.9, sodium is 134, potassium is 4.0. No fever or chills, sputum culture showed Elizabeth albicans. Patient has been on oral Lasix to 40 mg 3 times days a, and oral prednisone, IV 0.9 normal saline at a rate of 20 ML per hour, we will increase water intake, we will hold Lasix today. On 01/21/2019 patient seen in follow-up on selective care unit. Overnight patient had a change in clinical status, she had possible episode of seizure, and decreased responsiveness. That reason patient was transferred to a monitored bed on selective care unit. She was hypotensive this morning, with a blood pressure of 87/39, IV fluids were started for hydration, with 0.9 normal saline at a rate of 50 ML per hour, lisinopril has been discontinued, and we will give the patient additional dose of IV bolus of 0.9 normal seen 500 mL. Afebrile. Resting in bed, currently awake, answering questions, on 4 L of oxygen her pulse ox is 97%, she had been on Keppra, we will obtain Keppra level. Lung sounds continue to improve, no significant cough or congestion or wheezing. Sputum culture did not show any growth other than Elizabeth albicans. Patient is down to respond to IV fluids, and her blood pressure has improved to 103/55, will obtain stat EEG, and neurology will be reconsulted. Brain CT was obtained and showed no evidence of acute intracranial abnormality, and postsurgical changes of right parietal craniotomy was stable right superior frontal parietal hypodensity which is unchanged from previous brain CT on 03/18/2019 On 01/22/2019 patient seen in follow-up on selective care unit, she is a lot more awake today, responsive, sitting appropriately, no acute events overnight, no new episodes of mental status changes, she is on 4 L of oxygen with a pulse ox of 99%, blood pressure 99/56, slightly tachycardic, with a rate of 110 BPM, but afebrile. She states she feels like she cannot take a full breath, but physical exam reveals good air entry bilaterally, with some scattered rhonchi, and expiratory wheezes, overall improved since admission, patient still has ge neralized swelling, but overall improved since admission, and patient's Lasix is on hold, and she is actually getting gentle IV hydration. His labs have been reviewed, no leukocytosis, with blood cell count is 6.3, hemoglobin is 11.0, serum sodium is 133, potassium is 4.8, chloride is 92, CO2 was 38, BUN was 45, creatinine was 0.88. EEG was ordered in the morning. Patient is on Keppra. Kedppra level is 87.4 Objective - Vital Signs Vital signs: Vital Signs Temp 97.5 F L 01/22/19 11:55 Pulse 110 H 01/22/19 11:55 Resp 18 01/22/19 11:55 BP 99/56 01/22/19 11:55 Pulse Ox 99 01/22/19 11:55 Intake & Output 01/21/19 01/22/19 01/22/19 18:59 06:59 18:59 Intake Total 1320 580 360 Output Total 1650 700 Balance 1320 -1070 -340 Weight 96.978 kg 96.978 kg Intake: Oral 1320 580 360 Output: Urine 1650 700 Other: Voiding Method Bedside Commode # Voids 1 - Exam GENERAL EXAM: Alert, pleasant, 48-year-old white female, obese, appears to be generally swollen, in hands, lower extremities, and trunk, she is on room air, with a pulse ox of 96% comfortable in no apparent distress. On today's exam does edema is improving. Patient is awake and alert, resting in bed, appears a bit fatigued, but answering questions appropriately HEAD: Normocephalic/atraumatic. EYES: Normal reaction of pupils, equal size. Conjunctiva pink, sclera white. NOSE: Clear with pink turbinates. THROAT: No erythema or exudates. NECK: No masses, no JVD, no thyroid enlargement, no adenopathy. CHEST: No chest wall deformity. Symmetrical expansion. LUNGS: Equal air entry with diffuse rhonchi, right greater than the left CVS: Regular rate and rhythm, normal S1 and S2, no gallops, no murmurs, no rubs ABDOMEN: Soft, nontender. No hepatosplenomegaly, normal bowel sounds, no guarding or rigidity. EXTREMITIES: No clubbing, 1+ lower extremity and upper extremity edema, no cyanosis, 2+ pulses and upper and lower extremities. Left arm and hand showing greater edema and then on the right side, non-pitting Scattered ecchymotic areas on upper extremities, chronic venous stasis discoloration in lower extremities MUSCULOSKELETAL: Muscle strength and tone normal. SPINE: No scoliosis or deformity SKIN: No rashes CENTRAL NERVOUS SYSTEM: Alert and oriented -3. No focal deficits, tone is normal in all 4 extremities. PSYCHIATRIC: Alert and oriented -3. Appropriate affect. Intact judgment and insight. - Labs CBC & Chem 7: 01/22/19 05:52 01/22/19 05:52 Labs: Abnormal Lab Results - Last 24 Hours (Table) 01/21/19 01/21/19 01/22/19 Range/Units 05:28 18:29 05:52 RBC 3.36 L (3.80-5.40) m/uL Hgb 11.0 L (11.4-16.0) gm/dL MCV 101.0 H (80.0-100.0) fL RDW 16.3 H (11.5-15.5) % Plt Count 134 L (150-450) k/uL Lymphocytes # 0.4 L (1.0-4.8) k/uL Sodium (137-145) mmol/L Chloride (98-107) mmol/L Carbon Dioxide (22-30) mmol/L BUN (7-17) mg/dL ALT (9-52) U/L Total Protein (6.3-8.2) g/dL Urine Nitrite Positive H (Negative) Ur Leukocyte Esterase Small H (Negative) Urine WBC 15 H (0-5) /hpf Urine Bacteria Few H (None) /hpf Levetiracetam 87.4 H (3.0-60.0) ug/mL 01/22/19 Range/Units 05:52 RBC (3.80-5.40) m/uL Hgb (11.4-16.0) gm/dL MCV (80.0-100.0) fL RDW (11.5-15.5) % Plt Count (150-450) k/uL Lymphocytes # (1.0-4.8) k/uL Sodium 133 L (137-145) mmol/L Chloride 92 L (98-107) mmol/L Carbon Dioxide 38 H (22-30) mmol/L BUN 45 H (7-17) mg/dL ALT 53 H (9-52) U/L Total Protein 5.7 L (6.3-8.2) g/dL Urine Nitrite (Negative) Ur Leukocyte Esterase (Negative) Urine WBC (0-5) /hpf Urine Bacteria (None) /hpf Levetiracetam (3.0-60.0) ug/mL Microbiology - Last 24 Hours (Table) 01/21/19 13:03 Blood Culture - Preliminary Blood No Growth after 24 hours 01/21/19 12:37 Blood Culture - Preliminary Blood No Growth after 24 hours 01/21/19 18:29 Urine Culture - Preliminary Urine,Voided Assessment and Plan Plan: Assessment #1. Shortness of breath, generalized edema, anasarca, likely related to long- term use of steroids #2. No evidence of overt heart failure, proBNP is within normal limits, chest x-ray findings compatible with patient's history of lung carcinoma, with patchy perihilar density #3. 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 Acute exacerbation of COPD #5. Stage III COPD #6. Former smoker, currently in remission #7. Upper and lower extremity edema, and up ultrasounds of upper and lower extremities are negative for DVTs #9. History of pneumonia #10. Hypothyroidism #11. Hypertension #12. Anxiety #13. Oral candidiasis #14. Acute kidney injury likely related to intravascular depletion, diuretic therapy #15. Possible episode of seizure, with postictal period and decreased responsiveness Plan: Continue with gentle IV hydration, will continue holding the diuretics, today's labs have been reviewed, renal and is improving, patient is awake and alert, no further episodes of altered mentation, or decreased level of consciousness. Neurology consultation was appreciated. From pulmonary perspective patient is stable, still has some mild congestion and wheezing, but overall improving. Table breathing treatments. I performed a history & physical examination of the patient and discussed their management with my nurse practitioner, Danika Cuellar. I reviewed the nurse practitioner's note and agree with the documented findings and plan of care. Lung sounds are positive for diffuse wheezes throughout the lung [place]. The findings and the impression was discussed with the patient. I attest to the documentation by the nurse practitioner. Time with Patient: Less than 30
[2019-01-22] MEDS: SERTRALINE 50 MG TAB PO SCH (20:08)
[2019-01-22] MEDS: POLYETHYLENE GLYCOL 3350 17 GM POWD.PACK PO SCH (20:08)
[2019-01-23] MEDS: IPRATROPIUM-ALBUTEROL 3 ML NEB INHALATION SCH ×5 (03:11→20:58)
[2019-01-23] MEDS: oxyCODONE-APAP 10-325MG 1 EACH TAB PO PRN ×4 (03:33→23:10)
[2019-01-23] MEDS: SODIUM CHLORIDE 0.9% 1,000 ML IV SCH (05:01)
[2019-01-23] MEDS: SALT AND SODA MOUTHWASH 1,000 ML PO SCH ×5 (06:08→23:09)
[2019-01-23] MEDS: LEVOTHYROXINE 25 MCG TAB PO SCH (06:08)
[2019-01-23] MEDS: PANTOPRAZOLE 40 MG TABLET PO SCH (06:08)
[2019-01-23 06:49] LABS: Anisocytosis Slight; Basophils % (A) 0 %; Eosinophils % (A) 1 %; HCT 32.7 % (34.0-46.0); HGB 10.4 gm/dL (11.4-16.0); Lymphocytes # (A) 0.5 k/uL (1.0-4.8); Lymphocytes % (A) 8 %; MCHC 31.8 g/dL (31.0-37.0); MCV 100.7 fL (80.0-100.0); Macrocytosis Slight; Monocytes # (A) 0.2 k/uL (0-1.0); Monocytes % (A) 3 %; Neutrophils # (A) 5.4 k/uL (1.3-7.7); Neutrophils % (A) 88 %; Platelet Count 146 k/uL (150-450); RBC 3.24 m/uL (3.80-5.40); RDW 16.1 % (11.5-15.5); WBC 6.2 k/uL (3.8-10.6)
[2019-01-23 07:00] LABS: ALT 51 U/L (9-52); AST 23 U/L (14-36); African American GFR (CKD) >90 (>60 ml/min/1.73 sqM); Albumin 3.3 g/dL (3.5-5.0); Alkaline Phosphatase 53 U/L (38-126); Anion Gap 5 mmol/L; Blood Urea Nitrogen 31 mg/dL (7-17); Carbon Dioxide 34 mmol/L (22-30); Chloride 95 mmol/L (98-107); Glucose 98 mg/dL (74-99); Potassium 4.6 mmol/L (3.5-5.1); Sodium 134 mmol/L (137-145); Total Bilirubin 0.4 mg/dL (0.2-1.3); Total Protein 5.6 g/dL (6.3-8.2)
[2019-01-23] MEDS: BUDESONIDE 1 MG/2 ML NEBU INHALATION SCH ×2 (07:54→20:58)
[2019-01-23] MEDS: FORMOTEROL FUMARATE 20 MCG/2 ML NEBU INHALATION SCH ×2 (07:54→20:58)
[2019-01-23] MEDS: MONTELUKAST 10 MG TAB PO SCH (09:49)
[2019-01-23] MEDS: predniSONE 20 MG TAB PO SCH (09:49)
[2019-01-23] MEDS: NICOTINE 21MG/24HR PATCH TRANSDERM SCH (09:49)
[2019-01-23] MEDS: HEPARIN SODIUM,PORCINE 5,000 UNIT/ML 1 ML VIAL SQ SCH ×2 (09:49→21:57)
[2019-01-23] MEDS: DOCUSATE 100 MG CAP PO SCH (09:50)
[2019-01-23] MEDS: MORPHINE SULFATE ER 15 MG TABLET PO SCH ×2 (09:50→21:56)
[2019-01-23] MEDS: CYCLOBENZAPRINE 10 MG TAB PO SCH ×2 (09:50→21:55)
--- NOTE | 2019-01-23 09:53 | P.PN ---
Subjective Progress Note Date: 01/23/19 Patient seen and evaluated at bedside. Her breathing continues to improve but is feeling more puffy today and is up 2 kg from yesterday. Her keppra level came back elevated and her dose was reduced last night to 750 mg bid. Pt did have a chance to walk with PT and with her in the halls and is gaining strength. Objective - Vital Signs Vital signs: Vital Signs Temp 97.9 F 01/23/19 08:00 Pulse 108 H 01/23/19 08:20 Resp 18 01/23/19 08:00 BP 105/58 01/23/19 08:00 Pulse Ox 93 L 01/23/19 08:00 Intake & Output 01/22/19 01/23/19 01/23/19 18:59 06:59 18:59 Intake Total 600 1550 360 Output Total 1000 Balance -400 1550 360 Weight 96.978 kg 98.4 kg Intake: Intake, IV Titration 550 Amount Sodium Chloride 0.9% 1, 550 000 ml @ 50 mls/hr IV . Q20H FOR[facility], 1928–1983 Rx#:[id number] Oral 600 1000 360 Output: Urine 1000 Other: Voiding Method Bedside Commode Bedside Commode # Voids 2 - Exam General: no apparent distress, alert Head: cushingoid facies Lungs: normal respiratory effort. Scattered wheezing. No rales CV: RRR, no murmur Extremities: 2+ edema BLE, 2+ edema BUE - Labs CBC & Chem 7: 01/23/19 06:08 01/23/19 06:08 Labs: Abnormal Lab Results - Last 24 Hours (Table) 01/23/19 01/23/19 Range/Units 06:08 06:08 RBC 3.24 L (3.80-5.40) m/uL Hgb 10.4 L (11.4-16.0) gm/dL Hct 32.7 L (34.0-46.0) % MCV 100.7 H (80.0-100.0) fL RDW 16.1 H (11.5-15.5) % Plt Count 146 L (150-450) k/uL Lymphocytes # 0.5 L (1.0-4.8) k/uL Sodium 134 L (137-145) mmol/L Chloride 95 L (98-107) mmol/L Carbon Dioxide 34 H (22-30) mmol/L BUN 31 H (7-17) mg/dL Total Protein 5.6 L (6.3-8.2) g/dL Albumin 3.3 L (3.5-5.0) g/dL Microbiology - Last 24 Hours (Table) 01/21/19 18:29 Urine Culture - Preliminary Urine,Voided Gram Neg Bacilli 01/21/19 13:03 Blood Culture - Preliminary Blood No Growth after 24 hours 01/21/19 12:37 Blood Culture - Preliminary Blood No Growth after 24 hours Assessment and Plan Assessment: 1. COPD exacerbation in the setting of small cell lung cancer, improving: Chest x-ray on admission compatible with patient's history of lung cancer. CT chest shows coarse infiltrates and right upper lobe and scarring consistent with treated lung cancer. Pulmonology following. Continue management with DuoNeb and PO prednisone 2. 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 Keppra level came back 87 so dose reduced from 1250 to 750 bid 3. Presyncope: Likely secondary to above. Neurology will perform EEG this admission 4. Blurry vision: recommend follow up with Ophthalmology outpatient 5. Swelling of bilateral upper and lower extremities: Venous doppler studies were performed and negative. Likely secondary to chronic steroid use. IVF stopped today as pt up 2 kg from yesterday and tolerating PO 6. Hyponatremia, improved: Secondary to long-term steroid use 7. Nicotine dependence: Continue nicotine replacement 8. Hypothyroidism: Continue Synthroid 9. Essential hypertension: Continue home meds Pulmonary, neurology services following DVT prophylaxis heparin. GI prophylaxis Protonix
[2019-01-23] MEDS: MAG HYDROX/AL HYDROX/SIMETH 30 ML, LIDOCAINE VISCOUS 30 ML, diphenhydrAMINE ELIXIR 75 M... PO SCH ×12 (11:38→23:09)
--- NOTE | 2019-01-23 14:51 | P.PN ---
Subjective Progress Note Date: 01/23/19 Principal diagnosis: Episode of decreased responsiveness ?seizure EEG finally done earlier today. LEV was reduced from 1250mg to 750mg by primary team after level returned above reference range. Patient never had any side effects with LEV, e.g. somnolence, dizziness, tremors, ataxia, behavioral changes. She is concerned about seizures, but has not had any. She is not ready to be discharged due to persistent swelling. No other neuro c/o. Objective - Vital Signs Vital signs: Vital Signs Temp 98.1 F 01/23/19 11:17 Pulse 108 H 01/23/19 11:17 Resp 18 01/23/19 08:00 BP 126/77 01/23/19 11:17 Pulse Ox 93 L 01/23/19 11:17 Intake & Output 01/22/19 01/23/19 01/23/19 18:59 06:59 18:59 Intake Total 600 1550 840 Output Total 1000 Balance -400 1550 840 Weight 96.978 kg 98.4 kg Intake: Intake, IV Titration 550 Amount Sodium Chloride 0.9% 1, 550 000 ml @ 50 mls/hr IV . Q20H JOSE RAFAEL Rx#:[id number] Oral 600 1000 840 Output: Urine 1000 Other: Voiding Method Bedside Commode Bedside Commode # Voids 2 1 - Exam Gen NAD Pleasant and cooperative MS A+Ox4 Normal speech CN III-XII grossly intact no nystagmus Motor Normal bulk/tone No drift or tremors SNOW x4 Sens Intact to LT x4 Coord Not tested DTRs 2+/4 sym throughout Gait Deferred - Labs CBC & Chem 7: 01/23/19 06:08 01/23/19 06:08 Labs: Abnormal Lab Results - Last 24 Hours (Table) 01/23/19 01/23/19 Range/Units 06:08 06:08 RBC 3.24 L (3.80-5.40) m/uL Hgb 10.4 L (11.4-16.0) gm/dL Hct 32.7 L (34.0-46.0) % MCV 100.7 H (80.0-100.0) fL RDW 16.1 H (11.5-15.5) % Plt Count 146 L (150-450) k/uL Lymphocytes # 0.5 L (1.0-4.8) k/uL Sodium 134 L (137-145) mmol/L Chloride 95 L (98-107) mmol/L Carbon Dioxide 34 H (22-30) mmol/L BUN 31 H (7-17) mg/dL Total Protein 5.6 L (6.3-8.2) g/dL Albumin 3.3 L (3.5-5.0) g/dL Microbiology - Last 24 Hours (Table) 01/21/19 18:29 Urine Culture - Preliminary Urine,Voided Gram Neg Bacilli 01/21/19 13:03 Blood Culture - Preliminary Blood No Growth after 24 hours 01/21/19 12:37 Blood Culture - Preliminary Blood No Growth after 24 hours 01/21/19 LEV 87.4 - Imaging and Cardiology EEG 01/23/19. Right frontoparietal sharp wave activity but no definitive epileptiform discharges. Please see separate report for details. Assessment and Plan Assessment: Episode of decreased responsiveness in the setting of hypotension. Somewhat doubt epileptic seizure. Right frontoparietal sharp wave activity. Plan: -Patient's LEV level was above reference range. Newer generation AEDs do not have as rigidly defined therapeutic windows as the older AEDs do. She did not have any side effects from when she was on the higher dose of LEV. She is fearful of having another seizure, which I completely understand. I will re- increase her LEV to 1000mg po q12h and re-check another trough level in am. -Renal function has been fluctuating but has been great for the past couple days, so she can take normally dosed LEV. -Discussed EEG results with patient and family. No definitive epileptic activity seen, but she does have right frontoparietal sharp wave activity suggestive of cortical irritability. -I do not have an answer for her anasarca. It is not related to her brain or LEV. She is still on a significant dose of glucocorticoid. She will need to draft roller picker this discussion with the primary team. -d/w patient/family in great detail. All questions answered. Thank you again for consultation. Please call with ?. Time with Patient: Greater than 30 (Time spent in direct patient care, greater than 50% of which was spent in [id number] counseling and coordination of care: 35 minutes.)
--- NOTE | 2019-01-23 17:46 | EEG ---
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 The patient had an episode of decreased level of responsiveness/slurring in the setting of hypotension. EEG is performed to rule out epileptiform activity. TYPE OF RECORDING: Bedside tracing using a 10-20 international electro placement system. No sedation was given prior to the beginning of this recording. FINDINGS: At the beginning of this recording, there is a symmetric alpha rhythm that attenuates on eye opening and returns upon eye closure. Photic stimulation elicits a symmetric driving response. Hyperventilation is not performed in this recording. There is occasional sharp wave activity seen in the right frontoparietal area but without definitive epileptiform discharges. As the tracing progresses, there is some slowing down of the background into the theta range. No definitive sleep architecture is seen. There is no other asymmetry, ictal or interictal patterns appreciated. IMPRESSION: This is an abnormal, awake/drowsy electroencephalogram with occasional sharp wave activity seen in the right frontoparietal area corresponding to the patient's site of craniotomy. No definitive epileptiform discharges are seen. Clinical correlation is advised. ADRIENNEL / IJN: [id number] / MTDEstefania
--- NOTE | 2019-01-23 20:46 | PN ---
PROGRESS NOTE DATE OF SERVICE: 01/23/2019 This is a very pleasant 48-year-old female patient with history of metastatic small- cell lung cancer with metastasis to the brain, craniotomy [place]. She was admitted here. She is seen again today in followup on the selective care unit. She is awake and alert, in no acute distress. She is up with assistance. She is to maintain good O2 saturations in the 90s on 4 L nasal cannula. She is afebrile. Slightly tachycardic. Urine cultures positive for gram-negative bacilli. Urine culture is positive for Elizabeth. Blood cultures reveal no growth. White count 6.2, hemoglobin 10.4, platelets 146,000. Creatinine 0.75. She is currently maintained on DuoNeb inhalations, Pulmicort inhalations, prednisone taper. A NicoDerm patch in place. She remains on Keppra. EEG pending. PHYSICAL EXAM: She is alert and oriented, pleasant, 48-year-old female patient in no acute distress. Has general swelling in the upper and lower extremities, trunk. She is maintaining O2 saturations in the 90s on 4 L nasal cannula. Head with facial edema from chronic steroids. NECK: Supple. Trachea midline. LUNGS: With a few scattered rhonchi, more so on the right. HEART is regular S1, S2. ABDOMEN: Obese, soft, nontender. EXTREMITIES: There is 1 to 2+ lower extremity edema. No clubbing. No cyanosis. Peripheral pulses are intact. INVESTIGATIONS: Urine culture positive for gram-negative bacilli. White count 6.2. Hemoglobin 10.4. Creatinine 0.75. EEG is pending. IMPRESSION: 1. Dyspnea, general, slight edema, anasarca, likely related to long-term steroids. 2. Acute exacerbation of chronic obstructive pulmonary disease. 3. 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 She had undergone chemotherapy, targeted radiation to the brain and recent craniotomy in December 2018 at an outside facility. 4. Chronic tobacco dependence. 5. Upper and lower extremity edema, Dopplers negative for deep vein thromboses. 6. Hypothyroidism. 7. Hypertension. 8. Anxiety. 9. Oral candidiasis. 10.Acute kidney injury related to intravascular depletion, diuretic therapy, recovered. 11.Possible episode of seizure with postictal period and decreased responsiveness. PLAN: The patient was seen and evaluated by Dr. Osorio. We will continue with her current treatment plan for now. EEG is pending today. Neurology is on the case. We will increase her activity as tolerated. We will continue to follow and make further recommendations based on her clinical status. The cosigning physician, performed a history and physical examination on the patient. Lung sounds with scattered rhonchi in the right lung. Maintain O2 saturation in the 90s on 4 L/minute per nasal cannula. I reviewed the assessment and plan of care with my nurse practitioner, Elisha Torres. I attest to the above note as dictated by her. MMODL / IJN: [id number] /
[2019-01-23] MEDS: POLYETHYLENE GLYCOL 3350 17 GM POWD.PACK PO SCH (21:57)
[2019-01-23] MEDS: levETIRAcetam 500 MG TAB PO SCH (21:57)
[2019-01-23] MEDS: SERTRALINE 50 MG TAB PO SCH (21:58)
[2019-01-24] MEDS: IPRATROPIUM-ALBUTEROL 3 ML NEB INHALATION SCH ×6 (00:36→21:19)
[2019-01-24] MEDS: LEVOTHYROXINE 25 MCG TAB PO SCH (05:33)
[2019-01-24] MEDS: PANTOPRAZOLE 40 MG TABLET PO SCH (05:33)
[2019-01-24] MEDS: SALT AND SODA MOUTHWASH 1,000 ML PO SCH ×5 (05:34→23:09)
[2019-01-24] MEDS ORDERED: FUROSEMIDE 20 MG TAB PO STA (08:51)
--- NOTE | 2019-01-24 09:16 | P.PN ---
Subjective Progress Note Date: 01/24/19 Principal diagnosis: COPD exacerbation, anasarca Patient seen and evaluated at bedside. She continues to feel edematous and weak today. Her weight is stable from yesterday and still up 2 kg from 01/22. She had her EEG which revealed no seizure but cortical irritability and Neuro adjusted her keppra dosing. Objective - Vital Signs Vital signs: Vital Signs Temp 98.4 F 01/24/19 08:31 Pulse 105 H 01/24/19 08:34 Resp 18 01/24/19 08:31 BP 130/99 01/24/19 08:31 Pulse Ox 92 L 01/24/19 08:31 Intake & Output 01/23/19 01/24/19 01/24/19 18:59 06:59 18:59 Intake Total 1080 1500 Balance 1080 1500 Weight 98.6 kg Intake: Intake, IV Titration 500 Amount Sodium Chloride 0.9% 1, 500 000 ml @ 50 mls/hr IV . Q20H JOSE RAFAEL Rx#:[id number] Oral 1080 1000 Other: Voiding Method Bedside Commode # Voids 1 2 - Exam General: no apparent distress, alert Head: cushingoid facies Lungs: normal respiratory effort. Scattered wheezing. No rales CV: RRR, no murmur Extremities: 2+ edema BLE, 2+ edema BUE - Labs CBC & Chem 7: 01/23/19 06:08 01/23/19 06:08 Labs: Microbiology - Last 24 Hours (Table) 01/21/19 18:29 Urine Culture - Final Urine,Voided Citrobacter freundii 01/21/19 13:03 Blood Culture - Preliminary Blood No Growth after 48 hours 01/21/19 12:37 Blood Culture - Preliminary Blood No Growth after 48 hours Assessment and Plan Assessment: 1. COPD exacerbation in the setting of small cell lung cancer, improving: Chest x-ray on admission compatible with patient's history of lung cancer. CT chest shows coarse infiltrates and right upper lobe and scarring consistent with treated lung cancer. Pulmonology following. Continue management with DuoNeb and PO prednisone 2. 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 Keppra dosing by Neuro 3. Presyncope: Likely secondary to above. EEG completed, no seizure 4. Blurry vision: recommend follow up with Ophthalmology outpatient 5. Swelling of bilateral upper and lower extremities: Venous doppler studies were performed and negative. Likely secondary to chronic steroid use. IVF stopped and pt given 20 mg PO lasix 6. Hyponatremia, improved: Secondary to long-term steroid use 7. Nicotine dependence: Continue nicotine replacement 8. Hypothyroidism: Continue Synthroid 9. Essential hypertension: Continue home meds 10. Impaired mobility/ADLs. PT/OT to eval pt for placement in [facility] vs home discharge Pulmonary, Neurology services following DVT prophylaxis heparin. GI prophylaxis Protonix
[2019-01-24] MEDS: NICOTINE 21MG/24HR PATCH TRANSDERM SCH (09:19)
[2019-01-24] MEDS: HEPARIN SODIUM,PORCINE 5,000 UNIT/ML 1 ML VIAL SQ SCH ×2 (09:20→21:21)
[2019-01-24] MEDS: oxyCODONE-APAP 10-325MG 1 EACH TAB PO PRN ×3 (09:20→21:19)
[2019-01-24] MEDS: MORPHINE SULFATE ER 15 MG TABLET PO SCH ×2 (09:20→21:16)
[2019-01-24] MEDS: DOCUSATE 100 MG CAP PO SCH (09:22)
[2019-01-24] MEDS: CYCLOBENZAPRINE 10 MG TAB PO SCH ×2 (09:22→21:17)
[2019-01-24] MEDS: levETIRAcetam 500 MG TAB PO SCH ×2 (09:22→21:19)
[2019-01-24] MEDS: ERGOCALCIFEROL 50,000 UNIT CAP PO SCH (09:23)
[2019-01-24] MEDS: predniSONE 20 MG TAB PO SCH (09:23)
[2019-01-24] MEDS: MAG HYDROX/AL HYDROX/SIMETH 30 ML, LIDOCAINE VISCOUS 30 ML, diphenhydrAMINE ELIXIR 75 M... PO SCH ×12 (09:23→21:22)
[2019-01-24] MEDS: MONTELUKAST 10 MG TAB PO SCH (09:23)
[2019-01-24 09:46] LABS: Anisocytosis Slight; Basophils % (A) 0 %; Eosinophils # (A) 0.1 k/uL (0-0.7); Eosinophils % (A) 1 %; HCT 32.2 % (34.0-46.0); HGB 10.5 gm/dL (11.4-16.0); Lymphocytes # (A) 0.5 k/uL (1.0-4.8); Lymphocytes % (A) 8 %; MCH 32.7 pg (25.0-35.0); MCHC 32.5 g/dL (31.0-37.0); MCV 100.5 fL (80.0-100.0); Macrocytosis Slight; Mean Platelet Volume 7.2; Monocytes # (A) 0.1 k/uL (0-1.0); Monocytes % (A) 2 %; Neutrophils # (A) 5.5 k/uL (1.3-7.7); Neutrophils % (A) 88 %; Platelet Count 136 k/uL (150-450); RDW 16.2 % (11.5-15.5); WBC 6.2 k/uL (3.8-10.6)
[2019-01-24 09:47] LABS: ALT 51 U/L (9-52); AST 22 U/L (14-36); African American GFR (CKD) >90 (>60 ml/min/1.73 sqM); Albumin 3.2 g/dL (3.5-5.0); Alkaline Phosphatase 56 U/L (38-126); Anion Gap 7 mmol/L; Blood Urea Nitrogen 25 mg/dL (7-17); Carbon Dioxide 31 mmol/L (22-30); Chloride 96 mmol/L (98-107); Glucose 105 mg/dL (74-99); Potassium 4.4 mmol/L (3.5-5.1); Sodium 134 mmol/L (137-145); Total Bilirubin 0.3 mg/dL (0.2-1.3); Total Protein 5.5 g/dL (6.3-8.2)
[2019-01-24] MEDS: FORMOTEROL FUMARATE 20 MCG/2 ML NEBU INHALATION SCH ×2 (09:56→21:19)
[2019-01-24] MEDS: BUDESONIDE 1 MG/2 ML NEBU INHALATION SCH ×2 (09:56→21:19)
--- NOTE | 2019-01-24 11:09 | P.PN ---
Subjective Progress Note Date: 01/24/19 Principal diagnosis: Episode of decreased responsiveness ?seizure No acute events O/N. No seizure. LEV now at 1g po q12h. Patient feels a bit tired this am but o/w no new neuro c/o. Does not feel ready to go home. Objective - Vital Signs Vital signs: Vital Signs Temp 98.4 F 01/24/19 08:31 Pulse 105 H 01/24/19 08:34 Resp 18 01/24/19 08:31 BP 130/99 01/24/19 08:31 Pulse Ox 92 L 01/24/19 08:31 Intake & Output 01/23/19 01/24/19 01/24/19 18:59 06:59 18:59 Intake Total 1080 1500 Balance 1080 1500 Weight 98.6 kg Intake: Intake, IV Titration 500 Amount Sodium Chloride 0.9% 1, 500 000 ml @ 50 mls/hr IV . Q20H JOSE RAFAEL Rx#:[id number] Oral 1080 1000 Other: Voiding Method Bedside Commode # Voids 1 2 - Exam Gen NAD Pleasant and cooperative MS A+Ox4 Normal speech CN III-XII grossly intact no nystagmus Motor Normal bulk/tone No drift or tremors SNOW x4 Sens Intact to LT x4 Coord Not tested DTRs 2+/4 sym throughout Gait Deferred - Labs CBC & Chem 7: 01/24/19 09:00 01/24/19 09:00 Labs: Abnormal Lab Results - Last 24 Hours (Table) 01/24/19 01/24/19 Range/Units 09:00 09:00 RBC 3.20 L (3.80-5.40) m/uL Hgb 10.5 L (11.4-16.0) gm/dL Hct 32.2 L (34.0-46.0) % MCV 100.5 H (80.0-100.0) fL RDW 16.2 H (11.5-15.5) % Plt Count 136 L (150-450) k/uL Lymphocytes # 0.5 L (1.0-4.8) k/uL Sodium 134 L (137-145) mmol/L Chloride 96 L (98-107) mmol/L Carbon Dioxide 31 H (22-30) mmol/L BUN 25 H (7-17) mg/dL Glucose 105 H (74-99) mg/dL Total Protein 5.5 L (6.3-8.2) g/dL Albumin 3.2 L (3.5-5.0) g/dL Microbiology - Last 24 Hours (Table) 01/21/19 18:29 Urine Culture - Final Urine,Voided Citrobacter freundii 01/21/19 13:03 Blood Culture - Preliminary Blood No Growth after 48 hours 01/21/19 12:37 Blood Culture - Preliminary Blood No Growth after 48 hours Assessment and Plan Assessment: Episode of decreased responsiveness in the setting of hypotension. Somewhat doubt epileptic seizure. Right frontoparietal sharp wave activity. Plan: -EEG does show right frontoparietal sharp waves that is suggestive of cortical irritability -LEV re-increased to 1g po q12h -Trough level re-sent this am, though the therapeutic window of newer generation AEDs is not as rigidly defined as the older ones'. We dose primarily based on clinical response and side effects -Renal function normal today -d/w patient/family in detail. All questions answered -I will return to [facility] on 02/10/19. Please check with medical staff regarding neurology availability until then. Patient/family are aware. Thank you again for consultation. Please call with ?. Time with Patient: Less than 30 (Time spent in direct patient care, greater than 50% of which was spent in [id number] counseling and coordination of care: 25 minutes.)
--- NOTE | 2019-01-24 14:17 | CDI ---
Documentation Clarification Form Date: 01/24/2019 1:56:04 PM From: July Moy RN CCDS Admit Date: 01/15/2019 2:09:00 PM Patient Name: Karmen Montelongo Visit Number: [id number] Discharge Date: ATTENTION: The Clinical Documentation Specialists (CDI) and [facility] Coding Staff appreciate your assistance in clarifying documentation. Please respond to the clarification below the line at the bottom and electronically sign. The CDI & [facility] Coding staff will review the response and follow-up if needed. Please note: Queries are made part of the Legal Health Record. If you have any questions, please contact the author of this message via ITS. Dr. Norman Mckenzie Decreased Responsiveness History/Risk Factors: 48 year old female presents to the ED with increased shortness of breath. Medical Hx Small cell lung cancer with metastases to the Brain recently had craniotomy. HTN, Clinical Indicators: Labs: Na 131, chl 88, Cr 1.05, Bun 60, Mag 2.4, EEG No seizure CT: Brain no evidence of acute intracranial abnormality Treatment: consult Neurology, Keppra, In your professional opinion, please clarify the etiology of the Decreased Responsiveness, if known. Metabolic Encephalopathy (specify Type and Underlying Medical Illness) Encephalopathy ( specify Type and underlying medical illness) Other condition (please specify) Unable to determine (Last Revision: October 2017) Encephalopathy. Multifactorial. Contributory factors include metastatic cancer, COPD exacerbation MTDD
--- NOTE | 2019-01-24 15:38 | P.PN ---
Subjective Progress Note Date: 01/24/19 Principal diagnosis: Shortness of breath, generalized edema This is a 48-year-old white female patient of Dr. 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 Patient underwent chemotherapy initially for her squamous cell lung cancer, she was later found to have metastasis to brain, underwent radiation t reatment, including targeted radiation to one of the brain lesions, but despite the radiation treatments one of the lesions was continuously growing in size, and patient started having seizures. She underwent craniotomy right side of the brain. Patient has been on long-term steroids. Was recently discharged from the hospital. She had noted increased generalized edema, increasing shortness of breath, some cough with phlegm production. Patient does have underlying history of advanced COPD, gold stage III, with a baseline FEV1 of 45% of predicted. Used to be a smoker, which is currently in remission. Other history includes hypothyroidism, anxiety, and his history of pneumonia, hypertension. Patient follows with Dr. Osuna from oncology. Chest x-ray was completed showing findings compatible with right hilar mass, compatible with patient's history of lung carcinoma. Bilateral upper and lower extremity Dopplers were completed in were negative for DVTs. She denies any chest pain. No nausea, vomiting with diarrhea, no hemoptysis. Lab work was completed showing white blood cell count of 8.8, hemoglobin of 12.5, d-dimer was mildly elevated at 0.65, serum sodium was 134, potassium is 4.1, chloride was 101, CO2 is 25, B1 is 25, creatinine was 0.71, reported was negative 1, proBNP was within normal limits at 357. Afebrile, room air pulse ox is 96%, clinically patient is quite fluid overloaded, generalized edema. He has been given a dose of IV Lasix, she is currently on oral Lasix at 20 mg twice daily, breathing treatments, she has been started on IV Solu-Medrol 60 mg every 6 hours. On 01/17/2019 patient seen in follow-up on medical oncology floor. She is on room air, with a pulse ox of 100%, she is afebrile, still bronchospastic on today's exam, right greater than the left, patient has been on oral diuretics, and patient still has quite severe generalized edema. We'll switch the patient to IV Lasix, will need daily weights, accurate I & O's, daily electrolytes and renal profile. Today's labs have been reviewed, showing white blood cell count of 10.1, hemoglobin of 12.0, platelet count of 150, serum sodium is 132, potassium is 4.6, chloride is 98, CO2 is 22, BUN is 24, creatinine is 0.77. Chest CT was completed, showing coarse infiltrate in the right upper lobe, and superior aspect of the right lower lobe consistent with scarring and treated lung cancer, there was stable right enlarged bronchial lymph node no sign of increasing pulmonary density compared to old exam. Brain CT was obtained showing decreased cerebral edema in the white matter in the right parietal and frontal lobe, and there was new right frontal craniotomy defect no acute intrac ranial abnormality was noted. Patient is afebrile, denies chills. Patient is on IV Solu-Medrol, nebulized bronchodilators. On 01/19/2019 patient seen in follow-up on medical oncology floor. She is awake and alert, in no acute distress, overall generalized edema is improving, especially in her upper extremities. She states her breathing is improving, although still remains wheezy overall less bronchospastic, vital signs are stable, patient is afebrile. Today's labs have been reviewed, showing white blood cell count 9.2, hemoglobin of 13.1, serum sodium is 135, potassium is 4.5, chloride is 92, CO2 is 34, B1 is 50, creatinine was 0.99. Urine culture was positive for Elizabeth albicans only, this morning patient lost her IV access, and her IV Lasix and IV steroids have been transitioned to oral Lasix and prednisone. On 01/20/2019 patient seen in follow-up on medical oncology floor. She is awake and alert, in no acute distress, lung sounds reveal a few scattered rhonchi, no significant wheezing, still has some residual edema in her lower extremities, However improved since admission, she is currently on oral Lasix, today's labs show increase in patient's creatinine, up to 1.3, patient's intake has been restricted to 1500 ML, and patient appears to be vascularly depleted, she states she feels lightheaded, and weak on today's exam, although her lung sounds sound better on today's exam, less wheezy, and less congested. Today's labs have been reviewed, showing white blood cell count 9.2, hemoglobin of 11.9, sodium is 134, potassium is 4.0. No fever or chills, sputum culture showed Elizabeth albicans. Patient has been on oral Lasix to 40 mg 3 times days a, and oral prednisone, IV 0.9 normal saline at a rate of 20 ML per hour, we will increase water intake, we will hold Lasix today. On 01/21/2019 patient seen in follow-up on selective care unit. Overnight patient had a change in clinical status, she had possible episode of seizure, and decreased responsiveness. That reason patient was transferred to a monitored bed on selective care unit. She was hypotensive this morning, with a blood pressure of 87/39, IV fluids were started for hydration, with 0.9 normal saline at a rate of 50 ML per hour, lisinopril has been discontinued, and we will give the patient additional dose of IV bolus of 0.9 normal seen 500 mL. Afebrile. Resting in bed, currently awake, answering questions, on 4 L of oxygen her pulse ox is 97%, she had been on Keppra, we will obtain Keppra level. Lung sounds continue to improve, no significant cough or congestion or wheezing. Sputum culture did not show any growth other than Elizabeth albicans. Patient is down to respond to IV fluids, and her blood pressure has improved to 103/55, will obtain stat EEG, and neurology will be reconsulted. Brain CT was obtained and showed no evidence of acute intracranial abnormality, and postsurgical changes of right parietal craniotomy was stable right superior frontal parietal hypodensity which is unchanged from previous brain CT on 03/18/2019 On 01/22/2019 patient seen in follow-up on selective care unit, she is a lot more awake today, responsive, sitting appropriately, no acute events overnight, no new episodes of mental status changes, she is on 4 L of oxygen with a pulse ox of 99%, blood pressure 99/56, slightly tachycardic, with a rate of 110 BPM, but afebrile. She states she feels like she cannot take a full breath, but physical exam reveals good air entry bilaterally, with some scattered rhonchi, and expiratory wheezes, overall improved since admission, patient still has ge neralized swelling, but overall improved since admission, and patient's Lasix is on hold, and she is actually getting gentle IV hydration. His labs have been reviewed, no leukocytosis, with blood cell count is 6.3, hemoglobin is 11.0, serum sodium is 133, potassium is 4.8, chloride is 92, CO2 was 38, BUN was 45, creatinine was 0.88. EEG was ordered in the morning. Patient is on Keppra. Keppra level is 87.4 On 01/24/2019 patient seen in follow-up on selective care unit. She is awake and alert, on 3 L of oxygen with a pulse ox of 92%, afebrile, hemodynamically stable, with pressure is 130/99. Urine culture was found to be positive for Citrobacter freundii. Blood and sputum cultures were negative, patient is afebrile, denies any urinary complaints. Denies any shortness of breath, still has some generalized swelling, but overall improved since admission, left hand swelling is slightly worse than the right. Lung sounds are positive for some scattered rhonchi, and minimal wheezing. Objective - Vital Signs Vital signs: Vital Signs Temp 98.4 F 01/24/19 08:31 Pulse 102 H 01/24/19 12:09 Resp 18 01/24/19 08:31 BP 130/99 01/24/19 08:31 Pulse Ox 92 L 01/24/19 08:31 Intake & Output 01/23/19 01/24/19 01/24/19 18:59 06:59 18:59 Intake Total 1080 1500 240 Balance 1080 1500 240 Weight 98.6 kg Intake: Intake, IV Titration 500 Amount Sodium Chloride 0.9% 1, 500 000 ml @ 50 mls/hr IV . Q20H [facility] Rx#:[id number] Oral 1080 1000 240 Other: Voiding Method Bedside Commode # Voids 1 2 - Exam GENERAL EXAM: Alert, pleasant, 48-year-old white female, obese, appears to be generally swollen, in hands, lower extremities, and trunk, she is on room air, with a pulse ox of 96% comfortable in no apparent distress. On today's exam does edema is improving. Patient is awake and alert, resting in bed, appears a bit fatigued, but answering questions appropriately HEAD: Normocephalic/atraumatic. EYES: Normal reaction of pupils, equal size. Conjunctiva pink, sclera white. NOSE: Clear with pink turbinates. THROAT: No erythema or exudates. NECK: No masses, no JVD, no thyroid enlargement, no adenopathy. CHEST: No chest wall deformity. Symmetrical expansion. LUNGS: Equal air entry with diffuse rhonchi, right greater than the left CVS: Regular rate and rhythm, normal S1 and S2, no gallops, no murmurs, no rubs ABDOMEN: Soft, nontender. No hepatosplenomegaly, normal bowel sounds, no guarding or rigidity. EXTREMITIES: No clubbing, 1+ lower extremity and upper extremity edema, no cyanosis, 2+ pulses and upper and lower extremities. Left arm and hand showing greater edema and then on the right side, non-pitting Scattered ecchymotic areas on upper extremities, chronic venous stasis discoloration in lower extremities MUSCULOSKELETAL: Muscle strength and tone normal. SPINE: No scoliosis or deformity SKIN: No rashes CENTRAL NERVOUS SYSTEM: Alert and oriented -3. No focal deficits, tone is normal in all 4 extremities. PSYCHIATRIC: Alert and oriented -3. Appropriate affect. Intact judgment and insight. - Labs CBC & Chem 7: 01/24/19 09:00 01/24/19 09:00 Labs: Abnormal Lab Results - Last 24 Hours (Table) 01/24/19 01/24/19 Range/Units 09:00 09:00 RBC 3.20 L (3.80-5.40) m/uL Hgb 10.5 L (11.4-16.0) gm/dL Hct 32.2 L (34.0-46.0) % MCV 100.5 H (80.0-100.0) fL RDW 16.2 H (11.5-15.5) % Plt Count 136 L (150-450) k/uL Lymphocytes # 0.5 L (1.0-4.8) k/uL Sodium 134 L (137-145) mmol/L Chloride 96 L (98-107) mmol/L Carbon Dioxide 31 H (22-30) mmol/L BUN 25 H (7-17) mg/dL Glucose 105 H (74-99) mg/dL Total Protein 5.5 L (6.3-8.2) g/dL Albumin 3.2 L (3.5-5.0) g/dL Microbiology - Last 24 Hours (Table) 01/21/19 13:03 Blood Culture - Preliminary Blood No Growth after 72 hours 01/21/19 12:37 Blood Culture - Preliminary Blood No Growth after 72 hours 01/21/19 18:29 Urine Culture - Final Urine,Voided Citrobacter freundii Assessment and Plan Plan: Assessment #1. Shortness of breath, generalized edema, anasarca, likely related to long- term use of steroids #2. No evidence of overt heart failure, proBNP is within normal limits, chest x-ray findings compatible with patient's history of lung carcinoma, with patchy perihilar density #3. 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 Acute exacerbation of COPD #5. Stage III COPD #6. Former smoker, currently in remission #7. Upper and lower extremity edema, and up ultrasounds of upper and lower extremities are negative for DVTs #9. History of pneumonia #10. Hypothyroidism #11. Hypertension #12. Anxiety #13. Oral candidiasis #14. Acute kidney injury likely related to intravascular depletion, diuretic therapy #15. Possible episode of seizure, with postictal period and decreased responsiveness #16. Urinary tract infection with cultures positive for Citrobacter Freundii Plan: Continue current medical treatment, we'll decrease the oral prednisone to 30 mg daily, continue with nebulized bronchodilators, we will add Levaquin 750 mg for evidence of Citrobacter in the urine culture. Patient is afebrile. Increase activity, patient may need placement to subacute rehab or inpatient rehab. We'll continue to follow. I performed a history & physical examination of the patient and discussed their management with my nurse practitioner, Danika Cuellar. I reviewed the nurse practitioner's note and agree with the documented findings and plan of care. Lung sounds are positive for diffuse wheezes throughout the lung [place]. The findings and the impression was discussed with the patient. I attest to the do cumentation by the nurse practitioner. Time with Patient: Less than 30
[2019-01-24] MEDS: LEVOFLOXACIN 750 MG TAB PO SCH (16:37)
[2019-01-24] MEDS: POLYETHYLENE GLYCOL 3350 17 GM POWD.PACK PO SCH (21:20)
[2019-01-24] MEDS: SERTRALINE 50 MG TAB PO SCH (23:09)
[2019-01-25] MEDS: IPRATROPIUM-ALBUTEROL 3 ML NEB INHALATION SCH ×6 (00:42→21:07)
[2019-01-25] MEDS: oxyCODONE-APAP 10-325MG 1 EACH TAB PO PRN ×3 (01:07→15:32)
[2019-01-25] MEDS: LEVOTHYROXINE 50 MCG TAB PO SCH (05:47)
[2019-01-25] MEDS: SALT AND SODA MOUTHWASH 1,000 ML PO SCH ×4 (05:48→21:08)
[2019-01-25] MEDS: FORMOTEROL FUMARATE 20 MCG/2 ML NEBU INHALATION SCH ×2 (07:36→21:07)
[2019-01-25] MEDS: BUDESONIDE 1 MG/2 ML NEBU INHALATION SCH ×2 (07:36→21:07)
[2019-01-25 08:14] LABS: Anisocytosis Slight; Basophils % (A) 0 %; Eosinophils % (A) 1 %; HCT 33.7 % (34.0-46.0); HGB 11.3 gm/dL (11.4-16.0); Lymphocytes # (A) 0.6 k/uL (1.0-4.8); Lymphocytes % (A) 8 %; MCH 33.5 pg (25.0-35.0); MCHC 33.7 g/dL (31.0-37.0); MCV 99.6 fL (80.0-100.0); Macrocytosis Slight; Mean Platelet Volume 7.4; Monocytes # (A) 0.2 k/uL (0-1.0); Monocytes % (A) 2 %; Neutrophils # (A) 6.5 k/uL (1.3-7.7); Neutrophils % (A) 89 %; Platelet Count 144 k/uL (150-450); RBC 3.38 m/uL (3.80-5.40); RDW 16.1 % (11.5-15.5); WBC 7.3 k/uL (3.8-10.6)
[2019-01-25] MEDS: NITROFURANTOIN MONOHYD/M-CRYST 100 MG CAP PO SCH ×2 (09:11→21:07)
[2019-01-25] MEDS: NICOTINE 21MG/24HR PATCH TRANSDERM SCH (09:12)
[2019-01-25] MEDS: PANTOPRAZOLE 40 MG TABLET PO SCH (09:12)
[2019-01-25] MEDS: CYCLOBENZAPRINE 10 MG TAB PO SCH ×2 (09:13→21:07)
[2019-01-25] MEDS: predniSONE 20 MG TAB PO SCH (09:13)
[2019-01-25] MEDS: levETIRAcetam 500 MG TAB PO SCH ×2 (09:13→21:08)
[2019-01-25] MEDS: MONTELUKAST 10 MG TAB PO SCH (09:13)
[2019-01-25] MEDS: DOCUSATE 100 MG CAP PO SCH (09:13)
[2019-01-25] MEDS: MORPHINE SULFATE ER 15 MG TABLET PO SCH ×2 (09:14→21:07)
[2019-01-25] MEDS: HEPARIN SODIUM,PORCINE 5,000 UNIT/ML 1 ML VIAL SQ SCH ×2 (09:14→21:08)
[2019-01-25] MEDS: MAG HYDROX/AL HYDROX/SIMETH 30 ML, LIDOCAINE VISCOUS 30 ML, diphenhydrAMINE ELIXIR 75 M... PO SCH ×12 (09:14→21:08)
--- NOTE | 2019-01-25 09:26 | P.PN ---
Subjective Progress Note Date: 01/25/19 Patient seen and evaluated at bedside. She was diuresed yesterday and her swelling is improved. She continues to feel weak but her breathing is stable. She denies chest pain or shortness of breath. Pt continues to require 2 L O2. Planning on discharge to [facility] likely Sunday. Objective - Vital Signs Vital signs: Vital Signs Temp 97.7 F 01/25/19 05:00 Pulse 104 H 01/25/19 07:53 Resp 16 01/25/19 05:00 BP 131/85 01/25/19 05:00 Pulse Ox 96 01/25/19 05:00 Intake & Output 01/24/19 01/25/19 01/25/19 18:59 06:59 18:59 Intake Total 240 700 Output Total 300 Balance 240 400 Weight 101.151 kg Intake: Oral 240 700 Output: Urine 300 Other: Voiding Method Bedside Commode # Voids 1 - Exam General: no apparent distress, alert Head: cushingoid facies Lungs: normal respiratory effort. Minimal wheezing. No rales CV: RRR, no murmur Extremities: 2+ edema BLE, 2+ edema BUE - Labs CBC & Chem 7: 01/25/19 07:18 01/24/19 09:00 Labs: Abnormal Lab Results - Last 24 Hours (Table) 01/24/19 01/24/19 01/25/19 Range/Units 09:00 09:00 07:18 RBC 3.20 L 3.38 L (3.80-5.40) m/uL Hgb 10.5 L 11.3 L (11.4-16.0) gm/dL Hct 32.2 L 33.7 L (34.0-46.0) % MCV 100.5 H (80.0-100.0) fL RDW 16.2 H 16.1 H (11.5-15.5) % Plt Count 136 L 144 L (150-450) k/uL Lymphocytes # 0.5 L 0.6 L (1.0-4.8) k/uL Sodium 134 L (137-145) mmol/L Chloride 96 L (98-107) mmol/L Carbon Dioxide 31 H (22-30) mmol/L BUN 25 H (7-17) mg/dL Glucose 105 H (74-99) mg/dL Total Protein 5.5 L (6.3-8.2) g/dL Albumin 3.2 L (3.5-5.0) g/dL Microbiology - Last 24 Hours (Table) 01/21/19 13:03 Blood Culture - Preliminary Blood No Growth after 72 hours 01/21/19 12:37 Blood Culture - Preliminary Blood No Growth after 72 hours Assessment and Plan Assessment: 1. COPD exacerbation in the setting of small cell lung cancer, improved. Chest x-ray on admission compatible with patient's history of lung cancer. CT chest shows coarse infiltrates and right upper lobe and scarring consistent with treated lung cancer. Pulmonology following. Continue nebs and prednisone. She will need to be on home O2 at discharge. 2. 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 Keppra dosing by Neuro 3. Presyncope: Likely secondary to above. EEG completed, no seizure 4. Blurry vision: recommend follow up with Ophthalmology outpatient 5. Swelling of bilateral upper and lower extremities, improved: Venous doppler studies were performed and negative. Likely secondary to chronic steroid use 6. Hyponatremia, improved: Secondary to long-term steroid use 7. Nicotine dependence: Continue nicotine replacement 8. Hypothyroidism: Continue Synthroid 9. Essential hypertension: Continue home meds 10. Impaired mobility/ADLs. PT/OT recommending LUIS E. Planning on discharge to [facility] Pulmonary, Neurology services following DVT prophylaxis heparin. GI prophylaxis Protonix
[2019-01-25] MEDS: LEVOFLOXACIN 750 MG TAB PO SCH (15:32)
[2019-01-25] MEDS: POLYETHYLENE GLYCOL 3350 17 GM POWD.PACK PO SCH (21:11)
[2019-01-25] MEDS: SERTRALINE 50 MG TAB PO SCH (22:26)
[2019-01-26] MEDS: IPRATROPIUM-ALBUTEROL 3 ML NEB INHALATION SCH ×7 (00:21→23:20)
[2019-01-26] MEDS: SALT AND SODA MOUTHWASH 1,000 ML PO SCH ×5 (00:41→20:19)
[2019-01-26] MEDS: oxyCODONE-APAP 10-325MG 1 EACH TAB PO PRN ×2 (04:32→16:26)
[2019-01-26] MEDS: LEVOTHYROXINE 50 MCG TAB PO SCH (05:28)
[2019-01-26] MEDS: FORMOTEROL FUMARATE 20 MCG/2 ML NEBU INHALATION SCH ×2 (07:43→19:18)
[2019-01-26] MEDS: BUDESONIDE 1 MG/2 ML NEBU INHALATION SCH ×2 (07:43→19:18)
[2019-01-26] MEDS: DOCUSATE 100 MG CAP PO SCH (09:37)
[2019-01-26] MEDS: NICOTINE 21MG/24HR PATCH TRANSDERM SCH (09:37)
[2019-01-26] MEDS: MONTELUKAST 10 MG TAB PO SCH (09:37)
[2019-01-26] MEDS: predniSONE 20 MG TAB PO SCH (09:38)
[2019-01-26] MEDS: levETIRAcetam 500 MG TAB PO SCH ×2 (09:38→20:19)
[2019-01-26] MEDS: CYCLOBENZAPRINE 10 MG TAB PO SCH ×2 (09:38→20:19)
[2019-01-26] MEDS: HEPARIN SODIUM,PORCINE 5,000 UNIT/ML 1 ML VIAL SQ SCH ×2 (09:38→20:19)
[2019-01-26] MEDS: PANTOPRAZOLE 40 MG TABLET PO SCH (09:38)
[2019-01-26] MEDS: MORPHINE SULFATE ER 15 MG TABLET PO SCH ×2 (09:38→20:19)
[2019-01-26] MEDS: NITROFURANTOIN MONOHYD/M-CRYST 100 MG CAP PO SCH ×2 (09:39→20:21)
[2019-01-26] MEDS: MAG HYDROX/AL HYDROX/SIMETH 30 ML, LIDOCAINE VISCOUS 30 ML, diphenhydrAMINE ELIXIR 75 M... PO SCH ×12 (09:41→22:06)
[2019-01-26] MEDS: LEVOFLOXACIN 750 MG TAB PO SCH (16:26)
--- NOTE | 2019-01-26 18:59 | PN ---
PROGRESS NOTE DATE OF SERVICE: 01/26/2019 I am covering for Dr. Norman Mckenzie. This 48-year-old woman was admitted with COPD acute exacerbation in the setting of small-cell lung cancer, still has significant shortness of breath. The patient also had generalized tiredness and weakness. The patient had cushingoid features. Dr. Osorio and neurology following the patient closely. PT/OT evaluation, possible ECF at [facility] is being considered. PAST MEDICAL HISTORY: Reviewed. REVIEW OF SYSTEMS: CARDIOVASCULAR: No angina or palpitations. RESPIRATORY: As mentioned earlier. GI: No nausea. : No dysuria. NERVOUS SYSTEM: No numbness or tingling. CURRENT MEDICATIONS: Reviewed and include: 1. DuoNeb q.i.d. and p.r.n. 2. Pulmicort 1 mg b.i.d. 3. Flexeril 10 mg p.o. b.i.d. 4. Colace 100 mg daily. 5. Vitamin D2 50,000 p.o. Sunday. 6. Perforomist 20 mcg b.i.d. 7. Heparin 5 subcu b.i.d. 8. Keppra 1000 mg b.i.d. 9. Levaquin 750 daily. 10.Synthroid 25 mcg p.o. 11.Singulair 10 mg daily. 12.MS Contin 15 mg p.o. b.i.d. 13.Habitrol 21. 14.Macrobid 100 mg p.o. b.i.d. 15.Percocet 10 mg q.4 p.r.n. 16.Protonix 40 mg a.c. breakfast. 17.MiraLAX 17 g p.o. q.h.s. 18.Prednisone 30 mg p.o. 19.Zoloft 50 mg q.h.s. 20.Sodium bicarb. PHYSICAL EXAM: Patient is alert, oriented. Pulse is 111, blood pressure is 136/87, respiration 16, temperature 98.1, pulse ox 98% on 2 L. HEENT: Conjunctivae normal. Oral mucosa moist. The patient has cushingoid features as mentioned earlier. CARDIOVASCULAR: S1, S2 RESPIRATORY: Breath sounds diminished in the bases. Bilateral scattered rhonchi and expiratory wheezing and crackles also. Expirations also prolonged. ABDOMEN: Soft, obese, nontender. No mass palpable. LEGS: No edema, no swelling. NERVOUS SYSTEM: Higher functions as mentioned. Moves all 4 limbs. No focal motor or sensory deficit. Mild diffuse weakness. LABS: WBC 7.2, hemoglobin 11.2. Sodium 134. Otherwise albumin is 3.2. UA noted. The cultures are showing Citrobacter freundii in the urine culture and sputum Elizabeth albicans in the sputum. ASSESSMENT: 1. Chronic obstructive pulmonary disease acute exacerbation with acute purulent tracheobronchitis. 2. History of small-cell lung cancer. 3. Mets to the brain. 4. Cushingoid features and syndrome. 5. Presyncope. 6. Blurry vision. 7. Swelling of the bilateral upper and lower extremities. 8. Hyponatremia. 9. History of nicotine dependence. 10.Hypothyroidism. 11.History of hypertension. 12.Gait dysfunction. 13.Anemia of chronic disease. RECOMMENDATIONS AND DISCUSSION: This 48-year-old woman who presented with multiple medical issues, at this time. I recommend to continue current management. Recommend to continue with bronchodilators. I would also continue with DVT prophylaxis, tapering steroids. PT, OT evaluation. Recommend repeat labs and Dr. Mckenzie will follow. MMODL / IJN: [id number] /
[2019-01-26] MEDS: SERTRALINE 50 MG TAB PO SCH (20:21)
[2019-01-26] MEDS: POLYETHYLENE GLYCOL 3350 17 GM POWD.PACK PO SCH (20:21)
[2019-01-27] MEDS: SALT AND SODA MOUTHWASH 1,000 ML PO SCH ×6 (00:14→23:07)
[2019-01-27] MEDS: oxyCODONE-APAP 10-325MG 1 EACH TAB PO PRN ×5 (00:30→18:34)
[2019-01-27] MEDS: IPRATROPIUM-ALBUTEROL 3 ML NEB INHALATION SCH ×6 (02:19→23:37)
[2019-01-27] MEDS: LEVOTHYROXINE 50 MCG TAB PO SCH (05:17)
[2019-01-27 08:26] LABS: African American GFR (CKD) >90 (>60 ml/min/1.73 sqM); Anion Gap 8 mmol/L; Blood Urea Nitrogen 24 mg/dL (7-17); Calcium 9.2 mg/dL (8.4-10.2); Carbon Dioxide 28 mmol/L (22-30); Chloride 100 mmol/L (98-107); Glucose 73 mg/dL (74-99); Sodium 136 mmol/L (137-145)
[2019-01-27] MEDS: BUDESONIDE 1 MG/2 ML NEBU INHALATION SCH ×2 (09:10→20:41)
[2019-01-27] MEDS: FORMOTEROL FUMARATE 20 MCG/2 ML NEBU INHALATION SCH ×2 (09:10→20:41)
[2019-01-27] MEDS: NICOTINE 21MG/24HR PATCH TRANSDERM SCH (09:46)
[2019-01-27] MEDS: levETIRAcetam 500 MG TAB PO SCH ×2 (09:46→22:02)
[2019-01-27] MEDS: PANTOPRAZOLE 40 MG TABLET PO SCH (09:46)
[2019-01-27] MEDS: DOCUSATE 100 MG CAP PO SCH (09:46)
[2019-01-27] MEDS: MORPHINE SULFATE ER 15 MG TABLET PO SCH ×2 (09:47→22:02)
[2019-01-27] MEDS: MONTELUKAST 10 MG TAB PO SCH (09:47)
[2019-01-27] MEDS: CYCLOBENZAPRINE 10 MG TAB PO SCH ×2 (09:47→22:02)
[2019-01-27] MEDS: predniSONE 20 MG TAB PO SCH (09:48)
[2019-01-27] MEDS: NITROFURANTOIN MONOHYD/M-CRYST 100 MG CAP PO SCH ×2 (09:49→22:03)
[2019-01-27] MEDS: MAG HYDROX/AL HYDROX/SIMETH 30 ML, LIDOCAINE VISCOUS 30 ML, diphenhydrAMINE ELIXIR 75 M... PO SCH ×12 (09:53→22:03)
[2019-01-27] MEDS: HEPARIN SODIUM,PORCINE 5,000 UNIT/ML 1 ML VIAL SQ SCH ×2 (09:53→22:02)
--- NOTE | 2019-01-27 09:56 | P.DS ---
Providers Date of admission: 01/15/19 14:09 Attending physician: Norman Mckenzie MD Consults: 01/15/19 14:09 Consult Physician Routine Consulting Provider: Sherri Osorio Consult Reason/Comments: COPD exacerbation, lung cancer Do you want consulting provider notified?: Yes 01/15/19 15:01 Consult Physician Routine Consulting Provider: Maximo Yañez Consult Reason/Comments: Known metastatic lung cancer to brain established patient Do you want consulting provider notified?: Yes 01/17/19 13:48 Consult Physician Routine Consulting Provider: Patrick Mo Consult Reason/Comments: Blurry vision recent craniotomy Do you want consulting provider notified?: Yes 01/20/19 23:50 Consult Physician Routine Consulting Provider: Leland Moreau Consult Reason/Comments: Near syncopal episode Do you want consulting provider notified?: Yes, Notify in am Primary care physician: [facility] Course: Karmen Montelongo is a 48 yo F with PMH of 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 Her shortness of breath had been occurring for multiple months but has significantly increased in the few days prior to admission. Patient also on dexamethasone due to recent craniotomy surgery 2 weeks ago at [facility]. Patient reports because the steroid she's had an increase of 20 pound weight gain. Patient reports that she follows with oncology services Dr. Osuna along with pulmonary services. Chest x-ray in the ED compatible with patient's history of lung carcinoma. Pulmonary and oncology services were consulted and she was treated for COPD exacerbation with IV solumedrol and duonebs. She complained of swelling of her bilateral extremities and venous doppler studies were performed which were negative. She was noted to be hypoalbuminemic with anasarca and her edema is likely secondary to this. She also mentioned blurry vision since her craniotomy and Neurology was consulted, they performed brain imaging and recommended she follow up with Ophthalmology. On 01/20, pt had an episode of decreased responsiveness and hypotension, Cardiology was consulted and no evidence of heart failure, recommended d/c lisinopril. Neurology performed EEG which did not show seizure activity, and checked keppra levels which resulted high, thus her keppra dose was reduced to 1000 mg bid. Her blood and sputum cultures remained negative and during her hospitalization pt's breathing status improved. She did have a positive urine culture for citrobacter, and was started on levaquin and macrobid. [facility] and will resume home medication and dexamethasone dose and complete antibiotics. Physical examination: VITAL SIGNS: [Reviewed. BMI noted] GENERAL: [Cushingoid facies, NAD]. EYES: [Pupils equal. Conjunctiva theodora]l. HEENT: [External appearance of nose and ears normal, oral cavity grossly normal]. NECK: [JVD not raised; masses not palpable]. HEART: [First and second heart sounds are normal; 2+ edema LUE and LLE. 1+ edema RUE and RLE]. LUNGS:[ Respiratory rate normal; clear to auscultation]. ABDOMEN: [Soft, nontender, liver spleen not palpable, no masses palpable]. LYMPHATICS: [No lymph nodes palpable in the axilla and neck]. PSYCH: [Alert and oriented x3; mood and affect theodora]l. NEUROLOGICAL: [Cranial nerves grossly intact; no facial asymmetry, power and sensation grossly intact]. Patient Condition at Discharge: Fair Plan - Discharge Summary Discharge Rx Participant: No New Discharge Prescriptions: New diphenhydrAMINE ELIXIR [Benadryl Elixir] 75 mg PO TID cup Docusate [Colace] 100 mg PO DAILY cap Nitrofurantoin Monohyd/M-Cryst [Macrobid] 100 mg PO BID 3 Days #6 cap Polyethylene Glycol 3350 [Miralax] 17 gm PO HS powd.pack Nystatin 100,000 Unit/ml Susp [Mycostatin Oral Susp] 3,000,000 unit PO TID cup Pantoprazole [Protonix] 40 mg PO AC-BRKFST tablet. Lidocaine Viscous [Xylocaine Viscous 2%] 30 ml PO TID ml Levofloxacin [Levaquin] 750 mg PO DAILY@1600 5 Days #5 tab Continue Levothyroxine Sodium [Synthroid] 25 mcg PO DAILY Albuterol Inhaler [Ventolin Hfa Inhaler] 1 - 2 puff INHALATION RT-Q6H PRN PRN Reason: Wheezing Umeclidinium [place] [Incruse Ellipta] 1 puff INHALATION RT-DAILY Ipratropium-Albuterol Nebulize [Duoneb 0.5 mg-3 mg/3 ml Soln] 3 ml INHALATION RT-BID PRN PRN Reason: Shortness Of Breath Ergocalciferol (Vitamin D2) [Vitamin D2] 50,000 units PO FR Montelukast [Singulair] 10 mg PO DAILY Nicotine 21Mg/24Hr Patch [Habitrol] 1 patch TRANSDERM DAILY Sertraline [Zoloft] 50 mg PO HS levETIRAcetam [Keppra] 1,000 mg PO Q12HR Dexamethasone 2 mg PO BID oxyCODONE-APAP 10-325MG [Percocet 10-325 mg] 1 tab PO Q6HR PRN PRN Reason: Pain Morphine Sulfate [Morphine Sulfate ER] 15 mg PO Q12H PRN PRN Reason: Pain Mometasone/Formoterol [Dulera 200 Mcg/5 Mcg Inhaler] 2 puff INHALATION RT-BID Cyclobenzaprine [Flexeril] 10 mg PO BID Discontinued Lisinopril [Prinivil] 20 mg PO DAILY levETIRAcetam [Keppra] 250 mg PO Q12H Discharge Medication List Albuterol Inhaler [Ventolin Hfa Inhaler] 1 - 2 puff INHALATION RT-Q6H PRN 06/18/17 [History] Ipratropium-Albuterol Nebulize [Duoneb 0.5 mg-3 mg/3 ml Soln] 3 ml INHALATION RT-BID PRN 06/18/17 [History] Levothyroxine Sodium [Synthroid] 25 mcg PO DAILY 06/18/17 [History] Umeclidinium [place] [Incruse Ellipta] 1 puff INHALATION RT-DAILY 06/18/17 [History] Ergocalciferol (Vitamin D2) [Vitamin D2] 50,000 units PO FR 07/09/17 [History] Montelukast [Singulair] 10 mg PO DAILY 07/10/17 [History] Nicotine 21Mg/24Hr Patch [Habitrol] 1 patch TRANSDERM DAILY 10/11/18 [History] Cyclobenzaprine [Flexeril] 10 mg PO BID 01/15/19 [History] Dexamethasone 2 mg PO BID 01/15/19 [History] Mometasone/Formoterol [Dulera 200 Mcg/5 Mcg Inhaler] 2 puff INHALATION RT-BID 01/15/19 [History] Morphine Sulfate [Morphine Sulfate ER] 15 mg PO Q12H PRN 01/15/19 [History] Sertraline [Zoloft] 50 mg PO HS 01/15/19 [History] levETIRAcetam [Keppra] 1,000 mg PO Q12HR 01/15/19 [History] oxyCODONE-APAP 10-325MG [Percocet 10-325 mg] 1 tab PO Q6HR PRN 01/15/19 [History] Docusate [Colace] 100 mg PO DAILY cap 01/27/19 [Rx] Levofloxacin [Levaquin] 750 mg PO DAILY@1600 5 Days #5 tab 01/27/19 [Rx] Lidocaine Viscous [Xylocaine Viscous 2%] 30 ml PO TID ml 01/27/19 [Rx] Nitrofurantoin Monohyd/M-Cryst [Macrobid] 100 mg PO BID 3 Days #6 cap 01/27/19 [Rx] Nystatin 100,000 Unit/ml Susp [Mycostatin Oral Susp] 3,000,000 unit PO TID cup 01/27/19 [Rx] Pantoprazole [Protonix] 40 mg PO AC-BRKFST tablet. 01/27/19 [Rx] Polyethylene Glycol 3350 [Miralax] 17 gm PO HS powd.pack 01/27/19 [Rx] diphenhydrAMINE ELIXIR [Benadryl Elixir] 75 mg PO TID cup 01/27/19 [Rx] Follow up Appointment(s)/Referral(s): Soni Mckenzie DO [Primary Care Provider] - 1-2 days [facility], [NON-STAFF] - Avinash Linares MD [STAFF PHYSICIAN] - 02/05/19 1:30 pm (Follow Up appt) Activity/Diet/Wound Care/Special Instructions: Cardiology cleared [place]ud[place] at [place] contact [facility] for Home O2 Discharge Disposition: TRANSFER TO SNF/ECF
[2019-01-27 12:37] LABS: Anisocytosis Slight; HCT 32.7 % (34.0-46.0); HGB 11.1 gm/dL (11.4-16.0); MCH 33.2 pg (25.0-35.0); MCHC 33.9 g/dL (31.0-37.0); Macrocytosis Slight; Mean Platelet Volume 8.5; Platelet Count 130 k/uL (150-450); RBC 3.34 m/uL (3.80-5.40); RDW 17.2 % (11.5-15.5)
[2019-01-27 13:31] LABS: Band Neutrophils % 4 %; Eosinophils # (M) 0.09 k/uL (0-0.7); Metamyelocytes # (M) 0.17 k/uL (0); Metamyelocytes % 2 %; Monocytes # (M) 0.26 k/uL (0-1.0); Myelocytes # (M) 0.17 k/uL (0); Myelocytes % 2 %; Neutrophils % (M) 82 %; Nucleated Red Blood Cells 1 /100 WBC (0-0); Total Cells Counted 200
[2019-01-27 13:32] LABS: Lymphocytes # (M) 0.69 k/uL (1.0-4.8); Poikilocytosis (M) Present; Polychromasia Present; WBC 8.6 k/uL (3.8-10.6)
[2019-01-27] MEDS: LEVOFLOXACIN 750 MG TAB PO SCH (17:50)
[2019-01-27] MEDS: POLYETHYLENE GLYCOL 3350 17 GM POWD.PACK PO SCH (22:03)
[2019-01-27] MEDS: SERTRALINE 50 MG TAB PO SCH (22:03)
[2019-01-27 23:16] VITALS: TEMP 97.8
[2019-01-28] MEDS: oxyCODONE-APAP 10-325MG 1 EACH TAB PO PRN ×3 (03:12→18:04)
[2019-01-28] MEDS: IPRATROPIUM-ALBUTEROL 3 ML NEB INHALATION SCH ×4 (03:22→15:58)
[2019-01-28] MEDS: LEVOTHYROXINE 50 MCG TAB PO SCH (05:24)
[2019-01-28] MEDS: SALT AND SODA MOUTHWASH 1,000 ML PO SCH ×3 (05:24→18:02)
[2019-01-28] MEDS: BUDESONIDE 1 MG/2 ML NEBU INHALATION SCH (09:36)
[2019-01-28] MEDS: FORMOTEROL FUMARATE 20 MCG/2 ML NEBU INHALATION SCH (09:36)
[2019-01-28] MEDS: PANTOPRAZOLE 40 MG TABLET PO SCH (09:46)
[2019-01-28] MEDS: HEPARIN SODIUM,PORCINE 5,000 UNIT/ML 1 ML VIAL SQ SCH (09:46)
[2019-01-28] MEDS: DOCUSATE 100 MG CAP PO SCH ×2 (09:47→09:53)
[2019-01-28] MEDS: CYCLOBENZAPRINE 10 MG TAB PO SCH (09:47)
[2019-01-28] MEDS: predniSONE 20 MG TAB PO SCH (09:47)
[2019-01-28] MEDS: levETIRAcetam 500 MG TAB PO SCH (09:47)
[2019-01-28] MEDS: MORPHINE SULFATE ER 15 MG TABLET PO SCH (09:47)
[2019-01-28] MEDS: NICOTINE 21MG/24HR PATCH TRANSDERM SCH (09:49)
[2019-01-28] MEDS: MONTELUKAST 10 MG TAB PO SCH (09:49)
[2019-01-28] MEDS: NITROFURANTOIN MONOHYD/M-CRYST 100 MG CAP PO SCH (09:49)
[2019-01-28] MEDS: MAG HYDROX/AL HYDROX/SIMETH 30 ML, LIDOCAINE VISCOUS 30 ML, diphenhydrAMINE ELIXIR 75 M... PO SCH ×8 (09:51→18:02)
[2019-01-28 11:42] VITALS: BP 121/79
[2019-01-28 16:02] VITALS: RESP 20
[2019-01-28 16:14] VITALS: PULSE 110
[2019-01-28] MEDS: LEVOFLOXACIN 750 MG TAB PO SCH (18:01)
== END 2019-01-28 18:25 | DRG 190 ==
LOC: EC 11:16 → 3NMEDONC 14:09 → 3SCARD 01-21 02:08 → 3NMEDONC 01-24 15:30
PROVIDERS: ADMIT Family Medicine; ATTEND Family Medicine
PROC: 05HD33Z Insertion of Infusion Device into Right Cephalic Vein, Percutaneous Approach (ICD-10-PCS; principal; 2019-01-20 14:30)
DX: J44.1 Chronic obstructive pulmonary disease with (acute) exacerbation (principal); G93.6 Cerebral edema; J80 Acute respiratory distress syndrome; B37.0 Candidal stomatitis; C34.01 Malignant neoplasm of right main bronchus; C79.31 Secondary malignant neoplasm of brain; E87.1 Hypo-osmolality and hyponatremia; I31.3 Pericardial effusion (noninflammatory); N17.9 Acute kidney failure, unspecified; N39.0 Urinary tract infection, site not specified; Z68.41 Body mass index [BMI] 40.0-44.9, adult; G93.49 Other encephalopathy; E24.2 Drug-induced Cushing's syndrome; Z87.891 Personal history of nicotine dependence; D63.8 Anemia in other chronic diseases classified elsewhere; E03.9 Hypothyroidism, unspecified; E87.70 Fluid overload, unspecified; E88.09 Other disorders of plasma-protein metabolism, not elsewhere classified; F41.9 Anxiety disorder, unspecified; I10 Essential (primary) hypertension; K59.00 Constipation, unspecified; T50.2X5A Adverse effect of carbonic-anhydrase inhibitors, benzothiadiazides and other diuretics, initial encounter; T38.0X5A Adverse effect of glucocorticoids and synthetic analogues, initial encounter; R56.9 Unspecified convulsions; Z79.51 Long term (current) use of inhaled steroids; Z79.52 Long term (current) use of systemic steroids; Z79.890 Hormone replacement therapy; Z79.899 Other long term (current) drug therapy; Z82.3 Family history of stroke; Z87.01 Personal history of pneumonia (recurrent); Z92.3 Personal history of irradiation; R63.5 Abnormal weight gain; R55 Syncope and collapse; H53.8 Other visual disturbances; Z88.8 Allergy status to other drugs, medicaments and biological substances; Z98.890 Other specified postprocedural states; R51 Headache
CPT/HCPCS: 36410; 36415; 70450; 71046; 71260; 76937; 80048; 80053; 80177; 81001; 83605; 83735; 83880; 84443; 84484; 85025; 85379; 85610; 85730; 87040; 87070; 87077; 87086; 87186; 87205; 93005; 93306; 93970; 94640; 94760; 95816; 96374; 96375; 99291